=== PATIENT | female | born 1955 | race Caucasian/White ===

== ENCOUNTER → 2020-04-12 11:46 | Outpatient (BNVA) | payer OTHER, SELFPAY | PROVIDERS: PCP Internal Medicine; Visit Provider Internal Medicine | DX: J44.9 Chronic obstructive pulmonary disease, unspecified (principal); J96.91 Respiratory failure, unspecified with hypoxia; F17.200 Nicotine dependence, unspecified, uncomplicated | CPT/HCPCS: 99212 ==

== ENCOUNTER → 2020-07-11 13:25 | Outpatient (BNVA) | payer OTHER, MEDICAID, SELFPAY | PROVIDERS: Visit Provider Anesthesiology | DX: M47.812 Spondylosis without myelopathy or radiculopathy, cervical region (principal); M50.30 Other cervical disc degeneration, unspecified cervical region; M19.011 Primary osteoarthritis, right shoulder | CPT/HCPCS: 99202 ==

== ENCOUNTER 2020-07-19 08:05 | Outpatient (REF) | payer OTHER, MEDICAID, SELFPAY ==
--- NOTE | ~2020-07-19 | MR_ITS ---
EXAMINATION: MR CERVICAL SPINE WITHOUT CONTRAST CLINICAL INFORMATION: Neck pain. COMPARISON: MRI dated 08/17/2012. TECHNIQUE: MRI of the cervical spine was obtained using routine sequences without contrast. Slightly limited study with motion artifacts. FINDINGS: VERTEBRAL BODIES AND PARASPINAL SOFT TISSUES: There are new anterior subluxations at the C3-C4 and more so at the C4-C5 levels. Mixed chronic and mild edematous endplate changes evident at C4-C5 with significant disc space narrowing. There is a leftward curvature of the cervical spine. Qphgoaia-lk-owhytu loss of disc height has worsened at the C5-C6 level with a mild retrosubluxation. No compression fractures. The paraspinal soft tissues appear normal. The vertebral artery flow voids are maintained. The lung apices are clear. CERVICOMEDULLARY JUNCTION AND VISUALIZED POSTERIOR FOSSA: The craniovertebral junction and imaged portions of the brain parenchyma appear normal. No definite cord signal abnormality or syrinx is seen, despite motion artifacts. SPINAL LEVELS: C2-C3: Mild retrosubluxation and disc bulge with uncovertebral joint spurring. No central canal stenosis. Mild right foraminal narrowing. C3-C4: New anterior subluxation and unroofed disc bulge with uncovertebral joint spurring and worsened moderate hypertrophic facet arthropathy. Findings result in severe foraminal encroachment. No central canal stenosis. C4-C5: New anterior subluxation with a disc-osteophyte complex and sgbkeayy-ph-nofzuv facet arthropathy, worse on the right side. Findings result in severe foraminal encroachment and moderate central canal stenosis which has worsened. C5-C6: Significant loss of disc height with a broad-based disc-osteophyte complex and severe foraminal encroachment with mild central canal stenosis. C6-C7: Moderate loss of disc height and disc-osteophyte complex without central canal stenosis. Mild foraminal narrowing. C7-T1: No significant disc pathology. No central canal stenosis or foraminal narrowing. MR/MR cervical spine wo con IMPRESSION: 1. Progressed multilevel spondylosis, most significant at the C4-C5 level with a new anterolisthesis and mixed chronic/edematous endplate changes. Worsened disc-osteophyte complex and facet arthrosis resulting in moderate central canal stenosis and severe foraminal narrowing. 2. New anterolisthesis and degenerative disc bulge with progressed facet arthropathy at the C3-C4 level resulting in severe bilateral foraminal encroachment without central canal stenosis. 3. Worsened otwbvjah-nb-hebbwo degenerative disc disease at the C5-C6 level with severe foraminal narrowing and mild central canal stenosis.
== END 2020-07-19 08:06 | disposition home or self-care (01) ==
LOC: HO.MRI 08:05
PROVIDERS: Visit Provider Anesthesiology
DX: M54.2 Cervicalgia (principal); M47.812 Spondylosis without myelopathy or radiculopathy, cervical region
CPT/HCPCS: 72141

== ENCOUNTER 2020-08-10 11:16 | Outpatient (REF) | payer OTHER, MEDICAID, SELFPAY ==
--- NOTE | ~2020-08-10 | MM_ITS ---
EXAMINATION: MM SCREENING DIGITAL BREAST TOMOSYNTHESIS, BILATERAL CLINICAL INFORMATION: Screening. Asymptomatic. The lifetime risk of breast cancer based on the Tyrer-Cuzick Model is 5%. COMPARISON: Mammography: 05/03/2016, 04/23/2016 TECHNIQUE: Digital breast tomosynthesis is performed in both the craniocaudal and mediolateral oblique views along with computer-aided detection (CAD). Synthesized 2D images are generated from the tomosynthesis. FINDINGS: There are scattered areas of fibroglandular density (ACR BI-RADS breast composition Category b). Parenchymal pattern is similar to prior study. There is no interval mass or architectural abnormality or abnormal calcifications. There are benign grouped calcifications mid lower inner left breast, possibly degenerating fibroadenoma. Benign finding vascular calcifications 11:30 o'clock anterior left breast also noted. The axilla and skin contours are unremarkable. MM/MM tomosynthesis screening BI IMPRESSION: No mammographic evidence of malignancy. ASSESSMENT: BI-RADS 2: Benign RECOMMENDATION: Routine annual mammography screening. This patient's information was entered into a reminder system with a target due date for their next mammogram.
== END 2020-08-10 11:17 | disposition home or self-care (01) ==
LOC: HO.MAMMO 11:16
PROVIDERS: PCP Internal Medicine; Visit Provider Internal Medicine
DX: Z12.31 Encounter for screening mammogram for malignant neoplasm of breast (principal)
CPT/HCPCS: 77063; 77067

== ENCOUNTER → 2021-01-09 13:54 | Outpatient (BNVA) | payer OTHER, MEDICAID, SELFPAY | PROVIDERS: PCP Internal Medicine; Visit Provider Internal Medicine ==

== ENCOUNTER → 2021-03-21 11:18 | Outpatient (BNVA) | payer MEDICARE, MEDICAID, OTHER, SELFPAY | PROVIDERS: PCP Internal Medicine; Visit Provider Internal Medicine | DX: J44.9 Chronic obstructive pulmonary disease, unspecified (principal); J96.91 Respiratory failure, unspecified with hypoxia; F17.210 Nicotine dependence, cigarettes, uncomplicated | CPT/HCPCS: Q3014 ==

== ENCOUNTER 2021-05-03 08:54 | Outpatient (REF) | payer MEDICARE, MEDICAID, SELFPAY ==
--- NOTE | ~2021-05-03 | US_ITS ---
EXAMINATION: US ABDOMEN COMPLETE CLINICAL INFORMATION: Alcoholic cirrhosis of liver without ascites. COMPARISON: Ultrasound abdomen complete 06/10/2017 and 08/29/2016. TECHNIQUE: Real-time imaging of the abdominal viscera. Technically limited study secondary to body habitus. FINDINGS: PANCREAS: The head and body appear unremarkable without focal mass or peripancreatic inflammatory change. The tail is not visualized due to overlying bowel gas. ABDOMINAL AORTA: INFERIOR VENA CAVA: Visualized portions are normal. LIVER: There is increased echogenicity consistent with fatty infiltration or hepatocellular disease. There appears to be some irregular borders to the liver. No focal hepatic lesion. There is no intrahepatic biliary duct dilatation seen. GALLBLADDER: There is echogenic bile present as well as cholelithiasis. No gallbladder wall thickening is appreciated and no fluid within the gallbladder wall is seen. No pericholecystic fluid. There was no tenderness to palpation overlying the gallbladder. COMMON BILE DUCT: Prominent in caliber measuring 0.9 cm in diameter. RIGHT KIDNEY: Normal. No hydronephrosis. No renal calculi or focal parenchymal lesions. The kidney measures 10.7 cm in maximum dimension. LEFT KIDNEY: Normal. No hydronephrosis. No renal calculi or focal parenchymal lesions. The kidney measures 10.0 cm in maximum dimension. SPLEEN: Normal. The spleen measures 7.9 cm in maximum dimension. FREE FLUID: None. US/US abdomen complete IMPRESSION: Increased echogenicity of the liver which may be related to fatty infiltration/hepatocellular disease. Cholelithiasis without evidence of acute cholecystitis.
== END 2021-05-03 08:55 | disposition home or self-care (01) ==
LOC: HO.US 08:54
PROVIDERS: Visit Provider Internal Medicine
DX: R13.10 Dysphagia, unspecified (principal); K70.30 Alcoholic cirrhosis of liver without ascites
CPT/HCPCS: 76700

== ENCOUNTER 2021-05-16 08:23 | Outpatient (REF) | payer MEDICARE, MEDICAID, SELFPAY ==
[2021-05-16 09:33] LABS: Anion Gap 15 (12-20); Blood Urea Nitrogen 4 mg/dL (9-16); Calcium 8.9 mg/dL (8.4-10.2); Carbon Dioxide 28 mmol/L (22-29); Chloride 104 mmol/L (96-108); Cholesterol 199 mg/dL; Estimated Glomerular Filt Rate > 60; Glucose Fasting 115 mg/dL (60-99); HDL Cholesterol 72 mg/dL; LDL Cholesterol Calculated 107 mg/dl; Sodium 143 mmol/L (135-145); Triglycerides 102 mg/dL
[2021-05-16 10:29] LABS: Vitamin D 25-OH Total < 3.4 ng/mL (>30)
== END 2021-05-16 08:24 | disposition home or self-care (01) ==
LOC: HO.XRAY 08:23
PROVIDERS: Absent Provider Internal Medicine; PCP Internal Medicine; Visit Provider Internal Medicine
DX: Z00.01 Encounter for general adult medical examination with abnormal findings (principal); K21.9 Gastro-esophageal reflux disease without esophagitis; R13.10 Dysphagia, unspecified; Z78.0 Asymptomatic menopausal state
CPT/HCPCS: 36415; 80048; 80061; 82306

== ENCOUNTER 2021-06-19 08:08 | Outpatient (REF) | payer MEDICARE, MEDICAID, SELFPAY ==
--- NOTE | ~2021-06-19 | FL_ITS ---
EXAMINATION: BARIUM SWALLOW AND UPPER GI CLINICAL INFORMATION: Gastroesophageal reflux disease. Esophageal dysphagia. COMPARISON: None. TECHNIQUE: Upper GI and barium swallow performed using thin and thick barium and effervescent granules. Barium tablet was also administered. Fluoroscopy time: 1.3 minutes. DAP: 5.5 Gy-cm2. Images: 59 saved fluoroscopic images. FINDINGS: The swallowing mechanism is normal. No aspiration or penetration is seen. Esophageal motility is normal. The barium tablet temporarily got stuck at the GE junction. There is gastroesophageal reflux. No hernia is seen. The distal esophagus never fully distends and is difficult to exclude a mild stricture. The stomach and duodenum are normal-appearing. No fold thickening, mass, ulcer or stricture is seen. There is degenerative spondylosis of the cervical spine. There is mild anterior subluxation of C4 with respect to C5. FL/FL upper GI w air w Ba Swallow IMPRESSION: Gastroesophageal reflux. The barium tablet got stuck in this region. The distal esophagus never fully distends and it is difficult to exclude a mild stricture.
[2021-06-19 09:24] LABS: MANUAL DIFF FLAG NO
[2021-06-19 09:52] LABS: Basophils Absolute Auto 0.1 X10*3/uL (0.0-0.2); Basophils Percent Auto 1.4 % (0-2); Eosinophils Absolute Auto 0.1 X10*3/uL (0.0-0.4); Eosinophils Percent Auto 1.7 % (0-4); Hematocrit 43.1 % (37.0-47.0); Hemoglobin 13.2 g/dl (12.0-16.0); Imm Gran Abs Auto 0.02 X10*3/uL (0.00-0.03); Imm Gran Pct Auto 0.3 % (0.0-0.4); Lymphocytes Absolute Auto 1.2 X10*3/uL (1.2-4.9); Lymphocytes Percent Auto 20.3 % (20-40); Mean Corpuscular HGB Conc 30.6 g/dl (31.0-35.0); Mean Corpuscular Hemoglobin 28.4 pg (27.0-33.0); Mean Corpuscular Volume 92.7 fL (80.0-98.0); Monocytes Absolute Auto 0.5 X10*3/uL (0.1-1.2); Monocytes Percent Auto 9.1 % (2-11); Neutrophils Absolute Auto 3.9 x10*3/uL (2.0-8.3); Neutrophils Percent Auto 67.2 % (45-73); Red Blood Count 4.65 X10*6/uL (4.20-5.50); White Blood Count 5.8 X10*3/uL (4.8-10.8)
[2021-06-19 09:57] LABS: Prothrombin Time 11.7 SEC (9.9-13.0)
[2021-06-19 10:17] LABS: Alanine Aminotransferase 26 U/L (0-31); Albumin Level 3.9 g/dL (3.5-5.0); Alkaline Phosphatase 136 U/L (39-117); Aspartate Amino Transferase 52 U/L (5-31); Bilirubin Direct 0.3 mg/dL (0.0-0.5); Bilirubin Total 0.3 mg/dL (0.0-1.0); Total Protein 7.5 g/dL (6.5-8.0)
[2021-06-21 12:06] LABS: Alpha Fetoprotein 1.9 ng/mL
== END 2021-06-19 08:09 | disposition home or self-care (01) ==
LOC: HO.XRAY 08:08
PROVIDERS: PCP Internal Medicine; Visit Provider Internal Medicine
DX: K70.30 Alcoholic cirrhosis of liver without ascites (principal); K21.9 Gastro-esophageal reflux disease without esophagitis; R13.10 Dysphagia, unspecified
CPT/HCPCS: 36415; 74246; 80076; 82105; 85025; 85610

== ENCOUNTER → 2021-06-28 11:28 | Outpatient (BNVA) | payer MEDICARE, MEDICAID, SELFPAY | PROVIDERS: PCP Internal Medicine; Visit Provider Internal Medicine | DX: J44.9 Chronic obstructive pulmonary disease, unspecified (principal); J96.91 Respiratory failure, unspecified with hypoxia; J30.9 Allergic rhinitis, unspecified; F17.210 Nicotine dependence, cigarettes, uncomplicated | CPT/HCPCS: 99212 ==

== ENCOUNTER → 2021-06-30 11:18 | Outpatient (REF) | payer MEDICARE, MEDICAID, SELFPAY ==
--- NOTE | ~2021-06-30 | NM_ITS ---
EXAMINATION: NUCLEAR HEPATOBILIARY SCAN CLINICAL INFORMATION: Gallstones, epigastric pain COMPARISON: None TECHNIQUE: Following intravenous administration of 5 mCi of 99m Tc mebrofenin, imaging over right upper quadrant was obtained up to 60 minutes. Delayed 90 minute image was obtained following oral administration of water. FINDINGS: There is normal hepatic uptake without any focal defect. There is prompt visualization of CBD by 15 minutes. Gallbladder is visualized by 18 minutes. Small bowel is visualized by 90 minutes. NM/NM hepatobiliary wo pharm IMPRESSION: Patent cystic duct. Patent CBD. Normal hepatic uptake.
== END ==
LOC: HO.NUCMED 11:18
PROVIDERS: Visit Provider Internal Medicine
DX: R10.13 Epigastric pain (principal); K80.80 Other cholelithiasis without obstruction
CPT/HCPCS: 78226; A9537

== ENCOUNTER 2021-08-01 06:24 | Day surgery (SDC) | payer MEDICARE, MEDICAID, SELFPAY ==
[2021-07-27 10:34] VITALS: BMI 18.1
[2021-08-01 06:48] VITALS: BP 149/80; PULSE 94; RESP 18; TEMP 37; O2SAT 95
--- NOTE | 2021-08-01 07:16 | HO.ANESPROP2 ---
HPI - Anesthesia Eval Consult details Narrative: 66 yo female patient for EGD with balloon dilatation PMFSH Active Problems Active Problems: All Active Problems (Updated 07/27/21 @ 10:26 by Lorin Reilly RN) Allergic rhinitis (Acute) Vitamin D deficiency (Acute) Primary osteoarthritis, right shoulder (Acute) Arthropathy of cervical facet joint (Acute) Degeneration, intervertebral disc, cervical (Acute) Spondylosis of cervical joint without myelopathy (Acute) Cervicalgia (Acute) Epigastric pain (Acute) Chronic neck pain (Acute) Respiratory failure with hypoxia (Acute) Smoker (Acute). On home O2 3L. Last cigarette yesterday night 07/31/21 Surgical menopause (Acute) Bipolar disorder (Acute) Tubular adenoma of colon (Acute) Osteopenia (Acute) Alcoholic cirrhosis of liver (Acute) COPD (chronic obstructive pulmonary disease) (Acute) Cervicalgia (Acute) Osteoarthritis of multiple joints (Acute) On methadone. Took dose this am 08/01 Past Medical History Medical History (Updated 07/27/21 @ 10:26 by Lorin Reilly RN) Alcoholic cirrhosis of liver Allergic rhinitis Arthropathy of cervical facet joint Bipolar disorder Cervicalgia Cervicalgia Chronic neck pain COPD (chronic obstructive pulmonary disease) Degeneration, intervertebral disc, cervical Duodenal ulcer Epigastric pain Gastritis Hepatitis C Oral thrush Osteoarthritis of multiple joints Osteopenia Oxygen dependent Primary osteoarthritis, right shoulder Respiratory failure with hypoxia Smoker Spondylosis of cervical joint without myelopathy Substance abuse Surgical menopause Tubular adenoma of colon Vitamin D deficiency Family History Family History Father Alcoholism History of manic depressive disorder COPD (chronic obstructive pulmonary disease) Cancer Mother COPD (chronic obstructive pulmonary disease) Cardiac disease Smoker CHF (congestive heart failure) Alcoholism CVD (cardiovascular disease) Mental disorder Sister Lupus PTSD (post-traumatic stress disorder) Son Cardiac arrest Maternal Grandfather No problems noted. Maternal Grandmother No problems noted. Paternal Grandfather Alcoholism Mental disorder Paternal Grandmother No problems noted. Family history of problems with anesthesia: No Surgical History Surgical History (Updated 07/27/21 @ 10:25 by Lorin Reilly RN) Ankle fracture History of esophagogastroduodenoscopy (EGD) History of hysterectomy History of surgery Hx of colonoscopy History of Problems with Anesthesia: No Social History Social History Housing: Apartment Alcohol intake: never Patient Tobacco Use Status: Current everyday Tobacco user Tobacco use type: Cigarette Cigarettes Per Day: 4 e-Cigarette/Vaping Use: Never Used Advance Directives Information Provided: Yes (brochure mailed) Advance Directives on File: No Current occupational status: disabled Meds Allergies Allergy/AdvReac Type Severity Reaction Status Date / Time dextrose Allergy Severe anaphylaxis Verified 07/26/21 15:29 latex [LATEX] Allergy Severe HIVES Verified 06/28/21 11:48 psyllium [From Metamucil] Allergy Severe anaphylaxis Verified 07/26/21 15:29 clindamycin [CLINDAMYCIN] Allergy Intermediate RASH Verified 06/28/21 11:48 tramadol [From ULTRAM] Allergy Intermediate HIVES Verified 06/28/21 11:48 levofloxacin [From LEVAQUIN] AdvReac Intermediate TENDON Verified 07/26/21 15:29 PAIN, achilles tendonitis prednisone AdvReac Intermediate GI BLEED, Verified 07/26/21 15:29 high doses valacyclovir [From VALTREX] AdvReac Intermediate GI UPSET Verified 06/28/21 11:48 Home Medications Medication Instructions Recorded Confirmed Last Taken Type methadone 10 mg/mL oral concentrate 85 mg PO DAILY ml 01/03/21 08/01/21 08/01/21 History Exam Exam Date and Time: August 01, 2021 0716 Height,Weight and Vital Signs: Height 5 ft 5.5 in Weight 50.349 kg Last Vital Signs Temp 98.6 F 08/01/21 06:48 Pulse 94 08/01/21 06:48 Resp 18 08/01/21 06:48 BP 149/80 H 08/01/21 06:48 Pulse Ox 95 08/01/21 06:48 Airway Mallampati Class: II TM Dist: >3cm Neck ROM: Limited (Side to side) Loose/Missing/Broken Teeth: Yes (Edentulous) Heart: RRR Lungs: Diminished. Some wheezes. Assessment and Plan Assessment Anesthesia Assessment: Anesthesia Plan Discussed and Chart Reviewed Final Anesthetic Review Family History of Problems with Anesthesia: No History of Problems with Anesthesia: No NPO: Yes ASA Class: III Final Preanesthetic Review: No Changes in Pt Med Stat, Meds/Allgs Chart Reviewed, Consent Obtained/Reviewed and Anes Risks/Benef Reviewed Patient Risk: Intermediate Procedure Risk: Low Assessment/Block/Sedation in SS: Assess/Block/Sedation-SS Anesthetic Plan Anesthetic Plan: MAC: Disposition: Standard PACU
[2021-08-01] MEDS: Lactated Ringers 1,000 ML 100 ML IVCONT (07:20)
[2021-08-01 08:04] VITALS: BP 115/58; PULSE 86; RESP 16; TEMP 37.7; O2SAT 98
--- NOTE | 2021-08-01 08:11 | PM.OP ---
Brief Operative Note Date of Service: 08/01/21 Pre-op diagnosis: Dysphagia Post-op diagnosis: other (Hiatal hernia, Gastritis, R/O EoE) Procedure: EGD with Balloon dilation and biopsies Surgeon: Marquez Gomez Anesthesia: MAC Was an Computer Clerk used for this Procedure?: No Estimated blood loss (mL): 2.0 Pathology: other (A. Gastric antrum B. Esophagus at 25cm) Condition: stable Disposition: PACU
[2021-08-01 08:19] VITALS: PULSE 89; RESP 16; TEMP 37.3; O2SAT 95
[2021-08-01 08:34] VITALS: BP 132/68; PULSE 85; RESP 18; TEMP 37.1; O2SAT 95
--- NOTE | 2021-08-01 19:53 | OP_ITS ---
SURGEON: Marquez Gomez MD INDICATIONS: The patient presents for evaluation of dysphagia and weight loss. Full consent has been obtained from her for this, including risks of bleeding and perforation. PREOPERATIVE DIAGNOSIS: POSTOPERATIVE DIAGNOSIS: PROCEDURE PERFORMED: Esophagogastroduodenoscopy with balloon dilation of gastroesophageal junction and biopsies. ESTIMATED BLOOD LOSS: COMPLICATIONS: ANESTHESIA: Monitored anesthesia care. ASSISTANTS: SPECIMENS: PREOPERATIVE DIAGNOSES: Dysphagia and weight loss. POSTOPERATIVE DIAGNOSES: Dysphagia and weight loss, hiatal hernia, gastritis, rule out eosinophilic esophagitis. DESCRIPTION OF PROCEDURE: The patient was placed in the left lateral decubitus position. The Olympus video gastroscope was passed in the posterior oropharynx and upper esophagus under direct vision. The scope was passed slowly to the distal esophagus. The gastroesophageal junction appeared at 35 cm. There was no evidence of any esophagitis, Howell mucosa, esophageal stricture, nor esophageal ring. The scope easily entered into the stomach. There was a small hiatal hernia. The scope was advanced to pylorus and the duodenum was cannulated to the descending portion. The duodenum including the bulb was carefully inspected. There was deformity noted in the duodenal bulb which had been seen on previous endoscopies. There was no evidence of any ulceration. There was no stricture. The scope was withdrawn back into the stomach. The gastric antrum and body had some areas of erythema and some edema, but there were no erosions, ulceration, nor significant friability. There was good peristalsis. The scope was retroflexed visualizing the proximal stomach carefully, which appeared normal, without any sign of mass, ulceration, nor varices. I did not appreciate any significant gastropathy. The scope was straightened. The scope was withdrawn back into the esophagus. The esophageal mucosa appeared normal. Given her symptoms, I did use a [employer] incremental balloon to dilate the gastroesophageal junction from 18 mm to 19 mm to 20 mm at the recommended pressures for between 30 and 60 seconds each. Post dilation there was really no appreciable change noted nor any heme. The scope was readvanced back in the stomach and I obtained biopsies from the gastric antrum. The scope was withdrawn back into the esophagus. Again, the esophageal mucosa appeared normal and there were no proximal esophageal rings. Biopsies were obtained at 25 cm. The scope was withdrawn from the patient. She tolerated the procedure well and was returned to recovery area in stable condition. IMPRESSION: 1. Hiatal hernia. 2. Rule out gastritis. 3. Rule out eosinophilic esophagitis. 4. Status post balloon dilation of gastroesophageal junction. PLAN: The results of biopsies will be checked. She will continue her pantoprazole. She has been instructed to see me again later this year for a followup visit. If significant swallowing trouble persists, we could consider doing esophageal motility studies. MD ZUNILDA Pat/JOE / [id number] MTDCharmaine
== END 2021-08-01 09:05 | disposition home or self-care (01) ==
PROVIDERS: PCP Internal Medicine; Visit Provider Internal Medicine
PROC: (CPT 43249; principal; 2021-08-01 07:30)
DX: K29.50 Unspecified chronic gastritis without bleeding (principal); K20.80 Other esophagitis without bleeding; K21.9 Gastro-esophageal reflux disease without esophagitis; K44.9 Diaphragmatic hernia without obstruction or gangrene; R63.4 Abnormal weight loss; K70.30 Alcoholic cirrhosis of liver without ascites; B19.20 Unspecified viral hepatitis C without hepatic coma; K80.20 Calculus of gallbladder without cholecystitis without obstruction; J44.9 Chronic obstructive pulmonary disease, unspecified; G47.36 Sleep related hypoventilation in conditions classified elsewhere; Z99.81 Dependence on supplemental oxygen; I10 Essential (primary) hypertension; Z79.899 Other long term (current) drug therapy; Z79.51 Long term (current) use of inhaled steroids; F11.20 Opioid dependence, uncomplicated; F17.210 Nicotine dependence, cigarettes, uncomplicated; Z91.040 Latex allergy status; Z88.1 Allergy status to other antibiotic agents; Z88.8 Allergy status to other drugs, medicaments and biological substances
CPT/HCPCS: 43249; 43239; 88305; 88342; C1726

== ENCOUNTER → 2021-12-20 14:58 | Outpatient (BNVA) | payer OTHER, MEDICAID, SELFPAY | PROVIDERS: PCP Internal Medicine; Visit Provider Internal Medicine | DX: J44.9 Chronic obstructive pulmonary disease, unspecified (principal); J96.91 Respiratory failure, unspecified with hypoxia; F17.210 Nicotine dependence, cigarettes, uncomplicated; Z99.81 Dependence on supplemental oxygen | CPT/HCPCS: 99212 ==

== ENCOUNTER 2022-02-26 10:43 | Outpatient (REF) | payer OTHER, MEDICAID, SELFPAY ==
[2022-02-26 14:32] LABS: Vitamin D 25-OH Total > 154.2 ng/mL (>30)
== END 2022-02-26 10:44 | disposition home or self-care (01) ==
LOC: HO.HMGCLDS 10:43
PROVIDERS: PCP Internal Medicine; Visit Provider Internal Medicine
DX: M85.80 Other specified disorders of bone density and structure, unspecified site (principal); E55.9 Vitamin D deficiency, unspecified
CPT/HCPCS: 36415; 82306

== ENCOUNTER 2022-06-15 10:38 | Outpatient (REF) | payer OTHER, MEDICAID, SELFPAY ==
--- NOTE | ~2022-06-15 | MM_ITS ---
EXAMINATION: MM SCREENING DIGITAL BREAST TOMOSYNTHESIS, BILATERAL CLINICAL INFORMATION: Screening. Asymptomatic. The lifetime risk of breast cancer based on the Tyrer-Cuzick Model is 3%. COMPARISON: Mammography: 08/10/2020, 06/06/2017, 05/03/2016, 04/23/2016 TECHNIQUE: Digital breast tomosynthesis is performed in both the craniocaudal and mediolateral oblique views along with computer-aided detection (CAD). Synthesized 2D images are generated from the tomosynthesis. FINDINGS: There are scattered areas of fibroglandular density (ACR BI-RADS breast composition Category b). There are no significant masses, abnormal calcifications, or other abnormalities. Parenchymal pattern is similar to prior studies. There is no developing density or architectural abnormality. Again, there are benign grouped coarse calcifications lower inner left breast consistent with degenerating fibroadenoma. There are some incidental bilateral vascular calcifications. The axilla and skin contours are unremarkable. No significant changes. MM/MM tomosynthesis screening BI IMPRESSION: No mammographic evidence of malignancy. ASSESSMENT: BI-RADS 2: Benign RECOMMENDATION: Routine annual mammography screening. This patient's information was entered into a reminder system with a target due date for their next mammogram.
== END 2022-06-15 10:39 | disposition home or self-care (01) ==
LOC: HO.MAMMO 10:38
PROVIDERS: PCP Internal Medicine; Visit Provider Internal Medicine
DX: Z12.31 Encounter for screening mammogram for malignant neoplasm of breast (principal)
CPT/HCPCS: 77063; 77067

== ENCOUNTER → 2022-06-21 10:09 | Outpatient (BNVA) | payer OTHER, MEDICAID, SELFPAY | PROVIDERS: PCP Internal Medicine; Visit Provider Internal Medicine | DX: J44.9 Chronic obstructive pulmonary disease, unspecified (principal); J96.91 Respiratory failure, unspecified with hypoxia; J30.9 Allergic rhinitis, unspecified; R07.89 Other chest pain; F17.210 Nicotine dependence, cigarettes, uncomplicated | CPT/HCPCS: 99212 ==

== ENCOUNTER 2022-12-24 10:51 | Outpatient (AMB) | payer OTHER, MEDICAID, SELFPAY ==
--- NOTE | 2022-12-24 11:00 | A.OFFVIS_ITS ---
Intake Vital Signs 12/24/22 11:05 Height 5 ft 6 in Weight 112 lb BMI 18.1 BP 92/50 L Blood Pressure Location Lt brachial Position Sitting Pulse 75 Pulse Source Pulse Oximeter Pulse Oximetry (%) 96 Oxygen Delivery Method Nasal Cannula Oxygen Flow Rate 2 Intake Visit Reasons: COPD Intake Note: pt is here for follow up and states she has been in [facility] for the past 7-10 days for broken heart syndrome, and states her breathing is okay, but she is in a lot of pain. Jack Spinner Required: No Allergies dextrose Allergy (Severe, Verified 12/24/22 11:27) anaphylaxis latex [LATEX] Allergy (Severe, Verified 12/24/22 11:27) HIVES psyllium [From Metamucil] Allergy (Severe, Verified 12/24/22 11:27) anaphylaxis clindamycin [CLINDAMYCIN] Allergy (Intermediate, Verified 12/24/22 11:27) RASH tramadol [From ULTRAM] Allergy (Intermediate, Verified 12/24/22 11:27) HIVES levofloxacin [From LEVAQUIN] Adverse Reaction (Intermediate, Verified 12/24/22 11:27) TENDON PAIN, achilles tendonitis prednisone Adverse Reaction (Intermediate, Verified 12/24/22 11:27) GI BLEED, high doses valacyclovir [From VALTREX] Adverse Reaction (Intermediate, Verified 12/24/22 11:27) GI UPSET Medication List - Last Reconciled 12/24/22 by Manuel Covarrubias MD albuterol sulfate 90 mcg/actuation 2 puffs PO Q4-6H PRN docusate sodium 100 mg PO BID PRN Flovent HFA 220 mcg/actuation (fluticasone propionate) 1 puff PO BID NS furosemide 40 mg PO QAM PRN hydroxyzine HCl 10 mg PO .qd PRN ipratropium bromide 2 sprays intranasal BID-TID PRN loratadine 10 mg PO DAILY meclizine 12.5 mg PO TID PRN methadone 105 mg PO DAILY ondansetron HCl 4 mg PO BID PRN pantoprazole 40 mg PO BID ramelteon 8 mg PO BEDTIME PRN Stiolto Respimat 2.5-2.5 mcg/actuation (tiotropium-olodaterol) 2 puffs PO DAILY NS tizanidine 4 mg PO Q8H PRN Do you need a note to return to daycare/school/sports/work: No HPI COPD HPI Details Lis is 67 years old female chronically sick and frail looking, She is being treated for chronic obstructive pulmonary disease, chronic respiratory failure requiring oxygen. Past history of opioid abuse and currently on methadone 105 mg daily. Recently admitted at [facility] with, acute coronary syndrome, and respiratory failure. She tells me that she was intubated for 24 hours and treated with vent support, luckily she was extubated quickly. She had cardiac catheterization and was told that the coronary arteries were OK. 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 At home unfortunately she is still smoking about 3-4 cigarettes a day. She claims that her breathing is okay but she gets short of breath and weak on walking. Sleeps. well with her oxygen on Remains weak and tired. Main demand today is for pain meds , which I had to explain to her that I do not prescribe any pain meds. 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 Cervicalgia Epigastric pain Chronic neck pain Respiratory failure with hypoxia Smoker Surgical menopause Duodenal ulcer Bipolar disorder Gastritis Tubular adenoma of colon Substance abuse Osteopenia Alcoholic cirrhosis of liver Hepatitis C COPD (chronic obstructive pulmonary disease) Cervicalgia Osteoarthritis of multiple joints Oral thrush Surgical History Hx of colonoscopy History of surgery History of esophagogastroduodenoscopy (EGD) History of hysterectomy Ankle fracture Family History Father Alcoholism History of manic depressive disorder COPD (chronic obstructive pulmonary disease) Cancer Mother COPD (chronic obstructive pulmonary disease) Cardiac disease Smoker CHF (congestive heart failure) Alcoholism CVD (cardiovascular disease) Mental disorder Sister Lupus PTSD (post-traumatic stress disorder) Son Cardiac arrest Maternal Grandfather No problems noted. Maternal Grandmother No problems noted. Paternal Grandfather Alcoholism Mental disorder Paternal Grandmother No problems noted. Social History Housing: Apartment Alcohol intake: never Patient Tobacco Use Status: Current everyday Tobacco user Tobacco use type: Cigarette Cigarettes Per Day: 4 e-Cigarette/Vaping Use: Never Used Current occupational status: disabled Cognitive needs: No Hearing needs: No Vision needs: No Review of Systems Const All systems reviewed & are unremarkable except as noted in HPI and below ENT Reports no additional complaints Card Denies chest pain, Denies irregular heart rhythm and Denies leg edema Resp Reports as per HPI GI Reports no additional complaints Reports no additional complaints Musc Reports back pain Skin/Breast Reports system reviewed and no additional complaints, except as documented Neuro Reports no additional complaints Psych Reports no additional complaints Physical Exam Const Other: She is of a thin build, looking fairly healthy and stable at this time. General: comfortable, no acute distress, alert and awake Orientation/consciousness: patient oriented x3 HEENT Head: Yes normal to inspection Ears: hearing grossly normal bilaterally General nose exam: No nasal polyps present and No nasal discharge present Face and sinus: Yes sinuses nontender Mouth: oropharynx normal Throat: Yes posterior oropharynx normal Eyes General: appearance normal, both eyes and all related structures Neck Neck: Yes normal visual inspection, Yes no lymphadenopathy, Yes trachea midline and Yes no JVD Thyroid: Thyroid normal Chest Chest palpation & inspection: normal inspection of the chest, normal palpation of entire chest wall and no tenderness Resp Other: Percussion note hyper-resonant, breath sounds are distant with prolonged expiratory phase. But no wheezes rhonchi or crepitations are heard. Cardio Palpation: normal PMI Rate: regular rate Rhythm: regular rhythm Heart sounds: no gallops and no murmurs GI Palpation (GI): Soft to palpation, nontender, No hepatosplenomegaly present and no masses Auscultation: normal bowel sounds Back/Spine/Pelvis Thoracic/Lumbar Spine: thoracic and lumbar spine normal to inspection Pelvis: no pain with anterior-posterior compression Skin General skin exam: no rashes or lesions noted Neuro General: patient oriented x3 and no focal motor deficits Cranial nerves: Yes CN's II-XII intact bilaterally Extrem General: Yes normal to inspection, Yes no clubbing, cyanosis or edema and Yes no calf tenderness Psych Speech and movement: Normal speech and movement present Assessment & Plan Assessment & Plan (1) COPD (chronic obstructive pulmonary disease): Comment: SHE HAS RATHER SEVERE/ADVANCED CHRONIC OBSTRUCTIVE PULMONARY DISEASE. UNFORTUNATELY SHE STILL CONTINUES TO SMOKE. PFT 03/2020 -(SEVERE OBSTRUCTIVE AIRWAY DISORDER ) DOING WELL AND STABLE ON HER CURRENT REGIMEN, AND IS ADVISED TO CONTINUE the same . FLOVENT-TO 220 2 PUFFS B.I.D. STIOLTO 2 PUFFS DAILY ALBUTEROL HFA 2 PUFFS Q 6 HOURS ONLY P.R.N.. Code(s): J44.9 - Chronic obstructive pulmonary disease, unspecified (2) Smoker: Comment: STILL SMOKES ABOUT 4-5 CIGARETTES A DAY, COUNSELED TO QUIT SMOKING COMPLETELY. PATIENT IS FULLY AWARE OF THE RISKS OF CONTINUED SMOKING. Code(s): F17.200 - Nicotine dependence, unspecified, uncomplicated (3) Respiratory failure with hypoxia: Comment: PATIENT HAS NOCTURNAL HYPOXEMIA WELL HYPOXEMIA ON EXERTION. SHE HAS A STATIONARY O2 CONCENTRATOR AT HOME WELL PORTABLE UNIT. ADVISED TO CONTINUE USING O2 2-3 L/MINUTE AT NIGHT AND P.R.N. DURING THE DAYTIME. SHE DOES HAVE LIGHTWEIGHT PORTABLE CYLINDER . Code(s): J96.91 - Respiratory failure, unspecified with hypoxia Coding Level of Care Code Est Pt Level 4 (83635) Diagnoses COPD (chronic obstructive pulmonary disease) J44.9 Smoker F17.200 Respiratory failure with hypoxia J96.91
[2022-12-24 11:05] VITALS: BP 92/50; PULSE 75; O2SAT 96; BMI 18.1
== END 2022-12-24 11:26 | disposition home or self-care (01) ==
PROVIDERS: PCP Internal Medicine; Visit Provider Internal Medicine
DX: J44.9 Chronic obstructive pulmonary disease, unspecified (principal); F17.200 Nicotine dependence, unspecified, uncomplicated; J96.91 Respiratory failure, unspecified with hypoxia
CPT/HCPCS: 99214

== ENCOUNTER → 2022-12-24 10:51 | Outpatient (BNVA) | payer OTHER, MEDICAID, SELFPAY | PROVIDERS: Visit Provider Internal Medicine | DX: J44.9 Chronic obstructive pulmonary disease, unspecified (principal); J96.91 Respiratory failure, unspecified with hypoxia; F17.210 Nicotine dependence, cigarettes, uncomplicated | CPT/HCPCS: 99212 ==

== ENCOUNTER 2023-02-08 12:45 | Outpatient (AMB) | payer OTHER, MEDICAID, SELFPAY ==
[2023-02-08 13:26] VITALS: BP 160/90; PULSE 105; TEMP 36.8; O2SAT 99; BMI 18.2
--- NOTE | 2023-02-08 13:26 | MHC.OFFWIV ---
Intake Vital Signs 02/08/23 13:26 Height 5 ft 6 in Weight 112 lb 8 oz BMI 18.2 BP 160/90 H Blood Pressure Location Lt brachial Position Sitting Pulse 105 H Pulse Source Pulse Oximeter Temp 98.2 F Temp Source Temporal Artery Scan Pulse Oximetry (%) 99 Oxygen Delivery Method Nasal Cannula Intake Visit Reasons: EP Both legs/pain Intake Note: pt is here pain and swelling with redness in both her legs that she has had for over a month since she got out of [facility] Patient Tobacco Use Status: Current everyday Tobacco user Allergies dextrose Allergy (Severe, Verified 02/08/23 13:30) anaphylaxis latex [LATEX] Allergy (Severe, Verified 02/08/23 13:30) HIVES psyllium [From Metamucil] Allergy (Severe, Verified 02/08/23 13:30) anaphylaxis clindamycin [CLINDAMYCIN] Allergy (Intermediate, Verified 02/08/23 13:30) RASH tramadol [From ULTRAM] Allergy (Intermediate, Verified 02/08/23 13:30) HIVES levofloxacin [From LEVAQUIN] Adverse Reaction (Intermediate, Verified 02/08/23 13:30) TENDON PAIN, achilles tendonitis prednisone Adverse Reaction (Intermediate, Verified 02/08/23 13:30) GI BLEED, high doses valacyclovir [From VALTREX] Adverse Reaction (Intermediate, Verified 02/08/23 13:30) GI UPSET HPI HPI Comments History of Present Illness Details This is a 67-year-old female with a convoluted medical history. Patient is oxygen dependent and was recently hospitalized. Patient reports that over the past 3 days swelling in her left leg has increased compared to her right leg. She reports an increase in pain, difficult to walk. Patient is not on blood thinners at this time. Symptoms or worsening. Patient is currently on Lasix. The patient's left lower extremity has notable edema when compared to the right. Patient notes significant pain on the left lower limb, specifically over the calf area. Patient's left calf is warm to the touch. Pedal pulses present bilaterally. Patient does not have tingling or numbness. Patient likely has DVT of the left lower extremity. Patient has various health problems and needs to be thoroughly evaluated before being started on a blood thinner. Will call [facility]. [facility] Medical History Constipation due to opioid therapy Positional lightheadedness Chest wall pain Oxygen dependent Allergic rhinitis Vitamin D deficiency Primary osteoarthritis, right shoulder Arthropathy of cervical facet joint Degeneration, intervertebral disc, cervical Spondylosis of cervical joint without myelopathy Cervicalgia Epigastric pain Chronic neck pain Respiratory failure with hypoxia Smoker Surgical menopause Duodenal ulcer Bipolar disorder Gastritis Tubular adenoma of colon Substance abuse Osteopenia Alcoholic cirrhosis of liver Hepatitis C COPD (chronic obstructive pulmonary disease) Cervicalgia Osteoarthritis of multiple joints Oral thrush Surgical History Hx of colonoscopy History of surgery History of esophagogastroduodenoscopy (EGD) History of hysterectomy Ankle fracture Family History Father Alcoholism History of manic depressive disorder COPD (chronic obstructive pulmonary disease) Cancer Mother COPD (chronic obstructive pulmonary disease) Cardiac disease Smoker CHF (congestive heart failure) Alcoholism CVD (cardiovascular disease) Mental disorder Sister Lupus PTSD (post-traumatic stress disorder) Son Cardiac arrest Maternal Grandfather No problems noted. Maternal Grandmother No problems noted. Paternal Grandfather Alcoholism Mental disorder Paternal Grandmother No problems noted. Social History Housing: Apartment Alcohol intake: never Patient Tobacco Use Status: Current everyday Tobacco user Tobacco use type: Cigarette Cigarettes Per Day: 4 e-Cigarette/Vaping Use: Never Used Current occupational status: disabled Cognitive needs: No Hearing needs: No Vision needs: No Physical Exam Vital Signs: Last Vital Signs Temp 98.2 F 02/08/23 13:26 Pulse 105 H 02/08/23 13:26 BP 160/90 H 02/08/23 13:26 Pulse Ox 99 02/08/23 13:26 Oxygen Delivery Method Nasal Cannula 02/08/23 13:26 BMI result Body Mass Index 18.2 Coding Level of Care Code Est Pt Level 3 (81738) Time Spent (min) 15
== END 2023-02-08 15:07 | disposition home or self-care (01) ==
PROVIDERS: PCP Internal Medicine; Visit Provider Nurse Practitioner Primary Care
DX: M79.662 Pain in left lower leg (principal); R22.42 Localized swelling, mass and lump, left lower limb
CPT/HCPCS: 99213

== ENCOUNTER 2023-02-08 21:28 | Emergency (ER) | payer OTHER, MEDICAID, SELFPAY ==
--- NOTE | ~2023-02-08 | US_ITS ---
EXAMINATION: US VENOUS ULTRASOUND WITH DOPPLER LOWER EXTREMITY, LEFT CLINICAL INFORMATION: Left leg swelling. COMPARISON: None available. TECHNIQUE: Ultrasound of the deep veins is performed from the hip to the calf with compression sonography and color and pulse Doppler assessment. Spectral analysis with color-flow imaging is performed. FINDINGS: There is normal venous compression and respiratory variation and augmented flow. The visualized common femoral vein, superficial femoral vein, profunda femoral vein, popliteal vein, and the trifurcation region shows no evidence of deep venous thrombosis. There is no significant popliteal fossa cyst. If the patient's symptoms persist, followup ultrasound in 5 days 7 days might be of value to exclude proximal propagation from a non-visualized calf vein. US/US venous duplex LE IMPRESSION: No DVT demonstrated in the left lower extremity.
--- NOTE | ~2023-02-08 | XR_ITS ---
EXAMINATION: XR ANKLE, RIGHT CLINICAL INFORMATION: Pain. COMPARISON: Right ankle February 19, 2018 TECHNIQUE: 3 views of the right ankle. FINDINGS: No acute osseous abnormality. No fracture or dislocation. Corticated osseous density inferior to the tip of the medial malleolus is chronic unchanged 2017. Ankle mortise is congruent. XR/XR ankle RT 2V IMPRESSION: No acute osseous abnormality of the right ankle.
[2023-02-08 21:52] VITALS: BP 131/60; PULSE 90; RESP 18; TEMP 36.6; O2SAT 90; BMI 17.5
--- NOTE | 2023-02-08 22:02 | ED.GENADULT ---
HPI - General Adult General Chief complaint: General Medical Stated complaint: ? blood clot in L leg Time Seen by Provider: 02/08/23 22:02 Source: patient Mode of arrival: ambulatory Limitations: no limitations History of Present Illness HPI narrative: Patient is smoker on home oxygen comes here with bilateral leg edema more on the right side than the left with increased pain patient was admitted to [facility] 3 weeks ago for broken heart syndrome used to take Lasix 40 mg daily which was stopped during the last admission and she is not taking that since then noticed increased swelling of the legs getting gradually worse especially more on the right than the left with increased pain denies any significant shortness of breath no fever no chills patient apparently tripped 3 weeks ago and complaining of left ankle pain since no significant change in the cough no chest pain or palpitation Related Data Home Medications Medication Instructions Recorded Confirmed ondansetron HCl 4 mg tablet 4 mg PO BID PRN for nausea 06/21/22 pantoprazole 40 mg tablet,delayed 40 mg PO BID 06/21/22 release methadone 10 mg/mL oral concentrate 105 mg PO DAILY 10/08/22 10/08/22 nicotine 7 mg/24 hr daily 1 patch topical DAILY 02/08/23 transdermal patch Previous Rx's Medication Instructions Recorded loratadine 10 mg tablet 10 mg PO DAILY #30 tabs 06/11/22 ramelteon 8 mg tablet 8 mg PO BEDTIME PRN for insomnia 08/08/22 #30 tabs docusate sodium 100 mg capsule 100 mg PO BID PRN constipation 10/08/22 #180 caps ipratropium bromide 21 mcg (0.03 2 spray intranasal BID-TID PRN for 10/08/22 %) nasal spray allergies #30 mL Flovent HFA 220 mcg/actuation 1 puff PO BID #12 grams 11/27/22 aerosol inhaler (fluticasone propionate) albuterol sulfate 90 mcg/actuation 2 puff PO Q4-6H PRN for wheezing 12/25/22 aerosol inhaler #1 ea hydroxyzine HCl 10 mg tablet 10 mg PO .qd PRN acute anxiety 01/24/23 attack #90 tabs tizanidine 4 mg tablet 4 mg PO Q8H PRN for muscle spasm 01/24/23 #90 tabs Stiolto Respimat 2.5 mcg-2.5 2 puff PO DAILY #4 grams 02/04/23 mcg/actuation solution for inhalation (tiotropium-olodaterol) cephalexin 500 mg capsule 500 mg PO QID 10 days #40 caps 02/09/23 doxycycline hyclate 100 mg tablet 100 mg PO BID #20 tabs 02/09/23 furosemide 20 mg tablet (Lasix) 20 mg PO QAM #30 tabs 02/09/23 oxycodone 5 mg tablet 5 mg PO Q6H PRN pain #20 tabs 02/09/23 Allergies Allergy/AdvReac Type Severity Reaction Status Date / Time dextrose Allergy Severe anaphylaxis Verified 02/08/23 13:30 latex [LATEX] Allergy Severe HIVES Verified 02/08/23 13:30 psyllium [From Metamucil] Allergy Severe anaphylaxis Verified 02/08/23 13:30 clindamycin [CLINDAMYCIN] Allergy Intermediate RASH Verified 02/08/23 13:30 tramadol [From ULTRAM] Allergy Intermediate HIVES Verified 02/08/23 13:30 levofloxacin [From LEVAQUIN] AdvReac Intermediate TENDON Verified 02/08/23 13:30 PAIN, achilles tendonitis prednisone AdvReac Intermediate GI BLEED, Verified 02/08/23 13:30 high doses valacyclovir [From VALTREX] AdvReac Intermediate GI UPSET Verified 02/08/23 13:30 Review of Systems Review of Systems: Yes all other systems are reviewed and are negative PMFSH Past Medical History Medical History Constipation due to opioid therapy Positional lightheadedness Chest wall pain Oxygen dependent Allergic rhinitis Vitamin D deficiency Primary osteoarthritis, right shoulder Arthropathy of cervical facet joint Degeneration, intervertebral disc, cervical Spondylosis of cervical joint without myelopathy Cervicalgia Epigastric pain Chronic neck pain Respiratory failure with hypoxia Smoker Surgical menopause Duodenal ulcer Bipolar disorder Gastritis Tubular adenoma of colon Substance abuse Osteopenia Alcoholic cirrhosis of liver Hepatitis C COPD (chronic obstructive pulmonary disease) Cervicalgia Osteoarthritis of multiple joints Oral thrush Surgical History Hx of colonoscopy History of surgery History of esophagogastroduodenoscopy (EGD) History of hysterectomy Ankle fracture Family History Family History Father Alcoholism History of manic depressive disorder COPD (chronic obstructive pulmonary disease) Cancer Mother COPD (chronic obstructive pulmonary disease) Cardiac disease Smoker CHF (congestive heart failure) Alcoholism CVD (cardiovascular disease) Mental disorder Sister Lupus PTSD (post-traumatic stress disorder) Son Cardiac arrest Maternal Grandfather No problems noted. Maternal Grandmother No problems noted. Paternal Grandfather Alcoholism Mental disorder Paternal Grandmother No problems noted. Social History Social History Housing: Apartment Alcohol intake: current Alcohol intake frequency: 0-2 drinks per day Alcohol type: beer Patient Tobacco Use Status: Current everyday Tobacco user Tobacco use type: Cigarette Cigarettes Per Day: 4 Smoked in Last 30 Days: Yes e-Cigarette/Vaping Use: Never Used Use of substances other than those prescribed or required for medical reasons: No Advance Directives: No Advance Directives Information Provided: Yes Current occupational status: disabled Cognitive needs: No Hearing needs: No Vision needs: No Physical Exam ED Vital Signs: Vital Signs - 24 hr 02/08/23 21:52 02/09/23 00:44 Temperature 97.9 F Pulse Rate 90 80 Respiratory Rate 18 16 Blood Pressure 131/60 139/57 L Pulse Oximetry 90 L 96 Oxygen Delivery Method Nasal Cannula Room Air BMI result Body Mass Index 17.5 Appearance: Alert. Oriented X3. No acute distress. Eyes: No pallor or icterus ENT: Pharynx normal. Oral Mucosa moist Neck: Normal inspection. Neck supple. CVS: Normal heart rate and rhythm. Pulses normal. Respiratory: No respiratory distress. Equal air entry bilateral, no wheezing/rales/rhonchi Abdomen: Soft and nontender. Bowel sounds are present, no mass palpable, no CVA tenderness Skin: Skin warm and dry. Normal skin color. Normal skin turgor. Extremities: 2+ lower extremity edema with diffuse erythema no open wound Right lower calf tenderness left ankle diffuse pain Neuro: Oriented X 3. Medications Administered Discontinued Medications Generic Name Dose Route Start Last Admin Trade Name Freq PRN Reason Stop Dose Admin Cephalexin HCl 500 mg 02/09/23 01:10 02/09/23 02:05 Cephalexin 500 Mg Capsule PO 02/09/23 01:11 500 mg ONCE ONE Administration Doxycycline Monohydrate 100 mg 02/09/23 01:10 02/09/23 02:05 Doxycycline Monohydrate 100 Mg Capsule PO 02/09/23 01:11 100 mg ONCE ONE Administration Medical Decision Making Medical Decision Making [facility] Narrative: Patient with dependent leg edema Doppler negative for DVT x-ray of ankle is negative for fracture discharge patient home on diuretics and doxycycline and Keflex for cellulitis Differential Diagnosis Differential Diagnoses: The differential diagnosis associated with the presentation includes DVT/cellulitis/dependent leg edema/CHF Admission/Observation Consideration of admission/observation: Escalation of care including admission/observation considered Lab Data [facility] Lab Attestation statement: I reviewed the patient's lab results. 02/08/23 22:39 02/08/23 22:40 Labs: Lab Results 02/08/23 02/08/23 Range/Units 22:39 22:40 WBC 4.3 L (4.8-10.8) X10*3/uL RBC 4.15 L (4.20-5.50) X10*6/uL Hgb 11.8 L (12.0-16.0) g/dl Hct 36.6 L (37.0-47.0) % MCV 88.2 (80.0-98.0) fL MCH 28.4 (27.0-33.0) pg MCHC 32.2 (31.0-35.0) g/dl RDW 13.7 (11.0-16.0) % Plt Count (160-400) X10*3/uL MPV 13.9 H (9.4-12.3) fL Immature Gran % (Auto) 0.5 H (0.0-0.4) % Neut % (Auto) 52.7 (45-73) % Lymph % (Auto) 32.9 (20-40) % [place] % (Auto) 10.4 (2-11) % Eos % (Auto) 1.9 (0-4) % Baso % (Auto) 1.6 (0-2) % Lymph # (Auto) 1.4 (1.2-4.9) X10*3/uL [place] # (Auto) 0.4 (0.1-1.2) X10*3/uL Eos # (Auto) 0.1 (0.0-0.4) X10*3/uL Baso # (Auto) 0.1 (0.0-0.2) X10*3/uL Abs Immat Gran (auto) 0.02 (0.00-0.03) X10*3/uL Absolute Neuts (auto) 2.2 (2.0-8.3) x10*3/uL Absolute Nucleated RBC 0.000 (0.0-0.012) X10*3/uL Nucleated RBC % (auto) 0.0 (0.0-0.2) /100WBC Smear Tech's Comments VERIFIED D-Dimer High Sensitivty 259 NG/ML Sodium 143 (135-145) mmol/L Potassium 3.3 (3.3-5.1) mmol/L Chloride 103 (96-108) mmol/L Carbon Dioxide 29 (22-29) mmol/L Anion Gap 14 (12-20) BUN 7 L (9-16) mg/dL Creatinine 0.82 (0.5-1.4) mg/dL Estim Creat Clear Calc 54.1 Estimated GFR > 60 Random Glucose 76 (60-115) mg/dL Calcium 8.9 (8.4-10.2) mg/dL Total Bilirubin 0.2 (0.0-1.0) mg/dL AST 25 (5-31) U/L ALT 7 (0-31) U/L Alkaline Phosphatase 94 (39-117) U/L B-Natriuretic Peptide 25 (<100) pg/mL Total Protein 7.6 (6.5-8.0) g/dL Albumin 3.8 (3.5-5.0) g/dL Independent Interpretation I performed an independent interpretation of an: Plain X-Ray and Ultrasound Radiology Impression Discussion of test interpretation with radiology: I have reviewed the radiologist's reading. Discharge Plan Discharge Clinical Impression: Dependent edema, Cellulitis Patient Disposition: Home, Self-Care Instructions: Cellulitis (ED), Leg Edema (ED) Additional Instructions: Keep your legs elevated Take antibiotic as prescribed Pain medicine as prescribed Water pill as advised Follow with PCP Prescriptions: New cephalexin 500 mg capsule 500 mg PO QID 10 Days Qty: 40 0RF doxycycline hyclate 100 mg tablet 100 mg PO BID Qty: 20 0RF furosemide [Lasix] 20 mg tablet 20 mg PO QAM Qty: 30 0RF oxycodone 5 mg tablet 5 mg PO Q6H PRN (Reason: pain) Qty: 20 0RF Rx Instructions: Partial Fill upon patient request. No Action loratadine 10 mg tablet 10 mg PO DAILY Qty: 30 5RF ramelteon 8 mg tablet 8 mg PO BEDTIME PRN (Reason: for insomnia) Qty: 30 5RF fluticasone propionate [Flovent HFA] 220 mcg/actuation HFA aerosol inhaler 1 puff PO BID Qty: 12 0RF albuterol sulfate 90 mcg/actuation HFA aerosol inhaler 2 puff PO Q4-6H PRN (Reason: for wheezing) Qty: 1 0RF hydroxyzine HCl 10 mg tablet 10 mg PO .qd PRN (Reason: acute anxiety attack) Qty: 90 0RF tizanidine 4 mg tablet 4 mg PO Q8H PRN (Reason: for muscle spasm) Qty: 90 0RF Rx Instructions: temporary increase Stiolto Respimat 2.5-2.5 mcg/actuation mist 2 puff PO DAILY Qty: 4 0RF methadone 10 mg/mL concentrate 105 mg PO DAILY docusate sodium 100 mg capsule 100 mg PO BID PRN (Reason: constipation) Qty: 180 1RF ipratropium bromide 21 mcg (0.03 %) spray,non-aerosol 2 spray intranasal BID-TID PRN (Reason: for allergies) Qty: 30 2RF nicotine 7 mg/24 hr patch 24 hour 1 patch topical DAILY ondansetron HCl 4 mg tablet 4 mg PO BID PRN (Reason: for nausea) pantoprazole 40 mg tablet,delayed release (DR/EC) 40 mg PO BID Interventions: ED Discharge Assessment Last Done: 02/09/23 02:09 Discharge Date/Time: 02/09/23 02:10
[2023-02-08 23:03] LABS: Alanine Aminotransferase 7 U/L (0-31); Albumin Level 3.8 g/dL (3.5-5.0); Alkaline Phosphatase 94 U/L (39-117); Anion Gap 14 (12-20); Aspartate Amino Transferase 25 U/L (5-31); Bilirubin Total 0.2 mg/dL (0.0-1.0); Blood Urea Nitrogen 7 mg/dL (9-16); Calcium 8.9 mg/dL (8.4-10.2); Carbon Dioxide 29 mmol/L (22-29); Chloride 103 mmol/L (96-108); Creatinine Clr Calc Pharmacy 54.1; Estimated Glomerular Filt Rate > 60; Glucose Random 76 mg/dL (60-115); Potassium 3.3 mmol/L (3.3-5.1); Sodium 143 mmol/L (135-145); Total Protein 7.6 g/dL (6.5-8.0)
[2023-02-08 23:04] LABS: D Dimer High Sensitivity 259 NG/ML
[2023-02-08 23:05] LABS: Basophils Absolute Auto 0.1 X10*3/uL (0.0-0.2); Basophils Percent Auto 1.6 % (0-2); Eosinophils Absolute Auto 0.1 X10*3/uL (0.0-0.4); Eosinophils Percent Auto 1.9 % (0-4); Hematocrit 36.6 % (37.0-47.0); Hemoglobin 11.8 g/dl (12.0-16.0); Imm Gran Abs Auto 0.02 X10*3/uL (0.00-0.03); Imm Gran Pct Auto 0.5 % (0.0-0.4); Lymphocytes Absolute Auto 1.4 X10*3/uL (1.2-4.9); Lymphocytes Percent Auto 32.9 % (20-40); MANUAL DIFF FLAG SCAN; Mean Corpuscular HGB Conc 32.2 g/dl (31.0-35.0); Mean Corpuscular Hemoglobin 28.4 pg (27.0-33.0); Mean Corpuscular Volume 88.2 fL (80.0-98.0); Mean Platelet Volume 13.9 fL (9.4-12.3); Monocytes Absolute Auto 0.4 X10*3/uL (0.1-1.2); Monocytes Percent Auto 10.4 % (2-11); Neutrophils Absolute Auto 2.2 x10*3/uL (2.0-8.3); Neutrophils Percent Auto 52.7 % (45-73); PLT CLUMP 1; Red Blood Count 4.15 X10*6/uL (4.20-5.50); Red Cell Distribution Width 13.7 % (11.0-16.0); SCAN SMEAR FLAG 1
[2023-02-08 23:09] LABS: B Type Natriuretic Peptide 25 pg/mL (<100)
[2023-02-08 23:21] LABS: SLIDE REVIEW VERIFIED; White Blood Count 4.3 X10*3/uL (4.8-10.8)
[2023-02-09 00:44] VITALS: BP 139/57; PULSE 80; RESP 16; O2SAT 96
[2023-02-09] MEDS: cephALEXin 500 MG CAPSULE PO (02:05)
[2023-02-09] MEDS: Doxycycline Monohydrate 100 MG CAPSULE PO (02:05)
== END 2023-02-09 02:10 | disposition home or self-care (01) ==
PROVIDERS: Emergency Provider Internal Medicine; PCP Internal Medicine
DX: R60.0 Localized edema (principal); L03.116 Cellulitis of left lower limb; R06.02 Shortness of breath; F17.210 Nicotine dependence, cigarettes, uncomplicated; Z79.899 Other long term (current) drug therapy; Z71.6 Tobacco abuse counseling
CPT/HCPCS: 36415; 73600; 80053; 83880; 85025; 85379; 93971; 99284

== ENCOUNTER 2023-02-25 11:17 | Outpatient (AMB) | payer OTHER, MEDICAID, SELFPAY ==
--- NOTE | 2023-02-25 11:21 | MHC.OFFVIS ---
Intake Vital Signs 02/25/23 11:22 Height 5 ft 6 in Weight 113 lb 8.609 oz BMI 18.3 BP 92/52 L Blood Pressure Location Lt brachial Position Sitting Pulse 77 Pulse Source Pulse Oximeter Pulse Oximetry (%) 94 Oxygen Delivery Method Nasal Cannula Oxygen Flow Rate 1 Intake Visit Reasons: COPD Intake Note: pt is here for follow up and stated she thinks she aspirated something, she was at [facility] for about a month (broken heart dz). today, tightness and tired, thinks she needs a z-tarsha and prednisone to kick out whatever is starting. pt has a nebulizer at home and would like medication to put it in. Environmental Health Officer Required: No Allergies dextrose Allergy (Severe, Verified 02/25/23 11:51) anaphylaxis latex [LATEX] Allergy (Severe, Verified 02/25/23 11:51) HIVES psyllium [From Metamucil] Allergy (Severe, Verified 02/25/23 11:51) anaphylaxis clindamycin [CLINDAMYCIN] Allergy (Intermediate, Verified 02/25/23 11:51) RASH tramadol [From ULTRAM] Allergy (Intermediate, Verified 02/25/23 11:51) HIVES levofloxacin [From LEVAQUIN] Adverse Reaction (Intermediate, Verified 02/25/23 11:51) TENDON PAIN, achilles tendonitis prednisone Adverse Reaction (Intermediate, Verified 02/25/23 11:51) GI BLEED, high doses valacyclovir [From VALTREX] Adverse Reaction (Intermediate, Verified 02/25/23 11:51) GI UPSET Medication List - Last Reconciled 02/25/23 by Manuel Covarrubias MD albuterol sulfate 90 mcg/actuation 2 puffs PO Q4-6H PRN docusate sodium 100 mg PO BID PRN Flovent HFA 220 mcg/actuation (fluticasone propionate) 1 puff PO BID NS furosemide (Lasix) 20 mg PO QAM hydroxyzine HCl 10 mg PO .qd PRN ipratropium bromide 2 sprays intranasal BID-TID PRN loratadine 10 mg PO DAILY methadone 105 mg PO DAILY nicotine 1 patch topical DAILY ondansetron HCl 4 mg PO BID PRN oxycodone 5 mg PO Q6H PRN pantoprazole 40 mg PO BID ramelteon 8 mg PO BEDTIME PRN Stiolto Respimat 2.5-2.5 mcg/actuation (tiotropium-olodaterol) 2 puffs PO DAILY NS tizanidine 4 mg PO Q8H PRN Do you need a note to return to daycare/school/sports/work: No HPI COPD HPI Details 67 YEARS OLD FEMALE IS COMES BACK FOR FOLLOW-UP AFTER 2 MONTHS. DURING THE LAST 2 MONTHS THE HERS PULMONARY STATUS HAS REMAINED FAIRLY STABLE. HOWEVER SHE HAS INCREASED HER SMOKING TO HALF PACK A DAY. WITH THAT SHE HAS MORE FREQUENT COUGH AND FEELS THAT THERE IS SOME MUCUS INSIDE. SHE GETS SHORT OF BREATH ON MINIMAL WALKING EVEN THOUGH. SHE IS USING PORTABLE O2 SHE DOES USE O2 2 L/MINUTE AT NIGHT. AND P.R.N. DURING THE DAYTIME DISCUSSED ABOUT SMOKING SHE WANTS TO QUIT AND WOULD LEAD NICOTINE PATCH. [facility] Medical History Constipation due to opioid therapy Positional lightheadedness Chest wall pain Oxygen dependent Allergic rhinitis Vitamin D deficiency Primary osteoarthritis, right shoulder Arthropathy of cervical facet joint Degeneration, intervertebral disc, cervical Spondylosis of cervical joint without myelopathy Cervicalgia Epigastric pain Chronic neck pain Respiratory failure with hypoxia Smoker Surgical menopause Duodenal ulcer Bipolar disorder Gastritis Tubular adenoma of colon Substance abuse Osteopenia Alcoholic cirrhosis of liver Hepatitis C COPD (chronic obstructive pulmonary disease) Cervicalgia Osteoarthritis of multiple joints Oral thrush Surgical History Hx of colonoscopy History of surgery History of esophagogastroduodenoscopy (EGD) History of hysterectomy Ankle fracture Family History Father Alcoholism History of manic depressive disorder COPD (chronic obstructive pulmonary disease) Cancer Mother COPD (chronic obstructive pulmonary disease) Cardiac disease Smoker CHF (congestive heart failure) Alcoholism CVD (cardiovascular disease) Mental disorder Sister Lupus PTSD (post-traumatic stress disorder) Son Cardiac arrest Maternal Grandfather No problems noted. Maternal Grandmother No problems noted. Paternal Grandfather Alcoholism Mental disorder Paternal Grandmother No problems noted. Social History Housing: Apartment Alcohol intake: current Alcohol intake frequency: 0-2 drinks per day Alcohol type: beer Patient Tobacco Use Status: Current everyday Tobacco user Tobacco use type: Cigarette Cigarettes Per Day: 4 e-Cigarette/Vaping Use: Never Used Current occupational status: disabled Cognitive needs: No Hearing needs: No Vision needs: No Review of Systems Const All systems reviewed & are unremarkable except as noted in HPI and below ENT Reports no additional complaints Card Denies chest pain, Denies irregular heart rhythm and Denies leg edema Resp Reports as per HPI GI Reports no additional complaints Reports no additional complaints Musc Reports back pain Skin/Breast Reports system reviewed and no additional complaints, except as documented Neuro Reports no additional complaints Psych Reports no additional complaints Physical Exam Vital Signs: Last Vital Signs Pulse 77 02/25/23 11:22 BP 92/52 L 02/25/23 11:22 Pulse Ox 94 02/25/23 11:22 Oxygen Delivery Method Nasal Cannula 02/25/23 11:22 Oxygen Flow Rate 1 02/25/23 11:22 BMI result Body Mass Index 18.3 Const Other: She is of a thin build, looking fairly healthy and stable at this time. General: comfortable, no acute distress, alert and awake Orientation/consciousness: patient oriented x3 HEENT Head: Yes normal to inspection Ears: hearing grossly normal bilaterally General nose exam: No nasal polyps present and No nasal discharge present Face and sinus: Yes sinuses nontender Mouth: oropharynx normal Throat: Yes posterior oropharynx normal Eyes General: appearance normal, both eyes and all related structures Neck Neck: Yes normal visual inspection, Yes no lymphadenopathy, Yes trachea midline and Yes no JVD Thyroid: Thyroid normal Chest Chest palpation & inspection: normal inspection of the chest, normal palpation of entire chest wall and no tenderness Resp Other: Percussion note hyper-resonant, breath sounds are distant with prolonged expiratory phase. But no wheezes rhonchi or crepitations are heard. Cardio Palpation: normal PMI Rate: regular rate Rhythm: regular rhythm Heart sounds: no gallops and no murmurs GI Palpation (GI): Soft to palpation, nontender, No hepatosplenomegaly present and no masses Auscultation: normal bowel sounds Back/Spine/Pelvis Thoracic/Lumbar Spine: thoracic and lumbar spine normal to inspection Pelvis: no pain with anterior-posterior compression Skin General skin exam: no rashes or lesions noted Neuro General: patient oriented x3 and no focal motor deficits Cranial nerves: Yes CN's II-XII intact bilaterally Extrem General: Yes normal to inspection, Yes no clubbing, cyanosis or edema and Yes no calf tenderness Psych Speech and movement: Normal speech and movement present Assessment & Plan Assessment & Plan (1) Smoker: Comment: STILL SMOKES ABOUT 10 CIGARETTES A DAY, INCREASED FROM BEFORE . COUNSELED TO QUIT SMOKING COMPLETELY. PATIENT IS FULLY AWARE OF THE RISKS OF CONTINUED SMOKING. NICOTINE PATCH-21 MG ONCE A DAY, IS PRESCRIBED. Code(s): F17.200 - Nicotine dependence, unspecified, uncomplicated (2) COPD (chronic obstructive pulmonary disease): Comment: SHE HAS RATHER SEVERE/ADVANCED CHRONIC OBSTRUCTIVE PULMONARY DISEASE. UNFORTUNATELY SHE STILL CONTINUES TO SMOKE. PFT 03/2020 -(SEVERE OBSTRUCTIVE AIRWAY DISORDER ) DOING WELL AND STABLE ON HER CURRENT REGIMEN, AND IS ADVISED TO CONTINUE the same . FLOVENT-TO 220 2 PUFFS B.I.D. STIOLTO 2 PUFFS DAILY ALBUTEROL HFA 2 PUFFS Q 6 HOURS ONLY P.R.N.. Code(s): J44.9 - Chronic obstructive pulmonary disease, unspecified Plan: ABOVE (3) Respiratory failure with hypoxia: Comment: PATIENT HAS NOCTURNAL HYPOXEMIA WELL HYPOXEMIA ON EXERTION. SHE HAS A STATIONARY O2 CONCENTRATOR AT HOME WELL PORTABLE UNIT. ADVISED TO CONTINUE USING O2 2/MINUTE AT NIGHT AND P.R.N. DURING THE DAYTIME. SHE DOES HAVE LIGHTWEIGHT PORTABLE CYLINDER . Code(s): J96.91 - Respiratory failure, unspecified with hypoxia Plan: ABOVE Plan ABOVE Medications: New nicotine 1 patch transdermal DAILY 28 ea 1RF QUIT SMOKING 28 days Coding Level of Care Code Est Pt Level 4 (64951) Diagnoses Smoker F17.200 COPD (chronic obstructive pulmonary disease) J44.9 Respiratory failure with hypoxia J96.91
[2023-02-25 11:22] VITALS: BP 92/52; PULSE 77; O2SAT 94; BMI 18.3
== END 2023-02-25 11:48 | disposition home or self-care (01) ==
PROVIDERS: PCP Internal Medicine; Visit Provider Internal Medicine
DX: F17.200 Nicotine dependence, unspecified, uncomplicated (principal); J44.9 Chronic obstructive pulmonary disease, unspecified; J96.91 Respiratory failure, unspecified with hypoxia
CPT/HCPCS: 99214

== ENCOUNTER → 2023-02-25 11:17 | Outpatient (BNVA) | payer OTHER, MEDICAID, SELFPAY | PROVIDERS: PCP Internal Medicine; Visit Provider Internal Medicine | DX: J44.9 Chronic obstructive pulmonary disease, unspecified (principal); J96.91 Respiratory failure, unspecified with hypoxia; F17.210 Nicotine dependence, cigarettes, uncomplicated | CPT/HCPCS: 99212 ==

== ENCOUNTER 2023-04-16 10:16 | Outpatient (AMB) | payer MEDICARE, MEDICAID, SELFPAY ==
--- NOTE | 2023-04-16 10:40 | A.OFFPC_ITS ---
Vital Signs 04/16/23 10:41 Height 5 ft 6 in Weight 111 lb BMI 17.9 BP 112/70 Blood Pressure Location Rt brachial Position Sitting Pulse 111 H Pulse Source Pulse Oximeter Pulse Oximetry (%) 95 Oxygen Delivery Method Nasal Cannula Intake Visit Reasons: follow up HTN Intake Note: Pt is here to follow up for her HTN Allergies dextrose Allergy (Severe, Verified 04/22/23 11:40) anaphylaxis latex [LATEX] Allergy (Severe, Verified 04/22/23 11:40) HIVES psyllium [From Metamucil] Allergy (Severe, Verified 04/22/23 11:40) anaphylaxis clindamycin [CLINDAMYCIN] Allergy (Intermediate, Verified 04/22/23 11:40) RASH NSAIDS (Non-Steroidal Anti-Inflamma Allergy (Intermediate, Verified 04/22/23 11:40) ulcers tramadol [From ULTRAM] Allergy (Intermediate, Verified 04/22/23 11:40) HIVES levofloxacin [From LEVAQUIN] Adverse Reaction (Intermediate, Verified 04/22/23 11:40) TENDON PAIN, achilles tendonitis prednisone Adverse Reaction (Intermediate, Verified 04/22/23 11:40) GI BLEED, high doses valacyclovir [From VALTREX] Adverse Reaction (Intermediate, Verified 04/22/23 11:40) GI UPSET Medication List - Last Reconciled 04/16/23 by Nena Milner MD albuterol sulfate 2.5 mg (3 mL) inhalation Q4-6H PRN 30 days albuterol sulfate 90 mcg/actuation 2 puffs inhalation Q4-6H PRN docusate sodium 100 mg PO BID PRN Flovent HFA 220 mcg/actuation (fluticasone propionate) 1 puff PO BID NS ipratropium bromide 2 sprays intranasal BID-TID PRN loratadine 10 mg PO DAILY methadone 105 mg PO DAILY nicotine 1 patch transdermal DAILY 28 days ondansetron HCl 4 mg PO BID PRN pantoprazole 40 mg PO BID ramelteon 8 mg PO BEDTIME PRN Stiolto Respimat 2.5-2.5 mcg/actuation (tiotropium-olodaterol) 2 puffs PO DAILY NS tizanidine 4 mg PO Q12H PRN Tobacco use date assessed: 04/16/23 Fall risk assessment: 2 + Falls in past year Last assessed Fall Risk: 04/16/23 Dental Screening Dental Screen Date: 04/16/23 Did you have a dental visit in the last 12 months?: No Did you have a dental problem in the last 6 months where you did not have access to dental care?: No Was dental information given to patient?: No HPI follow up HTN HPI Details 68-year-old lady here today complaining of intermittent episodes of lightheadedness , worse with sudden changes in position. She has also been having recurrent pain and tingling in both lower extremities, worse with prolonged walking and standing. Patient states that her feet feels cold all the time. She has COPD, currently on Stiolto and Flovent with albuterol inhaler , currently being followed by Pulmonary . Unfortunately she continues to smoke cigarettes with no desire to quit at present time. [facility] Medical History Anemia Absent pedal pulses Pain in both lower extremities Constipation due to opioid therapy Positional lightheadedness Chest wall pain Oxygen dependent Allergic rhinitis Vitamin D deficiency Primary osteoarthritis, right shoulder Arthropathy of cervical facet joint Degeneration, intervertebral disc, cervical Spondylosis of cervical joint without myelopathy Cervicalgia Epigastric pain Chronic neck pain Respiratory failure with hypoxia Smoker Surgical menopause Duodenal ulcer Bipolar disorder Gastritis Tubular adenoma of colon Substance abuse Osteopenia Alcoholic cirrhosis of liver Hepatitis C COPD (chronic obstructive pulmonary disease) Cervicalgia Osteoarthritis of multiple joints Oral thrush Surgical History Hx of colonoscopy History of surgery History of esophagogastroduodenoscopy (EGD) History of hysterectomy Ankle fracture Family History Father Alcoholism History of manic depressive disorder COPD (chronic obstructive pulmonary disease) Cancer Mother COPD (chronic obstructive pulmonary disease) Cardiac disease Smoker CHF (congestive heart failure) Alcoholism CVD (cardiovascular disease) Mental disorder Sister Lupus PTSD (post-traumatic stress disorder) Son Cardiac arrest Maternal Grandfather No problems noted. Maternal Grandmother No problems noted. Paternal Grandfather Alcoholism Mental disorder Paternal Grandmother No problems noted. Social History Housing: Apartment Alcohol intake: current Alcohol intake frequency: 0-2 drinks per day Alcohol type: beer Patient Tobacco Use Status: Current everyday Tobacco user Tobacco use type: Cigarette Cigarettes Per Day: 4 e-Cigarette/Vaping Use: Never Used Current occupational status: disabled Cognitive needs: No Hearing needs: No Vision needs: No Questionnaire Thrive Questionnaire Date Thrive assessed: 09/06/21 MIKE-7 AMB Questionnaire MIKE-7 Date MIKE - 7 assessed: 09/06/21 Source: Developed by Drs. Marquez Mclaughlin, Anny Chong, Giovanny Grady and colleagues, with an educational owen from [employer]. Review of Systems Const All systems reviewed & are unremarkable except as noted in HPI and below ENT Reports no additional complaints Card Denies chest pain, Denies irregular heart rhythm and Denies leg edema Resp Reports as per HPI GI Reports no additional complaints Reports no additional complaints Musc Reports as per HPI and Reports back pain Skin/Breast Reports system reviewed and no additional complaints, except as documented Neuro Reports no additional complaints Psych Reports no additional complaints Physical exam (Primary Care) Vital Signs: Last Vital Signs Pulse 111 H 04/16/23 10:41 BP 112/70 04/16/23 10:41 Pulse Ox 95 04/16/23 10:41 Oxygen Delivery Method Nasal Cannula 04/16/23 10:41 BMI result Body Mass Index 17.9 Tobacco/Smoking Status: Tobacco use Status Tobacco use date assessed 04/16/23 04/16/23 10:48 Patient Tobacco Use Status Current everyday Tobacco 04/16/23 10:48 Tobacco use type Cigarette 04/16/23 10:48 e-Cigarette/Vaping Use Never Used 04/16/23 10:48 Thrive Assessment: Date of Thrive Assessment Date Thrive assessed 09/06/21 04/16/23 10:48 Const General: no acute distress Orientation/consciousness: patient oriented x3 HENMT General nose exam: Normal external nose present and Normal nasal mucous membranes and turbinates present Neck Neck: Yes full ROM, Yes no lymphadenopathy and Yes supple Resp Auscultation: clear to auscultation bilaterally Cardio Other: S1-S2 present regular rate and rhythm, unable to palpate dorsalis pedis pulse bilaterally GI Inspection: Yes normal to inspection Palpation (GI): Soft to palpation, nontender, no guarding and no masses Back/Spine/Pelvis Cervical Spine: cervical muscular tenderness, pain with cervical ROM and cervical spasm Neuro General: patient oriented x3, gait normal, moves all extremities, Normal light touch and pain sensation and no focal motor deficits Extrem General: Yes full ROM, Yes no joint enlargement and Yes no pedal edema Immunizations pneumoc 20-carmelo conj-dip cr(PF) 0.5 mL IM syringe Performing Provider: Nena Milner MD Performing Location: [facility] Administered by: Grace Molina CMA on 04/16/23 11:49 Dose Route Admin Location Dispensed Lot Number Expiration Date [place] Program Support Specialist 0.5 mL IM Right Deltoid 0.5 mL [id number] 06/05/24 6044-9419-89 [employer] VIS Given Date VIS Provided VIS Publication Date 04/16/23 Single Vaccine 21 Eligibility Eligibility Date Funding Source Not VFC Eligible 04/16/23 Private Results Reviewed Results Reviewed: Name: Nilsa Fitzpatrick Age/Sex: 67/F : 1955 Unit#: [id number] Attend Dr: Hany Mcintosh MD Re02/08/23 Status: [facility]: SPEC : [id number] LAWANDA: 02/08/23 STATUS: COMP REQ : [id number] RECD: 02/08/[address]: Hany Mcintosh MD COMP: 02/08/23 ENTERED: 02/08/[address]: Nean Milner MD Generic ED Physician ORDERED: CBC Auto Diff, SLIDE REVIEW Test Result Flag Reference Site WBC 4.3 L 4.8-10.8 X10*3/uL RBC 4.15 L 4.20-5.50 X10*6/uL HGB 11.8 L 12.0-16.0 g/dl HCT 36.6 L 37.0-47.0 % MCV 88.2 80.0-98.0 fL MCH 28.4 27.0-33.0 pg MCHC 32.2 31.0-35.0 g/dl RDW 13.7 11.0-16.0 % PLT 160-400 X10*3/uL Platelet clumps noted. Platelet count will not be accurate. Recollecting the platelet count in a blue top tube may eliminate platelet clumps. Order platelet count blue top tube. A lavender top tube must be drawn if CBC is r equired. MPV 13.9 H 9.4-12.3 fL Neut Pct Auto 52.7 45-73 % ImGran Pct Auto 0.5 H 0.0-0.4 % Lymp Pct Auto 32.9 20-40 % [place] Pct Auto 10.4 2-11 % Eos Pct Auto 1.9 0-4 % Baso Pct Auto 1.6 0-2 % NRBC Pct Auto 0.0 0.0-0.2 /100WBC ANC Neut Abs # 2.2 2.0-8.3 x10*3/uL ImGran Abs Auto 0.02 0.00-0.03 X10*3/uL Lymph Abs Auto 1.4 1.2-4.9 X10*3/uL [place] Abs Auto 0.4 0.1-1.2 X10*3/uL Eos Abs Auto 0.1 0.0-0.4 X10*3/uL Baso Abs Auto 0.1 0.0-0.2 X10*3/uL NRBC Abs Auto 0.000 0.0-0.012 X10*3/uL SLIDE REVIEW VERIFIED Name: Nilsa Fitzpatrick Age/Sex: 67/F : 1955 Unit#: [id number] Attend Dr: Hany Mcintosh MD Re02/08/23 Status: DEP [facility] Disch: SPEC : [id number] LAWANDA: 02/08/23 STATUS: COMP REQ : [id number] RECD: 02/08/[address]: Hany Mcintosh MD COMP: 02/08/23 ENTERED: 02/08/[address]: Nena Milner MD [facility] ED Physician ORDERED: CMP Test Result Flag Reference Site Sodium 143 135-145 mmol/L Potassium 3.3 3.3-5.1 mmol/L CL 103 96-108 mmol/L CO2 29 22-29 mmol/L Gap 14 12-20 BUN 7 L 9-16 mg/dL Creat 0.82 0.5-1.4 mg/dL Estimated CrCl 54.1 Provided height and weight: 170.18 cm, 50.802 kg. eGFR (calculated from the MDRD study equation) and eCrCl (calculated from the Cockcroft-Gault equation) are based on different parameters and may not yield comparable results. If eCrCl result is absurd, please check patient's height/weight. EGFR > 60 NOTE: For -[place] individuals, multiply the result by 1.210. Chronic Kidney Disease: Estimated GFR < 60 mL/min/1.73m2 Severe Kidney Disease: Estimated GFR < 15 mL/min/1.73m2 Glucose, Random 76 60-115 mg/dL CA 8.9 8.4-10.2 mg/dL Total Bili 0.2 0.0-1.0 mg/dL AST (GOT) 25 5-31 U/L ALT (GPT) 7 0-31 U/L Protein, Total 7.6 6.5-8.0 g/dL Alb 3.8 3.5-5.0 g/dL Alk Phos 94 39-117 U/L Assessment and Plan Assessment & Plan (1) Pain in both lower extremities: Code(s): M79.604 - Pain in right leg; M79.605 - Pain in left leg Plan: Ordered arterial ultrasound both lower extremity any occlusion/peripheral arterial disease, will check magnesium level (2) Absent pedal pulses: Code(s): R09.89 - Other specified symptoms and signs involving the circulatory and respiratory systems Plan: Ordered arterial ultrasound of both lower extremities to check for any peripheral arterial disease or obstruction (3) Smoker: Comment: STILL SMOKES ABOUT 10 CIGARETTES A DAY, INCREASED FROM BEFORE . COUNSELED TO QUIT SMOKING COMPLETELY. PATIENT IS FULLY AWARE OF THE RISKS OF CONTINUED SMOKING. Code(s): F17.200 - Nicotine dependence, unspecified, uncomplicated Plan: Patient strongly advised to stop smoking, as smoking damages blood vessels, degenerative of joints and spine, damage to lungs and heart., predisposes to developing certain cancers like lung, breast, bladder, colon. Recommended to try decreasing cigarette use by 1-2 cigarettes a day. Advised to monitor what triggers are for smoking so that this can be discussed on the next office visit. We can discuss different options to quit smoking when ready. (4) COPD (chronic obstructive pulmonary disease): Comment: SHE HAS RATHER SEVERE/ADVANCED CHRONIC OBSTRUCTIVE PULMONARY DISEASE. UNFORTUNATELY SHE STILL CONTINUES TO SMOKE. PFT 03/2020 -(SEVERE OBSTRUCTIVE AIRWAY DISORDER ) DOING WELL AND STABLE ON HER CURRENT REGIMEN, AND IS ADVISED TO CONTINUE the same . Code(s): J44.9 - Chronic obstructive pulmonary disease, unspecified Plan: Continued on Flovent HFA, Stiolto, and has albuterol inhaler Patient strongly advised to stop smoking, as smoking damages blood vessels, degenerative of joints and spine, damage to lungs and heart., predisposes to developing certain cancers like lung, breast, bladder, colon. Recommended to try decreasing cigarette use by 1-2 cigarettes a day. Advised to monitor what triggers are for smoking so that this can be discussed on the next office visit. We can discuss different options to quit smoking when ready. (5) Positional lightheadedness: Code(s): R42 - Dizziness and giddiness Plan: Ordered CBC with differential and iron profile, vitamin-D level, compressive metabolic panel (6) Alcoholic cirrhosis of liver: Code(s): K70.30 - Alcoholic cirrhosis of liver without ascites Qualifiers: Ascites presence: without ascites Qualified Code(s): K70.30 - Alcoholic cirrhosis of liver without ascites Plan: Compressive metabolic panel ordered, absence from alcohol strongly advised (7) Need for pneumococcal 20-valent conjugate vaccination: Code(s): Z23 - Encounter for immunization Plan: Prevnar 20 given today Orders: Orders US arterial duplex BI w/ TALITA 04/16/23 M79.604 - Pain in right leg, M79.605 - Pain in left leg, R09.89 - Other specified symptoms and signs involving the circulatory and respiratory systems, J44.9 - Chronic obstructive pulmonary disease, unspecified, F17.200 - Nicotine dependence, unspecified, uncomplicated Comprehensive Outlook. Panel Fast 04/16/23 R42 - Dizziness and giddiness, D64.9 - Anemia, unspecified, E89.40 - Asymptomatic postprocedural ovarian failure, M85.80 - Other specified disorders of bone density and structure, unspecified site, K70.30 - Alcoholic cirrhosis of liver without ascites Lipid Panel 04/16/23 R42 - Dizziness and giddiness, D64.9 - Anemia, unspecified, E89.40 - Asymptomatic postprocedural ovarian failure, M85.80 - Other specified disorders of bone density and structure, unspecified site, K70.30 - Alcoholic cirrhosis of liver without ascites Pneumococcal 20 Immunization 04/16/23 Z23 - Encounter for immunization Vitamin D 25-OH Total 04/16/23 R42 - Dizziness and giddiness, D64.9 - Anemia, unspecified, E89.40 - Asymptomatic postprocedural ovarian failure, M85.80 - Other specified disorders of bone density and structure, unspecified site, K70.30 - Alcoholic cirrhosis of liver without ascites Complete Blood Count Auto Diff 04/16/23 R42 - Dizziness and giddiness, D64.9 - Anemia, unspecified, E89.40 - Asymptomatic postprocedural ovarian failure, M85.80 - Other specified disorders of bone density and structure, unspecified site, K70.30 - Alcoholic cirrhosis of liver without ascites IRON PROFILE 04/16/23 R42 - Dizziness and giddiness, D64.9 - Anemia, unspecified, E89.40 - Asymptomatic postprocedural ovarian failure, M85.80 - Other specified disorders of bone density and structure, unspecified site, K70.30 - Alcoholic cirrhosis of liver without ascites Magnesium 04/16/23 R42 - Dizziness and giddiness, D64.9 - Anemia, unspecified, E89.40 - Asymptomatic postprocedural ovarian failure, M85.80 - Other specified disorders of bone density and structure, unspecified site, K70.30 - Alcoholic cirrhosis of liver without ascites Medications: Changed From tizanidine temporary increase 4 mg PO Q12H PRN 60 tabs 0RF for muscle spasm M54.2 - Cervicalgia, M15.9 - Polyosteoarthritis, unspecified To tizanidine temporary increase 4 mg PO Q8H PRN 90 tabs 0RF for muscle spasm M54.2 - Cervicalgia, M15.9 - Polyosteoarthritis, unspecified Coding Level of Care Code Est Pt Level 4 (98645) Diagnoses Pain in both lower extremities M79.604; M79.605 Absent pedal pulses R09.89 Smoker F17.200 COPD (chronic obstructive pulmonary disease) J44.9 Positional lightheadedness R42 Alcoholic cirrhosis of liver without ascites K70.30 Ascites presence: without ascites Need for pneumococcal 20-valent conjugate vaccination Z23
[2023-04-16 10:41] VITALS: BP 112/70; PULSE 111; O2SAT 95; BMI 17.9
== END 2023-04-16 12:31 | disposition home or self-care (01) ==
PROVIDERS: PCP Internal Medicine; Visit Provider Internal Medicine
DX: Z23 Encounter for immunization (principal)
CPT/HCPCS: 90471; 90677; 99214

== ENCOUNTER 2023-04-16 14:00 | Outpatient (REF) | payer MEDICARE, SELFPAY ==
--- NOTE | ~2023-04-16 | US_ITS ---
EXAMINATION: NONINVASIVE ASSESSMENT OF THE ARTERIES OF BOTH LOWER EXTREMITIES Aime Gonzalez MD CLINICAL INFORMATION: Right leg pain TECHNIQUE: Bilateral lower extremity duplex ultrasound was performed with velocity measurements and waveform analysis in the common femoral arteries, profunda femoris arteries, proximal mid and distal superficial femoral arteries, popliteal arteries and tibial vessels. In addition, ankle brachial indices were calculated bilaterally and PVR tracings at the ankle were obtained. This study was performed only at rest. COMPARISON: None FINDINGS: Velocities in cm/sec and phasicity as well as the presence of plaque are reported below. Bilateral ankle brachial indices are normal in PVR tracings at the ankle are normal. In both lower extremities, there is just some minimal plaque seen with normal triphasic flow noted throughout with velocities as outlined below RIGHT LEG: Common Femoral: 63 Profunda Femoris: 36 Proximal SFA: 52 Mid SFA: 53 Distal SFA: 42 Popliteal: 31 Tibial: 50 LEFT LEG: Common Femoral: 84 Profunda Femoris: 45 Proximal SFA: 54 Mid SFA: 67 Distal SFA: 46 Popliteal: 43 Tibial: 50 US/US arterial duplex BI w/ TALITA IMPRESSION: There is no evidence of any hemodynamically significant lower extremity arterial disease by pressure, waveform or duplex Doppler criteria at rest.
== END 2023-04-16 14:01 | disposition home or self-care (01) ==
LOC: HO.US 14:00
PROVIDERS: PCP Internal Medicine; Visit Provider Internal Medicine
DX: Z13.89 Encounter for screening for other disorder (principal)

== ENCOUNTER 2023-04-22 11:16 | Outpatient (AMB) | payer MEDICARE, MEDICAID, SELFPAY ==
--- NOTE | 2023-04-22 11:16 | MHC.OFFVIS ---
Intake Vital Signs 04/22/23 11:18 Height 5 ft 6 in Weight 111 lb 9.992 oz BMI 18.0 BP 112/72 Blood Pressure Location Rt brachial Position Sitting Pulse 90 Pulse Source Doppler Pulse Oximetry (%) 93 Oxygen Delivery Method Nasal Cannula Oxygen Flow Rate 1.5 Intake Visit Reasons: COPD Intake Note: Patient is here for a routine follow up on COPD, patient c/o congestion and coughing up (greenish to clear thick phlegm), also wheezing Allergies dextrose Allergy (Severe, Verified 04/22/23 11:40) anaphylaxis latex [LATEX] Allergy (Severe, Verified 04/22/23 11:40) HIVES psyllium [From Metamucil] Allergy (Severe, Verified 04/22/23 11:40) anaphylaxis clindamycin [CLINDAMYCIN] Allergy (Intermediate, Verified 04/22/23 11:40) RASH NSAIDS (Non-Steroidal Anti-Inflamma Allergy (Intermediate, Verified 04/22/23 11:40) ulcers tramadol [From ULTRAM] Allergy (Intermediate, Verified 04/22/23 11:40) HIVES levofloxacin [From LEVAQUIN] Adverse Reaction (Intermediate, Verified 04/22/23 11:40) TENDON PAIN, achilles tendonitis prednisone Adverse Reaction (Intermediate, Verified 04/22/23 11:40) GI BLEED, high doses valacyclovir [From VALTREX] Adverse Reaction (Intermediate, Verified 04/22/23 11:40) GI UPSET Medication List - Last Reconciled 04/22/23 by Manuel oCvarrubias MD albuterol sulfate 2.5 mg (3 mL) inhalation Q4-6H PRN 30 days albuterol sulfate 90 mcg/actuation 2 puffs inhalation Q4-6H PRN docusate sodium 100 mg PO BID PRN Flovent HFA 220 mcg/actuation (fluticasone propionate) 1 puff PO BID NS ipratropium bromide 2 sprays intranasal BID-TID PRN loratadine 10 mg PO DAILY methadone 105 mg PO DAILY nicotine 1 patch transdermal DAILY 28 days ondansetron HCl 4 mg PO BID PRN pantoprazole 40 mg PO BID ramelteon 8 mg PO BEDTIME PRN Stiolto Respimat 2.5-2.5 mcg/actuation (tiotropium-olodaterol) 2 puffs PO DAILY NS tizanidine 4 mg PO Q8H PRN Do you need a note to return to daycare/school/sports/work: No HPI COPD HPI Details 68 YEARS OLD FEMALE, , SMOKER AND WITH ADVANCED CHRONIC OBSTRUCTIVE PULMONARY DISEASE, COMES FOR FOLLOW-UP. SHE COMPLAINS OF FREQUENT COUGH WITH THICK MUCUS WHICH IS MOSTLY WHITE. SHE SMOKING UP TO 7-10 CIGARETTES A DAY, SHE KNOWS VERY WELL THAT COUGH AND MUCUS PRODUCTION IS RELATED TO HER ONGOING SMOKING. THERE HAS BEEN NO ACUTE RESPIRATORY INFECTION. SHE USES O2 2 L/MINUTE . 24 HOURS A DAY. [facility] Medical History Anemia Absent pedal pulses Pain in both lower extremities Constipation due to opioid therapy Positional lightheadedness Chest wall pain Oxygen dependent Allergic rhinitis Vitamin D deficiency Primary osteoarthritis, right shoulder Arthropathy of cervical facet joint Degeneration, intervertebral disc, cervical Spondylosis of cervical joint without myelopathy Cervicalgia Epigastric pain Chronic neck pain Respiratory failure with hypoxia Smoker Surgical menopause Duodenal ulcer Bipolar disorder Gastritis Tubular adenoma of colon Substance abuse Osteopenia Alcoholic cirrhosis of liver Hepatitis C COPD (chronic obstructive pulmonary disease) Cervicalgia Osteoarthritis of multiple joints Oral thrush Surgical History Hx of colonoscopy History of surgery History of esophagogastroduodenoscopy (EGD) History of hysterectomy Ankle fracture Family History Father Alcoholism History of manic depressive disorder COPD (chronic obstructive pulmonary disease) Cancer Mother COPD (chronic obstructive pulmonary disease) Cardiac disease Smoker CHF (congestive heart failure) Alcoholism CVD (cardiovascular disease) Mental disorder Sister Lupus PTSD (post-traumatic stress disorder) Son Cardiac arrest Maternal Grandfather No problems noted. Maternal Grandmother No problems noted. Paternal Grandfather Alcoholism Mental disorder Paternal Grandmother No problems noted. Social History Housing: Apartment Alcohol intake: current Alcohol intake frequency: 0-2 drinks per day Alcohol type: beer Patient Tobacco Use Status: Current everyday Tobacco user Tobacco use type: Cigarette Cigarettes Per Day: 4 e-Cigarette/Vaping Use: Never Used Current occupational status: disabled Cognitive needs: No Hearing needs: No Vision needs: No Review of Systems Const All systems reviewed & are unremarkable except as noted in HPI and below ENT Reports no additional complaints Card Denies chest pain, Denies irregular heart rhythm and Denies leg edema Resp Reports as per HPI GI Reports no additional complaints Reports no additional complaints Musc Reports back pain Skin/Breast Reports system reviewed and no additional complaints, except as documented Neuro Reports no additional complaints Psych Reports no additional complaints Physical Exam Vital Signs: Last Vital Signs Pulse 90 04/22/23 11:18 BP 112/72 04/22/23 11:18 Pulse Ox 93 04/22/23 11:18 Oxygen Delivery Method Nasal Cannula 04/22/23 11:18 Oxygen Flow Rate 1.5 04/22/23 11:18 BMI result Body Mass Index 18.0 Const Other: She is of a thin build, looking fairly healthy and stable at this time. General: comfortable, no acute distress, alert and awake Orientation/consciousness: patient oriented x3 HEENT Head: Yes normal to inspection Ears: hearing grossly normal bilaterally General nose exam: No nasal polyps present and No nasal discharge present Face and sinus: Yes sinuses nontender Mouth: oropharynx normal Throat: Yes posterior oropharynx normal Eyes General: appearance normal, both eyes and all related structures Neck Neck: Yes normal visual inspection, Yes no lymphadenopathy, Yes trachea midline and Yes no JVD Thyroid: Thyroid normal Chest Chest palpation & inspection: normal inspection of the chest, normal palpation of entire chest wall and no tenderness Resp Other: Percussion note hyper-resonant, breath sounds are distant with prolonged expiratory phase. But no wheezes rhonchi or crepitations are heard. Cardio Palpation: normal PMI Rate: regular rate Rhythm: regular rhythm Heart sounds: no gallops and no murmurs GI Palpation (GI): Soft to palpation, nontender, No hepatosplenomegaly present and no masses Auscultation: normal bowel sounds Back/Spine/Pelvis Thoracic/Lumbar Spine: thoracic and lumbar spine normal to inspection Pelvis: no pain with anterior-posterior compression Skin General skin exam: no rashes or lesions noted Neuro General: patient oriented x3 and no focal motor deficits Cranial nerves: Yes CN's II-XII intact bilaterally Extrem General: Yes normal to inspection, Yes no clubbing, cyanosis or edema and Yes no calf tenderness Psych Speech and movement: Normal speech and movement present Assessment & Plan Assessment & Plan (1) COPD (chronic obstructive pulmonary disease): Comment: SHE HAS RATHER SEVERE/ADVANCED CHRONIC OBSTRUCTIVE PULMONARY DISEASE. UNFORTUNATELY SHE STILL CONTINUES TO SMOKE. PFT 03/2020 -(SEVERE OBSTRUCTIVE AIRWAY DISORDER ) DOING WELL AND STABLE ON HER CURRENT REGIMEN, AND IS ADVISED TO CONTINUE the same . Code(s): J44.9 - Chronic obstructive pulmonary disease, unspecified Plan: FLOVENT-TO 220 2 PUFFS B.I.D. STIOLTO 2 PUFFS DAILY ALBUTEROL HFA 2 PUFFS Q 6 HOURS ONLY P.R.N.. EXPLAINED THAT INCREASED COUGH AND MUCUS PRODUCTION IS RELATED TO HER CONTINUED SMOKING. SHE UNDERSTANDS VERY WELL. (2) Smoker: Comment: STILL SMOKES ABOUT 10 CIGARETTES A DAY, INCREASED FROM BEFORE . COUNSELED TO QUIT SMOKING COMPLETELY. PATIENT IS FULLY AWARE OF THE RISKS OF CONTINUED SMOKING. Code(s): F17.200 - Nicotine dependence, unspecified, uncomplicated Plan: COUNSELED TO QUIT SMOKING. NICOTINE PATCH-21 MG ONCE A DAY, (3) Respiratory failure with hypoxia: Comment: PATIENT HAS NOCTURNAL HYPOXEMIA WELL HYPOXEMIA ON EXERTION. SHE HAS A STATIONARY O2 CONCENTRATOR AT HOME WELL PORTABLE UNIT. Code(s): J96.91 - Respiratory failure, unspecified with hypoxia Plan: ADVISED TO CONTINUE USING O2 2/MINUTE AT NIGHT AND P.R.N. DURING THE DAYTIME. SHE DOES HAVE LIGHTWEIGHT PORTABLE CYLINDER . (4) Allergic rhinitis: Comment: MILD , CONTROLLED WITH ATROVENT NASAL INH, USED PRN . Code(s): J30.9 - Allergic rhinitis, unspecified Plan: ATROVENT NASAL SPRAY 2 SPRAYS IN EACH NOSTRIL B.I.D. Coding Level of Care Code Est Pt Level 4 (97298) Diagnoses COPD (chronic obstructive pulmonary disease) J44.9 Smoker F17.200 Respiratory failure with hypoxia J96.91 Allergic rhinitis J30.9
[2023-04-22 11:18] VITALS: BP 112/72; PULSE 90; O2SAT 93; BMI 18.0
== END 2023-04-22 11:41 | disposition home or self-care (01) ==
PROVIDERS: PCP Internal Medicine; Visit Provider Internal Medicine
DX: J44.9 Chronic obstructive pulmonary disease, unspecified (principal); F17.200 Nicotine dependence, unspecified, uncomplicated; J96.91 Respiratory failure, unspecified with hypoxia; J30.9 Allergic rhinitis, unspecified
CPT/HCPCS: 99214

== ENCOUNTER → 2023-04-22 11:16 | Outpatient (BNVA) | payer MEDICARE, MEDICAID, SELFPAY | PROVIDERS: PCP Internal Medicine; Visit Provider Internal Medicine | DX: J44.9 Chronic obstructive pulmonary disease, unspecified (principal); J96.91 Respiratory failure, unspecified with hypoxia; J30.9 Allergic rhinitis, unspecified; F17.210 Nicotine dependence, cigarettes, uncomplicated | CPT/HCPCS: 99212 ==

== ENCOUNTER 2023-06-17 10:54 | Outpatient (REF) | payer MEDICARE, MEDICAID, SELFPAY ==
--- NOTE | ~2023-06-17 | MM_ITS ---
EXAMINATION: MM SCREENING DIGITAL BREAST TOMOSYNTHESIS, BILATERAL CLINICAL INFORMATION: Screening. Asymptomatic. COMPARISON: Mammography: This study is compared with prior exams dating back to 2017. TECHNIQUE: Digital breast tomosynthesis is performed in both the craniocaudal and mediolateral oblique views along with computer-aided detection (CAD). Synthesized 2D images are generated from the tomosynthesis. FINDINGS: There are scattered areas of fibroglandular density (ACR BI-RADS breast composition Category b). There are no significant masses, abnormal calcifications, or other abnormalities. Few, bilateral benign calcifications are present. MM/MM tomosynthesis screening BI IMPRESSION: No mammographic evidence of malignancy. ASSESSMENT: BI-RADS BI-RADS 2 - Benign Findings RECOMMENDATION: Routine annual mammography screening. 1 year F/U This examination should not preclude the clinical evaluation of a suspicious palpable abnormality. This patient's information was entered into a reminder system with a target due date for their next mammogram.
== END 2023-06-17 10:55 | disposition home or self-care (01) ==
LOC: HO.MAMMO 10:54
PROVIDERS: PCP Internal Medicine; Visit Provider Internal Medicine
DX: Z12.31 Encounter for screening mammogram for malignant neoplasm of breast (principal)
CPT/HCPCS: 77063; 77067

== ENCOUNTER → 2023-06-17 11:30 | Outpatient (BNV) | payer MEDICARE, MEDICAID, SELFPAY | PROVIDERS: PCP Internal Medicine; Visit Provider Radiology Diagnostic Radiology | DX: Z12.31 Encounter for screening mammogram for malignant neoplasm of breast (principal) | CPT/HCPCS: 77063; 77067 ==

== ENCOUNTER 2023-07-29 10:32 | Outpatient (AMB) | payer MEDICARE, MEDICAID, SELFPAY ==
[2023-07-29 11:56] VITALS: BP 140/70; PULSE 90; O2SAT 92; BMI 19.2
--- NOTE | 2023-07-29 11:56 | MHC.OFFVIS ---
Vital Signs 07/29/23 11:56 Height 5 ft 6 in Weight 119 lb 0.794 oz BMI 19.2 BP 140/70 H Blood Pressure Location Lt brachial Position Sitting Pulse 90 Pulse Source Pulse Oximeter Pulse Oximetry (%) 92 Oxygen Delivery Method Nasal Cannula Oxygen Flow Rate 1 Intake Visit Reasons: COPD Intake Note: pt is here for follow up and states Bevespi is not working for her, the Stiolto works better., on Bevespi is causing her a sore throat. [employer] Required: No Allergies dextrose Allergy (Severe, Verified 07/29/23 12:09) anaphylaxis latex [LATEX] Allergy (Severe, Verified 07/29/23 12:09) HIVES psyllium [From Metamucil] Allergy (Severe, Verified 07/29/23 12:09) anaphylaxis clindamycin [CLINDAMYCIN] Allergy (Intermediate, Verified 07/29/23 12:09) RASH NSAIDS (Non-Steroidal Anti-Inflamma Allergy (Intermediate, Verified 07/29/23 12:09) ulcers tramadol [From ULTRAM] Allergy (Intermediate, Verified 07/29/23 12:09) HIVES levofloxacin [From LEVAQUIN] Adverse Reaction (Intermediate, Verified 07/29/23 12:09) TENDON PAIN, achilles tendonitis prednisone Adverse Reaction (Intermediate, Verified 07/29/23 12:09) GI BLEED, high doses valacyclovir [From VALTREX] Adverse Reaction (Intermediate, Verified 07/29/23 12:09) GI UPSET Medication List - Last Reconciled 07/29/23 by Manuel Covarrubias MD albuterol sulfate 90 mcg/actuation 2 puffs inhalation Q4-6H PRN albuterol sulfate 2.5 mg (3 mL) inhalation Q4-6H PRN 30 days docusate sodium 100 mg PO BID PRN fluticasone propionate 220 mcg/actuation 2 puffs inhalation BID 30 days glycopyrrolate-formoterol 9-4.8 mcg (Bevespi Aerosphere) 2 puffs inhalation BID 30 days ipratropium bromide 2 sprays intranasal BID-TID PRN loratadine 10 mg PO DAILY methadone 105 mg PO DAILY nicotine 1 patch transdermal DAILY 28 days ondansetron HCl 4 mg PO BID PRN pantoprazole 40 mg PO BID ramelteon 8 mg PO BEDTIME PRN Stiolto Respimat 2.5-2.5 mcg/actuation (tiotropium-olodaterol) 2 puffs PO DAILY NS tizanidine 4 mg PO Q8H PRN Do you need a note to return to daycare/school/sports/work: No HPI HPI COPD: Details: SRINIVAS IS A CASE OF ADVANCED COPD. SHE IS ON FLOVENT-TO 20, TWICE A DAY, AND HAS BEEN ON STIOLTO , B.I.D. LATELY BECAUSE OF THE INSURANCE COVERAGE IT IS CHANGED TO BEVESPI. SHE CLAIMS THAT SHE DOES NOT TOLERATE BEVESPI IT IS CAUSING MORE IRRITATION IN HER THROAT, AND SHE IS FEELING LIKE SORE THROAT ALL THE TIME. SHE DOES GET SHORT OF BREATH ON MINIMAL EXERTION. COMPLAINS OF FREQUENT BOUTS OF COUGH. SMOKING IS DOWN TO 5 CIGARETTES A DAY. SHE IS ON O2 2 L/MINUTE CONTINUOUSLY. [facility] Medical History Anemia Absent pedal pulses Pain in both lower extremities Constipation due to opioid therapy Positional lightheadedness Chest wall pain Oxygen dependent Allergic rhinitis Vitamin D deficiency Primary osteoarthritis, right shoulder Arthropathy of cervical facet joint Degeneration, intervertebral disc, cervical Spondylosis of cervical joint without myelopathy Cervicalgia Epigastric pain Chronic neck pain Respiratory failure with hypoxia Smoker Surgical menopause Duodenal ulcer Bipolar disorder Gastritis Tubular adenoma of colon Substance abuse Osteopenia Alcoholic cirrhosis of liver Hepatitis C COPD (chronic obstructive pulmonary disease) Cervicalgia Osteoarthritis of multiple joints Oral thrush Surgical History Hx of colonoscopy History of surgery History of esophagogastroduodenoscopy (EGD) History of hysterectomy Ankle fracture Family History Father Alcoholism History of manic depressive disorder COPD (chronic obstructive pulmonary disease) Cancer Mother COPD (chronic obstructive pulmonary disease) Cardiac disease Smoker CHF (congestive heart failure) Alcoholism CVD (cardiovascular disease) Mental disorder Sister Lupus PTSD (post-traumatic stress disorder) Son Cardiac arrest Maternal Grandfather No problems noted. Maternal Grandmother No problems noted. Paternal Grandfather Alcoholism Mental disorder Paternal Grandmother No problems noted. Social History (Updated 07/29/23 @ 12:00 by RAJAT Moreno) Housing: Apartment Alcohol intake: current Alcohol intake frequency: 0-2 drinks per day Alcohol type: beer Patient Tobacco Use Status: Current everyday Tobacco user Tobacco use type: Cigarette Cigarettes Per Day: 5 e-Cigarette/Vaping Use: Never Used Current occupational status: disabled Cognitive needs: No Hearing needs: No Vision needs: No Review of Systems Const All systems reviewed & are unremarkable except as noted in HPI and below ENT Reports no additional complaints Card Denies chest pain, Denies irregular heart rhythm and Denies leg edema Resp Reports as per HPI GI Reports no additional complaints Reports no additional complaints Musc Reports back pain Skin/Breast Reports system reviewed and no additional complaints, except as documented Neuro Reports no additional complaints Psych Reports no additional complaints Physical Exam Vital Signs: Last Vital Signs Pulse 90 07/29/23 11:56 BP 140/70 H 07/29/23 11:56 Pulse Ox 92 07/29/23 11:56 Oxygen Delivery Method Nasal Cannula 07/29/23 11:56 Oxygen Flow Rate 1 07/29/23 11:56 BMI result Body Mass Index 19.2 Const Other: She is of a thin build, looking fairly healthy and stable at this time. General: comfortable, no acute distress, alert and awake Orientation/consciousness: patient oriented x3 HEENT Head: Yes normal to inspection Ears: hearing grossly normal bilaterally General nose exam: No nasal polyps present and No nasal discharge present Face and sinus: Yes sinuses nontender Mouth: oropharynx normal Throat: Yes posterior oropharynx normal Eyes General: appearance normal, both eyes and all related structures Neck Neck: Yes normal visual inspection, Yes no lymphadenopathy, Yes trachea midline and Yes no JVD Thyroid: Thyroid normal Chest Chest palpation & inspection: normal inspection of the chest, normal palpation of entire chest wall and no tenderness Resp Other: Percussion note hyper-resonant, breath sounds are distant with prolonged expiratory phase. But no wheezes rhonchi or crepitations are heard. Cardio Palpation: normal PMI Rate: regular rate Rhythm: regular rhythm Heart sounds: no gallops and no murmurs GI Palpation (GI): Soft to palpation, nontender, No hepatosplenomegaly present and no masses Auscultation: normal bowel sounds Back/Spine/Pelvis Thoracic/Lumbar Spine: thoracic and lumbar spine normal to inspection Pelvis: no pain with anterior-posterior compression Skin General skin exam: no rashes or lesions noted Neuro General: patient oriented x3 and no focal motor deficits Cranial nerves: Yes CN's II-XII intact bilaterally Extrem General: Yes normal to inspection, Yes no clubbing, cyanosis or edema and Yes no calf tenderness Psych Speech and movement: Normal speech and movement present Assessment & Plan Assessment & Plan (1) COPD (chronic obstructive pulmonary disease): Comment: SHE HAS RATHER SEVERE/ADVANCED CHRONIC OBSTRUCTIVE PULMONARY DISEASE. UNFORTUNATELY SHE STILL CONTINUES TO SMOKE. PFT 03/2020 -(SEVERE OBSTRUCTIVE AIRWAY DISORDER ) DOING WELL AND STABLE ON HER CURRENT REGIMEN, AND IS ADVISED TO CONTINUE the same . Code(s): J44.9 - Chronic obstructive pulmonary disease, unspecified Category: Medical Plan: FLOVENT-TO [address] OF BEVESPI I WILL CHANGED TO, IPRATROPIUM/ALBUTEROL BY UPDRAFT T.I.D.. ALBUTEROL HFA 2 PUFFS Q 4-6 HOURS P.R.N. (2) Smoker: Comment: STILL SMOKES , CLAIMS THAT SHE IS DOWN TO 5 CIGARETTES A DAY. Code(s): F17.200 - Nicotine dependence, unspecified, uncomplicated Category: Social Hx Plan: COUNSELED TO QUIT SMOKING COMPLETELY. PATIENT IS FULLY AWARE OF THE RISKS OF CONTINUED SMOKING. (3) Respiratory failure with hypoxia: Comment: PATIENT HAS NOCTURNAL HYPOXEMIA WELL HYPOXEMIA ON EXERTION. SHE HAS A STATIONARY O2 CONCENTRATOR AT HOME WELL PORTABLE UNIT. Code(s): J96.91 - Respiratory failure, unspecified with hypoxia Category: Medical Plan: USE O2 2 L/MINUTE 24 HOURS A DAY (4) Allergic rhinitis: Comment: MILD , CONTROLLED WITH ATROVENT NASAL INH, USED PRN . Code(s): J30.9 - Allergic rhinitis, unspecified Category: Medical Plan: CONTINUE THE SAME MEDICINES Medications: New ipratropium-albuterol 0.5 mg-3 mg(2.5 mg base)/3 mL 3 mL inhalation Q4-6H 20 days PRN 180 mL 3RF wheezing
== END 2023-07-29 13:21 | disposition home or self-care (01) ==
PROVIDERS: PCP Internal Medicine; Visit Provider Internal Medicine
DX: J44.9 Chronic obstructive pulmonary disease, unspecified (principal); F17.200 Nicotine dependence, unspecified, uncomplicated; J96.91 Respiratory failure, unspecified with hypoxia; J30.9 Allergic rhinitis, unspecified
CPT/HCPCS: 99213

== ENCOUNTER → 2023-07-29 10:35 | Outpatient (BNVA) | payer MEDICARE, MEDICAID, SELFPAY | PROVIDERS: PCP Internal Medicine; Visit Provider Internal Medicine | DX: J44.9 Chronic obstructive pulmonary disease, unspecified (principal); J96.91 Respiratory failure, unspecified with hypoxia; J30.9 Allergic rhinitis, unspecified; F17.210 Nicotine dependence, cigarettes, uncomplicated; Z71.6 Tobacco abuse counseling | CPT/HCPCS: 99212 ==

== ENCOUNTER 2023-08-28 09:56 | Outpatient (AMB) | payer MEDICARE, MEDICAID, SELFPAY ==
--- NOTE | 2023-08-28 10:34 | A.OFFVIS_ITS ---
Vital Signs 08/28/23 10:35 Height 5 ft 6 in Weight 120 lb 2.431 oz BMI 19.4 BP 120/62 Blood Pressure Location Lt brachial Position Sitting Pulse 95 Pulse Source Pulse Oximeter Pulse Oximetry (%) 92 Oxygen Delivery Method Nasal Cannula Oxygen Flow Rate 1 Intake Visit Reasons: copd Intake Note: pt is here for follow up and states her breathing is not good on new inhalers, Bevespi is not working as well as stiolto and would like to go back on, and generic flovent is an issue also at pharmacy. needs refill on albuterol and ? prednisone need. Allergies dextrose Allergy (Severe, Verified 08/28/23 10:51) anaphylaxis latex [LATEX] Allergy (Severe, Verified 08/28/23 10:51) HIVES psyllium [From Metamucil] Allergy (Severe, Verified 08/28/23 10:51) anaphylaxis clindamycin [CLINDAMYCIN] Allergy (Intermediate, Verified 08/28/23 10:51) RASH NSAIDS (Non-Steroidal Anti-Inflamma Allergy (Intermediate, Verified 08/28/23 10:51) ulcers tramadol [From ULTRAM] Allergy (Intermediate, Verified 08/28/23 10:51) HIVES levofloxacin [From LEVAQUIN] Adverse Reaction (Intermediate, Verified 08/28/23 10:51) TENDON PAIN, achilles tendonitis prednisone Adverse Reaction (Intermediate, Verified 08/28/23 10:51) GI BLEED, high doses valacyclovir [From VALTREX] Adverse Reaction (Intermediate, Verified 08/28/23 10:51) GI UPSET Medication List - Last Reconciled 08/28/23 by Manuel Covarrubias MD albuterol sulfate 2.5 mg (3 mL) inhalation Q4-6H PRN 30 days albuterol sulfate 90 mcg/actuation 2 puffs inhalation Q4-6H PRN docusate sodium 100 mg PO BID PRN fluticasone propionate 220 mcg/actuation 2 puffs inhalation BID 30 days glycopyrrolate-formoterol 9-4.8 mcg (Bevespi Aerosphere) 2 puffs inhalation BID 30 days ipratropium bromide 2 sprays intranasal BID-TID PRN ipratropium-albuterol 0.5 mg-3 mg(2.5 mg base)/3 mL 3 mL inhalation Q4-6H PRN 20 days loratadine 10 mg PO DAILY methadone 105 mg PO DAILY nicotine 1 patch transdermal DAILY 28 days ondansetron HCl 4 mg PO BID PRN pantoprazole 40 mg PO BID ramelteon 8 mg PO BEDTIME PRN Stiolto Respimat 2.5-2.5 mcg/actuation (tiotropium-olodaterol) 2 puffs PO DAILY NS tizanidine 4 mg PO Q8H PRN Do you need a note to return to daycare/school/sports/work: No HPI HPI copd: Details: THIS 68 YEARS OLD FEMALE [employer] SMOKER AND HAS ADVANCED CHRONIC OBSTRUCTIVE PULMONARY DISEASE, SHE IS OXYGEN DEPENDENT. COMES TODAY. FOR HER ROUTINE FOLLOW-UP SHE DOES HAVE INTERMITTENT COUGH, GETS SHORT OF BREATH ON MINIMAL EXERTION EVEN. THOUGH SHE IS USING OXYGEN IN THE LAST WEEK HER SYMPTOMS ARE SOMEWHAT WORSE, BUT SHE DENIES ANY FEVER OR CHILLS. SHE IS USING BEVESPI IN PLACE OF STIOLTO, AND CLAIMS THAT IT IS NOT HELPING HER MUCH STIOLTO WAS HELPING. ALSO HAS NOT BEEN ABLE TO GET FLOVENT FOR REGULAR USE. SHE DOES STAY ON OXYGEN 2 L/MINUTE. UNFORTUNATELY STILL SMOKING ABOUT 5 CIGARETTES A DAY. 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 Cervicalgia Epigastric pain Chronic neck pain Respiratory failure with hypoxia Smoker Surgical menopause Duodenal ulcer Bipolar disorder Gastritis Tubular adenoma of colon Substance abuse Osteopenia Alcoholic cirrhosis of liver Hepatitis C COPD (chronic obstructive pulmonary disease) Cervicalgia Osteoarthritis of multiple joints Oral thrush Surgical History Hx of colonoscopy History of surgery History of esophagogastroduodenoscopy (EGD) History of hysterectomy Ankle fracture Family History Father Alcoholism History of manic depressive disorder COPD (chronic obstructive pulmonary disease) Cancer Mother COPD (chronic obstructive pulmonary disease) Cardiac disease Smoker CHF (congestive heart failure) Alcoholism CVD (cardiovascular disease) Mental disorder Sister Lupus PTSD (post-traumatic stress disorder) Son Cardiac arrest Maternal Grandfather No problems noted. Maternal Grandmother No problems noted. Paternal Grandfather Alcoholism Mental disorder Paternal Grandmother No problems noted. Social History Housing: Apartment Alcohol intake: current Alcohol intake frequency: 0-2 drinks per day Alcohol type: beer Patient Tobacco Use Status: Current everyday Tobacco user Tobacco use type: Cigarette Cigarettes Per Day: 5 e-Cigarette/Vaping Use: Never Used Current occupational status: disabled Cognitive needs: No Hearing needs: No Vision needs: No Review of Systems Const All systems reviewed & are unremarkable except as noted in HPI and below ENT Reports no additional complaints Card Denies chest pain, Denies irregular heart rhythm and Denies leg edema Resp Reports as per HPI GI Reports no additional complaints Reports no additional complaints Musc Reports back pain Skin/Breast Reports system reviewed and no additional complaints, except as documented Neuro Reports no additional complaints Psych Reports no additional complaints Physical Exam Vital Signs: Last Vital Signs Pulse 95 08/28/23 10:35 BP 120/62 08/28/23 10:35 Pulse Ox 92 08/28/23 10:35 Oxygen Delivery Method Nasal Cannula 08/28/23 10:35 Oxygen Flow Rate 1 08/28/23 10:35 BMI result Body Mass Index 19.4 Const Other: She is of a thin build, looking fairly healthy and stable at this time. General: comfortable, no acute distress, alert and awake Orientation/consciousness: patient oriented x3 HEENT Head: Yes normal to inspection Ears: hearing grossly normal bilaterally General nose exam: No nasal polyps present and No nasal discharge present Face and sinus: Yes sinuses nontender Mouth: oropharynx normal Throat: Yes posterior oropharynx normal Eyes General: appearance normal, both eyes and all related structures Neck Neck: Yes normal visual inspection, Yes no lymphadenopathy, Yes trachea midline and Yes no JVD Thyroid: Thyroid normal Chest Chest palpation & inspection: normal inspection of the chest, normal palpation of entire chest wall and no tenderness Resp Other: Percussion note hyper-resonant, breath sounds are distant with prolonged ex piratory phase. But no wheezes rhonchi or crepitations are heard. Cardio Palpation: normal PMI Rate: regular rate Rhythm: regular rhythm Heart sounds: no gallops and no murmurs GI Palpation (GI): Soft to palpation, nontender, No hepatosplenomegaly present and no masses Auscultation: normal bowel sounds Back/Spine/Pelvis Thoracic/Lumbar Spine: thoracic and lumbar spine normal to inspection Pelvis: no pain with anterior-posterior compression Skin General skin exam: no rashes or lesions noted Neuro General: patient oriented x3 and no focal motor deficits Cranial nerves: Yes CN's II-XII intact bilaterally Extrem General: Yes normal to inspection, Yes no clubbing, cyanosis or edema and Yes no calf tenderness Psych Speech and movement: Normal speech and movement present Assessment & Plan Assessment & Plan (1) COPD (chronic obstructive pulmonary disease): Comment: SHE HAS RATHER SEVERE/ADVANCED CHRONIC OBSTRUCTIVE PULMONARY DISEASE. UNFORTUNATELY SHE STILL CONTINUES TO SMOKE. PFT 03/2020 -(SEVERE OBSTRUCTIVE AIRWAY DISORDER ) DOING WELL AND STABLE BUT HAS INCREASED CHEST CONGESTION AND COUGH SINCE SHE IS ON BEVESPI, WANTS TO GO BACK TO STIOLTO. Code(s): J44.9 - Chronic obstructive pulmonary disease, unspecified Category: Medical Plan: STIOLTO RESPIMAT , 2 INHALATIONS DAILY. ALBUTEROL HFA 2 PUFFS Q 4-6 HOURS P.R.N. ALTERNATIVELY MAY USE ALBUTEROL SOLUTION IN THE NEBULIZER. Q 4-6 HOURS P.R.N. FLOVENT-TO 22 PUFFS B.I.D. CONTINUE REGULARLY (2) Smoker: Comment: STILL SMOKES , CLAIMS THAT SHE IS DOWN TO 5 CIGARETTES A DAY. HER DIAGNOSIS OF CHRONIC ANXIETY/BIPOLAR DISORDER MAKES IT DIFFICULT FOR HER TO QUIT COMPLETELY. Code(s): F17.200 - Nicotine dependence, unspecified, uncomplicated Category: Social Hx Plan: COUNSELED TO QUIT SMOKING COMPLETELY ARE AT LEAST KEEP ON CUTTING DOWN THE NUMBER OF CIGARETTES. (3) Respiratory failure with hypoxia: Comment: PATIENT HAS NOCTURNAL HYPOXEMIA WELL HYPOXEMIA ON EXERTION. SHE HAS A STATIONARY O2 CONCENTRATOR AT HOME WELL PORTABLE UNIT. Code(s): J96.91 - Respiratory failure, unspecified with hypoxia Category: Medical Plan: CONTINUE TO USE O2 2 L/MINUTE AT NIGHT AND DURING. THE DAYTIME WITH THE PORTABLE UNIT NEEDED (4) Allergic rhinitis: Comment: MILD , CONTROLLED WITH ATROVENT NASAL INH, USED PRN . Code(s): J30.9 - Allergic rhinitis, unspecified Category: Medical Plan: CONTINUE USING ATROVENT NASAL SPRAY 1 SPRAY IN EACH NOSTRIL B.I.D. P.R.N. Medications: New prednisone 20 mg PO DAILY 7 days 7 tabs 0RF COPD EXCERBATION Refilled fluticasone propionate 220 mcg/actuation administer with spacer 2 puffs inhalation BID 30 days 12 grams 4RF ASTHMA Stiolto Respimat 2.5-2.5 mcg/actuation (tiotropium-olodaterol) 2 puffs PO DAILY 4 grams 0RF NS J44.9 - Chronic obstructive pulmonary disease, unspecified Coding Level of Care Code Est Pt Level 3 (64211) Diagnoses COPD (chronic obstructive pulmonary disease) J44.9 Smoker F17.200 Respiratory failure with hypoxia J96.91 Allergic rhinitis J30.9
[2023-08-28 10:35] VITALS: BP 120/62; PULSE 95; O2SAT 92; BMI 19.4
== END 2023-08-28 10:51 | disposition home or self-care (01) ==
PROVIDERS: PCP Internal Medicine; Visit Provider Internal Medicine
DX: J44.9 Chronic obstructive pulmonary disease, unspecified (principal); F17.200 Nicotine dependence, unspecified, uncomplicated; J96.91 Respiratory failure, unspecified with hypoxia; J30.9 Allergic rhinitis, unspecified
CPT/HCPCS: 99213

== ENCOUNTER → 2023-08-28 | Outpatient (BNVA) | payer MEDICARE, MEDICAID, SELFPAY | PROVIDERS: PCP Internal Medicine; Visit Provider Internal Medicine | DX: J96.91 Respiratory failure, unspecified with hypoxia (principal); J44.9 Chronic obstructive pulmonary disease, unspecified; J30.9 Allergic rhinitis, unspecified; F17.210 Nicotine dependence, cigarettes, uncomplicated; Z99.81 Dependence on supplemental oxygen | CPT/HCPCS: 99212 ==

== ENCOUNTER 2023-09-27 11:15 | Outpatient (AMB) | payer MEDICARE, MEDICAID, SELFPAY ==
[2023-09-27 11:17] VITALS: BP 110/70; PULSE 105; TEMP 36.6; O2SAT 88; BMI 19.4
--- NOTE | 2023-09-27 11:17 | AM.OFFWIN_ITS ---
Intake Vital Signs 09/27/23 11:17 Height 5 ft 6 in Weight 120 lb BMI 19.4 BP 110/70 Blood Pressure Location Lt brachial Position Sitting Pulse 105 H Pulse Source Pulse Oximeter Temp 97.9 F Temp Source Temporal Artery Scan Pulse Oximetry (%) 88 L Oxygen Delivery Method Room Air Intake Visit Reasons: EP edema/blisters on rt leg Intake Note: pt is here today for edema blisters on rt leg started yesterday Patient Tobacco Use Status: Current everyday Tobacco user Allergies dextrose Allergy (Severe, Verified 09/27/23 11:25) anaphylaxis latex [LATEX] Allergy (Severe, Verified 09/27/23 11:25) HIVES psyllium [From Metamucil] Allergy (Severe, Verified 09/27/23 11:25) anaphylaxis clindamycin [CLINDAMYCIN] Allergy (Intermediate, Verified 09/27/23 11:25) RASH NSAIDS (Non-Steroidal Anti-Inflamma Allergy (Intermediate, Verified 09/27/23 11:25) ulcers tramadol [From ULTRAM] Allergy (Intermediate, Verified 09/27/23 11:25) HIVES levofloxacin [From LEVAQUIN] Adverse Reaction (Intermediate, Verified 09/27/23 11:25) TENDON PAIN, achilles tendonitis prednisone Adverse Reaction (Intermediate, Verified 09/27/23 11:25) GI BLEED, high doses valacyclovir [From VALTREX] Adverse Reaction (Intermediate, Verified 09/27/23 11:25) GI UPSET Do you need a note to return to daycare/school/sports/work: No HPI HPI Comments History of Present Illness Details Patient is a 68-year-old female with a past medical history of COPD on 2L oxygen at home complaining of bilateral lower extremity edema. She states that she used to take 20 mg of Lasix daily but that she stopped taking it, her reason is unclear. She now has fluid filled blistering on her right leg, both legs are red, tense and painful. [facility] Medical History Anemia Absent pedal pulses Pain in both lower extremities Constipation due to opioid therapy Positional lightheadedness Chest wall pain Oxygen dependent Allergic rhinitis Vitamin D deficiency Primary osteoarthritis, right shoulder Arthropathy of cervical facet joint Degeneration, intervertebral disc, cervical Spondylosis of cervical joint without myelopathy Cervicalgia Epigastric pain Chronic neck pain Respiratory failure with hypoxia Smoker Surgical menopause Duodenal ulcer Bipolar disorder Gastritis Tubular adenoma of colon Substance abuse Osteopenia Alcoholic cirrhosis of liver Hepatitis C COPD (chronic obstructive pulmonary disease) Cervicalgia Osteoarthritis of multiple joints Oral thrush Surgical History Hx of colonoscopy History of surgery History of esophagogastroduodenoscopy (EGD) History of hysterectomy Ankle fracture Family History Father Alcoholism History of manic depressive disorder COPD (chronic obstructive pulmonary disease) Cancer Mother COPD (chronic obstructive pulmonary disease) Cardiac disease Smoker CHF (congestive heart failure) Alcoholism CVD (cardiovascular disease) Mental disorder Sister Lupus PTSD (post-traumatic stress disorder) Son Cardiac arrest Maternal Grandfather No problems noted. Maternal Grandmother No problems noted. Paternal Grandfather Alcoholism Mental disorder Paternal Grandmother No problems noted. Social History Housing: Apartment Alcohol intake: current Alcohol intake frequency: 0-2 drinks per day Alcohol type: beer Patient Tobacco Use Status: Current everyday Tobacco user Tobacco use type: Cigarette Cigarettes Per Day: 5 e-Cigarette/Vaping Use: Never Used Current occupational status: disabled Cognitive needs: No Hearing needs: No Vision needs: No Review of Systems Const All systems reviewed & are unremarkable except as noted in HPI and below Physical Exam Vital Signs: Last Vital Signs Temp 97.9 F 09/27/23 11:17 Pulse 105 H 09/27/23 11:17 BP 110/70 09/27/23 11:17 Pulse Ox 88 L 09/27/23 11:17 Oxygen Delivery Method Room Air 09/27/23 11:17 BMI result Body Mass Index 19.4 Const Other: Wearing NC for oxygen General: cooperative, healthy appearing, comfortable, no acute distress and well developed Orientation/consciousness: patient oriented x3 Limitations: no limitations HEENT Head: Yes normal to inspection Eyes General: appearance normal, both eyes and all related structures Neck Neck: Yes normal visual inspection and Yes full ROM Resp Effort & Inspection: normal respiratory effort and able to speak in complete sentences Neuro General: patient oriented x3 Extrem Other: Bilateral lower extremities are erythematous, tense, with 1+ pitting edema, there is no warmth or other signs of infection noted, there is no ecchymosis. The right leg has a 2 cm fluid-filled bullae. And some red crusting adjacent to it. Assessment & Plan Assessment & Plan (1) Bilateral lower extremity edema: Code(s): R60.0 - Localized edema Plan: RX'd 20 mg p.o. Lasix daily for 5 days and was able to get patient appointment to see her PCP in 5 days. Rechecked vitals after the patient was sitting for a few minutes and her oxygen saturation went up to 95%, heart rate went down to 98 beats per minute. Plan See above Medications: New furosemide (Lasix) 20 mg PO QAM 5 tabs 0RF Coding Level of Care Code Est Pt Level 3 (00610) Diagnoses Bilateral lower extremity edema R60.0
== END 2023-09-27 12:50 | disposition home or self-care (01) ==
PROVIDERS: PCP Internal Medicine; Visit Provider Physician Assistant
DX: R60.0 Localized edema (principal)
CPT/HCPCS: 99213

== ENCOUNTER 2023-10-01 09:28 | Outpatient (AMB) | payer MEDICARE, MEDICAID, SELFPAY ==
[2023-10-01 10:09] VITALS: BP 108/60; PULSE 101; O2SAT 92; BMI 19.7
--- NOTE | 2023-10-01 10:09 | A.OFFPC_ITS ---
Vital Signs 10/01/23 10:09 Height 5 ft 6 in Weight 122 lb BMI 19.7 BP 108/60 Blood Pressure Location Lt brachial Position Sitting Pulse 101 H Pulse Source Pulse Oximeter Pulse Oximetry (%) 92 Oxygen Delivery Method Nasal Cannula Intake Visit Reasons: F/U from W/I 09/27/23 Edema Allergies dextrose Allergy (Severe, Verified 10/01/23 10:19) anaphylaxis latex [LATEX] Allergy (Severe, Verified 10/01/23 10:19) HIVES psyllium [From Metamucil] Allergy (Severe, Verified 10/01/23 10:19) anaphylaxis clindamycin [CLINDAMYCIN] Allergy (Intermediate, Verified 10/01/23 10:19) RASH NSAIDS (Non-Steroidal Anti-Inflamma Allergy (Intermediate, Verified 10/01/23 10:19) ulcers tramadol [From ULTRAM] Allergy (Intermediate, Verified 10/01/23 10:19) HIVES levofloxacin [From LEVAQUIN] Adverse Reaction (Intermediate, Verified 10/01/23 10:19) TENDON PAIN, achilles tendonitis prednisone Adverse Reaction (Intermediate, Verified 10/01/23 10:19) GI BLEED, high doses valacyclovir [From VALTREX] Adverse Reaction (Intermediate, Verified 10/01/23 10:19) GI UPSET Medication List - Last Reconciled 10/01/23 by Nena Milner MD albuterol sulfate 2.5 mg (3 mL) inhalation Q4-6H PRN 30 days albuterol sulfate 90 mcg/actuation 2 puffs inhalation Q4-6H PRN docusate sodium 100 mg PO BID PRN fluticasone propionate 220 mcg/actuation 2 puffs inhalation BID 30 days glycopyrrolate-formoterol 9-4.8 mcg (Bevespi Aerosphere) 2 puffs inhalation BID 30 days ipratropium bromide 2 sprays intranasal BID-TID PRN ipratropium-albuterol 0.5 mg-3 mg(2.5 mg base)/3 mL 3 mL inhalation Q4-6H PRN 20 days loratadine 10 mg PO DAILY methadone 105 mg PO DAILY nicotine 1 patch transdermal DAILY 28 days ondansetron HCl 4 mg PO BID PRN pantoprazole 40 mg PO BID ramelteon 8 mg PO BEDTIME PRN Stiolto Respimat 2.5-2.5 mcg/actuation (tiotropium-olodaterol) 2 puffs PO DAILY NS tizanidine 4 mg PO Q8H PRN Tobacco use date assessed: 10/01/23 Fall risk assessment: 2 + Falls in past year Last assessed Fall Risk: 10/01/23 Dental Screening Dental Screen Date: 10/01/23 Did you have a dental visit in the last 12 months?: No Was dental information given to patient?: Patient declined HPI F/U from W/I 09/27/23 Edema HPI Details 68-year-old femal e with COPD on 2L oxygen at home hi story of takotsubo cardiomyopathy he re today for follo w-up after recent visit walk-in prox imally 4 days ago complaining of juan a ateral lower extre mity edema. She h as been taking 20 mg of Lasix daily but does not see a ny improvement s he states that the swelling is getti ng worse and now h as fluid filled bl istering on her ri ght leg, both legs are red, tense an d painful. She continues to smoke 5 cigarettes a day, requesting help in quitting smoking [facility] Medical History (Updated 10/01/23 @ 10:28 by Nena Milner MD) Cigarette smoker motivated to quit Takotsubo cardiomyopathy Redness and swelling of lower leg History of congestive heart failure Anemia Absent pedal pulses Pain in both lower extremities Constipation due to opioid therapy Positional lightheadedness Chest wall pain Oxygen dependent Allergic rhinitis Vitamin D deficiency Primary osteoarthritis, right shoulder Arthropathy of cervical facet joint Degeneration, intervertebral disc, cervical Spondylosis of cervical joint without myelopathy Cervicalgia Epigastric pain Chronic neck pain Respiratory failure with hypoxia Smoker Surgical menopause Duodenal ulcer Bipolar disorder Gastritis Tubular adenoma of colon Substance abuse Osteopenia Alcoholic cirrhosis of liver Hepatitis C COPD (chronic obstructive pulmonary disease) Cervicalgia Osteoarthritis of multiple joints Oral thrush Surgical History Hx of colonoscopy History of surgery History of esophagogastroduodenoscopy (EGD) History of hysterectomy Ankle fracture Family History Father Alcoholism History of manic depressive disorder COPD (chronic obstructive pulmonary disease) Cancer Mother COPD (chronic obstructive pulmonary disease) Cardiac disease Smoker CHF (congestive heart failure) Alcoholism CVD (cardiovascular disease) Mental disorder Sister Lupus PTSD (post-traumatic stress disorder) Son Cardiac arrest Maternal Grandfather No problems noted. Maternal Grandmother No problems noted. Paternal Grandfather Alcoholism Mental disorder Paternal Grandmother No problems noted. Social History Housing: Apartment Alcohol intake: current Alcohol intake frequency: 0-2 drinks per day Alcohol type: beer Patient Tobacco Use Status: Current everyday Tobacco user Tobacco use type: Cigarette Cigarettes Per Day: 5 e-Cigarette/Vaping Use: Never Used Current occupational status: disabled Cognitive needs: No Hearing needs: No Vision needs: No Questionnaire PHQ-9 Over the last 2 weeks, how often have you been bothered by any of the following problems? 1. Little interest or pleasure in doing things: more than half the days 2. Feeling down, depressed, or hopeless: several days 3. Trouble falling or staying asleep, or sleeping too much: more than half the days 4. Feeling tired or having little energy: more than half the days 5. Poor appetite or overeating: nearly every day 6. Feeling bad about yourself - or that you are a failure or have let yourself or your family down: several days 7. Trouble concentrating on things, such as reading the newspaper or watching television: more than half the days 8. Moving or speaking so slowly that other people could have noticed. Or the opposite - being so fidgety or restless that you have been moving around a lot more than usual: more than half the days 9. Thoughts that you would be better off or of hurting yourself in some way: not at all Total score: 15 Depression Screening Interpretation: Positive (Followed by psychiatry BERENICE BARBER MD ) Depression Screening Follow-up: Existing condition, In treatment and Community Mental Health Worker F/U Depression Screening Done: Yes Source: Developed by Drs. Marquez Mclaughlin, Anny Chong, Giovanny Grady and colleagues, with an educational owen from [employer]. Thrive Questionnaire Date Thrive assessed: 10/01/23 I am a: Patient What is your living situation today?: I have a steady place to live Within the past 12 months, did the food you bought not last and you didn't have the money to get more?: Sometimes True Within the past 12 months, did you worry whether your food would run out before you got money to buy more?: Sometimes True Do you have trouble paying for medicines?: No Do you have trouble getting transportation to medical appointments?: No Do you have trouble paying your heating and electricity bill?: No Do you have trouble taking care of your child, family member or friend?: No Do you have trouble with day-to-day activities such as bathing, preparing meals, shopping, managing finances, etc.?: Yes Are you currently unemployed and looking for a job?: No Are you interested in more education?: No THRIVE Score: 2 AUDIT C Alcohol Use Questionnaire (AUDIT-C) 1. How often do you have a drink containing alcohol?: Never Total Score: 0 MIKE-7 AMB Questionnaire MIKE-7 Date MIKE - 7 assessed: 10/01/23 Feeling nervous, anxious, or on edge: 2 = More than half the days Not being able to stop or control worryin = More than half the days Worrying too much about different things: 2 = More than half the days Trouble relaxin = Nearly every day Being so restless that it is hard to sit still: 2 = More than half the days Becoming easily annoyed or irritable: 3 = Nearly every day Feeling afraid as if something awful might happen: 2 = More than half the days Total MIKE-7 score (0-4 normal; 5-9 mild; 10-14 moderate; 15-21 severe): 16 Source: Developed by Drs. Marquez Mclaughlin, Anny Chong, Giovanny Grady and colleagues, with an educational owen from [employer]. MIKE-7 Assessment Billing MIKE-7 Assessment Tool: MIKE-7 Assessment 78975 Review of Systems Const All systems reviewed & are unremarkable except as noted in HPI and below ENT Reports no additional complaints Card Reports as per HPI, Denies chest pain, Denies chest pain with activity, Denies irregular heart rhythm, Reports leg edema, Denies lightheadedness and Reports dyspnea on exertion Resp Reports as per HPI, Reports chest congestion, Denies cough and Reports dyspnea on exertion GI Reports no additional complaints Reports no additional complaints Musc Reports back pain Skin/Breast Reports system reviewed and no additional complaints, except as documented Neuro Reports no additional complaints Psych Reports no additional complaints Physical exam (Primary Care) Vital Signs: Last Vital Signs Pulse 101 H 10/01/23 10:09 BP 108/60 10/01/23 10:09 Pulse Ox 92 10/01/23 10:09 Oxygen Delivery Method Nasal Cannula 10/01/23 10:09 BMI result Body Mass Index 19.7 Tobacco/Smoking Status: Tobacco use Status Tobacco use date assessed 10/01/23 10/01/23 10:16 Patient Tobacco Use Status Current everyday Tobacco 10/01/23 10:10 Tobacco use type Cigarette 10/01/23 10:10 e-Cigarette/Vaping Use Never Used 10/01/23 10:10 PHQ-9: PHQ-9 Score PHQ-9: Total score 20 10/01/23 10:46 Depression Screening Interpretation: Positive (Followed by psychiatry BERENICE BARBER MD ) Depression Screening Follow-up: Existing condition, In treatment and Community Mental Health Worker F/U Thrive Assessment: Date of Thrive Assessment Date Thrive assessed 10/01/23 10/01/23 10:44 Const General: no acute distress Orientation/consciousness: patient oriented x3 HENLA General nose exam: Normal external nose present, Normal nasal mucous membranes and turbinates present and Other nasal findings present (Has O2 by nasal cannula) Neck Neck: Yes full ROM, Yes no lymphadenopathy and Yes supple Resp Auscultation: clear to auscultation bilaterally Cardio Other: S1-S2 present regular rate and rhythm, unable to palpate dorsalis pedis pulse bilaterally GI Inspection: Yes normal to inspection Palpation (GI): Soft to palpation, nontender, no guarding and no masses Back/Spine/Pelvis Cervical Spine: cervical muscular tenderness, pain with cervical ROM and cervical spasm Skin Other: Red and warm to touch lower extremities bilateral with blister formation Neuro General: patient oriented x3, gait normal, moves all extremities, Normal light touch and pain sensation and no focal motor deficits Extrem General: Yes full ROM, Yes no joint enlargement and Yes no pedal edema Psych Appearance: grossly normal and well kempt Mental Status: mental status grossly normal Speech and movement: Normal speech and movement present Affect: normal affect Attitude: cooperative Assessment and Plan Assessment & Plan (1) Redness and swelling of lower leg: Code(s): M79.89 - Other specified soft tissue disorders; R23.8 - Other skin changes Plan: Started on Bactrim DS 1 tablet every 12 hours for 10 days, in addition to cephalexin 500 mg every 6 hours for 10 days. Wants a prescription for Percocet given, to be taken 1 tablet only as needed for severe pain only. 7 tablets with no refill (2) Takotsubo cardiomyopathy: Code(s): I51.81 - Takotsubo syndrome Plan: Ordered echocardiogram transthoracic and referred to cardiology for follow-up (3) Cigarette smoker motivated to quit: Code(s): F17.210 - Nicotine dependence, cigarettes, uncomplicated Plan: Discussed options for smoking cessation with medications. Pt wishes to try nicotine patch. Pt advised to apply the nicotine patch as directed on cigarette quit day. Discussed common side effects and strongly advised not to smoke while using the patch. If developes any adverse effects please call office. Follow up in office 4 weeks. Discussed side effects including but not limited to local erythema, rash, diarrhea, and insomnia., , Orders: Orders CA echo transthoracic complete 10/01/23 M79.89 - Other specified soft tissue disorders, R23.8 - Other skin changes, Z86.79 - Personal history of other diseases of the circulatory system, I51.81 - Takotsubo syndrome Referrals Cardiology Referral Z86.79 - Personal history of other diseases of the circulatory system, I51.81 - Takotsubo syndrome Medications: New varenicline PO PER PKG DIR 53 ea 0RF cephalexin 500 mg PO QID 40 caps 0RF 10 days sulfamethoxazole-trimethoprim 800-160 mg (Bactrim DS) 1 tab PO Q12H 20 tabs 0RF oxycodone-acetaminophen 5-325 mg (Percocet) Partial Fill upon patient request. 1 tab PO DAILY PRN 7 tabs 0RF severe pain Coding Level of Care Code Est Pt Level 4 (34820) Diagnoses Redness and swelling of lower leg M79.89; R23.8 Takotsubo cardiomyopathy I51.81 Cigarette smoker motivated to quit F17.210 Additional Codes MIKE-7 Assessment Billing - MIKE-7 Assessment Tool: MIKE-7 Assessment 29741 ([id number])
== END 2023-10-01 13:21 | disposition home or self-care (01) ==
PROVIDERS: PCP Internal Medicine; Visit Provider Internal Medicine
DX: M79.89 Other specified soft tissue disorders (principal); R23.8 Other skin changes; I51.81 Takotsubo syndrome; F17.210 Nicotine dependence, cigarettes, uncomplicated
CPT/HCPCS: 99214

== ENCOUNTER → 2023-10-25 09:44 | Outpatient (REF) | payer MEDICARE, MEDICAID, SELFPAY ==
--- NOTE | 2023-10-25 09:50 | CA_ITS ---
Transthoracic Echocardiogram Patient (Last, First, Middle): Nilsa Fitzpatrick L Gender: Female Date of : 1955 Age: 68 Procedure Date: 10/25/2023 Procedure Type: Transthoracic Echocardiogram Location: OP Height: 167.64 cm Weight: 55.34 kg BSA: 1.62 m2 Heart Rate: bpm BP: 110 / 60 mmHg Banking Manager: GIDEON Referring MD: Nena Milner MD Chief Executive: Tian Rivers MD Symptoms: M79.89 - Other specified soft tissue disorders Study Quality: Technically Difficult ECG Rhythm: Sinus Conclusions: - 1. Normal LV ejection fraction of 60 65% with impaired relaxation filling pattern 2. Mild aortic stenosis 3. No gross pericardial effusion Findings Left Ventricle Normal left ventricular size, thickness, and systolic function. The visually estimated ejection fraction is between 60-65%. Spectral Doppler is indicative of an impaired relaxation filling pattern. E/E prime ratio is between 8 and 15 consistent with indeterminate filling pressures. Right Ventricle Normal right ventricular cavity size and systolic function. Atria Both atria are normal in size. There is lipomatous hypertrophy of the interatrial septum. There is no evidence of interatrial shunt. Aortic Valve The aortic valve structure and function is likely normal. There is mild calcification of the aortic valve. There is mild aortic valve stenosis. The peak aortic velocity is 1.91 m/s with a calculated peak gradient of 15 mmHg. The mean gradient is 7 mmHg. The aortic valve area is 1.95 cm2. There is no aortic valve regurgitation. Mitral Valve There is mild anterior and posterior mitral leaflet thickening. There is mild mitral annular calcification. There is trace mitral valve regurgitation. There is no mitral valve stenosis. Pulmonic Valve The pulmonic valve was not well visualized. Tricuspid Valve Likely normal tricuspid valve structure and function. Tricuspid regurgitation envelope is inadequate for calculation of right ventricular systolic pressure. Normal right atrial pressure. Great Vessels The pulmonary artery was not well visualized. There is no dilatation of the ascending aorta measuring 3.10 cm. Venous The inferior vena cava is normal in size and collapses greater than 50% with inspiration. Pericardium/Pleural There is no evidence of pericardial effusion. Prior Study Comparison No previous study in the last 5 years for comparison Measurements 2D Linear Measurements IVSd: 0.96 0.6-0.9/0.6-1.0 cm LVIDd: 3.60 3.9-5.3/4.2-5.9 cm LVIDd Index: 2.22 2.4-3.2/2.2-3.1 cm/m2 LVIDs: 2.87 2.0-3.6 cm LVPWd: 0.75 0.7-1.1 cm Ao Root: 2.90 2.1-3.5 cm LA Diam: 2.90 2.7-3.8/3.0-4.0 cm LAIDs Index: 1.79 1.5-2.3 cm/m2 LV Mass: 106.75 67-162/88-224 g LV Mass Index: 65.89 43-95/49-115 g/m2 LVOT Diam: 2.10 3.0+(-)1.3 cm 2D Systolic Function EF 4C: 64.80 >55% EF 2C: 59.60 >55% EF BiP: 62.70 >55% Mitral Valve MV VTI: 0.20 MV Pk Edgar: 1.49 MV Mn Edgar: 0.86 MV Pk Grad: 9.00 MV Mn Grad: 4.00 MV Pk E: 0.93 MV PK A: 1.39 MV Decel Time: 119.00 E/A: 0.70 E'Lateral: 9.03 E'Medial: 8.05 E/E' Med: 11.60 E/E' Lat: 10.30 PHT: 35.00 MVA PHT: 6.29 MVA Continuity: 3.36 Decel [place]: 7.80 Aortic Valve AoV Pk Edgar: 1.91 AoV Mn Edgar: 1.20 AoV VTI: 0.35 AoV Pk Grad: 15.00 Aov Mn Grad: 7.00 GWYN Cont.VTI: 1.95 LVOT LVOT Pk Edgar: 0.94 LVOT Mn Edgar: 0.60 LVOT VTI: 0.20 LVOT Pk Grad: 4.00 LVOT Mn Grad: 2.00 LVOT Diam: 2.10 LVOT Area: 3.46 Diastolic Function MV Pk E: 0.93 MV Pk A: 1.39 E/A: 0.70 E'Medial: 8.05 E/E' Med: 11.60 E' Laterial: 9.03 E/E' Lat: 10.30 Right Ventricle TAPSE (mm): 22.40 TVS' Edgar: 11.00 Great Vessels Aorta Ao Root-2D: 2.90 2.0-3.7 cm Ao Asc: 3.10 2.1-3.4 cm Ao Arch: 2.50 Updated in Other Vendor System with Status of Final Tian Rivers MD electronically signed on 10/25/2023 3:38:45 PM with status of Final
== END ==
LOC: HO.CARD 09:44
PROVIDERS: PCP Internal Medicine; Visit Provider Internal Medicine
DX: R60.0 Localized edema (principal); R23.8 Other skin changes; I51.81 Takotsubo syndrome; Z86.79 Personal history of other diseases of the circulatory system
CPT/HCPCS: 93306

== ENCOUNTER → 2023-10-25 09:50 | Outpatient (BNV) | payer MEDICARE, MEDICAID, SELFPAY | PROVIDERS: PCP Internal Medicine; Visit Provider Internal Medicine Cardiovascular Disease | DX: I35.0 Nonrheumatic aortic (valve) stenosis (principal); I35.8 Other nonrheumatic aortic valve disorders; I34.81 Nonrheumatic mitral (valve) annulus calcification | CPT/HCPCS: 93306 ==

== ENCOUNTER 2023-11-05 13:40 | Outpatient (AMB) | payer MEDICARE, MEDICAID, SELFPAY ==
[2023-11-05 13:45] VITALS: BP 110/58; PULSE 117; O2SAT 98; BMI 19.9
--- NOTE | 2023-11-05 13:45 | MHC.OFFVIS ---
Vital Signs 11/05/23 13:45 Height 5 ft 6 in Weight 123 lb 7.342 oz BMI 19.9 BP 110/58 L Blood Pressure Location Lt brachial Position Sitting Pulse 117 H Pulse Source Pulse Oximeter Pulse Oximetry (%) 98 Oxygen Delivery Method Nasal Cannula Oxygen Flow Rate 1.5 Intake Visit Reasons: copd Intake Note: pt is here for follow up and had a stay at [facility], for breathing, anemia, and broke some ribs from coughing, breathing is okay with sitting but moving around affects her breathing. 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: No Allergies dextrose Allergy (Severe, Verified 11/05/23 13:56) anaphylaxis latex [LATEX] Allergy (Severe, Verified 11/05/23 13:56) HIVES psyllium [From Metamucil] Allergy (Severe, Verified 11/05/23 13:56) anaphylaxis clindamycin [CLINDAMYCIN] Allergy (Intermediate, Verified 11/05/23 13:56) RASH NSAIDS (Non-Steroidal Anti-Inflamma Allergy (Intermediate, Verified 11/05/23 13:56) ulcers tramadol [From ULTRAM] Allergy (Intermediate, Verified 11/05/23 13:56) HIVES levofloxacin [From LEVAQUIN] Adverse Reaction (Intermediate, Verified 11/05/23 13:56) TENDON PAIN, achilles tendonitis prednisone Adverse Reaction (Intermediate, Verified 11/05/23 13:56) GI BLEED, high doses valacyclovir [From VALTREX] Adverse Reaction (Intermediate, Verified 11/05/23 13:56) GI UPSET Medication List - Last Reconciled 11/05/23 by Manuel Covarrubias MD acetaminophen 650 mg PO Q6H PRN albuterol sulfate 2.5 mg (3 mL) inhalation Q4-6H PRN 30 days albuterol sulfate 90 mcg/actuation 2 puffs inhalation Q4-6H PRN ammonium lactate 5% 1 appl topical DAILY docusate sodium 100 mg PO BID PRN ergocalciferol (vitamin D2) 50 mcg PO DAILY ferrous sulfate 324 mg PO DAILY fluticasone propionate 220 mcg/actuation 2 puffs inhalation BID 30 days folic acid 1 mg PO DAILY folic acid 1 mg PO DAILY guaifenesin ER (Mucinex) 600 mg PO Q12H PRN ipratropium bromide 2 sprays intranasal BID-TID PRN ipratropium-albuterol 0.5 mg-3 mg(2.5 mg base)/3 mL 3 mL inhalation Q4-6H PRN 20 days loratadine 10 mg PO DAILY methadone 105 mg PO DAILY nicotine 1 patch transdermal DAILY 28 days ondansetron HCl 4 mg PO BID PRN oxycodone-acetaminophen 5-325 mg (Percocet) 1 tab PO DAILY PRN pantoprazole 40 mg PO BID ramelteon 8 mg PO BEDTIME PRN Stiolto Respimat 2.5-2.5 mcg/actuation (tiotropium-olodaterol) 2 puffs PO DAILY NS thiamine HCl (vitamin B1) 100 mg PO DAILY tizanidine 4 mg PO Q8H PRN varenicline PO PER PKG DIR Do you need a note to return to daycare/school/sports/work: No HPI HPI copd: Details: Nilsa was in [facility], last week and treated for an acute exacerbation of COPD. She is on prednisone taper and also completing course of doxycycline. She is using her regular inhalers. Somewhat confused about the list. She claims that she is not smoking, she is using nicotine patch , wanted to show me on her arm, but actually it was missing. Her main interest is to get some Percocet pills. And I explained to her that I a.m. in no position to prescribe these pills. She has only mild. intermittent cough. Her shortness of breath is at her baseline. . Denies any wheezing attacks She is using oxygen 2 L/minute. She is weak and chronically sick-looking. [facility] Medical History Cigarette smoker motivated to quit Takotsubo cardiomyopathy Redness and swelling of lower leg History of congestive heart failure Anemia Absent pedal pulses Pain in both lower extremities Constipation due to opioid therapy Positional lightheadedness Chest wall pain Oxygen dependent Allergic rhinitis Vitamin D deficiency Primary osteoarthritis, right shoulder Arthropathy of cervical facet joint Degeneration, intervertebral disc, cervical Spondylosis of cervical joint without myelopathy Cervicalgia Epigastric pain Chronic neck pain Respiratory failure with hypoxia Smoker Surgical menopause Duodenal ulcer Bipolar disorder Gastritis Tubular adenoma of colon Substance abuse Osteopenia Alcoholic cirrhosis of liver Hepatitis C COPD (chronic obstructive pulmonary disease) Cervicalgia Osteoarthritis of multiple joints Oral thrush Surgical History Hx of colonoscopy History of surgery History of esophagogastroduodenoscopy (EGD) History of hysterectomy Ankle fracture Family History Father Alcoholism History of manic depressive disorder COPD (chronic obstructive pulmonary disease) Cancer Mother COPD (chronic obstructive pulmonary disease) Cardiac disease Smoker CHF (congestive heart failure) Alcoholism CVD (cardiovascular disease) Mental disorder Sister Lupus PTSD (post-traumatic stress disorder) Son Cardiac arrest Maternal Grandfather No problems noted. Maternal Grandmother No problems noted. Paternal Grandfather Alcoholism Mental disorder Paternal Grandmother No problems noted. Social History Housing: Apartment Alcohol intake: current Alcohol intake frequency: 0-2 drinks per day Alcohol type: beer Patient Tobacco Use Status: Current everyday Tobacco user Tobacco use type: Cigarette Cigarettes Per Day: 5 e-Cigarette/Vaping Use: Never Used Current occupational status: disabled Cognitive needs: No Hearing needs: No Vision needs: No Review of Systems Const All systems reviewed & are unremarkable except as noted in HPI and below ENT Reports no additional complaints Card Denies chest pain, Denies irregular heart rhythm and Denies leg edema Resp Reports as per HPI GI Reports no additional complaints Reports no additional complaints Musc Reports back pain Skin/Breast Reports system reviewed and no additional complaints, except as documented Neuro Reports no additional complaints Psych Reports no additional complaints Physical Exam Vital Signs: Last Vital Signs Pulse 117 H 11/05/23 13:45 BP 110/58 L 11/05/23 13:45 Pulse Ox 98 11/05/23 13:45 Oxygen Delivery Method Nasal Cannula 11/05/23 13:45 Oxygen Flow Rate 1.5 11/05/23 13:45 BMI result Body Mass Index 19.9 Const Other: She is of a thin build, looking fairly healthy and stable at this time. General: comfortable, no acute distress, alert and awake Orientation/consciousness: patient oriented x3 HEENT Head: Yes normal to inspection Ears: hearing grossly normal bilaterally General nose exam: No nasal polyps present and No nasal discharge present Face and sinus: Yes sinuses nontender Mouth: oropharynx normal Throat: Yes posterior oropharynx normal Eyes General: appearance normal, both eyes and all related structures Neck Neck: Yes normal visual inspection, Yes no lymphadenopathy, Yes trachea midline and Yes no JVD Thyroid: Thyroid normal Chest Chest palpation & inspection: normal inspection of the chest, normal palpation of entire chest wall and no tenderness Resp Other: Percussion note hyper-resonant, breath sounds are distant with prolonged expiratory phase. But no wheezes rhonchi or crepitations are heard. Cardio Palpation: normal PMI Rate: regular rate Rhythm: regular rhythm Heart sounds: no gallops and no murmurs GI Palpation (GI): Soft to palpation, nontender, No hepatosplenomegaly present and no masses Auscultation: normal bowel sounds Back/Spine/Pelvis Thoracic/Lumbar Spine: thoracic and lumbar spine normal to inspection Pelvis: no pain with anterior-posterior compression Skin General skin exam: no rashes or lesions noted Neuro General: patient oriented x3 and no focal motor deficits Cranial nerves: Yes CN's II-XII intact bilaterally Extrem General: Yes normal to inspection, Yes no clubbing, cyanosis or edema and Yes no calf tenderness Psych Speech and movement: Normal speech and movement present Assessment & Plan Assessment & Plan (1) Smoker: Comment: STILL SMOKES , CLAIMS THAT SHE IS DOWN TO 5 CIGARETTES A DAY. NOW POST DISCHARGE FROM THE HOSPITAL SHE IS ON NICOTINE PATCH AND CLAIMS THAT SHE IS NOT SMOKING ANYMORE. HER DIAGNOSIS OF CHRONIC ANXIETY/BIPOLAR DISORDER MAKES IT DIFFICULT FOR HER TO QUIT COMPLETELY. Code(s): F17.200 - Nicotine dependence, unspecified, uncomplicated Category: Social Hx Plan: TALKED TO HER IN DETAIL AND ENCOURAGED HER NOT TO GO BACK TO SMOKING (2) COPD (chronic obstructive pulmonary disease): Comment: SHE HAS RATHER SEVERE/ADVANCED CHRONIC OBSTRUCTIVE PULMONARY DISEASE. UNFORTUNATELY CONTINUED SMOKING DOES NOT HELP. PFT 03/2020 -(SEVERE OBSTRUCTIVE AIRWAY DISORDER ) TREATED FOR ACUTE EXACERBATION AT [facility], LAST WEEK. Code(s): J44.9 - Chronic obstructive pulmonary disease, unspecified Category: Medical Plan: REVIEWED HER TREATMENT REGIMEN AND TOLD HER TO CONTINUE THE SAME. STIOLTO RESPIMAT 2.5-2.5 2 PUFFS DAILY IPRATROPIUM-ALBUTEROL SOLUTION IN THE NEBULIZER Q 6 HOURS P.R.N. FLOVENT -220 2 PUFFS B.I.D. (3) Respiratory failure with hypoxia: Comment: PATIENT HAS NOCTURNAL HYPOXEMIA WELL HYPOXEMIA ON EXERTION. SHE HAS A STATIONARY O2 CONCENTRATOR AT HOME WELL PORTABLE UNIT. AND STAYS ON O2 2 L/MINUTE CONTINUOUSLY. Code(s): J96.91 - Respiratory failure, unspecified with hypoxia Category: Medical Plan: CONTINUE OXYGEN 2 L/MINUTE, DURING SLEEP AND ALSO WHEN GOING OUTDOORS. WHEN AT HOME SHE CAN USE 2 L/MINUTE P.R.N.. (4) Allergic rhinitis: Comment: MILD , CONTROLLED WITH ATROVENT NASAL INH, USED PRN . Code(s): J30.9 - Allergic rhinitis, unspecified Category: Medical Plan: LORATADINE 10 MG P.O. ONCE A DAY. ATROVENT BROMIDE NASAL SPRAY B.I.D. P.R.N. Coding Level of Care Code Est Pt Level 4 (57929) Diagnoses Smoker F17.200 COPD (chronic obstructive pulmonary disease) J44.9 Respiratory failure with hypoxia J96.91 Allergic rhinitis J30.9
== END 2023-11-05 14:13 | disposition home or self-care (01) ==
PROVIDERS: PCP Internal Medicine; Visit Provider Internal Medicine
DX: F17.200 Nicotine dependence, unspecified, uncomplicated (principal); J44.9 Chronic obstructive pulmonary disease, unspecified; J96.91 Respiratory failure, unspecified with hypoxia; J30.9 Allergic rhinitis, unspecified
CPT/HCPCS: 99214

== ENCOUNTER → 2023-11-05 13:40 | Outpatient (BNVA) | payer MEDICARE, MEDICAID, SELFPAY | PROVIDERS: PCP Internal Medicine; Visit Provider Internal Medicine | DX: J44.9 Chronic obstructive pulmonary disease, unspecified (principal); J96.91 Respiratory failure, unspecified with hypoxia; J30.9 Allergic rhinitis, unspecified; F17.210 Nicotine dependence, cigarettes, uncomplicated; Z79.2 Long term (current) use of antibiotics; Z79.52 Long term (current) use of systemic steroids | CPT/HCPCS: 99212 ==

== ENCOUNTER 2023-11-14 10:09 | Outpatient (AMB) | payer MEDICARE, MEDICAID, SELFPAY ==
--- NOTE | 2023-11-14 10:22 | A.OFFPC_ITS ---
Vital Signs 11/14/23 10:48 Height 5 ft 6 in Weight 124 lb 2 oz BMI 20.0 BP 142/70 H Blood Pressure Location Rt brachial Position Sitting Pulse 105 H Pulse Source Pulse Oximeter Pulse Oximetry (%) 93 Oxygen Delivery Method Nasal Cannula Intake Visit Reasons: 4WK F/U Intake Note: Patient is here today for 4 week follow up. Allergies dextrose Allergy (Severe, Verified 11/14/23 11:18) anaphylaxis latex [LATEX] Allergy (Severe, Verified 11/14/23 11:18) HIVES psyllium [From Metamucil] Allergy (Severe, Verified 11/14/23 11:18) anaphylaxis clindamycin [CLINDAMYCIN] Allergy (Intermediate, Verified 11/14/23 11:18) RASH NSAIDS (Non-Steroidal Anti-Inflamma Allergy (Intermediate, Verified 11/14/23 11:18) ulcers tramadol [From ULTRAM] Allergy (Intermediate, Verified 11/14/23 11:18) HIVES levofloxacin [From LEVAQUIN] Adverse Reaction (Intermediate, Verified 11/14/23 11:18) TENDON PAIN, achilles tendonitis prednisone Adverse Reaction (Intermediate, Verified 11/14/23 11:18) GI BLEED, high doses valacyclovir [From VALTREX] Adverse Reaction (Intermediate, Verified 11/14/23 11:18) GI UPSET Medication List - Last Reconciled 11/14/23 by Nena Milner MD acetaminophen 650 mg PO Q6H PRN albuterol sulfate 2.5 mg (3 mL) inhalation Q4-6H PRN 30 days albuterol sulfate 90 mcg/actuation 2 puffs inhalation Q4-6H PRN ammonium lactate 5% 1 appl topical DAILY docusate sodium 100 mg PO BID PRN ergocalciferol (vitamin D2) 50 mcg PO DAILY ferrous sulfate 324 mg PO DAILY fluticasone propionate 220 mcg/actuation 2 puffs inhalation BID 30 days folic acid 1 mg PO DAILY folic acid 1 mg PO DAILY ipratropium bromide 2 sprays intranasal BID-TID PRN ipratropium-albuterol 0.5 mg-3 mg(2.5 mg base)/3 mL 3 mL inhalation Q4-6H PRN 20 days loratadine 10 mg PO DAILY methadone 105 mg PO DAILY nicotine 1 patch transdermal DAILY 28 days ondansetron HCl 4 mg PO BID PRN pantoprazole 40 mg PO BID ramelteon 8 mg PO BEDTIME PRN Stiolto Respimat 2.5-2.5 mcg/actuation (tiotropium-olodaterol) 2 puffs PO DAILY NS thiamine HCl (vitamin B1) 100 mg PO DAILY tizanidine 4 mg PO Q8H PRN varenicline PO PER PKG DIR Tobacco use date assessed: 11/14/23 Fall risk assessment: 2 + Falls in past year Last assessed Fall Risk: 11/14/23 Dental Screening Dental Screen Date: 11/14/23 Did you have a dental visit in the last 12 months?: No Did you have a dental problem in the last 6 months where you did not have access to dental care?: No Was dental information given to patient?: Patient has dentist HPI 4WK F/U HPI Details 68-year-old lady here today for follow-u p. She was started on varenicline, but had to stop taking it as she started having shortness of breath after taking 1 pill. She started using nicotine patch 21 mg daily, but still smokes whenever she removes the patch at least 3 cigarettes every now and then at night . Patient strongly advised not to smoke when using the patch. Still complaining of severe pain and swelling in both lower extremities, worse with ambulation . Venous Doppler ultrasound done a [facility] did not show DVT present. Requesting at least a couple of oxycodone to tide her over . 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 Cervicalgia Epigastric pain Chronic neck pain Respiratory failure with hypoxia Smoker Surgical menopause Duodenal ulcer Bipolar disorder Gastritis Tubular adenoma of colon Substance abuse Osteopenia Alcoholic cirrhosis of liver Hepatitis C COPD (chronic obstructive pulmonary disease) Cervicalgia Osteoarthritis of multiple joints Oral thrush Surgical History Hx of colonoscopy History of surgery History of esophagogastroduodenoscopy (EGD) History of hysterectomy Ankle fracture Family History Father Alcoholism History of manic depressive disorder COPD (chronic obstructive pulmonary disease) Cancer Mother COPD (chronic obstructive pulmonary disease) Cardiac disease Smoker CHF (congestive heart failure) Alcoholism CVD (cardiovascular disease) Mental disorder Sister Lupus PTSD (post-traumatic stress disorder) Son Cardiac arrest Maternal Grandfather No problems noted. Maternal Grandmother No problems noted. Paternal Grandfather Alcoholism Mental disorder Paternal Grandmother No problems noted. Social History Housing: Apartment Alcohol intake: current Alcohol intake frequency: 0-2 drinks per day Alcohol type: beer Patient Tobacco Use Status: Current everyday Tobacco user Tobacco use type: Cigarette Cigarettes Per Day: 5 e-Cigarette/Vaping Use: Never Used service: No Current occupational status: disabled Cognitive needs: No Hearing needs: No Vision needs: No Questionnaire AUDIT C Alcohol Use Questionnaire (AUDIT-C) 1. How often do you have a drink containing alcohol?: Monthly or less 2. How many drinks containing alcohol do you have on a typical day when you are drinking?: 1 or 2 3. How often do you have six or more drinks on one occasion?: Never Total Score: 1 Score Reviewed/Action Taken: Yes MIKE-7 AMB Questionnaire MIKE-7 Assessment Billing MIKE-7 Assessment Tool: MIKE-7 Assessment 05312 Review of Systems Const Denies chills, Reports fatigue, Denies fever(s) and Denies headache(s) ENT Reports no additional complaints and Denies headache(s) Card Denies chest pain, Denies irregular heart rhythm, Denies leg edema and Reports dyspnea on exertion Resp Reports dyspnea on exertion GI Reports no additional complaints Reports no additional complaints Musc Reports back pain Skin/Breast Reports system reviewed and no additional complaints, except as documented Neuro Reports no additional complaints and Denies headache(s) Psych Reports no additional complaints Endo Reports fatigue Guillaume/Lymph Reports no additional complaints Physical exam (Primary Care) Vital Signs: Last Vital Signs Pulse 105 H 11/14/23 10:48 BP 142/70 H 11/14/23 10:48 Pulse Ox 91 L 11/14/23 10:48 Oxygen Delivery Method Nasal Cannula 11/14/23 10:48 BMI result Body Mass Index 20.0 Tobacco/Smoking Status: Tobacco use Status Tobacco use date assessed 11/14/23 11/14/23 10:23 Patient Tobacco Use Status Current everyday Tobacco 11/14/23 10:23 Tobacco use type Cigarette 11/14/23 10:23 e-Cigarette/Vaping Use Never Used 11/14/23 10:23 PHQ-9: PHQ-9 Score PHQ-9: Total score 11 11/14/23 11:34 Thrive Assessment: Date of Thrive Assessment Date Thrive assessed 11/14/23 11/14/23 10:23 Const General: no acute distress Orientation/consciousness: patient oriented x3 [facility] General nose exam: Normal external nose present, Normal nasal mucous membranes and turbinates present and Other nasal findings present (Has O2 by nasal cannula) Neck Neck: Yes full ROM, Yes no lymphadenopathy and Yes supple Resp Auscultation: clear to auscultation bilaterally Cardio Other: S1-S2 present regular rate and rhythm, unable to palpate dorsalis pedis pulse bilaterally GI Inspection: Yes normal to inspection Palpation (GI): Soft to palpation, nontender, no guarding and no masses Back/Spine/Pelvis Cervical Spine: cervical muscular tenderness, pain with cervical ROM and cervical spasm Skin Other: Red and warm to touch lower extremities bilateral with blister formation Neuro General: patient oriented x3, moves all extremities, Normal light touch and pain sensation and no focal motor deficits Extrem General: Yes full ROM, Yes no joint enlargement and Yes no pedal edema Psych Appearance: grossly normal and well kempt Mental Status: mental status grossly normal Speech and movement: Normal speech and movement present Affect: normal affect Attitude: cooperative Assessment and Plan Assessment & Plan (1) Redness and swelling of lower leg: Code(s): M79.89 - Other specified soft tissue disorders; R23.8 - Other skin changes Plan: Ultrasound arterial duplex both lower extremities. Patient strongly advised to quit smoking. Three tablets oxycodone prescribed, to reserve only as needed for severe pain in legs (2) Cigarette smoker motivated to quit: Code(s): F17.210 - Nicotine dependence, cigarettes, uncomplicated Plan: Will decrease dose of nicotine patch to 14 mg, to apply as directed once daily remove at night before sleeping, absolutely no smoking when using the patch. See her back for follow-up in 4 Orders: Orders US arterial duplex UE BI Today M79.89 - Other specified soft tissue disorders, R23.8 - Other skin changes Medications: New nicotine 1 patch transdermal DAILY 28 ea 0RF oxycodone 5 mg PO BID PRN 3 tabs 0RF severe pain Refilled tizanidine 4 mg PO Q8H PRN 60 tabs 0RF for muscle spasm M15.9 - Polyosteoa rthritis, unspecified, M54.2 - Cervicalgia Coding Level of Care Code Est Pt Level 4 (60680) Diagnoses Redness and swelling of lower leg M79.89; R23.8 Cigarette smoker motivated to quit F17.210 Additional Codes MIKE-7 Assessment Billing - MIKE-7 Assessment Tool: MIKE-7 Assessment 01097 ([id number])
[2023-11-14 10:48] VITALS: BP 142/70; PULSE 105; O2SAT 93
== END 2023-11-14 11:39 | disposition home or self-care (01) ==
PROVIDERS: PCP Internal Medicine; Visit Provider Internal Medicine
DX: M79.89 Other specified soft tissue disorders (principal); R23.8 Other skin changes; F17.210 Nicotine dependence, cigarettes, uncomplicated
CPT/HCPCS: 99214

== ENCOUNTER 2023-12-02 09:58 | Outpatient (AMB) | payer MEDICARE, MEDICAID, SELFPAY ==
[2023-12-02 10:05] VITALS: BP 130/70; PULSE 96; O2SAT 95; BMI 19.6
--- NOTE | 2023-12-02 10:05 | MHC.OFFVIS ---
Vital Signs 12/02/23 10:05 Height 5 ft 6 in Weight 121 lb 4.068 oz BMI 19.6 BP 130/70 Blood Pressure Location Lt brachial Position Sitting Pulse 96 Pulse Source Pulse Oximeter Pulse Oximetry (%) 95 Oxygen Delivery Method Nasal Cannula Oxygen Flow Rate 1.5 Intake Visit Reasons: COPD Intake Note: pt is here for follow up and states she is feeling like she might be starting with something, had [facility] stay after last visit for copd exh. 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 Allergies dextrose Allergy (Severe, Verified 12/02/23 10:37) anaphylaxis latex [LATEX] Allergy (Severe, Verified 12/02/23 10:37) HIVES psyllium [From Metamucil] Allergy (Severe, Verified 12/02/23 10:37) anaphylaxis clindamycin [CLINDAMYCIN] Allergy (Intermediate, Verified 12/02/23 10:37) RASH NSAIDS (Non-Steroidal Anti-Inflamma Allergy (Intermediate, Verified 12/02/23 10:37) ulcers tramadol [From ULTRAM] Allergy (Intermediate, Verified 12/02/23 10:37) HIVES levofloxacin [From LEVAQUIN] Adverse Reaction (Intermediate, Verified 12/02/23 10:37) TENDON PAIN, achilles tendonitis prednisone Adverse Reaction (Intermediate, Verified 12/02/23 10:37) GI BLEED, high doses valacyclovir [From VALTREX] Adverse Reaction (Intermediate, Verified 12/02/23 10:37) GI UPSET Medication List - Last Reconciled 12/02/23 by Manuel Covarrubias MD acetaminophen 650 mg PO Q6H PRN albuterol sulfate 2.5 mg (3 mL) inhalation Q4-6H PRN 30 days albuterol sulfate 90 mcg/actuation 2 puffs inhalation Q4-6H PRN ammonium lactate 5% 1 appl topical DAILY docusate sodium 100 mg PO BID PRN ergocalciferol (vitamin D2) 50 mcg PO DAILY ferrous sulfate 324 mg PO DAILY fluticasone propionate 220 mcg/actuation 2 puffs inhalation BID 30 days folic acid 1 mg PO DAILY folic acid 1 mg PO DAILY ipratropium bromide 2 sprays intranasal BID-TID PRN ipratropium-albuterol 0.5 mg-3 mg(2.5 mg base)/3 mL 3 mL inhalation Q4-6H PRN 20 days loratadine 10 mg PO DAILY methadone 105 mg PO DAILY nicotine 1 patch transdermal DAILY nicotine 1 patch transdermal DAILY 28 days ondansetron HCl 4 mg PO BID PRN oxycodone 5 mg PO BID PRN pantoprazole 40 mg PO BID ramelteon 8 mg PO BEDTIME PRN Stiolto Respimat 2.5-2.5 mcg/actuation (tiotropium-olodaterol) 2 puffs PO DAILY NS thiamine HCl (vitamin B1) 100 mg PO DAILY tizanidine 4 mg PO Q8H PRN varenicline PO PER PKG DIR Do you need a note to return to daycare/school/sports/work: No HPI HPI COPD: Details: THIS 68 YEARS OLD FEMALE IS HERE FOR FOLLOW-UP. SHE WENT BACK TO [facility] FOR A FEW DAYS FOR ACUTE EXACERBATION OF COPD. FOR THE LAST FEW WEEKS HE HAS BEEN RELATIVELY STABLE. UNFORTUNATELY STILL SMOKING 5 CIGARETTES A DAY, CURRENTLY SHE IS USING NICOTINE PATCH -14 MG DAILY AND HOPES TO QUIT SMOKING COMPLETELY. SHE IS USING O2 1.5 L/MINUTE CONTINUOUSLY. SHE HAS MILD INTERMITTENT COUGH PROBABLY RELATED TO SMOKING DENIES ANY WHEEZING ATTACKS BUT DOES GET SHORT OF BREATH ON WALKING AROUND. 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 Cervicalgia Epigastric pain Chronic neck pain Respiratory failure with hypoxia Smoker Surgical menopause Duodenal ulcer Bipolar disorder Gastritis Tubular adenoma of colon Substance abuse Osteopenia Alcoholic cirrhosis of liver Hepatitis C COPD (chronic obstructive pulmonary disease) Cervicalgia Osteoarthritis of multiple joints Oral thrush Surgical History Hx of colonoscopy History of surgery History of esophagogastroduodenoscopy (EGD) History of hysterectomy Ankle fracture Family History Father Alcoholism History of manic depressive disorder COPD (chronic obstructive pulmonary disease) Cancer Mother COPD (chronic obstructive pulmonary disease) Cardiac disease Smoker CHF (congestive heart failure) Alcoholism CVD (cardiovascular disease) Mental disorder Sister Lupus PTSD (post-traumatic stress disorder) Son Cardiac arrest Maternal Grandfather No problems noted. Maternal Grandmother No problems noted. Paternal Grandfather Alcoholism Mental disorder Paternal Grandmother No problems noted. Social History Housing: Apartment Alcohol intake: current Alcohol intake frequency: 0-2 drinks per day Alcohol type: beer Patient Tobacco Use Status: Current everyday Tobacco user Tobacco use type: Cigarette Cigarettes Per Day: 5 e-Cigarette/Vaping Use: Never Used service: No Current occupational status: disabled Cognitive needs: No Hearing needs: No Vision needs: No Review of Systems Const All systems reviewed & are unremarkable except as noted in HPI and below ENT Reports no additional complaints Card Denies chest pain, Denies irregular heart rhythm and Denies leg edema Resp Reports as per HPI GI Reports no additional complaints Reports no additional complaints Musc Reports back pain Skin/Breast Reports system reviewed and no additional complaints, except as documented Neuro Reports no additional complaints Psych Reports no additional complaints Physical Exam Vital Signs: Last Vital Signs Pulse 96 12/02/23 10:05 BP 130/70 12/02/23 10:05 Pulse Ox 95 12/02/23 10:05 Oxygen Delivery Method Nasal Cannula 12/02/23 10:05 Oxygen Flow Rate 1.5 12/02/23 10:05 BMI result Body Mass Index 19.6 Const Other: She is of a thin build, looking fairly healthy and stable at this time. General: comfortable, no acute distress, alert and awake Orientation/consciousness: patient oriented x3 HEENT Head: Yes normal to inspection Ears: hearing grossly normal bilaterally General nose exam: No nasal polyps present and No nasal discharge present Face and sinus: Yes sinuses nontender Mouth: oropharynx normal Throat: Yes posterior oropharynx normal Eyes General: appearance normal, both eyes and all related structures Neck Neck: Yes normal visual inspection, Yes no lymphadenopathy, Yes trachea midline and Yes no JVD Thyroid: Thyroid normal Chest Chest palpation & inspection: normal inspection of the chest, normal palpation of entire chest wall and no tenderness Resp Other: Percussion note hyper-resonant, breath sounds are distant with prolonged expiratory phase. But no wheezes rhonchi or crepitations are heard. Cardio Palpation: normal PMI Rate: regular rate Rhythm: regular rhythm Heart sounds: no gallops and no murmurs GI Palpation (GI): Soft to palpation, nontender, No hepatosplenomegaly present and no masses Auscultation: normal bowel sounds Back/Spine/Pelvis Thoracic/Lumbar Spine: thoracic and lumbar spine normal to inspection Pelvis: no pain with anterior-posterior compression Skin General skin exam: no rashes or lesions noted Neuro General: patient oriented x3 and no focal motor deficits Cranial nerves: Yes CN's II-XII intact bilaterally Extrem General: Yes normal to inspection, Yes no clubbing, cyanosis or edema and Yes no calf tenderness Psych Speech and movement: Normal speech and movement present Assessment & Plan Assessment & Plan (1) Smoker: Comment: STILL SMOKES , CLAIMS THAT SHE IS DOWN TO 5 CIGARETTES A DAY. NOW POST DISCHARGE FROM THE HOSPITAL SHE IS ON NICOTINE PATCH 14 MG AND CLAIMS THAT SHE IS TRYING TO QUIT COMPLETELY. HER DIAGNOSIS OF CHRONIC ANXIETY/BIPOLAR DISORDER MAKES IT DIFFICULT FOR HER TO QUIT COMPLETELY. Code(s): F17.200 - Nicotine dependence, unspecified, uncomplicated Category: Social Hx Plan: AGAIN HAD A GOOD TALK WITH HER AND STRESS THAT SHE HAS TO STOP SMOKING COMPLETELY. (2) COPD (chronic obstructive pulmonary disease): Comment: SHE HAS RATHER SEVERE/ADVANCED CHRONIC OBSTRUCTIVE PULMONARY DISEASE. UNFORTUNATELY CONTINUED SMOKING DOES NOT HELP. PFT 03/2020 -(SEVERE OBSTRUCTIVE AIRWAY DISORDER ) TREATED FOR ACUTE EXACERBATION AT [facility], A FEW WEEKS AGO. Code(s): J44.9 - Chronic obstructive pulmonary disease, unspecified Category: Medical Plan: CONTINUE PRESENT MEDICAL REGIMEN WHICH I S FOLLOWS: FLOVENT-TO 22. PUFFS B.I.D. STIOLTO RESPIMAT 2 INHALATIONS DAILY. IPRATROPIUM-ALBUTEROL SOLUTION IN THE NEBULIZER Q 6 HOURS P.R.N. WHEN AT HOME. ALBUTEROL HFA 2 PUFFS Q 4-6 HOURS P.R.N. WHEN OUTDOORS (3) Respiratory failure with hypoxia: Comment: PATIENT HAS NOCTURNAL HYPOXEMIA WELL HYPOXEMIA ON EXERTION. SHE HAS A STATIONARY O2 CONCENTRATOR AT HOME WELL PORTABLE UNIT. AND STAYS ON O2 1.5 TO 2 L/MINUTE CONTINUOUSLY. Code(s): J96.91 - Respiratory failure, unspecified with hypoxia Category: Medical Plan: CONTINUE TO USE O2, 1.5 L/MINUTE DURING SLEEP AND ALSO DURING THE DAYTIME IF SHE IS DOING ANY PHYSICAL WORK OR GOING OUTDOORS Coding Level of Care Code Est Pt Level 3 (08157) Diagnoses Smoker F17.200 COPD (chronic obstructive pulmonary disease) J44.9 Respiratory failure with hypoxia J96.91
== END 2023-12-02 10:37 | disposition home or self-care (01) ==
PROVIDERS: PCP Internal Medicine; Visit Provider Internal Medicine
DX: F17.200 Nicotine dependence, unspecified, uncomplicated (principal); J44.9 Chronic obstructive pulmonary disease, unspecified; J96.91 Respiratory failure, unspecified with hypoxia
CPT/HCPCS: 99213

== ENCOUNTER → 2023-12-02 09:58 | Outpatient (BNVA) | payer MEDICARE, MEDICAID, SELFPAY | PROVIDERS: PCP Internal Medicine; Visit Provider Internal Medicine | DX: J44.9 Chronic obstructive pulmonary disease, unspecified (principal); J96.91 Respiratory failure, unspecified with hypoxia; F17.210 Nicotine dependence, cigarettes, uncomplicated | CPT/HCPCS: 99212 ==

== ENCOUNTER 2024-01-07 10:31 | Outpatient (AMB) | payer MEDICARE, MEDICAID, SELFPAY ==
[2024-01-07 10:54] VITALS: BP 148/76; PULSE 74; BMI 20.1
--- NOTE | 2024-01-07 10:54 | MHC.OFFVIS ---
Vital Signs 01/07/24 10:54 Height 5 ft 6 in Weight 124 lb 5.451 oz BMI 20.1 BP 148/76 H Blood Pressure Location Lt brachial Position Sitting Pulse 74 Intake Visit Reasons: [facility] WOMEN/Espinas/History of diseases of the Cir. System. 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 Accompanied by: Self / Same As Patient Allergies dextrose Allergy (Severe, Verified 12/02/23 10:37) anaphylaxis latex [LATEX] Allergy (Severe, Verified 12/02/23 10:37) HIVES psyllium [From Metamucil] Allergy (Severe, Verified 12/02/23 10:37) anaphylaxis clindamycin [CLINDAMYCIN] Allergy (Intermediate, Verified 12/02/23 10:37) RASH NSAIDS (Non-Steroidal Anti-Inflamma Allergy (Intermediate, Verified 12/02/23 10:37) ulcers tramadol [From ULTRAM] Allergy (Intermediate, Verified 12/02/23 10:37) HIVES levofloxacin [From LEVAQUIN] Adverse Reaction (Intermediate, Verified 12/02/23 10:37) TENDON PAIN, achilles tendonitis prednisone Adverse Reaction (Intermediate, Verified 12/02/23 10:37) GI BLEED, high doses valacyclovir [From VALTREX] Adverse Reaction (Intermediate, Verified 12/02/23 10:37) GI UPSET Medication List - Last Reconciled 01/07/24 by Jeffrey Walker MD acetaminophen 650 mg PO Q6H PRN albuterol sulfate 90 mcg/actuation 2 puffs PO Q4-6H PRN albuterol sulfate 2.5 mg (3 mL) inhalation Q4-6H PRN 30 days ammonium lactate 5% 1 appl topical DAILY docusate sodium 100 mg PO BID PRN fluticasone propionate 220 mcg/actuation 2 puffs inhalation BID 30 days ipratropium bromide 2 sprays intranasal BID-TID PRN ipratropium-albuterol 0.5 mg-3 mg(2.5 mg base)/3 mL 3 mL inhalation Q4-6H PRN 20 days loratadine 10 mg PO DAILY methadone 105 mg PO DAILY nicotine 1 patch transdermal DAILY nicotine 1 patch transdermal DAILY 28 days ondansetron HCl 4 mg PO BID PRN pantoprazole 40 mg PO BID ramelteon 8 mg PO BEDTIME PRN Stiolto Respimat 2.5-2.5 mcg/actuation (tiotropium-olodaterol) 2 puffs PO DAILY NS tizanidine 4 mg PO BID PRN 30 days HPI Comments Details: Nilsa is here for consultation regarding cardiomyopathy. [facility] records were reviewed. Patient with a history of COPD and chronic respiratory failure. Substance abuse history. In 2022, it seems that she was admitted to [facility] after being found unresponsive. She required intubation. Tox screen was positive for cocaine, benzodiazepines and fentanyl. Then had NSTEMI. Echocardiogram with LVEF in the 15-20% range; mid to distal and apical ruano were akinetic sparing the base and hence thought to be takotsubo cardiomyopathy. Then underwent cardiac catheterization with only minimal irregularities. Otherwise, she has a long history of smoking and it seems she still smokes. Denies any current drug use. Some leg swelling, off and on with redness and pain. [facility] Medical History Cigarette smoker motivated to quit Takotsubo cardiomyopathy Redness and swelling of lower leg History of congestive heart failure Anemia Absent pedal pulses Pain in both lower extremities Constipation due to opioid therapy Positional lightheadedness Chest wall pain Oxygen dependent Allergic rhinitis Vitamin D deficiency Primary osteoarthritis, right shoulder Arthropathy of cervical facet joint Degeneration, intervertebral disc, cervical Spondylosis of cervical joint without myelopathy Cervicalgia Epigastric pain Chronic neck pain Respiratory failure with hypoxia Smoker Surgical menopause Duodenal ulcer Bipolar disorder Gastritis Tubular adenoma of colon Substance abuse Osteopenia Alcoholic cirrhosis of liver Hepatitis C COPD (chronic obstructive pulmonary disease) Cervicalgia Osteoarthritis of multiple joints Oral thrush Surgical History Hx of colonoscopy History of surgery History of esophagogastroduodenoscopy (EGD) History of hysterectomy Ankle fracture Family History Father Alcoholism History of manic depressive disorder COPD (chronic obstructive pulmonary disease) Cancer Mother COPD (chronic obstructive pulmonary disease) Cardiac disease Smoker CHF (congestive heart failure) Alcoholism CVD (cardiovascular disease) Mental disorder Sister Lupus PTSD (post-traumatic stress disorder) Son Cardiac arrest Maternal Grandfather No problems noted. Maternal Grandmother No problems noted. Paternal Grandfather Alcoholism Mental disorder Paternal Grandmother No problems noted. Social History Housing: Apartment Alcohol intake: current Alcohol intake frequency: 0-2 drinks per day Alcohol type: beer Patient Tobacco Use Status: Current everyday Tobacco user Tobacco use type: Cigarette Cigarettes Per Day: 5 e-Cigarette/Vaping Use: Never Used service: No Current occupational status: disabled Cognitive needs: No Hearing needs: No Vision needs: No Review of Systems Const Denies chills, Denies daytime sleepiness, Denies fatigue, Denies fever(s), Denies poor appetite, Denies snoring, Denies stops breathing during sleep, Denies weakness, Denies weight gain and Denies weight loss Eyes Denies loss of vision ENT Denies dizziness and Denies hearing loss Card Denies chest pain, Denies irregular heart rhythm, Denies claudication, Reports leg edema, Denies lightheadedness, Denies palpitations, Reports dyspnea, Denies dyspnea on exertion and Denies orthopnea Resp Denies cough, Denies excessive phlegm production, Reports dyspnea, Denies dyspnea on exertion, Denies snoring and Denies wheezing GI Denies abdominal pain, Denies hematochezia, Denies change in bowel habits, Denies nausea and Denies vomiting Denies urinary frequency and Denies dysuria Musc Denies arthralgias, Denies muscle weakness, Denies numbness and Denies other Skin/Breast Denies nail changes and Denies rash Neuro Denies Abnormal speech present, Denies dizziness, Denies loss of vision, Denies memory loss, Denies numbness and Denies weakness Psych Denies depression and Denies memory loss Endo Denies fatigue and Denies palpitations Guillaume/Lymph Denies easy bruising Aller/Immun Denies wheezing Physical Exam Vital Signs: Last Vital Signs Pulse 74 01/07/24 10:54 BP 148/76 H 01/07/24 10:54 BMI result Body Mass Index 20.1 Const General: comfortable and no acute distress Orientation/consciousness: patient oriented x3 HEENT Other: Unremarkable Head: Yes normal to inspection Neck Neck: Yes normal visual inspection Chest Chest palpation & inspection: normal inspection of the chest Resp Auscultation: crackles Cardio Palpation: normal PMI Heart sounds: S1 normal heart sound present, S2 normal heart sound present, no gallops, no murmurs and no rubs GI Palpation (GI): Soft to palpation Back/Spine/Pelvis Other: unremarkable Skin General skin exam: no rashes or lesions noted Neuro General: patient oriented x3 Speech: No Abnormal speech present Extrem General: Yes normal to inspection Psych Mental Status: mental status grossly normal Office Procedures EKG Details: EKG with underlying sinus rhythm at 74/Min; sinus arrhythmia; no significant ST-T changes; [place] [id number], Complete Assessment & Plan Assessment & Plan (1) Takotsubo cardiomyopathy: Code(s): I51.81 - Takotsubo syndrome Category: Medical Plan Per discharge summary information, echocardiogram in 12/26/2022 with LVEF 15-20%. Mid to distal, apical akinesis, sparing the base and thought to be takotsubo. Cardiac catheterization then with minimal luminal irregularities only. Another echocardiogram from May of 2023 with LVEF of 65-70%. There was severe hypokinesis in the mid ventricular segments but vigorous function at the apex and base and thought to be a mid ventricular variant of stress-induced cardiomyopathy. With regard to the stress-induced cardiomyopathy, we can recheck echocardiogram to see if there is complete recovery. Otherwise, mainly needs to stop smoking and avoid drug use. Orders: Orders CA echo transthoracic complete Today I51.81 - Takotsubo syndrome Coding Level of Care Code New Pt Level 4 (50058) Diagnoses Takotsubo cardiomyopathy I51.81 CPT Codes EKG - CPT: 23547-[id number], Complete ([id number])
== END 2024-01-07 11:22 | disposition home or self-care (01) ==
PROVIDERS: PCP Internal Medicine; Visit Provider Internal Medicine
DX: I51.81 Takotsubo syndrome (principal)
CPT/HCPCS: 93010; 99204

== ENCOUNTER → 2024-01-07 10:31 | Outpatient (BNVA) | payer MEDICARE, MEDICAID, SELFPAY | PROVIDERS: PCP Internal Medicine; Visit Provider Internal Medicine | DX: I51.81 Takotsubo syndrome (principal); J44.9 Chronic obstructive pulmonary disease, unspecified; J96.10 Chronic respiratory failure, unspecified whether with hypoxia or hypercapnia; F17.210 Nicotine dependence, cigarettes, uncomplicated | CPT/HCPCS: 93005; 99202 ==

== ENCOUNTER 2024-02-11 09:45 | Outpatient (AMB) | payer MEDICARE, MEDICAID, SELFPAY ==
[2024-02-11 10:03] VITALS: BP 110/68; PULSE 82; O2SAT 94; BMI 20.5
--- NOTE | 2024-02-11 10:03 | A.OFFVIS_ITS ---
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: No Starter Cup Powder Mixer: Starter Cup Powder Mixer offered & declined Accompanied by: Self / Same As Patient Allergies dextrose Allergy (Severe, Verified 02/11/24 10:24) anaphylaxis latex [LATEX] Allergy (Severe, Verified 02/11/24 10:24) HIVES psyllium [From Metamucil] Allergy (Severe, Verified 02/11/24 10:24) anaphylaxis clindamycin [CLINDAMYCIN] Allergy (Intermediate, Verified 02/11/24 10:24) RASH NSAIDS (Non-Steroidal Anti-Inflamma Allergy (Intermediate, Verified 02/11/24 10:24) ulcers tramadol [From ULTRAM] Allergy (Intermediate, Verified 02/11/24 10:24) HIVES levofloxacin [From LEVAQUIN] Adverse Reaction (Intermediate, Verified 02/11/24 10:24) TENDON PAIN, achilles tendonitis prednisone Adverse Reaction (Intermediate, Verified 02/11/24 10:24) GI BLEED, high doses valacyclovir [From VALTREX] Adverse Reaction (Intermediate, Verified 02/11/24 10:24) GI UPSET Medication List - Last Reconciled 02/11/24 by Manuel Covarrubias MD acetaminophen 650 mg PO Q6H PRN albuterol sulfate 2.5 mg (3 mL) inhalation Q4-6H PRN 30 days albuterol sulfate 90 mcg/actuation 2 puffs PO Q4-6H PRN ammonium lactate 5% 1 appl topical DAILY docusate sodium 100 mg PO BID PRN fluticasone propionate 220 mcg/actuation 2 puffs inhalation BID 30 days ipratropium bromide 2 sprays intranasal BID-TID PRN ipratropium-albuterol 0.5 mg-3 mg(2.5 mg base)/3 mL 3 mL inhalation Q4-6H PRN 20 days loratadine 10 mg PO DAILY methadone 105 mg PO DAILY nicotine 1 patch transdermal DAILY nicotine 1 patch transdermal DAILY 28 days ondansetron HCl 4 mg PO BID PRN pantoprazole 40 mg PO BID ramelteon 8 mg PO BEDTIME PRN Stiolto Respimat 2.5-2.5 mcg/actuation (tiotropium-olodaterol) 2 puffs PO DAILY NS tizanidine 4 mg PO BID PRN 30 days Do you need a note to return to daycare/school/sports/work: No HPI HPI COPD: Details: Nilsa is 68 years old female, a lifelong smoker, with severe obstructive airway disorder, O2 dependent, is here for follow-up after 3 months. She has had no acute events during the last 3 months. Claims that has breathing is stable but she gets short of breath on exertion, and has intermittent dry cough. Still smokes 5-6 cigarettes a day, does not feel that she can quit completely. Overall she is happy, and stable. [facility] Medical History Cigarette smoker motivated to quit Takotsubo cardiomyopathy Redness and swelling of lower leg History of congestive heart failure Anemia Absent pedal pulses Pain in both lower extremities Constipation due to opioid therapy Positional lightheadedness Chest wall pain Oxygen dependent Allergic rhinitis Vitamin D deficiency Primary osteoarthritis, right shoulder Arthropathy of cervical facet joint Degeneration, intervertebral disc, cervical Spondylosis of cervical joint without myelopathy Cervicalgia Epigastric pain Chronic neck pain Respiratory failure with hypoxia Smoker Surgical menopause Duodenal ulcer Bipolar disorder Gastritis Tubular adenoma of colon Substance abuse Osteopenia Alcoholic cirrhosis of liver Hepatitis C COPD (chronic obstructive pulmonary disease) Cervicalgia Osteoarthritis of multiple joints Oral thrush Surgical History Hx of colonoscopy History of surgery History of esophagogastroduodenoscopy (EGD) History of hysterectomy Ankle fracture Family History Father Alcoholism History of manic depressive disorder COPD (chronic obstructive pulmonary disease) Cancer Mother COPD (chronic obstructive pulmonary disease) Cardiac disease Smoker CHF (congestive heart failure) Alcoholism CVD (cardiovascular disease) Mental disorder Sister Lupus PTSD (post-traumatic stress disorder) Son Cardiac arrest Maternal Grandfather No problems noted. Maternal Grandmother No problems noted. Paternal Grandfather Alcoholism Mental disorder Paternal Grandmother No problems noted. Social History Housing: Apartment Alcohol intake: current Alcohol intake frequency: 0-2 drinks per day Alcohol type: beer Patient Tobacco Use Status: Current everyday Tobacco user Tobacco use type: Cigarette Cigarettes Per Day: 5 e-Cigarette/Vaping Use: Never Used service: No Current occupational status: disabled Cognitive needs: No Hearing needs: No Vision needs: No Review of Systems Const All systems reviewed & are unremarkable except as noted in HPI and below ENT Reports no additional complaints Card Denies chest pain, Denies irregular heart rhythm and Denies leg edema Resp Reports as per HPI GI Reports no additional complaints Reports no additional complaints Musc Reports back pain Skin/Breast Reports system reviewed and no additional complaints, except as documented Neuro Reports no additional complaints Psych Reports no additional complaints Physical Exam Vital Signs: Last Vital Signs Pulse 82 02/11/24 10:03 BP 110/68 02/11/24 10:03 Pulse Ox 94 02/11/24 10:03 Oxygen Delivery Method Nasal Cannula 02/11/24 10:03 Oxygen Flow Rate 1 02/11/24 10:03 BMI result Body Mass Index 20.5 Const Other: She is of a thin build, looking fairly healthy and stable at this time. General: comfortable, no acute distress, alert and awake Orientation/consciousness: patient oriented x3 HEENT Head: Yes normal to inspection Ears: hearing grossly normal bilaterally General nose exam: No nasal polyps present and No nasal discharge present Face and sinus: Yes sinuses nontender Mouth: oropharynx normal Throat: Yes posterior oropharynx normal Eyes General: appearance normal, both eyes and all related structures Neck Neck: Yes normal visual inspection, Yes no lymphadenopathy, Yes trachea midline and Yes no JVD Thyroid: Thyroid normal Chest Chest palpation & inspection: normal inspection of the chest, normal palpation of entire chest wall and no tenderness Resp Other: Percussion note hyper-resonant, breath sounds are distant with prolonged expiratory phase. But no wheezes rhonchi or crepitations are heard. Cardio Palpation: normal PMI Rate: regular rate Rhythm: regular rhythm Heart sounds: no gallops and no murmurs GI Palpation (GI): Soft to palpation, nontender, No hepatosplenomegaly present and no masses Auscultation: normal bowel sounds Back/Spine/Pelvis Thoracic/Lumbar Spine: thoracic and lumbar spine normal to inspection Pelvis: no pain with anterior-posterior compression Skin General skin exam: no rashes or lesions noted Neuro General: patient oriented x3 and no focal motor deficits Cranial nerves: Yes CN's II-XII intact bilaterally Extrem General: Yes normal to inspection, Yes no clubbing, cyanosis or edema and Yes no calf tenderness Psych Speech and movement: Normal speech and movement present Assessment & Plan Assessment & Plan (1) Allergic rhinitis: Comment: MILD , CONTROLLED WITH ATROVENT NASAL INH, USED PRN . Code(s): J30.9 - Allergic rhinitis, unspecified Category: Medical Plan: Continue to use Atrovent nasal spray, 2 sprays in each nostril daily . (2) Respiratory failure with hypoxia: Comment: PATIENT HAS NOCTURNAL HYPOXEMIA WELL HYPOXEMIA ON EXERTION. SHE HAS A STATIONARY O2 CONCENTRATOR AT HOME WELL PORTABLE UNIT. AND STAYS ON O2 1.5 TO 2 L/MINUTE CONTINUOUSLY. Code(s): J96.91 - Respiratory failure, unspecified with hypoxia Category: Medical Plan: Continue to use O2, 1.5 L/minute at night and 1-1.5 L/minute during the daytime . (3) COPD (chronic obstructive pulmonary disease): Comment: SHE HAS RATHER SEVERE/ADVANCED CHRONIC OBSTRUCTIVE PULMONARY DISEASE. UNFORTUNATELY CONTINUED SMOKING DOES NOT HELP. PFT 03/2020 -(SEVERE OBSTRUCTIVE AIRWAY DISORDER ) TREATED FOR ACUTE EXACERBATION AT [facility], DURING SUMMER. Code(s): J44.9 - Chronic obstructive pulmonary disease, unspecified Category: Medical Plan: STIOLTO RESPIMAT 2 INHALATIONS DAILY IPRATROPIUM-ALBUTEROL SOLUTION IN THE NEBULIZER Q 6 HOURS P.R.N., USES 1 TO 2 TIMES A DAY. PROAIR 2 PUFFS Q 6 HOURS P.R.N.. SHE DOES HAVE FLOVENT-TO 20, IN THE LIST BUT CLAIMS THAT SHE IS NOT USING IT ANYMORE. (4) Smoker: Comment: STILL SMOKES , CLAIMS THAT SHE IS DOWN TO 5 CIGARETTES A DAY. CLAIMS THAT SHE IS NOT ABLE TO CUT IT DOWN . ANY FURTHER ENCOURAGED TO PARTICIPATE IN ANNUAL LUNG SCREENING PROGRAM. Code(s): F17.200 - Nicotine dependence, unspecified, uncomplicated Category: Social Hx Plan: Talked to her about quitting but she is not ready. Agreeable to participate in annual lung screening program. Coding Level of Care Code Est Pt Level 3 (41867) Diagnoses Allergic rhinitis J30.9 Respiratory failure with hypoxia J96.91 COPD (chronic obstructive pulmonary disease) J44.9 Smoker F17.200
== END 2024-02-11 10:35 | disposition home or self-care (01) ==
LOC: HO.HPS 09:46
PROVIDERS: PCP Internal Medicine; Visit Provider Internal Medicine
DX: J30.9 Allergic rhinitis, unspecified (principal); J96.91 Respiratory failure, unspecified with hypoxia; J44.9 Chronic obstructive pulmonary disease, unspecified; F17.200 Nicotine dependence, unspecified, uncomplicated
CPT/HCPCS: 99213

== ENCOUNTER → 2024-02-11 09:45 | Outpatient (BNVA) | payer MEDICARE, MEDICAID, SELFPAY | PROVIDERS: PCP Internal Medicine; Visit Provider Internal Medicine | DX: J44.9 Chronic obstructive pulmonary disease, unspecified (principal); J30.9 Allergic rhinitis, unspecified; J96.91 Respiratory failure, unspecified with hypoxia; F17.210 Nicotine dependence, cigarettes, uncomplicated; Z99.81 Dependence on supplemental oxygen | CPT/HCPCS: 99212 ==

== ENCOUNTER 2024-02-13 11:10 | Outpatient (AMB) | payer MEDICARE, MEDICAID, SELFPAY ==
[2024-02-13 11:23] VITALS: BP 138/80; PULSE 100; O2SAT 93; BMI 20.2
--- NOTE | 2024-02-13 11:23 | A.OFFPC_ITS ---
Vital Signs 02/13/24 11:23 Height 5 ft 6 in Weight 125 lb BMI 20.2 BP 138/80 Blood Pressure Location Lt brachial Position Sitting Pulse 100 Pulse Source Pulse Oximeter Pulse Oximetry (%) 93 Oxygen Delivery Method Room Air Intake Visit Reasons: med management Intake Note: Pt is here today to discuss rx tizanidine Allergies dextrose Allergy (Severe, Verified 02/13/24 12:41) anaphylaxis latex [LATEX] Allergy (Severe, Verified 02/13/24 12:41) HIVES psyllium [From Metamucil] Allergy (Severe, Verified 02/13/24 12:41) anaphylaxis clindamycin [CLINDAMYCIN] Allergy (Intermediate, Verified 02/13/24 12:41) RASH NSAIDS (Non-Steroidal Anti-Inflamma Allergy (Intermediate, Verified 02/13/24 12:41) ulcers tramadol [From ULTRAM] Allergy (Intermediate, Verified 02/13/24 12:41) HIVES levofloxacin [From LEVAQUIN] Adverse Reaction (Intermediate, Verified 02/13/24 12:41) TENDON PAIN, achilles tendonitis prednisone Adverse Reaction (Intermediate, Verified 02/13/24 12:41) GI BLEED, high doses valacyclovir [From VALTREX] Adverse Reaction (Intermediate, Verified 02/13/24 12:41) GI UPSET Medication List - Last Reconciled 02/13/24 by Nena Milner MD acetaminophen 650 mg PO Q6H PRN albuterol sulfate 2.5 mg (3 mL) inhalation Q4-6H PRN 30 days albuterol sulfate 90 mcg/actuation 2 puffs PO Q4-6H PRN ammonium lactate 5% 1 appl topical DAILY docusate sodium 100 mg PO BID PRN fluticasone propionate 220 mcg/actuation 2 puffs inhalation BID 30 days furosemide 20 mg PO QAM PRN ipratropium bromide 2 sprays intranasal BID-TID PRN ipratropium-albuterol 0.5 mg-3 mg(2.5 mg base)/3 mL 3 mL inhalation Q4-6H PRN 20 days loratadine 10 mg PO DAILY methadone 105 mg PO DAILY nicotine 1 patch transdermal DAILY ondansetron HCl 4 mg PO BID PRN pantoprazole 40 mg PO BID ramelteon 8 mg PO BEDTIME PRN Stiolto Respimat 2.5-2.5 mcg/actuation (tiotropium-olodaterol) 2 puffs PO DAILY NS tizanidine 4 mg PO Q8H PRN 30 days Tobacco use date assessed: 02/13/24 Fall risk assessment: 2 + Falls in past year Last assessed Fall Risk: 02/13/24 Dental Screening Dental Screen Date: 02/13/24 Did you have a dental visit in the last 12 months?: No Did you have a dental problem in the last 6 months where you did not have access to dental care?: No Was dental information given to patient?: Patient declined HPI med management HPI Details 68-year-old lady with history of severe cervical degenerative disc disease, now complaining of worsening pain in posterior neck going down both upper extremities. She has been taking tizanidine 4 mg per tablet 3 times a day, which afforded some pain relief. Dose was decreased to twice a day dosing to see if this will be enough but she states that her symptoms got worse and she started having some confusion and generalized weakness, which prompted her to go to the ER at [facility]. Workup at the ER which included a CT of the head, chest x- ray, urinalysis, and routine labs all came back within normal limits. Her tiz anidine dose was increased back to 3 times a day which she states afforded resolution of symptoms. She was seen by Dr. Castelan in 2020 for worsening pain in her posterior neck with MRI of cervical spine ordered, showing progressive and severe cervical degenerative disc disease with bulging discs in different levels. She was supposed follow-up with him after MRI was done and to discuss treatment options but patient was lost to follow-up. Interested in quitting smoking, currently smoking now for approximately 5 cigarettes a day. Requesting prescription for nicotine patch which she has tried in the past and has helped. [facility] Medical History (Updated 02/16/24 @ 16:20 by Nena Milner MD) Cervical radiculopathy due to degenerative joint disease of spine Cigarette smoker motivated to quit Takotsubo cardiomyopathy History of congestive heart failure Anemia Absent pedal pulses Constipation due to opioid therapy Chest wall pain Oxygen dependent Allergic rhinitis Vitamin D deficiency Primary osteoarthritis, right shoulder Respiratory failure with hypoxia Smoker Surgical menopause Duodenal ulcer Bipolar disorder Gastritis Tubular adenoma of colon Substance abuse Osteopenia Alcoholic cirrhosis of liver Hepatitis C COPD (chronic obstructive pulmonary disease) Osteoarthritis of multiple joints Surgical History Hx of colonoscopy History of surgery History of esophagogastroduodenoscopy (EGD) History of hysterectomy Ankle fracture Family History Father Alcoholism History of manic depressive disorder COPD (chronic obstructive pulmonary disease) Cancer Mother COPD (chronic obstructive pulmonary disease) Cardiac disease Smoker CHF (congestive heart failure) Alcoholism CVD (cardiovascular disease) Mental disorder Sister Lupus PTSD (post-traumatic stress disorder) Son Cardiac arrest Maternal Grandfather No problems noted. Maternal Grandmother No problems noted. Paternal Grandfather Alcoholism Mental disorder Paternal Grandmother No problems noted. Social History Housing: Apartment Alcohol intake: current Alcohol intake frequency: 0-2 drinks per day Alcohol type: beer Patient Tobacco Use Status: Current everyday Tobacco user Tobacco use type: Cigarette Cigarettes Per Day: 5 e-Cigarette/Vaping Use: Never Used service: No Current occupational status: disabled Cognitive needs: No Hearing needs: No Vision needs: No Questionnaire Thrive Questionnaire I am a: Patient What is your living situation today?: I have a steady place to live Within the past 12 months, did the food you bought not last and you didn't have the money to get more?: Sometimes True Within the past 12 months, did you worry whether your food would run out before you got money to buy more?: Sometimes True Do you have trouble paying for medicines?: No Do you have trouble getting transportation to medical appointments?: No Do you have trouble paying your heating and electricity bill?: No Do you have trouble taking care of your child, family member or friend?: I choose not to answer this question Do you have trouble with day-to-day activities such as bathing, preparing meals, shopping, managing finances, etc.?: I choose not to answer this question Are you currently unemployed and looking for a job?: No Are you interested in more education?: No Please select the resources that you would like help with: None Currently or been in a relationship where the following occur: I choose not to answer THRIVE Score: 2 Review of Systems Const All systems reviewed & are unremarkable except as noted in HPI and below Physical exam (Primary Care) Vital Signs: Last Vital Signs Pulse 100 02/13/24 11:23 BP 138/80 02/13/24 11:23 Pulse Ox 93 02/13/24 11:23 Oxygen Delivery Method Room Air 02/13/24 11:23 BMI result Body Mass Index 20.2 Tobacco/Smoking Status: Tobacco use Status Tobacco use date assessed 02/13/24 02/13/24 11:28 Patient Tobacco Use Status Current everyday Tobacco 02/13/24 11:28 Tobacco use type Cigarette 02/13/24 11:28 e-Cigarette/Vaping Use Never Used 02/13/24 11:28 Thrive Assessment: Date of Thrive Assessment Date Thrive assessed 11/14/23 12/31/23 12:11 Currently or been in a relationship where the following occur: I choose not to answer Const General: no acute distress Orientation/consciousness: patient oriented x3 [facility] General nose exam: Normal external nose present, Normal nasal mucous membranes and turbinates present and Other nasal findings present (Has O2 by nasal cannula) Neck Neck: Yes full ROM, Yes no lymphadenopathy and Yes supple Resp Auscultation: clear to auscultation bilaterally Cardio Other: S1-S2 present regular rate and rhythm, unable to palpate dorsalis pedis pulse bilaterally GI Inspection: Yes normal to inspection Palpation (GI): Soft to palpation, nontender, no guarding and no masses Back/Spine/Pelvis Cervical Spine: cervical muscular tenderness, pain with cervical ROM and cervical spasm Skin Other: Bilateral erythema in both lower extremities, slightly warm to touch, nontender to palpation Neuro General: patient oriented x3, moves all extremities, Normal light touch and pain sensation and no focal motor deficits Extrem General: Yes full ROM, Yes no joint enlargement and Yes no pedal edema Psych Appearance: grossly normal and well kempt Mental Status: mental status grossly normal Speech and movement: Normal speech and movement present Affect: normal affect Attitude: cooperative Coding Level of Care Code Est Pt Level 4 (54549) Diagnoses Cervical radiculopathy due to degenerative joint disease of spine M47.22 Bilateral lower extremity edema R60.0 Cigarette smoker motivated to quit F17.210 Assessment & Plan Assessment & Plan (1) Cervical radiculopathy due to degenerative joint disease of spine: Code(s): M47.22 - Other spondylosis with radiculopathy, cervical region Category: Medical Plan: Currently on tizanidine 4 mg 1 tablet 3 times a day and takes acetaminophen 650 mg 1 tablet every 6 hours as needed for pain. Referred back to pain clinic for further evaluation and treatment (2) Bilateral lower extremity edema: Code(s): R60.0 - Localized edema Category: Medical Plan: , ordered B type natriuretic peptide, Rx sent furosemide 20 mg per tablet 1 tablet in a.m. to be taken as needed for leg swelling. Return to clinic if no improvement of symptoms (3) Cigarette smoker motivated to quit: Code(s): F17.210 - Nicotine dependence, cigarettes, uncomplicated Category: Social Hx Plan: Prescription sent for nicotine patch 14 mg per patch to be applied as directed. Remove patch after bedtime, rotate sites of application. Discussed options for smoking cessation with medications. Discussed common side effects and strongly advised not to smoke while using the patch. If developes any adverse effects please call office. Follow up in office 4 weeka Orders: Orders B Type Natriuretic Peptide 02/13/24 R60.0 - Localized edema Referrals Pain Management Referral M47.22 - Other spondylosis with radiculopathy, cervical region Medications: New furosemide 20 mg PO QAM PRN 14 tabs 0RF edema Changed From tizanidine 4 mg PO BID 30 days PRN 60 tabs 0RF for muscle spasm M15.9 - Polyosteoarthritis, unspecified, M54.2 - Cervicalgia To tizanidine 4 mg PO Q8H 30 days PRN 90 tabs 1RF for muscle spasm M15.9 - P olyosteoarthritis, unspecified, M54.2 - Cervicalgia Refilled nicotine 1 patch transdermal DAILY 28 ea 0RF
== END 2024-02-13 13:20 | disposition home or self-care (01) ==
LOC: HO.HMCC 11:11
PROVIDERS: PCP Internal Medicine; Visit Provider Internal Medicine
DX: M47.22 Other spondylosis with radiculopathy, cervical region (principal); R60.0 Localized edema; F17.210 Nicotine dependence, cigarettes, uncomplicated

== ENCOUNTER → 2024-02-13 11:10 | Outpatient (BNVA) | payer MEDICARE, MEDICAID, SELFPAY | PROVIDERS: PCP Internal Medicine; Visit Provider Internal Medicine | DX: M47.22 Other spondylosis with radiculopathy, cervical region (principal); R60.0 Localized edema; F17.210 Nicotine dependence, cigarettes, uncomplicated; Z71.6 Tobacco abuse counseling | CPT/HCPCS: 99212 ==

== ENCOUNTER 2024-03-11 08:47 | Outpatient (AMB) | payer MEDICARE, MEDICAID, SELFPAY ==
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
[2024-03-11 09:15] VITALS: BP 148/60; PULSE 110; RESP 14; O2SAT 88; BMI 20.1
--- OUTSIDE RECORDS SUMMARY | 2024-03-17 16:33 | XMS_ITS ---
Author Organization [facility], Address [address] [place] [address] Care Team Providers Care Washtub Worker Helper Name Role Phone Suyapa Borrego [phone] ALLERGIES, ADVERSE REACTIONS, ALERTS Substance Code Code System Type Reaction Severity Status Start Date End Date Levaquin 287741 RxNorm Drug allergy () 0 levothyroxine 21696 RxNorm Drug allergy () 0 tramadol 11664 RxNorm Drug allergy () 0 NSAIDS (Non-Steroidal Anti-Inflammatory Drug) RxNorm Dr ug allergy () 0 Ultram 506241 RxNorm Drug allergy () 0 clindamycin 2582 RxNorm Drug allergy () 0 psyllium 8928 RxNorm Drug allergy () 0 MEDICATIONS Medication Code Code System Start Date Stop Date Route Dosage Directions Fill Instructions methadone 0 RxNorm oral tizanidine HCl RxNorm ondansetron HCl RxNorm 11/09/2023 1 pantoprazole sodium RxNorm albuterol sulfate RxNorm 4 2 ipratropium bromide RxNorm 01/16/20 24 2 ramelteon RxNorm Stiolto Respimat RxNorm PROBLEMS Problem Name Code Code System Start Date End Date Stat us Other asthma 865997138 [facility] Active Sleep apnea, unspecified 57896923 [facility] Active Gastro-esophageal reflux dis ease with esophagitis, without bleeding 122762588 [facility] Active Chronic obstructive pulmonar y disease, unspecified 62522503 [facility] Active Cellulitis of left lower limb 898182352 Snomed[facility] 02/21/2024 Active ENCOUNTERS Encounter Diagnosis Code Code System Date Stat us Cellulitis of left lower limb 950953039 [facility]omed[facility] 2023 Active IMMUNIZATIONS * None VITAL SIGNS Code Code System Vitals Name Date Value and Un its 8462-4 [facility] Blood Pressure-Diastolic 02/21/2024 80 mmHg 8480-6 [facility] Blood Pressure-Systolic 02/21/2024 1 30 mmHg 8867-4 [facility] Heart Rate 02/21/2024 89 /min 9279-1 [facility] Respiratory Rate 02/21/2024 18 /min 8310-5 [facility] Body Temperature 02/21/2024 99.1 F 42027-8 [facility] Oxygen Saturation 02/21/2024 93 % SOCIAL HISTORY * None PROCEDURES * None MEDICAL EQUIPMENT * Patient has no history of implantable devices ASSESSMENT Assessment Please go to the ER for furt her evaluation and consideration of IV antibiotics TREATMENT PLAN No Treatment Plan Items Lab Tests None GOALS * None HEALTH CONCERNS * No Health Concerns FUNCTIONAL AND COGNITIVE STATUS * None CONSULTATION NOTES * Suyapa Borrego - 02/21/2024 ED TransferReferred To: [address] [address]Y: F: Schedule: CompletedNotes:* Comments: 68-year-old female with a chronic left lower extremity wound presenting with spreading red ness over the past few days, chills, vomiting. Exam concerning for left lower extremity cellulitis.Given the systemic symptoms and quickly spreading redness feel ER evaluation for consideration of IV antibiotics possible admission Mode of transport is Privately Owned VehicleStability Status is stableOrdered 02/21/2024 01:18 PM by Alvarado Coombs edited 02/24/2024 12:03 PM by Suyapa Borrego MA HARGE SUMMARY NOTES * None HISTORY AND PHYSICAL NOTES * Patient: SRINIVAS WRIGHT, Sex: F (ID# [id number]) Date of : 1955 (68 years) Visit on 02/21/2024 (Log# [id number]) Historian: Self Triage Notes: started off as small area a band aid covered, much larger now History of Present Illness: Complaint: The patient presents with a chief complaint of skin sores of the left lower leg since 2 months ago.It has the following qualities: weeping and painful. The patient also reports swelling as an abnormal symptom related to the complaint. Review of Systems: The patient complains of the following recent symptoms: Musculoskeletal: swelling Skin: redness skin sores: See HPI The patient denies the following recent symptoms: Constitutional: denies fever Allergies: clindamycin: Drug allergy. levothyroxine: Drug allergy. NSAIDS (Non-Steroidal Anti-Inflammatory Drug): Drug allergy. Levaquin: Drug allergy. psyllium: Drug allergy. tramadol: Drug allergy. Ultram: Drug allergy. Medications: albuterol sulfate: albuterol sulfate 90 mcg/actuation HFA Aerosol with Adapter; INHALE 2 PUFFS INHALE 2 PUFFS BY MOUTH EVERY 4 TO 6 HOURS NEEDED FOR WHEEZING; Total Qty: 8.5 (eight point five) Gram; 0 refill(s); FLORENCIO; ipratropium bromide: ipratropium bromide 21 mcg (0.03 %) Aerosol, [place]; USE 2 SPRAYS USE 2 SPRAYS IN EACH NOSTRIL 2 TO 3 TIMES A DAY NEEDED FOR ALLERGIES; Total Qty: 30 (thirty) Milliliter; 0 refill(s); FLORENCIO; ondansetron HCl: ondansetron HCl 4 mg tablet; TAKE 1 TABLET TAKE 1 TABLET BY MOUTH EVERY 4 TO 6 HOURS NEEDED FOR NAUSEA; Total Qty: 30 (thirty) Each; 0 refill(s); FLORENCIO; pantoprazole sodium: pantoprazole sodium 40 mg tablet, delayed release (enteric coated); Total Qty:180 (one hundred and eighty) Tablet; 0 refill(s); FLORENCIO; ramelteon: ramelteon 8 mg tablet; Total Qty: 30 (thirty) Tablet; 0 refill(s); FLORENCIO; Stiolto Respimat: Stiolto Respimat 2.5-2.5 mcg/actuation Mist Inhaler; Total Qty: 4 (four) Gram; 0 refill(s); FLORENCIO; tizanidine HCl: tizanidine HCl 4 mg tablet; Total Qty: 90 (ninety) Tablet; 0 refill(s); FLORENCIO; methadone: methadone; (oral) days; 0 refill(s); Problem List: Other asthma (status Active) Sleep apnea, unspecified (status Active) Gastro-esophageal reflux disease with esophagitis, without bleeding (status Active) Chronic obstructive pulmonary disease, unspecified (status Active) Vitals: 01:06 PM (02/21/2024)Temperature: 99.1 ?F, Pulse: 89 BPM, BP: 130/80, Respirations: 18/min, O2 Saturation: 93%, O2 Delivery: RA, Notes: patient currently on 1L oxygenFirst entered 02/21/2024 13:06 byDaniela Borrego edited 02/21/2024 13:09 by Suyapa Borrego Physical Exam: The following exam elements were documented to be normal: Psychiatric: oriented and alert. Diagnoses: Cellulitis of left lower limb (L03.116) Plan: Please go to the ER for further evaluation and consideration of IV antibiotics Referrals: ED Transfer Referred To: [address] [address] T: F: Schedule: To be scheduled STAT. Notes: Comments: 68-year-old female with a chronic left lower extremity wound presenting with spreading redness over the past few days, chills, vomiting. Exam concerning for left lower extremity cellulitis.Given the systemic symptoms and quickly spreading redness feel ER evaluation for consideration of IV antibiotics possible admission Mode of transport is Privately Owned Vehicle Stability Status is stable Ordered 02/21/2024 01:18 PM by Rashad Youngblood PA-C Visit discharged at 02/21/2024 1:18:51 PM by Rashad Youngblood PA-C Signed electronically by Rashad Youngblood PA-C on 02/21/2024 1:18:51 PM IMAGING NOTES * None LABORATORY REPORT NARRATIVE NOTES * None PATHOLOGY REPORT NARRATIVE NOTES * None PROGRESS NOTES * None
== END 2024-03-11 09:38 | disposition home or self-care (01) ==
PROVIDERS: PCP Internal Medicine; Visit Provider Anesthesiology
DX: M47.812 Spondylosis without myelopathy or radiculopathy, cervical region (principal); M54.2 Cervicalgia; G89.4 Chronic pain syndrome
CPT/HCPCS: 99204

== ENCOUNTER → 2024-03-11 08:47 | Outpatient (BNVA) | payer MEDICARE, MEDICAID, SELFPAY | PROVIDERS: PCP Internal Medicine; Visit Provider Anesthesiology | DX: M47.812 Spondylosis without myelopathy or radiculopathy, cervical region (principal); M54.2 Cervicalgia; G89.4 Chronic pain syndrome | CPT/HCPCS: 99202 ==

== ENCOUNTER 2024-03-13 09:32 | Outpatient (AMB) | payer MEDICARE, MEDICAID, SELFPAY ==
--- NOTE | 2024-03-13 09:28 | MHC.PC.OV ---
Intake Visit Reasons: smoking cessation Allergies dextrose Allergy (Severe, Verified 03/13/24 09:59) anaphylaxis latex [LATEX] Allergy (Severe, Verified 03/13/24 09:59) HIVES psyllium [From Metamucil] Allergy (Severe, Verified 03/13/24 09:59) anaphylaxis clindamycin [CLINDAMYCIN] Allergy (Intermediate, Verified 03/13/24 09:59) RASH NSAIDS (Non-Steroidal Anti-Inflamma Allergy (Intermediate, Verified 03/13/24 09:59) ulcers tramadol [From ULTRAM] Allergy (Intermediate, Verified 03/13/24 09:59) HIVES levofloxacin [From LEVAQUIN] Adverse Reaction (Intermediate, Verified 03/13/24 09:59) TENDON PAIN, achilles tendonitis prednisone Adverse Reaction (Intermediate, Verified 03/13/24 09:59) GI BLEED, high doses valacyclovir [From VALTREX] Adverse Reaction (Intermediate, Verified 03/13/24 09:59) GI UPSET Medication List - Last Reconciled 03/13/24 by Nena Milner MD acetaminophen 650 mg PO Q6H PRN albuterol sulfate 2.5 mg (3 mL) inhalation Q4-6H PRN 30 days albuterol sulfate 90 mcg/actuation 2 puffs PO Q4-6H PRN alprazolam (Xanax) 0.5 mg PO DAILY PRN 1 day ammonium lactate 5% 1 appl topical DAILY docusate sodium 100 mg PO BID PRN furosemide 20 mg PO QAM PRN ipratropium bromide 2 sprays intranasal BID-TID PRN ipratropium-albuterol 0.5 mg-3 mg(2.5 mg base)/3 mL 3 mL inhalation Q4-6H PRN 20 days loratadine 10 mg PO DAILY methadone 105 mg PO DAILY nicotine 1 patch transdermal DAILY ondansetron HCl 4 mg PO BID PRN pantoprazole 40 mg PO BID ramelteon 8 mg PO BEDTIME PRN Stiolto Respimat 2.5-2.5 mcg/actuation (tiotropium-olodaterol) 2 puffs PO DAILY NS tizanidine 4 mg PO Q8H PRN 30 days Tobacco use date assessed: 03/13/24 Fall risk assessment: 2 + Falls in past year Last assessed Fall Risk: 03/13/24 Dental Screening Dental Screen Date: 03/13/24 Did you have a dental visit in the last 12 months?: No Did you have a dental problem in the last 6 months where you did not have access to dental care?: No Was dental information given to patient?: Patient declined HPI smoking cessation HPI Details - The patient is a 68-year-old female presenting with follow-up on smoking cessation. - She reports smoking five cigarettes from approximately 6 a.m. to 3 a.m. the following morning. - Patient attempts to reduce smoking but struggles particularly during periods of stress. - Currently uses a 14 mg nicotine patch as part of her quitting regimen, recently reduced from a higher dose. - Reports increased difficulty in smoking cessation efforts due to unmanaged anxiety; currently not taking any medication for anxiety. - Prior trial of Bupropion for smoking cessation was not well tolerated due to unspecified issues but no history of seizures. [facility] Medical History (Updated 03/14/24 @ 02:55 by Nena Milner MD) Generalized anxiety disorder Cervical radiculopathy due to degenerative joint disease of spine Cigarette smoker motivated to quit Takotsubo cardiomyopathy History of congestive heart failure Anemia Absent pedal pulses Constipation due to opioid therapy Chest wall pain Oxygen dependent Allergic rhinitis Vitamin D deficiency Primary osteoarthritis, right shoulder Respiratory failure with hypoxia Smoker Surgical menopause Duodenal ulcer Bipolar disorder Gastritis Tubular adenoma of colon Substance abuse Osteopenia Alcoholic cirrhosis of liver Hepatitis C COPD (chronic obstructive pulmonary disease) Osteoarthritis of multiple joints Surgical History Hx of colonoscopy History of surgery History of esophagogastroduodenoscopy (EGD) History of hysterectomy Ankle fracture Family History Father Alcoholism History of manic depressive disorder COPD (chronic obstructive pulmonary disease) Cancer Mother COPD (chronic obstructive pulmonary disease) Cardiac disease Smoker CHF (congestive heart failure) Alcoholism CVD (cardiovascular disease) Mental disorder Sister Lupus PTSD (post-traumatic stress disorder) Son Cardiac arrest Maternal Grandfather No problems noted. Maternal Grandmother No problems noted. Paternal Grandfather Alcoholism Mental disorder Paternal Grandmother No problems noted. Social History Housing: Apartment Alcohol intake: current Alcohol intake frequency: 0-2 drinks per day Alcohol type: beer Patient Tobacco Use Status: Current everyday Tobacco user Tobacco use type: Cigarette Cigarettes Per Day: 5 e-Cigarette/Vaping Use: Never Used service: No Current occupational status: disabled Cognitive needs: No Hearing needs: No Vision needs: No Review of Systems Const Denies chills and Reports fatigue ENT Reports no additional complaints Card Denies chest pain, Denies irregular heart rhythm, Denies leg edema and Reports dyspnea on exertion Resp Reports dyspnea on exertion GI Reports no additional complaints Reports no additional complaints Musc Reports back pain Neuro Reports no additional complaints Psych Reports as per HPI Endo Reports fatigue Guillaume/Lymph Reports no additional complaints Physical exam (Primary Care) Tobacco/Smoking Status: Tobacco use Status Tobacco use date assessed 03/13/24 03/13/24 09:30 Patient Tobacco Use Status Current everyday Tobacco 03/13/24 09:30 Tobacco use type Cigarette 03/13/24 09:30 e-Cigarette/Vaping Use Never Used 03/13/24 09:30 Thrive Assessment: Date of Thrive Assessment Date Thrive assessed 11/14/23 12/31/23 12:11 Telehealth Telehealth Telehealth Platform: [employer] Location of provider rendering services: practice address Location of patient: address on file Patient Identification confirmed using: Name, : Yes Telehealth method: video Patient verbally consented to treatment: Yes Patient verbally consented to billing insurance company: Yes Patient informed of any privacy concerns related to visit: Yes Minutes spent on Phone/Video with Pt.: 15 Coding Level of Care Code Tele Est Pt Level 3 (34024) Diagnoses Cigarette smoker motivated to quit F17.210 Generalized anxiety disorder F41.1 Assessment & Plan Assessment & Plan (1) Cigarette smoker motivated to quit: Code(s): F17.210 - Nicotine dependence, cigarettes, uncomplicated Category: Social Hx (2) Generalized anxiety disorder: Code(s): F41.1 - Generalized anxiety disorder Category: Medical Plan - Tobacco Use Disorder: Continue using nicotine patches; prescription for Bupropion to assist with smoking cessation provided. - Anxiety: Initiate Bupropion to assist not only with smoking cessation but also to potentially alleviate anxiety symptoms. Monitor patient's response to Bupropion. - Follow-up: Schedule a telehealth visit in four weeks to assess progress with new medication regimen. Patient was informed and verbally consented to the use of an ambient scribe for clinic note documentation during this visit. Medications: New bupropion HCl (smoking deter) take 1 tablet in am on days 1-3, then increase to twice a day dosing afterwards , at least 12 hours apart 150 mg PO DAILY 60 tabs 2RF F17.210 - Nicotine dependence, cigarettes, uncomplicated Refilled nicotine 1 patch transdermal DAILY 28 ea 0RF
--- OUTSIDE RECORDS SUMMARY | 2024-03-18 07:01 | XMS_ITS ---
Author Organization [facility], Address [address] [place] [address] Care Team Providers Care Sales Support Technician Name Role Phone Suyapa Borrego [phone] ALLERGIES, ADVERSE REACTIONS, ALERTS Substance Code Code System Type Reaction Severity Status Start Date End Date levothyroxine 77813 RxNorm Drug allergy () 0 tramadol 09215 RxNorm Drug allergy () 0 clindamycin 2582 RxNorm Drug allergy () 0 psyllium 8928 RxNorm Drug allergy () 0 NSAIDS (Non-Steroidal Anti-Inflammatory Drug) RxNorm Dr ug allergy () 0 Ultram 692005 RxNorm Drug allergy () 0 Levaquin 118930 RxNorm Drug allergy () 0 MEDICATIONS Medication [...] Date End Date Stat us Other asthma 130100270 SnomedCt Active Sleep apnea, unspecified 56682680 [facility] Active Gastro-esophageal reflux dis ease with esophagitis, without bleeding 991665262 SnomedCt Active Chronic obstructive pulmonar y disease, unspecified 97752130 Snomed[facility] Active Cellulitis of left lower limb 034402482 Snomed[facility] 02/21/2024 Active ENCOUNTERS Encounter Diagnosis Code Code System Date Stat us Cellulitis of left lower limb 381883391 [facility] 2023 Active IMMUNIZATIONS * None VITAL SIGNS Code Code System Vitals Name Date Value and Un its 8462-4 [facility] Blood Pressure-Diastolic 02/21/2024 80 mmHg 8480-6 [facility] Blood Pressure-Systolic 02/21/2024 1 30 mmHg 8867-4 [facility] Heart Rate 02/21/2024 89 /min 9279-1 [facility] Respiratory Rate 02/21/2024 18 /min 8310-5 [facility] Body Temperature 02/21/2024 99.1 F 66945-0 [facility] Oxygen Saturation 02/21/2024 93 % SOCIAL [...] Suyapa Borrego - 02/21/2024 ED TransferReferred To: [address] [address]: F: Schedule: CompletedNotes:* Comments: 68-year-old female with [...] * Patient: SRINIVAS WRIGHT, Sex: F (ID# [id number]) Date of : 1955 (68 years) Visit on 02/21/2024 (Log# [id number]) Historian: Self Triage Notes: started off as [...] ipratropium bromide 21 mcg (0.03 %) Aerosol, [place]; USE 2 SPRAYS USE 2 SPRAYS IN [...] IV antibiotics Referrals: ED Transfer Referred To: [address] [address] T: F: Schedule: To be scheduled STAT. [...] by Rashad Youngblood PA-C Signed electronically by Rashda Youngblood PA-C on 02/21/2024 1:18:51 PM IMAGING NOTES * None LABORATORY REPORT NARRATIVE NOTES * None PATHOLOGY REPORT NARRATIVE NOTES * None PROGRESS NOTES * None
--- OUTSIDE RECORDS SUMMARY | 2024-03-18 07:02 | XMS_ITS ---
Author Organization [facility], Address [address] [place] [address] Care Team Providers Care Pin Inserter Name Role Phone Suyapa Borrego [phone] ALLERGIES, ADVERSE REACTIONS, ALERTS Substance Code Code System Type Reaction Severity Status Start Date End Date Levaquin 415773 RxNorm Drug allergy () 0 NSAIDS (Non-Steroidal Anti-Inflammatory Drug) RxNorm Dr ug allergy () 0 Ultram 985107 RxNorm Drug allergy () 0 levothyroxine 40779 RxNorm Drug allergy () 0 tramadol 55028 RxNorm Drug allergy () 0 clindamycin 2582 [...] Date End Date Stat us Other asthma 011189211 SnomedCt Active Sleep apnea, unspecified 12868518 SnomedCt Active Gastro-esophageal reflux dis ease with esophagitis, without bleeding 428048714 SnomedCt Active Chronic obstructive pulmonar y disease, unspecified 44450393 SnomedCt Active Cellulitis of left lower limb 593769896 SnomedCt 02/21/2024 Active ENCOUNTERS Encounter Diagnosis Code Code System Date Stat us Cellulitis of left lower limb 524759799 SnomedCt 2023 Active IMMUNIZATIONS * None VITAL SIGNS Code Code System Vitals Name Date Value and Un its 8462-4 [facility] Blood Pressure-Diastolic 02/21/2024 80 mmHg 8480-6 [facility] Blood Pressure-Systolic 02/21/2024 1 30 mmHg 8867-4 [facility] Heart Rate 02/21/2024 89 /min 9279-1 [facility] Respiratory Rate 02/21/2024 18 /min 8310-5 [facility] Body Temperature 02/21/2024 99.1 F 77656-4 [facility] Oxygen Saturation 02/21/2024 93 % SOCIAL [...] Suyapa Borrego - 02/21/2024 ED TransferReferred To: [address] [address]L: F: Schedule: CompletedNotes:* Comments: 68-year-old female with [...] * Patient: SRINIVAS WRIGHT, Sex: F (ID# [id number]) Date of : 1955 (68 years) Visit on 02/21/2024 (Log# [id number]) Historian: Self Triage Notes: started off as [...] ipratropium bromide 21 mcg (0.03 %) Aerosol, [place]; USE 2 SPRAYS USE 2 SPRAYS IN [...] IV antibiotics Referrals: ED Transfer Referred To: [address] [address] T: F: Schedule: To be scheduled STAT. [...]
== END 2024-03-13 11:02 | disposition home or self-care (01) ==
LOC: HO.HMCC 09:32
PROVIDERS: PCP Internal Medicine; Visit Provider Internal Medicine
DX: F41.1 Generalized anxiety disorder (principal); F17.210 Nicotine dependence, cigarettes, uncomplicated

== ENCOUNTER 2024-04-10 09:08 | Outpatient (AMB) | payer MEDICARE, MEDICAID, SELFPAY ==
--- NOTE | 2024-04-10 09:02 | MHC.PC.OV ---
Intake Visit Reasons: smoking cessation Intake Note: Pt is having a telehealth visit to discuss smoking cessation Allergies dextrose Allergy (Severe, Verified 04/10/24 09:15) anaphylaxis latex [LATEX] Allergy (Severe, Verified 04/10/24 09:15) HIVES psyllium [From Metamucil] Allergy (Severe, Verified 04/10/24 09:15) anaphylaxis clindamycin [CLINDAMYCIN] Allergy (Intermediate, Verified 04/10/24 09:15) RASH NSAIDS (Non-Steroidal Anti-Inflamma Allergy (Intermediate, Verified 04/10/24 09:15) ulcers tramadol [From ULTRAM] Allergy (Intermediate, Verified 04/10/24 09:15) HIVES levofloxacin [From LEVAQUIN] Adverse Reaction (Intermediate, Verified 04/10/24 09:15) TENDON PAIN, achilles tendonitis prednisone Adverse Reaction (Intermediate, Verified 04/10/24 09:15) GI BLEED, high doses valacyclovir [From VALTREX] Adverse Reaction (Intermediate, Verified 04/10/24 09:15) GI UPSET bupropion Adverse Reaction (Verified 04/10/24 09:15) vomiting Medication List - Last Reconciled 04/10/24 by Nena Milner MD acetaminophen 650 mg PO Q6H PRN albuterol sulfate 2.5 mg (3 mL) inhalation Q4-6H PRN 30 days albuterol sulfate 90 mcg/actuation 2 puffs PO Q4-6H PRN alprazolam (Xanax) 0.5 mg PO DAILY PRN 1 day ammonium lactate 5% 1 appl topical DAILY docusate sodium 100 mg PO BID PRN furosemide 20 mg PO QAM PRN ipratropium bromide 2 sprays intranasal BID-TID PRN ipratropium-albuterol 0.5 mg-3 mg(2.5 mg base)/3 mL 3 mL inhalation Q4-6H PRN 20 days loratadine 10 mg PO DAILY methadone 105 mg PO DAILY nicotine 1 patch transdermal DAILY ondansetron HCl 4 mg PO BID PRN pantoprazole 40 mg PO BID ramelteon 8 mg PO BEDTIME PRN Stiolto Respimat 2.5-2.5 mcg/actuation (tiotropium-olodaterol) 2 puffs PO DAILY NS tizanidine 4 mg PO Q8H PRN 30 days Tobacco use date assessed: 04/10/24 Fall risk assessment: 2 + Falls in past year Last assessed Fall Risk: 04/10/24 Dental Screening Dental Screen Date: 04/10/24 Did you have a dental visit in the last 12 months?: No Did you have a dental problem in the last 6 months where you did not have access to dental care?: No Was dental information given to patient?: Patient declined (no teeth) HPI smoking cessation HPI Details 69-year-old lady here today for follow-up on her smoking cessation. She was prescribed bupropion to be taken together with nicotine patch 14 mg on last visit but patient states that she had to stop taking the bupropion as it was causing a lot of GI upset and nausea. She has only been using nicotine patch 14 mg daily removes it at night. There have been times however , during periods of stress, that she removes the patch to smoke, but takes only 1 or 2 drags on her cigarette and throws it away. She has had about 6 to cigarettes since the last time I spoke to her a month ago. She has chronic pain in her neck, due to spondylosis and degenerative disc disease of cervical spine at multiple levels , requesting a refill on her tizanidine which he takes 1 tablet 3 times a day as needed for painful muscle spasms. She is also currently followed by Dr. Castelan at the pain clinic [facility] Medical History (Updated 04/10/24 @ 09:44 by Nena Milner MD) H/O adenomatous polyp of colon History of meningitis Nicotine dependence, cigarettes, uncomplicated Generalized anxiety disorder Cervical radiculopathy due to degenerative joint disease of spine Takotsubo cardiomyopathy History of congestive heart failure Anemia Absent pedal pulses Constipation due to opioid therapy Chest wall pain Oxygen dependent Allergic rhinitis Vitamin D deficiency Primary osteoarthritis, right shoulder Respiratory failure with hypoxia Surgical menopause Duodenal ulcer Bipolar disorder Gastritis Tubular adenoma of colon Substance abuse Osteopenia Alcoholic cirrhosis of liver Hepatitis C COPD (chronic obstructive pulmonary disease) Osteoarthritis of multiple joints Surgical History History of resection of rib History of colonoscopy History of ankle surgery History of esophagogastroduodenoscopy (EGD) History of hysterectomy Family History Father Alcoholism History of manic depressive disorder COPD (chronic obstructive pulmonary disease) Cancer Mother COPD (chronic obstructive pulmonary disease) Cardiac disease Smoker CHF (congestive heart failure) Alcoholism CVD (cardiovascular disease) Mental disorder Sister Lupus PTSD (post-traumatic stress disorder) Son Cardiac arrest Maternal Grandfather No problems noted. Maternal Grandmother No problems noted. Paternal Grandfather Alcoholism Mental disorder Paternal Grandmother No problems noted. Social History Housing: Apartment Alcohol intake: current Alcohol intake frequency: 0-2 drinks per day Alcohol type: beer Patient Tobacco Use Status: Current someday Tobacco user Tobacco use type: Cigarette Cigarettes Per Day: 5 e-Cigarette/Vaping Use: Never Used service: No Current occupational status: disabled Cognitive needs: No Hearing needs: No Vision needs: No Questionnaire PHQ-9 Over the last 2 weeks, how often have you been bothered by any of the following problems? 1. Little interest or pleasure in doing things: not at all 2. Feeling down, depressed, or hopeless: not at all 3. Trouble falling or staying asleep, or sleeping too much: several days 4. Feeling tired or having little energy: not at all 5. Poor appetite or overeating: several days 6. Feeling bad about yourself - or that you are a failure or have let yourself or your family down: not at all 7. Trouble concentrating on things, such as reading the newspaper or watching television: several days 8. Moving or speaking so slowly that other people could have noticed. Or the opposite - being so fidgety or restless that you have been moving around a lot more than usual: not at all 9. Thoughts that you would be better off or of hurting yourself in some way: not at all Total score: 3 Depression Screening Interpretation: Negative Depression Screening Done: Yes 16354 - PHQ-9 Billing: Yes Source: Developed by Drs. Marquez Mclaughlin, Anny Chong, Giovanny Grady and colleagues, with an educational owen from [employer] Thrive Questionnaire Date Thrive assessed: 04/10/24 I am a: Patient What is your living situation today?: I have a steady place to live Within the past 12 months, did the food you bought not last and you didn't have the money to get more?: Never true Within the past 12 months, did you worry whether your food would run out before you got money to buy more?: Never true Do you have trouble paying for medicines?: No Do you have trouble getting transportation to medical appointments?: No Do you have trouble paying your heating and electricity bill?: No Do you have trouble taking care of your child, family member or friend?: No Do you have trouble with day-to-day activities such as bathing, preparing meals, shopping, managing finances, etc.?: No Are you currently unemployed and looking for a job?: No Are you interested in more education?: No THRIVE Score: 0 AUDIT C Alcohol Use Questionnaire (AUDIT-C) 1. How often do you have a drink containing alcohol?: 4 or more times a week 2. How many drinks containing alcohol do you have on a typical day when you are drinking?: 1 or 2 3. How often do you have six or more drinks on one occasion?: Never Total Score: 4 MIKE-7 AMB Questionnaire MIKE-7 Date MIKE - 7 assessed: 04/10/24 Feeling nervous, anxious, or on edge: 1 = Several days Not being able to stop or control worryin = Several days Worrying too much about different things: 0 = Not at all Trouble relaxin = Several days Being so restless that it is hard to sit still: 1 = Several days Becoming easily annoyed or irritable: 0 = Not at all Feeling afraid as if something awful might happen: 0 = Not at all Total MIKE-7 score (0-4 normal; 5-9 mild; 10-14 moderate; 15-21 severe): 4 Source: Developed by Drs. Marquez Mclaughlin, Anny Chong, Giovanny Grady and colleagues, with an educational owen from [employer] MIKE-7 Assessment Billing MIKE-7 Assessment Tool: MIKE-7 Assessment 13735 Review of Systems Const Denies chills and Reports fatigue ENT Reports no additional complaints Card Denies chest pain, Denies irregular heart rhythm, Denies leg edema and Reports dyspnea on exertion Resp Reports dyspnea on exertion GI Reports no additional complaints Reports no additional complaints Musc Reports back pain and Reports stiffness Neuro Reports as per HPI Endo Reports fatigue Guillaume/Lymph Reports no additional complaints Physical exam (Primary Care) Tobacco/Smoking Status: Tobacco use Status Tobacco use date assessed 04/10/24 04/10/24 09:07 Patient Tobacco Use Status Current someday Tobacco 04/10/24 09:07 Tobacco use type Cigarette 04/10/24 09:07 e-Cigarette/Vaping Use Never Used 04/10/24 09:07 PHQ-9: PHQ-9 Score PHQ-9: Total score 6 04/10/24 09:07 Depression Screening Interpretation: Negative Thrive Assessment: Date of Thrive Assessment Date Thrive assessed 04/10/24 04/10/24 09:07 Telehealth Telehealth Telehealth Platform: [employer] Location of provider rendering services: practice address Location of patient: address on file Patient Identification confirmed using: Name, : Yes Telehealth method: video Patient verbally consented to treatment: Yes Patient verbally consented to billing insurance company: Yes Patient informed of any privacy concerns related to visit: Yes Minutes spent on Phone/Video with Pt.: 15 Coding Level of Care Code Tele Est Pt Level 3 (88506) Diagnoses Cervical radiculopathy due to degenerative joint disease of spine M47.22 Cigarette smoker motivated to quit F17.210 Additional Codes PHQ-9 - 62103 - PHQ-9 Billing: Yes ([id number]) MIKE-7 Assessment Billing - MIKE-7 Assessment Tool: MIKE-7 Assessment 28378 ([id number]) Assessment & Plan Assessment & Plan (1) Cervical radiculopathy due to degenerative joint disease of spine: Code(s): M47.22 - Other spondylosis with radiculopathy, cervical region Category: Medical Plan: Prescription for tizanidine to take 1 tablet 3 times a day only as needed for painful muscle spasms. currently being followed also at the pain Clinic by Dr. Castelan (2) Cigarette smoker motivated to quit: Code(s): F17.210 - Nicotine dependence, cigarettes, uncomplicated Category: Social Hx Plan: Continue with nicotine patch 14 mg per patch to use as directed, strongly encouraged patient to avoid lighting up another cigarette while using the patch., will see her back for follow-up by telehealth in 1 month Medications: Refilled nicotine 1 patch transdermal DAILY 28 ea 0RF tizanidine 4 mg PO Q8H 30 days PRN 90 tabs 1RF for muscle spasm M15.9 - Polyosteoarthritis, unspecified, M54.2 - Cervicalgia
--- OUTSIDE RECORDS SUMMARY | 2024-04-10 09:29 | XMS_ITS ---
Author Organization [facility], Address [address] [place] [address] Care Team Providers Care Associate Professor Of Education Name Role Phone Suyapa Borrego [phone] ALLERGIES, ADVERSE REACTIONS, ALERTS Substance Code Code System Type Reaction Severity Status Start Date End Date Levaquin 744843 RxNorm Drug allergy () 0 levothyroxine 00753 RxNorm Drug allergy () 0 tramadol 95649 RxNorm Drug allergy () 0 NSAIDS (Non-Steroidal Anti-Inflammatory Drug) RxNorm Dr ug allergy () 0 Ultram 034024 RxNorm Drug allergy () 0 clindamycin 2582 [...] Date End Date Stat us Other asthma 268330084 SnomedCt Active Sleep apnea, unspecified 88499840 SnomedCt Active Gastro-esophageal reflux dis ease with esophagitis, without bleeding 706658131 SnomedCt Active Chronic obstructive pulmonar y disease, unspecified 70078125 SnomedCt Active Cellulitis of left lower limb 173126614 SnomedCt 02/21/2024 Active ENCOUNTERS Encounter Diagnosis Code Code System Date Stat us Cellulitis of left lower limb 422670603 SnomedCt 2023 Active IMMUNIZATIONS * None VITAL SIGNS Code Code System Vitals Name Date Value and Un its 8462-4 [facility] Blood Pressure-Diastolic 02/21/2024 80 mmHg 8480-6 [facility] Blood Pressure-Systolic 02/21/2024 1 30 mmHg 8867-4 [facility] Heart Rate 02/21/2024 89 /min 9279-1 [facility] Respiratory Rate 02/21/2024 18 /min 8310-5 [facility] Body Temperature 02/21/2024 99.1 F 34730-4 [facility] Oxygen Saturation 02/21/2024 93 % SOCIAL [...] Suyapa Borrego - 02/21/2024 ED TransferReferred To: [address] [address]: F: Schedule: CompletedNotes:* Comments: 68-year-old female with [...] * None HISTORY AND PHYSICAL NOTES * None IMAGING NOTES * None LABORATORY REPORT NARRATIVE NOTES * None PATHOLOGY REPORT NARRATIVE NOTES * None PROGRESS NOTES * None
== END 2024-04-10 10:11 | disposition home or self-care (01) ==
LOC: HO.HMCC 09:08
PROVIDERS: PCP Internal Medicine; Visit Provider Internal Medicine
DX: M47.22 Other spondylosis with radiculopathy, cervical region (principal); F17.210 Nicotine dependence, cigarettes, uncomplicated

== ENCOUNTER 2024-05-01 11:02 | Outpatient (REF) | payer MEDICAID, SELFPAY ==
--- NOTE | ~2024-05-01 | CT_ITS ---
CLINICAL HISTORY: F17.210 - Nicotine dependence, cigarettes, uncomplicated CT lung cancer screening (LDCT) Comparison: 06/07/2017 Technique: Axial CT images of the chest using low-dose technique. Referring provider counseled the patient on shared decision-making for LDCT screening. Additional counseling was provided on smoking cessation. Effective radiation dose total: DLP 24.5 mGycm, CTDIvol 0.8 mGy. Findings: Lung: No new solid or semi solid lesion. Coronary artery calcifications: Moderate Limited upper abdomen: Unremarkable Other: Bilateral lower lobe scarring or subsegmental atelectasis. Impression: Category 1: Normal Category 1: Normal; continue annual screening Category 2: Benign appearance or behavior, continue annual screening Category 3: Probably benign, [address] recommended Category 4A: Suspicious, [address] recommended; may consider PET/CT Category 4B: Suspicious, Additional diagnostics and/or tissue sampling recommended Category 4X: Suspicious, Additional diagnostics and/or tissue sampling recommended Category 0: Recalls (incomplete screen due to Incomplete coverage, Noise, Respiratory motion, Expiration, Obscured by acute abnormality) This document has been electronically signed by: José Lawrence MD on 05/02/2024 09:15:08
--- OUTSIDE RECORDS SUMMARY | 2024-05-01 13:13 | XMS_ITS | Clinical Summary ---
Author Organization [facility] Address [address] [place] [address] Phone Care Team Providers Care Artist Color Separation Name Role Phone Physician, No Pcp Primary Care Provider Unavaila ble Allergies Active Allergy Reactions Criticality Noted Date Comments Clindamycin 02/20/2024 Latex 02/20/2024 Levofloxacin 02/20/2024 Psyllium Husk 02/20/2024 Nsaids (Non-Steroidal Anti-I nflammatory Drug) 02/20/2024 Prednisone 02/20/2024 Tramadol 02/20/2024 Valacyclovir 02/20/2024 Medications Medication Sig Dispensed Refills Start Date End Date Status methadone (DOLOPHINE) 10 mg tablet 1 tablet (10 mg total). Active Encounters Date Type Department Care Team Description 02/21/2024 3:40 PM EST - 02/21/2024 9:13 PM EST Emergency [facility] Emergency [address] [place] [id number] Chronic wound (Primary Dx); Cellulitis of leg, left Discharge Disposition: Home or Self Care 02/20/2024 11:48 AM EST - 02/20/2024 2:38 PM EST Emergency [facility] Emergency [address] [place] [phone] Discharge Disposition: Home or Self Care from Last 3 Months Medical History Medical History Date Comments COPD (chronic obstructive pulmonary disease) (CM S/HCC) CHF (congestive heart failure) (CMS/HCC) Social History Tobacco Use Types Packs/Day Years Used Date Smoking Tobacco: Every Day Cigarettes Smokeless Tobacco: Never Tobacco Cessation:Ready to Q uit: Not Asked; Counseling Given: Not Answered Alcohol Use Standard Drinks/Week Comments Yes 14 (1 standard drink = 0.6 oz pu re alcohol) 2 beers daily Sex and Gender Information Value Date Recorded Sex Assigned at Not on file Gender Identity Not on file Sexual Orientation Not on file Job Start Date Occupation Industry Not on file Not on file Not on file Obstetrics History Last Filed Vital Signs Vital Sign Reading Time Taken Comments Blood Pressure 132/68 02/21/2024 8:23 PM EST Pulse 90 02/21/2024 3:47 PM EST Temperature 36.1 ??C (97 ??F) 02/21/2024 8:23 PM EST Respiratory Rate 16 02/21/2024 8:23 PM EST Oxygen Saturation 95% 02/21/2024 8:23 PM EST Inhaled Oxygen Concentration - - Weight 56.7 kg (125 lb) 02/21/2024 2:38 PM EST Height 162.6 cm (5' 4 ) 02/21/2024 2:38 PM EST Body Mass Index 21.46 02/21/2024 2:38 PM EST Plan of Treatment Health Maintenance Due Date Last Done Comments Breast Cancer Screening 1955 Hepatitis A Vaccines (1 of 2 - Risk 2-dose series) 1975 Hepatitis B Vaccines (1 of 3 - Risk 3-dose series) 2016 RSV Immunization Patients 60+ Years Old (1 - Risk 60-74 years 1-dose series) 2016 Zoster Vaccines (2 of 3) 01/18/2017 11/23/2016 Pneumococcal Vaccine: 65+ Years (3 of 3 - PPSV23 or PCV20) 2021 10/02/2018, 01/10/2016, 12/01/2013, Additional history exists Cholesterol Screening (Lipid Panel) 03/06/2022 Colorectal Cancer Screening: Colonoscopy 03/06/2022 Depression Screening 03/06/2022 Falls Risk Assessment 03/06/2022 Hepatitis C Screening 03/06/2022 Medicare Annual Wellness Visit 03/06/2022 Osteoporosis Screening (Bone Density Screening) 03/06/2022 Social Influencers of Health Screening 03/06/2022 DTaP,Tdap,and Td Vaccines (2 - Td or Tdap) 04/09/2023 04/09/2013 COVID-19 Vaccine ( season) 2023 07/06/2021, 09/02/2020, 07/30/2020 Influenza Vaccine (#1) 2023 3, 03/13/2022, 01/03/2021, Additional history exists Hypertension/CHF/CAD Annual BMP Blood Test 02/20/2025 02/21/2024, 02/20/2024 HIB Vaccines Aged Out No longer eligi ble based on patient's age to complete this topic HPV Vaccines Aged Out No longer eligi ble based on patient's age to complete this topic IPV Vaccines Aged Out No longer eligi ble based on patient's age to complete this topic MMR Vaccines Aged Out No longer eligi ble based on patient's age to complete this topic Meningococcal ACWY Vaccine Aged Out N o longer eligible based on patient's age to complete this topic RSV Immunization Patients Under 20 months Aged Out No longer eligible based on patient's age to complete this topic Varicella Vaccines Aged Out No longer eligible based on patient's age to complete this topic Procedures Procedure Name Priority Date/Time Associated Diagnosis Comments CULTURE WOUND WITH GRAM STAIN STAT 02/21/2024 8:12 PM EST CBC WITH AUTO DIFFERENTIAL STAT 02/21/2024 3:23 PM EST BASIC METABOLIC PANEL STAT 02/21/2024 3:23 PM EST CBC AND DIFFERENTIAL STAT 02/21/2024 3:23 PM EST MANUAL DIFFERENTIAL - SYSMEX WAM STAT 02/20/2024 1:05 PM EST CBC WITH AUTO DIFFERENTIAL STAT 02/20/2024 1:05 PM EST BASIC METABOLIC PANEL STAT 02/20/2024 1:05 PM EST CBC AND DIFFERENTIAL STAT 02/20/2024 1:05 PM EST from Last 3 Months Results * (ABNORMAL) Culture wound with gram stain (02/21/2024 8:12 PM EST) Culture, Wound Methicillin-Resista nt Staphylococcus aureus(A) ABHINAV 02/24/2024 1:24 PM EST [facility] Comment: The organism value for this result has been updated. These results have been appended to the previously preliminary verified report. Edited result: Previously reported as Staphylococcus aureus on 02/23/2024 at 1339 EST. Gram Stain Result Rare Polymorphonuclear leukocytes 02/24/2024 1:24 PM EST [facility] Gram Stain Result No epithelial cells seen 02/24/2024 1:24 PM EST [facility] Gram Stain Result No organisms seen 02/24/2024 1:24 PM EST [facility] Swab Structure of left lower limb / Unknown Non-blood Collection / Unknown 02/21/2024 8:12 PM EST 02/21/2024 8:14 PM EST Narrative Organism Antibiotic Method Susceptibility Methicillin-Resistant Staphylococcus aureus Benzylpenicillin ABHINAV >=0.5 ug/ml: Resistant Methicillin-Resistant Staphylococcus aureus Oxacillin ABHINAV >=4 ug/ml: Resistant Methicillin-Resistant Staphylococcus aureus Gentamicin ABHINAV <=0.5 ug/ml: Susceptible Methicillin-Resistant Staphylococcus aureus Ciprofloxacin ABHINAV >=8 ug/ml: Resistant Methicillin-Resistant Staphylococcus aureus Levofloxacin ABHINAV >=8 ug/ml: Resistant Methicillin-Resistant Staphylococcus aureus Erythromycin ABHINAV >=8 ug/ml: Resistant Methicillin-Resistant Staphylococcus aureus Clindamycin ABHINAV <=0.25 ug/ml: Susceptible Methicillin-Resistant Staphylococcus aureus Linezolid ABHINAV 2 ug/ml: Susceptible Methicillin-Resistant Staphylococcus aureus Vancomycin ABHINAV <=0.5 ug/ml: Susceptible Methicillin-Resistant Staphylococcus aureus Tetracycline ABHINAV <=1 ug/ml: Susceptible Methicillin-Resistant Staphylococcus aureus Rifampin ABHINAV <=0.5 ug/ml: Susceptible Methicillin-Resistant Staphylococcus aureus Trimethoprim/Sulfamethoxazo le ABHINAV >=320 ug/ml: Resistant Leticia [facility] MICROBIOLOGY - G ENERAL ORDERABLES [facility] [address] [place] [address], * (ABNORMAL) CBC auto differential (02/21/2024 3:23 PM [facility]) Only the most recent of2 resultswithin the time period is included. [facility] Signature WBC 5.2 4.8 - 10.8 K/mcL LAB HEMETOLOGY METHOD 02/21/2024 4:[address] [facility] RBC 4.50 3.80 - 4.80 M/mcL LAB HEMETOLOGY METHOD 02/21/2024 4:[address] [facility] Hemoglobin 13.1 11.5 - 16.0 g/dL LAB HEMETOLOGY METHOD 02/21/2024 4:[address] [facility] Hematocrit 41.1 35.0 - 47.0 % LAB HEMETOLOGY METHOD 02/21/2024 4:[address] [facility] MCV 91.3 79.0 - 98.0 FL LAB HEMETOLOGY METHOD 02/21/2024 4:[address] [facility] MCH 29.1 27.0 - 32.0 pcg LAB HEMETOLOGY METHOD 02/21/2024 4:[address] [facility] MCHC 31.9(L) 32.0 - 37.0 g/dL LAB HEMETOLOGY METHOD 02/21/2024 4:[address] [facility] RDW 12.5 11.0 - 15.0 % LAB HEMETOLOGY METHOD 02/21/2024 4:[address] [facility] Platelets 02/21/2024 4:[address] [facility] Comment:Not measured. Platel ets appear adequate but clumped MPV 11.5(H) 7.0 - 11.0 FL LAB HEMETOLOGY METHOD 02/21/2024 4:[address] [facility] NRBC 0.0 <1.0 % LAB HEMETOLOGY METHOD 02/21/2024 4:[address] [facility] NRBC Absolute 0.00 <0.10 K/mcL LAB HEMETOLOGY METHOD 02/21/2024 4:[address] [facility] Neutrophils Relative 59.3 % LAB HEMETOLOGY METHOD 02/21/2024 4:[address] [facility] Lymphocytes Relative 28.3 % LAB HEMETOLOGY METHOD 02/21/2024 4:[address] [facility] Monocytes Relative 8.1 % LAB HEMETOLOGY METHOD 02/21/2024 4:[address] [facility] Eosinophils Relative 2.5 % LAB HEMETOLOGY METHOD 02/21/2024 4:[address] [facility] Basophils Relative 1.0 % LAB HEMETOLOGY METHOD 02/21/2024 4:[address] [facility] Immature Granulocytes Relative 0.8 % LAB HEMETOLOGY METHOD 02/21/2024 4:[address] [facility] Neutrophils Absolute 3.08 1.50 - 7.00 K/mcL LAB HEMETOLOGY METHOD 02/21/2024 4:[address] [facility] Lymphocytes Absolute 1.47 1.00 - 5.00 K/mcL LAB HEMETOLOGY METHOD 02/21/2024 4:[address] [facility] Monocytes Absolute 0.42 0.20 - 1.00 K/mcL LAB HEMETOLOGY METHOD 02/21/2024 4:[address] [facility] Eosinophils Absolute 0.13 0.00 - 0.50 K/mcL LAB HEMETOLOGY METHOD 02/21/2024 4:[address] [facility] Basophils Absolute 0.05 0.00 - 0.20 K/mcL LAB HEMETOLOGY METHOD 02/21/2024 4:[address] [facility] Immature Granulocytes Absolute 0.04(H) 0.00 - 0.03 K/mcL LAB HEMETOLOGY METHOD 02/21/2024 4:[address] [facility] Blood Venous blood specimen / Unknown Venipuncture / Unknown 02/21/2024 3:23 PM EST 02/21/2024 3:25 PM EST Nicole Carmona DO LAB BLOOD ORDERAB LES [facility] [address] [place] [address], * Basic metabolic panel (02/21/2024 3:23 PM EST) Only the most recent of2 resultswithin the time period is included. Sodium 137 133 - 145 mmol/L LAB CHEMISTRY METHOD 02/21/2024 4:[address] [facility] Potassium 3.9 3.5 - 5.5 mmol/L LAB CHEMISTRY METHOD 02/21/2024 4:[address] [facility] Chloride 102 96 - 110 mmol/L LAB CHEMISTRY METHOD 02/21/2024 4:[address] [facility] CO2 31 21 - 32 mmol/L LAB CHEMISTRY METHOD 02/21/2024 4:[address] [facility] Anion Gap 4 3 - 11 LAB CHEMISTRY METHOD 02/21/2024 4:[address] [facility] Glucose 82 70 - 100 mg/dL LAB CHEMISTRY METHOD 02/21/2024 4:[address] [facility] BUN 8 5 - 25 mg/dL LAB CHEMISTRY METHOD 02/21/2024 4:[address] [facility] Creatinine 0.75 0.50 - 1.10 mg/dL LAB CHEMISTRY METHOD 02/21/2024 4:[address] [facility] eGFR 87 >=60 mL/min/1. 73m2 LAB CHEMISTRY METHOD 02/21/2024 4:[address] [facility] Comment:Calculation based on the??Chronic Kidney Disease Epidemiology Collaboration (CKD-EPI) equation refit??without adjustment for race. BUN/Creatinine Ratio 10.7 LAB CHEMISTRY METHOD 02/21/2024 4:[address] [facility] Calcium 9.2 8.5 - 10.5 mg/dL LAB CHEMISTRY METHOD 02/21/2024 4:[address] [facility] Blood Venous blood specimen / Unknown Venipuncture / Unknown 02/21/2024 3:23 PM EST 02/21/2024 3:25 PM EST Nicole Carmona DO LAB BLOOD ORDERAB LES [facility] [address] [place] [address], * (ABNORMAL) Manual differential (02/20/2024 1:05 PM EST) Neutrophils % 57.0 % LAB HEMETOLOGY METHOD 4 2:[address] [facility] Lymphocytes % 28.0 % LAB HEMETOLOGY METHOD 4 2:[address] [facility] Reactive Lymphocyte 5.00 % LAB HEMETOLOGY METHOD 4 2:[address] [facility] Monocytes % 5.0 % LAB HEMETOLOGY METHOD 4 2:[address] [facility] Eosinophils % 3.0 % LAB HEMETOLOGY METHOD 4 2:[address] [facility] Basophils % 1.0 % LAB HEMETOLOGY METHOD 4 2:[address] [facility] Metamyelocytes % 1.0(H) % LAB HEMETOLOGY METHOD 4 2:[address] [facility] Neutrophils Absolute Manual 2.91 1.50 - 7.00 K/mcL LAB HEMETOLOGY METHOD 4 2:[address] [facility] Lymphocytes Absolute 1.43 1.00 - 5.00 K/mcL LAB HEMETOLOGY METHOD 4 2:04 PM EST [facility] Reactive Lymph Abs Manual 0.26(H) 0.00 - 0.00 lym LAB HEMETOLOGY METHOD 4 2:[address] [facility] Monocytes Absolute Manual 0.26 0.20 - 1.00 K/mcL LAB HEMETOLOGY METHOD 4 2:04 PM EST [facility] Eosinophils Absolute Manual 0.15 0.00 - 0.50 K/mcL LAB HEMETOLOGY METHOD 4 2:[address] [facility] Basophils Absolute Manual 0.05 0.00 - 0.20 K/mcL LAB HEMETOLOGY METHOD 4 2:[address] [facility] Metamyelocytes Absolute Manual 0.05(H) 0.00 - 0.00 K/mcL LAB HEMETOLOGY METHOD 4 2:04 PM EST [facility] Rbc Morphology Consistent with indices Consistent with indices, Normal for LAB HEMETOLOGY METHOD 4 2:[address] [facility] Platelet Morphology - WAM See Note(A) Normal LAB HEMETOLOGY METHOD 4 2:04 PM EST [facility] Comment:PLT: Normal Blood Venous blood specimen / Unknown Venipuncture / Unknown 02/20/2024 1:05 PM EST 02/20/2024 1:08 PM EST Jelani Tucker DO LAB BLOOD ORDERABLE S [facility] [address] [place] [address], from Last 3 Months Additional Health Concerns Infection Onset Date Last Indicated MRSA 02/21/2024 02/21/2024 Care Teams Artist Color Separation Relationship Specialty Start Date End Date Physician, No Pcp PCP - General 02/20/24
== END 2024-05-01 11:03 | disposition home or self-care (01) ==
LOC: HO.CT 11:02
PROVIDERS: PCP Internal Medicine; Visit Provider Physician Assistant Medical
DX: Z12.2 Encounter for screening for malignant neoplasm of respiratory organs (principal); F17.210 Nicotine dependence, cigarettes, uncomplicated
CPT/HCPCS: 71271

== ENCOUNTER → 2024-05-01 11:05 | Outpatient (BNV) | payer MEDICAID, SELFPAY | PROVIDERS: PCP Internal Medicine; Visit Provider Specialist | DX: Z12.2 Encounter for screening for malignant neoplasm of respiratory organs (principal); Z87.891 Personal history of nicotine dependence | CPT/HCPCS: 71271 ==

== ENCOUNTER 2024-05-08 09:13 | Outpatient (AMB) | payer MEDICARE, MEDICAID, SELFPAY ==
--- NOTE | 2024-05-08 09:10 | MHC.PC.OV ---
Intake Visit Reasons: anxiety/panic attacks Allergies dextrose Allergy (Severe, Verified 05/08/24 09:23) anaphylaxis latex [LATEX] Allergy (Severe, Verified 05/08/24 09:23) HIVES psyllium [From Metamucil] Allergy (Severe, Verified 05/08/24 09:23) anaphylaxis clindamycin [CLINDAMYCIN] Allergy (Intermediate, Verified 05/08/24 09:23) RASH NSAIDS (Non-Steroidal Anti-Inflamma Allergy (Intermediate, Verified 05/08/24 09:23) ulcers tramadol [From ULTRAM] Allergy (Intermediate, Verified 05/08/24 09:23) HIVES levofloxacin [From LEVAQUIN] Adverse Reaction (Intermediate, Verified 05/08/24 09:23) TENDON PAIN, achilles tendonitis prednisone Adverse Reaction (Intermediate, Verified 05/08/24 09:23) GI BLEED, high doses valacyclovir [From VALTREX] Adverse Reaction (Intermediate, Verified 05/08/24 09:23) GI UPSET bupropion Adverse Reaction (Verified 05/08/24 09:23) vomiting Medication List - Last Reconciled 05/08/24 by Nena Milner MD acetaminophen 650 mg PO Q6H PRN albuterol sulfate 2.5 mg (3 mL) inhalation Q4-6H PRN 30 days albuterol sulfate 90 mcg/actuation 2 puffs PO Q4-6H PRN alprazolam (Xanax) 0.5 mg PO DAILY PRN 1 day ammonium lactate 5% 1 appl topical DAILY azithromycin For 250 mg dose pack: take 500 mg today (day 1), then 250 mg for 4 days (days 2-5) PO docusate sodium 100 mg PO BID PRN furosemide 20 mg PO QAM PRN ipratropium bromide 2 sprays intranasal BID-TID PRN ipratropium-albuterol 0.5 mg-3 mg(2.5 mg base)/3 mL 3 mL inhalation Q4-6H PRN 20 days loratadine 10 mg PO DAILY methadone 105 mg PO DAILY nicotine 1 patch transdermal DAILY ondansetron HCl 4 mg PO BID PRN pantoprazole 40 mg PO BID prednisone 10 mg PO BID 1 week ramelteon 8 mg PO BEDTIME PRN Stiolto Respimat 2.5-2.5 mcg/actuation (tiotropium-olodaterol) 2 puffs PO DAILY NS tizanidine 4 mg PO Q8H PRN 30 days Tobacco use date assessed: 05/08/24 Fall risk assessment: 2 + Falls in past year Last assessed Fall Risk: 05/08/24 Dental Screening Dental Screen Date: 04/10/24 HPI anxiety/panic attacks HPI Details - The patient is a 69-year-old female here today via telehealth, complaining of having frequent anxiety/panic attacks over the last several weeks. - The patient reports elevated heart rate, has been waking up in a cold sweat, chest tightness during anxiety attacks And had to take half a dose of alprazolam, prescribed to her by her pain management doctor, which she was supposed to take before her procedure, which helped relieve her anxiety attack. - She is facing significant stressors lately; her Sister recently suffered a heart attack, and is still admitted at [facility], and she is nervous about an upcoming procedure with pain management. -She is not currently taking any anxiety medication, hesitant to take one in the past, but she has expressed an interest in getting therapy to help address this issues further. [facility] Medical History (Updated 05/08/24 @ 11:33 by Nena Milner MD) H/O adenomatous polyp of colon History of meningitis Nicotine dependence, cigarettes, uncomplicated Generalized anxiety disorder Cervical radiculopathy due to degenerative joint disease of spine Takotsubo cardiomyopathy History of congestive heart failure Anemia Absent pedal pulses Constipation due to opioid therapy Oxygen dependent Allergic rhinitis Vitamin D deficiency Primary osteoarthritis, right shoulder Respiratory failure with hypoxia Surgical menopause Duodenal ulcer Bipolar disorder Gastritis Tubular adenoma of colon Substance abuse Osteopenia Alcoholic cirrhosis of liver Hepatitis C COPD (chronic obstructive pulmonary disease) Osteoarthritis of multiple joints Surgical History History of resection of rib History of colonoscopy History of ankle surgery History of esophagogastroduodenoscopy (EGD) History of hysterectomy Family History Father Alcoholism History of manic depressive disorder COPD (chronic obstructive pulmonary disease) Cancer Mother COPD (chronic obstructive pulmonary disease) Cardiac disease Smoker CHF (congestive heart failure) Alcoholism CVD (cardiovascular disease) Mental disorder Sister Lupus PTSD (post-traumatic stress disorder) Son Cardiac arrest Maternal Grandfather No problems noted. Maternal Grandmother No problems noted. Paternal Grandfather Alcoholism Mental disorder Paternal Grandmother No problems noted. Social History Housing: Apartment Alcohol intake: current Alcohol intake frequency: 0-2 drinks per day Alcohol type: beer Patient Tobacco Use Status: Current someday Tobacco user Tobacco use type: Cigarette Cigarettes Per Day: 5 Years Smoked: (onset 14yo, 1ppd x 55yrs, now 1/4ppd - 50pyh) Packs per year/per ci.00 e-Cigarette/Vaping Use: Never Used service: No Current occupational status: disabled Cognitive needs: No Hearing needs: No Vision needs: No Questionnaire PHQ-9 Over the last 2 weeks, how often have you been bothered by any of the following problems? 1. Little interest or pleasure in doing things: not at all 2. Feeling down, depressed, or hopeless: not at all 3. Trouble falling or staying asleep, or sleeping too much: several days 4. Feeling tired or having little energy: not at all 5. Poor appetite or overeating: several days 6. Feeling bad about yourself - or that you are a failure or have let yourself or your family down: not at all 7. Trouble concentrating on things, such as reading the newspaper or watching television: several days 8. Moving or speaking so slowly that other people could have noticed. Or the opposite - being so fidgety or restless that you have been moving around a lot more than usual: not at all 9. Thoughts that you would be better off or of hurting yourself in some way: not at all Total score: 3 Depression Screening Interpretation: Negative Depression Screening Done: Yes 43153 - PHQ-9 Billing: Yes Source: Developed by Drs. Marquez Mclaughlin, Anny Chong, Giovanny Grady and colleagues, with an educational owen from [employer]. Thrive Questionnaire Date Thrive assessed: 04/10/24 MIKE-7 AMB Questionnaire MIKE-7 Date MIKE - 7 assessed: 05/08/24 Feeling nervous, anxious, or on edge: 2 = More than half the days Not being able to stop or control worryin = Several days Worrying too much about different things: 1 = Several days Trouble relaxin = Several days Being so restless that it is hard to sit still: 0 = Not at all Becoming easily annoyed or irritable: 0 = Not at all Feeling afraid as if something awful might happen: 1 = Several days Total MIKE-7 score (0-4 normal; 5-9 mild; 10-14 moderate; 15-21 severe): 6 Source: Developed by Drs. Marquez Mclaughlin, Anny Chong, Giovanny Grady and colleagues, with an educational owen from [employer]. MIKE-7 Assessment Billing MIKE-7 Assessment Tool: MIKE-7 Assessment 43719 Review of Systems Const Denies chills and Reports fatigue ENT Reports no additional complaints Card Denies chest pain, Denies irregular heart rhythm, Denies leg edema and Reports dyspnea on exertion (Unchanged ) Resp Reports dyspnea on exertion (Unchanged ) GI Reports no additional complaints Reports no additional complaints Musc Reports back pain and Reports stiffness Neuro Reports as per HPI Psych Reports as per HPI Endo Reports fatigue Guillaume/Lymph Reports no additional complaints Physical exam (Primary Care) Tobacco/Smoking Status: Tobacco use Status Tobacco use date assessed 05/08/24 05/08/24 09:13 Patient Tobacco Use Status Current someday Tobacco 05/08/24 09:13 Tobacco use type Cigarette 05/08/24 09:13 e-Cigarette/Vaping Use Never Used 05/08/24 09:13 Depression Screening Interpretation: Negative Thrive Assessment: Date of Thrive Assessment Date Thrive assessed 04/10/24 05/08/24 09:13 Telehealth Telehealth Telehealth Platform: [facility] Location of provider rendering services: practice address Location of patient: address on file Patient Identification confirmed using: Name, : Yes Telehealth method: video Patient verbally consented to treatment: Yes Patient verbally consented to billing insurance company: Yes Patient informed of any privacy concerns related to visit: Yes Minutes spent on Phone/Video with Pt.: 15 Coding Level of Care Code Tele Est Pt Level 3 (65589) Diagnoses Anxiety as acute reaction to gross stress F41.1; F43.0 Additional Codes PHQ-9 - 38606 - PHQ-9 Billing: Yes ([id number]) MIKE-7 Assessment Billing - MIKE-7 Assessment Tool: MIKE-7 Assessment 04988 ([id number]) Assessment & Plan Assessment & Plan (1) Anxiety as acute reaction to gross stress: Code(s): F41.1 - Generalized anxiety disorder; F43.0 - Acute stress reaction Category: Medical Plan I discussed with the patient the management of her anxiety and panic attacks, emphasizing the benefit of a combined strategy involving both medication and psychotherapy. I explained the prescription of alprazolam and provided guidance on its responsible use due to the risk of medication dependence. We reviewed possible therapy options, underlining the importance of exploring stressors underpinning her anxiety. We confirmed sending the prescription to her selected pharmacy and agreed on the value of future follow-ups to assess the impact of this treatment modality. Monitor any side effects of the current treatment and report them. - Follow up for reassessment based on therapy and medication outcomes. - Contact the clinic if you experience worsening symptoms. Patient was informed and verbally consented to the use of an ambient scribe for clinic note documentation during this visit. Medications: Changed From alprazolam (Xanax) Take 1 pill 1 hour before the procedure and another pill 30 minutes before the procedure. 0.5 mg PO DAILY 1 day PRN 2 tabs 0RF anxiety To alprazolam (Xanax) Take 1 pill 1 hour before the procedure and another pill 30 minutes before the procedure. 0.5 mg PO DAILY PRN 10 tabs 0RF anxiety/panic attacks
--- OUTSIDE RECORDS SUMMARY | 2024-05-08 09:44 | XMS_ITS | Data Portability ---
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 Plan of Treatment Reminders Order Date Submit Date Provider Last Modified By Organization Details Last Modified Time Details Appointments None record ed. Lab None record ed. Referral None record ed. Procedures None record ed. Surgeries None record ed. Imaging None record ed. Medication Orders None record ed. Patient TargetsNo targets recorded. Patient InstructionsNo instructions recorded. Reason for Referral None Reported. Problems Name Problem SNOMED Code Status Onset Date Resolution Date Notes Provider Name and Address Organization Details Recorded Time Chronic pain syndrome 246379699 Active [address], [address], [place], [address], [facility] 0 08:31:24 Pneumonia 321204299 Active [address], [address], [place], [address], [facility] [employer] 9 13:27:27 Acute respiratory failure 61646035 Active [address], [address], [place], [address], [facility] [employer] 9 13:27:40 Chronic obstructive pulmonary disease 52667097 Active [address], [address], [place], [address], [facility] [employer] 9 13:27:47 Viral hepatitis C 16950946 Active [address], [address], [place], [address], [facility] [employer] 9 13:27:53 Intravenous drug user 925554382 Active [address], [address], [place], [address], [facility] [employer] [facility] 9 13:28:03 Infectious disorder of joint 219323161 Active [address], [address], [place], [address], [facility] [employer] [facility] 9 13:42:18 Depressive disorder 10338196 Active [address], [address], [place], [address], [facility] [employer] [facility] 9 13:58:51 Anxiety 98163597 Active [address], [address], [place], [address], [facility] [employer] [facility] 9 13:59:54 Seasonal allergy 544729594 Active [address], [address], [place], [address], [facility] [employer] [facility] 9 14:00:28 Gastroesophage al reflux disease 175127526 Active [address], [address], [place], [address], [facility] [employer] [facility] 9 14:00:53 Edema of lower extremity 288570649 Active 2018 Klarissa Goodson MD [address] [place] [address], [facility] [address], [place], [address], [facility] [employer] [facility] 9 20:38:43 Degenerative joint disease of shoulder region 42731544 Active [address] MD [address] [place] [address], [address], [place], [address], [facility] 9 09:39:08 Problem Notes None recorded. Medical Equipment None Reported. Allergies Allergen ID Allergen Name Allergen Category Reaction Reaction Severity Criticality Documentation Date Start Date Code Code System Note Provider Name and Address Organization Details Recorded Time [id number] 080450568 2011561c0 2824e Ultram medicatio n Not available Not available Not available 07/17/2018 56647 6 RxNorm Not Available Not Available Not Available [id number] [id number] 2824e Metamucil medicatio n Not available Not available Not available 07/17/2018 6802 RxNorm Not Available Not Available Not Available [id number] 2824e Non-stero idal anti-infl ammatory agent (product) medicatio n Not available Not available Not available 07/17/2018 74787 005 SNOMED Not Available Not Available Not Available [id number] [id number] [id number] 2824e psyllium food,medi cation Not available Not available Not available 07/17/2018 8928 RxNorm Not Available Not Available Not Available [id number] 746822906 [id number] 2824e tramadol medicatio n Not available Not available Not available 07/17/2018 48554 RxNorm Not Available Not Available Not Available [id number] 577223619 [id number] 2824e levofloxa quinton medicatio n Not available Not available Not available 07/17/2018 87299 RxNorm Not Available Not Available Not Available [id number] 100929828 [id number] 2824e clindamyc in Not available Not available Not available Not available 07/17/2018 2582 RxNorm Not Available Not Available Not Available [id number] [id number] [id number] 2824e Levaquin medicatio n Not available Not available Not available 07/17/2018 76037 2 RxNorm Not Available Not Available Not Available [id number] [id number] [id number] 2824e latex environme nt,medica tion Not available Not available Not available 07/17/2018 41016 91 RxNorm Not Available Not Available Not Available [id number] [id number] [id number] 2824e Valtrex medicatio n Not available Not available Not available 07/17/2018 36751 0 RxNorm Not Available Not Available Not Available Medications Not known to be on any medication Vitals Date Recorded Body height Systolic blood pressure Diastolic blood pressure Provider Name and Address Organization Details Last Updated DateTime 07/17/2019 165.1 cm 107 mm[Hg] 63 mm[Hg] Ra Street MD [address] [facility], [address], [place], [address], [facility] 07/17/2019 12:43:19 Date Recorded Body height Systolic blood pressure Diastolic blood pressure Provider Name and Address Organization Details Last Updated DateTime 08/03/2019 165.1 cm 122 mm[Hg] 74 mm[Hg] JOE LORD [address] [facility], [address], [place], [address], [facility] 08/03/2019 15:04:25 Date Recorded Body height Systolic blood pressure Diastolic blood pressure Provider Name and Address Organization Details Last Updated DateTime 08/13/2019 165.1 cm 128 mm[Hg] 68 mm[Hg] Zenaida Huang [facility] 08/13/2019 12:14:26 Date Recorded Body height Oxygen saturation Oxygen saturation in Arterial blood by Pulse oximetry Heart rate Systolic blood pressure Diastolic blood pressure Provider Name and Address Organization Details Last Updated DateTime 0 12539.9 8 cm 95 % 95 % 68 /min 110 mm[Hg] 58 mm[Hg] Zenaida Huang [facility] 0 13:02:56 Date Recorded Body height Oxygen saturation Oxygen saturation in Arterial blood by Pulse oximetry Inhaled oxygen flow rate Heart rate Respiratory rate Systolic blood pressure Diastolic blood pressure Provider Name and Address Organization Details Last Updated DateTime 0 00018.9 8 cm 99 % 99 % 3 L/min 75 /min 18 /min 128 mm[Hg] 64 mm[Hg] JOE MIDDLETON [address] [place] [address], [address], [place], [address], [facility] 0 08:44:18 Social History Question Answer Notes LastModified by Organizat ion Details LastModified Time Tobacco Smoking Status Current Every Day Smoker Not Available [employer] 02/02/2020 03:13:20 Do You Have An Advance Directive? Yes Full Code [id number] Information not available 02/02/2020 What Is Your Level Of Alcohol Consumption? None Used To Drink 1/2 Case Of Beer Daily X 30 Years [id number] Information not available 02/02/2020 How Much Tobacco Do You Chew? None [id number] Information not available 02/02/2020 Do You Have A Medical Power Of Cap Sizer? No [id number] Information not available 02/02/2020 What Was The Date Of Your Most Recent Tobacco Screening? 10/24/2018 [id number] Information not available 02/02/2020 How Much Tobacco Do You Smoke? 0.5 PPD [id number] Information not available 02/02/2020 Has Tobacco Cessation Counseling Been Provided? Yes Quit A Few Months Ago [id number] Information not available 02/02/2020 On What Date Was Tobacco Cessation Counseling Provided? 10/24/2018 Quit A Few Months Ago [id number] Information not available 02/02/2020 How Many Years Have You Smoked Tobacco? 10 [id number] Information not available 02/02/2020 Sex: Unknown Functional Status None recorded. Mental Status None recorded. Family History Relationship Description Onset Age of this Age Resolved Age Notes LastModified by Organization Details LastModified Time Father No current problems or disability glord Not available 07/17 13:56:54 Mother No current problems or disability glord Not available 07/17 13:56:54 Medical History No medical history recorded. Gynecological HistoryNo gynecological history recorded. Obstetrics History GPAL:G 0 P 0 0 0 0 Immunizations Vaccine Type Date Status Note Provider Nam e and Address Organization Details Recorded Time influenza, unspecified formulation 9 completed [facility] 10/22/2018 11:41:18 pneumococcal polysaccharide PPV23 4 [facility] 10/22/2018 11:41:32 Pneumococcal conjugate PCV 13 9 [facility] 10/22/2018 11:41:45 Past Encounters Encounter ID Performer Location Encounter Start Date Encounter Closed Date Diagnosis/Indication Diagnosis SNOMED-CT Code Diagnosis ICD10 Code Diagnosis Note [id number] JOE MIDDLETON [facility] [address] [place] [address] 07/17/2018 13:22:50 07/23/2018 15:37:30 Intravenous drug user 505591061 F19.10 Currently on methadone with current relapsefol lowed by methadone clinic on [facility] [facility] [address], continue while here should be 70 mg Infectious disorder of joint 577199955 M01.X8 C3-C4 early facet joint infection with epidural phlegmon versus worsening arthritis found on imagingTo complete 6 weeks of IV abx, IV vanco and ceftriaxon e 2 gm BID stop date 08/23weekly CBC, BMP, LFTs, ESR, CRP and vanco trough while on therapy fax to [phone] llow up with ID and neurosurge ry as scheduled on need follow up MRI after completion of IV abxtizanid ine 2 mg TID PRN Chronic ob structive pulmonary disease 68186505 J41.8 encourage smoking cessation0 2 at home, 3 liters via NCcomplete d course of prednisone x 5 daysDuoneb s q 4 hours PRNtrilegy dailyspiri va daily-pt on spironolac tone daily, unsure why Viral hepatitis C 857468 07 B17.10 Patient has chronic thrombocyt openia most likely related to the hep cmonitor labs Depressive disorder 2168 9007 F33.8 D/C citalopram , pt states she was taking a while ago and not anymore Anxiety 47384860 F41.1 hydroxyzin e 25 mg TID PRNAdd ativan 0.25 mg TID PRN, patient very anxious at visit monitor mood Seasonal allergy 3442669 04 J30.2 Loratidine 10 mg daily Gastroesop hageal reflux disease 382557409 K21.9 Omeprazole 20 mg dailyranit idine 300 mg daily monitor for reflux [id number] [facility] [address] [place] [address] 07/21/2018 14:22:08 07/23/2018 16:24:49 Edema of lower extremity 738000305 R60.0 suspect secondary to reduced mobilityAd d lasix 20 mg dailyCompr ession wraps to legs dailyEleva te legs when in bedMonitor Infectious disorder of joint 225058994 M01.X8 C3-C4 early facet joint infection with epidural phlegmon versus worsening arthritis found on imagingTo complete 6 weeks of IV abx, IV vanco and ceftriaxon e 2 gm BID stop date 08/23weekly CBC, BMP, LFTs, ESR, CRP and vanco trough while on therapy fax to [phone] llow up with ID and neurosurge ry as scheduled on need follow up MRI after completion of IV abxtizanid ine 2 mg TID PRN Increased pain-will add oxycodone 5 mg Q12h prn-d/c prior to dischargeM onitor [id number] Klarissa Goodson MD [facility] on [address] [place] [address] 07/24/2018 11:15:29 07/31/2018 09:30:39 Edema of lower extremity 427169103 R60.0 Pt. thinks this is a rxn to abxs. I doubt this.Lasix 20 mg qd and SUSI wraps were ordered on 07/21. Wraps have not been done because pt. had knee socks that she and nursing thought were tight enough.Dis cussed with nursing and pt. Will start SUSI wraps today.Elev ate legs when in bed. Continue spironolac tone 25 mg qd.Monitor Infectious disorder of joint 020474265 M01.X8 With probable epidural infection. ContinueTo complete 6 weeks of IV abx, IV vanco 750 mg q 12 hrs and ceftriaxon e 2 gm BID stop date 08/23. Titrate vanco to troughs 10-20.Will get weekly CBC, BMP, LFTs, ESR, CRP and vanco trough while on therapy fax to [phone] llow up with ID and neurosurge ry as scheduled on 08/06will need follow up MRI after completion of IV abxContinu e tizanidine 2 mg TID PRN and oxycodone 5 mg Q12h prn-d/c prior to discharge. Monitor sxs. Chronic ob structive pulmonary disease 01388200 J41.8 Says her breathing is pretty good today. Encourage smoking cessation as below. Continue O2 at 3 liters via NC, as her usual at home. Continue Duonebs q 4 hours PRN,treleg y 100-62.5-2 5 and spiriva 18 mcg qd. Has completed 5 day burst of prednisone . Intravenous drug user 22 4585925 F19.10 Currently on methadone with recent relapse. Methadone lowered from 85 mg to 70 mg qd while inpt. due to lethargy.F ollowed by methadone clinic on [facility]. Viral hepatitis C 213472 07 B17.10 Patient has chronic thrombocyt openia most likely related to the hep cmonitor labs Depressive disorder 3548 9007 F33.8 Citalopram ordered inpt, but pt states she was taking a while ago and not anymore, so d/c'd on admission here. Monitor mood. Psych consult prn. Anxiety 18241938 F41.1 Continue hydroxyzin e 25 mg TID prn and lorazepam 0.25 mg TID prn. monitor mood.Psych consult prn. Seasonal allergy 2637027 04 J30.2 No current sxs. Continue loratidine 10 mg qd. Monitor for sxs. Gastroesop hageal reflux disease 391495794 K21.9 Pt. with nausea today. She says that her stomach meds are not being given as she usually takes them. Takes omeprazole 20 mg qAM and ranitidine 300 mg qhs and zofran in AM. Also thinks she is on a 4th stomach med, but can't remember the name and I don't see anything else on her med list. I adjusted med orders to reflect this schedule. Monitor for improvemen t in sxs. [id number] Zenaida Ames [facility] on [address] [place] [address] 07/29/2018 13:24:47 07/31/2018 10:35:10 Edema of lower extremity 156796855 R60.0 Edema worseningI ncrease Lasix 40 mg BID Check BMP 08/01Compre ssion wraps to legs dailyEleva te legs when in bedAdd daily weightsMon itor Infectious disorder of joint 957253188 M01.X8 C3-C4 early facet joint infection with epidural phlegmon versus worsening arthritis found on imagingTo complete 6 weeks of IV abx, IV vanco and ceftriaxon e 2 gm BID stop date 08/23weekly CBC, BMP, LFTs, ESR, CRP and vanco trough while on therapy fax to [phone] llow up with ID and neurosurge ry as scheduled on 08/06will need follow up MRI after completion of IV abxtizanid ine 2 mg TID PRNOxycodo ne 5 mg Q12h prn-d/c prior to discharge Monitor [id number] Zenaida Ames [facility] on [address] [place] [address] 08/04/2018 15:29:40 08/07/2018 15:48:37 Edema of lower extremity 026365861 R60.0 Lasix 40 mg BID Compressio n wraps to legs daily Elevate legs when in bedDaily weightsMon itor Infectious disorder of joint 122316721 M01.X8 C3-C4 early facet joint infection with epidural phlegmon versus worsening arthritis found on imagingTo complete 6 weeks of IV abx, IV vanco and ceftriaxon e 2 gm BID stop date 08/23weekly CBC, BMP, LFTs, ESR, CRP and vanco troughfoll ow up with ID and neurosurge ry as scheduled on need follow up MRI after completion of IV abxtizanid ine 2 mg TID PRNOxycodo ne 5 mg Q12h prn-d/c prior to discharge Monitor Hypokalemia 43728891 E87 .6 Potassium level low likely secondary to increased lasixAdd KCl 20 mEq dailyMonit or potassium level Chronic ob structive pulmonary disease 10995207 J41.8 Pulmonolog y recommendi ng d/c Trelegy Ellipta, start Stiolto-wi ll orderCont. albuterol neb PRNOn chronic T3Gavvzbk respirator y status [id number] [facility] on [address] [place] [address] 08/13/2018 15:57:59 08/15/2018 08:46:47 Edema of lower extremity 499621001 R60.0 Decrease lasix to 20 mg BID, monitor weights and decrease further if able [id number] [facility] on [address] [place] [address] 08/14/2018 13:18:10 08/18/2018 11:05:44 Edema of lower extremity 195825676 R60.0 lasix 20 mg BID Change to AMANDO stockings from SUSI Elevate legs when in bedDaily weightsMon itorPT/OT eval and treat now for pain Infectious disorder of joint 948638146 M01.X8 C3-C4 early facet joint infection with epidural phlegmon versus worsening arthritis found on imagingcur rently completein g 6 week course of IV vanco and ceftriaxon e 2 gm BID stop date 08/23weekly CBC, BMP, LFTs, ESR, CRP and vanco troughfoll ow up with ID and neurosurge ry as scheduledw ill need follow up MRI after completion of IV abxtizanid ine 2 mg TID PRNOxycodo ne 5 mg Q12h prn-d/c prior to discharge talked with her today about this she is nervous to come off but knows it must happen before she leaves Monitor Hypokalemia 62117169 E87 .6 KCl 20 mEq dailyMonit or potassium level Chronic ob structive pulmonary disease 42932102 J41.8 Stiolto dailyCont. albuterol neb PRNOn chronic P8Leiplaw respirator y status [id number] [facility] on [address] [place] [address] 08/22/2018 08:33:57 08/26/2018 14:30:29 Edema of lower extremity 771456626 R60.0 continue lasix 20 mg BID TEDs dailyEleva te legs when in bedDaily weights, remain stable at 122.4 lbsContinu e with PT/OT for neck and back pain Infectious disorder of joint 963219943 M01.X8 C3-C4 early facet joint infection with epidural phlegmon versus worsening arthritis found on imagingcur rently completein g 6 week course of IV vanco and ceftriaxon e 2 gm BID stop date tomorrow. D/C vanco trough for tonight.fo llow up with ID and neurosurge ry as scheduledw ill need follow up MRI after completion of IV abxtizanid ine 2 mg TID PRNOxycodo ne 5 mg Q12h prn-d/c prior to discharge talked with her today about this she is nervous to come off but knows it must happen before she leaves Chronic ob structive pulmonary disease 79240531 J41.8 Stiolto dailyCont. albuterol neb PRNOn chronic G3Oqzaobg respirator y status [id number] [facility] on [address] [place] [address] 08/26/2018 13:23:03 09/03/2018 10:10:11 Infectious disorder of joint 261214155 M01.X8 C3-C4 early facet joint infection with epidural phlegmon versus worsening arthritis found on imagingFin ished course of IV abx, to pull PICC line today.foll ow up with ID and neurosurge ry as scheduledw ill need follow up MRI after completion of IV abxtizanid ine 2 mg TID PRNOxycodo ne 5 mg Q12h prn-d/c prior to discharge Anxiety 18092156 F41.1 D/C hydroxyzin e 25 mg TID PRN, continue the scheduled dose at nightIncre ase ativan to 0.50 mg TID PRN- continue going forward monitor mood, consult NEG if needed [id number] Katherine Valdez [facility] on [address] [place] [address] 09/05/2018 11:10:51 09/10/2018 15:54:47 Infectious disorder of joint 659286711 M01.X8 C3-C4 early facet joint infection with epidural phlegmon versus worsening arthritis found on imagingFin ished course of IV abx, PICC line has been removedpt saw ID on 09/03/18, started oral abx minocyclin e 100mg bid for at least one month, to f/u with them to decide stop date for abx as well as repeat MRI of cervical spine. Next f/u in 3 weeks. tizanidine 2 mg TID PRNOxycodo ne 5 mg Q12h prn-d/c prior to discharge. pt also on methodone PT/OT to maximize function Edema of l ower extremity 134873122 R60.0 lasix 20mg bid, remains with slight swelling in BLETEDs dailyEleva te legs when in bedDaily weights physical activity encouraged Chronic ob structive pulmonary disease 74584327 J41.8 Stiolto dailyCont. albuterol neb PRNOn chronic O2 Pt continues to smoke daily, encouraged to quit Monitor respirator y status Hypokalemia 62289523 E87 .6 KCl 20 mEq dailyMonit or potassium level [id number] janel Valdez [facility] on [address] [place] [address] 09/10/2018 14:08:57 09/16/2018 11:35:48 Infectious disorder of joint 595247260 M01.X8 C3-C4 early facet joint infection with epidural phlegmon versus worsening arthritis found on imaging Finished course of IV abx, PICC line has been removed pt saw ID on 09/03/18, started oral abx minocyclin e 100mg bid for at least one month, to f/u with them to decide stop date for abx as well as repeat MRI of cervical spine. Next f/u in 3 weeks. tizanidine 2 mg TID PRN Oxycodone 5 mg Q12h prn-d/c prior to discharge. Discussed this with pt and she is in agreement. Plan to taper next week. pt also on methodone PT/OT has been discontinu ed, pt is independen t Edema of l ower extremity 225534758 R60.0 Pt initially started on lasix here due to increased swelling in BLE, weights have come down and swelling almost completely resolved, only trace swelling remains. Thought is it may have been secondary to reduced mobility. Pt is independen t now and DCd from PT/OT. Will decrease lasix to 20mg qd and consider DC completely next week if she remains stable. Today pt appears euvolemic. TEDs daily Elevate legs when in bed Daily weights physical activity encouraged Hypokalemia 95032895 E87 .6 KCl 20 mEq dailyMonit or potassium level- will get level today and in one week due to lasix decrease [id number] JOE MIDDLETON [facility] on [address] [place] [address] 09/17/2018 09:43:49 09/24/2018 12:08:17 Infectious disorder of joint 450249948 M01.X8 C3-C4 early facet joint infection with epidural phlegmon versus worsening arthritis found on imaging Finished course of IV abx, PICC line has been removed pt saw ID on 09/03/18, started oral abx minocyclin e 100mg bid for at least one month, to f/u with them to decide stop date for abx as well as repeat MRI of cervical spine on 09/25. tizanidine 2 mg TID PRN Oxycodone 5 mg Q12h prn-d/c prior to discharge. Discussed this with pt and she is in agreement. pt also on methadone PT/OT has been discontinu ed, pt is independen t Edema of l ower extremity 505891722 R60.0 continue lasix 20 mg qd, consider D/C if she remains stableappe ars euvolemic. TEDs daily Elevate legs when in bed Daily weights physical activity encouraged Hypokalemia 46623057 E87 .6 KCl 20 mEq daily- labs stable [id number] JOE VALDEZRiver SCOTT [address] [place] [address] 09/22/2018 09:22:34 09/24/2018 14:16:44 Edema of lower extremity 802274395 R60.0 Increase lasix to 40 mg daily in AM, AMANDO stockings on dailyappea rs euvolemic Elevate legs when in bed Daily weights, up 4 lbs today physical activity encouraged Infectious disorder of joint 116688814 M01.X8 pt saw ID on 09/03/18, started oral abx minocyclin e 100 mg bid for at least one month, to f/u with them to decide stop date for abx as well as repeat MRI of cervical spine. See HPI about med, nursing will call ID and ask how they would like us to proceed. tizanidine 2 mg TID PRN Schedule oxycodone 5 mg at 2 and 2 per patient request.Wi ll D/C on discharge from facilitypt also on methadone PT/OT has been discontinu ed, [place] [id number] PATIENCE Hammond [facility] on [address] [place] [address] 09/29/2018 07:49:44 10/01/2018 13:57:52 Edema of lower extremity 016241377 R60.0 resolvedco ntinue lasix 40 mg qd and tedsmonito r Infectious disorder of joint 611992324 M01.X8 continue minocyclin e 100 mg bid till seen by IDstaff will call for MRIf/u with ID pending tizanidine 2 mg TID continue oxycodone 5 mg at 2 and 2 per patient request.Wi ll D/C on discharge from facilityco ntinue methadone off PT OT as pt is blanche t staff will utilize prn tylenol for pain Chronic ob structive pulmonary disease 44044849 J41.0 continue stiolto 2.5/2.5 mg 2 puffs qdspiriva 18 mcg qdalbutero l MDI prnmonitor resp status Gastroesop hageal reflux disease 968020453 K21.9 zantac 150 mg 2 qhsmonitor for sx relief Anxiety 60222251 F41.1 hydroxyzin e 25 mg 1 qhs for anxietymon itor for sx relief [id number] JOE MIDDLETON [facility] on [address] [place] [address] 10/03/2018 14:08:22 10/07/2018 11:22:36 Edema of lower extremity [id number] R60.0 resolvedco ntinue lasix 40 mg qd and tedsmonito r Infectious disorder of joint 859963812 M01.X8 continue minocyclin e 100 mg bid till seen by IDstaff will call for MRIf/u with ID pending tizanidine 2 mg TID continue oxycodone 5 mg at 2 and 2 per patient request.Wi ll D/C on discharge from facilityco ntinue methadone off PT OT as pt is independen t staff will utilize prn tylenol for pain Chronic ob structive pulmonary disease 73059795 J41.0 continue stiolto 2.5/2.5 mg 2 puffs qdspiriva 18 mcg qdalbutero l MDI prnmonitor resp status Gastroesop hageal reflux disease 910497608 K21.9 zantac 150 mg 2 qhsmonitor for sx relief Anxiety 20894695 F41.1 hydroxyzin e 25 mg 1 qhs for anxietymon itor for sx relief [id number] PATIENCE Hammond [facility] on [address] [place] [phone] 3 10/24/2018 16:06:59 10/27/2018 11:09:51 Edema of lower extremity 043282949 R60.0 resolvedco ntinue lasix 40 mg qd and tedsmonito r Infectious disorder of joint 888787399 M01.X8 pt has her car here in the parking lot and staff claim that she has been driving other residents around to go shopping. she is also on oxycodone q 12 hrs. keeps claiming she is going to bring the car to her her dtr and have her drive her back here though this has not happened yet. pt is also on ativan 0.5 mg tid prn anxiety. today she says she is going to take her car to her dtr tomorrow morning so I told her and wrote the order that she is to have no more oxycodone or ativan until she returns from dropping off the car tomorrow or whatever day that its. continue minocyclin e 100 mg bid till seen by IDf/u with ID tizanidine 2 mg TID continue oxycodone 5 mg at 2 and 2 per patient request.Wi ll D/C on discharge from facilityco ntinue methadone off PT OT as pt is independen t staff will utilize prn tylenol for pain Chronic ob structive pulmonary disease 84022940 J41.0 continue stiolto 2.5/2.5 mg 2 puffs qdspiriva 18 mcg qdalbutero l MDI prnmonitor resp status Gastroesop hageal reflux disease 685443513 K21.9 zantac 150 mg 2 qhsmonitor for sx relief Anxiety 81359167 F41.1 hydroxyzin e 25 mg 1 qhs for anxietymon itor for sx relief 24374 Zenaida [facility] on [address] [place] [phone] 3 12/03/2018 13:13:44 12/10/2018 09:35:51 Insomnia 876277323 G47.09 Increase melatonin 6 mg QHSMonitor 10722 Zenaida [facility] on [address] [place] [phone] 3 12/10/2018 09:02:33 12/12/2018 12:16:12 Shoulder joint pain 273692420 M25.519 M25.512 X-ray left shoulder, referral for physical therapyCon t oxycodone BIDTylenol PRN [address] MD [facility] on [address] [place] [phone] 3 01/07/2019 09:20:50 01/09/2019 15:16:09 Chronic obstructive pulmonary disease 52016945 J41.1 baseline COPDcontin ues to smokediscu ssed quittingma intained onalbutero lspiriva 18 mcg qdmonitor respirator y function Intravenous drug user 22 1868800 F19.10 maintained on methadonec ontinuedoe s have oxycodone prn for breakthrou ghmonitor utilizatio n Edema of l ower extremity 713073644 R60.0 at baselinela six 40 mg qdmonitor bp and renal function Degenerati ve joint disease of shoulder region 41752355 M19.012 will refer to physiatry for evalquesti on steroid injection 22041 Zenaida Huang [facility] on [address] [place] [phone] 3 02/06/2019 10:10:17 02/09/2019 15:18:43 Gastroesophageal reflux disease 973373913 K21.9 Cont prilosec 20 mg dailyStart famotidine 20 mg BIDMonitor sxs 23821 JOE MIDDLETON [facility] on [address] [place] [phone] 3 02/26/2019 14:01:17 03/17/2019 11:19:44 Unresponsive [id number] R40.20 See HPIsent to ED for eval 16794 Zenaida Huang [facility] on [address] [place] [phone] 3 03/18/2019 15:32:48 03/23/2019 15:47:45 Myppt-pn-wexzcmn respiratory failure 95084518 J96.21 See HPIOn 3 L O2 via NCPT OT eval and treatMonit or respirator y statusPati ent motivated to quit smoking-ni cotine patch prescribed Clostridiu m difficile colitis 807698303 A04.72 Completed course oral vancoStool s now formedMoni tor for recurrence cont probiotic Chronic ob structive pulmonary disease 94832187 J41.1 baseline COPDmainta ined onalbutero lspiriva 18 mcg qdmonitor respirator y function Intravenous drug user 22 1379002 F19.10 maintained on methadone Edema of l ower extremity 307069504 R60.0 Now off lasixMonit or edema and restart lasix PRN Fracture o f multiple ribs 0244957 S22.43XA Secondary to CPROn oxycodone for painAdd tizanidine PRNEncoura ge use of ISMonitor for pain control [address] MD [facility] on [address] [place] [phone] 3 03/23/2019 15:12:06 03/27/2019 10:21:55 Nqohx-rh-hrpirzi respiratory failure 51326857 J96.21 wean O2 as toleratede ncourage quitting tobacco Chronic ob structive pulmonary disease 24745550 J41.1 baseline COPDstable on current medication smonitor respirator y function Intravenous drug user 22 3108744 F19.10 maintained on methadone at baselineno change in narcotic medication s Gastroesop hageal reflux disease 038407088 K21.9 famotidine 20 mg bidmonitor for sx relief 42268 Zenaida Huang [facility] on [address] [place] [phone] 3 03/27/2019 14:47:18 04/03/2019 14:49:34 Shoulder joint pain 006027042 M25.519 M25.512 X-ray right shoulderCo nt oxycodone PRNTylenol PRNMonitor 25158 Zenaida Huang [facility] on [address] [place] [address] [phone] 3 03/31/2019 10:55:23 04/03/2019 15:34:46 Chronic back pain 330814026 G89.29 Increase Tizanidine 2 mg TIDOxycodo ne 10 mg Q4h PRN Monitor for effect 22406 Zenaida Huang [facility] on [address] [place] [address] [phone] 3 05/14/2019 15:03:47 05/17/2019 13:19:55 Rmxuq-ni-cixeehn respiratory failure 50556542 J96.21 See HPIOn 3 L O2 via NCRespirat ory status stable Fracture o f multiple ribs 5158209 S22.43XA Secondary to CPROn oxycodone for pain-will taper to Q6h PRN Chronic ob structive pulmonary disease 96106364 J41.1 baseline COPDmainta ined onalbutero lspiriva 18 mcg qdmonitor respirator y function Intravenous drug user 22 8748042 F19.10 maintained on methadone 25355 Zenaida Huang [facility] on [address] [place] [address] [phone] 3 06/11/2019 15:22:17 06/17/2019 11:11:24 Edema of lower extremity 390651955 R60.0 Restart lasix 20 mg dailyMonit or weights and edemaWill also check BMP 41819 Zenaida Huang [facility] on [address] [place] [address] [phone] 3 07/02/2019 11:32:05 07/07/2019 14:55:36 Edema of lower extremity 917905743 R60.0 Increase lasix 40 mg dailyMonit or weights and edemaRepea t BMP 07/05 06230 Zenaida Huang [facility] on [address] [place] [address] [phone] 3 07/10/2019 11:40:16 07/16/2019 09:15:58 Edema of lower extremity 997046762 R60.0 On lasix 40 mg dailyAdd 1500 mL fluid restrictio n Monitor weights and fluid status 26063 Zenaida Huang [facility] on [address] [place] [address] [phone] 3 07/13/2019 12:28:56 07/16/2019 09:56:55 Edema of lower extremity 105440007 R60.0 Lungs clear, no increase in hypoxiaOn lasix 40 mg BID x 3 days, then resume 40 mg [id number] mL fluid restrictio n Monitor weights and fluid status [address] MD [facility] on [address] [place] [address] [phone] 3 07/17/2019 10:01:57 07/21/2019 16:37:51 Chronic obstructive pulmonary disease 15467733 J41.1 baseline COPDstable on current medication smonitor respirator y function Gastroesop hageal reflux disease 868203589 K21.9 stable at baselinemo nitor for sx relief Edema of l ower extremity 351094439 R60.0 1+ lower extremity edemamonit or bp and [place] 94692 JOE MIDDLETON [facility] on [address] [place] [address] [phone] 3 08/03/2019 14:56:31 08/07/2019 11:41:12 Edema of lower extremity 703488580 R60.0 2+ lower extremity edemaIncre ase lasix to 80 mg daily x 3 days then resume 40 mg daily monitor bp and renal functionti trate meds prn 384605 Zenaida Huang [facility] on [address] [place] [address] [phone] 3 08/13/2019 12:13:46 08/17/2019 15:33:16 Peripheral edema 623675927 R60.0 ImprovedOn lasix 80 mg x 2 more days then decreases to 40 mg dailyAdd eucerin cream for dry skinMonito r 382137 Zenaida Huang [facility] on [address] [place] [address] [phone] 3 08/19/2019 13:01:05 08/25/2019 09:19:13 Peripheral edema 988989242 R60.0 Increase lasix 40 mg BIDMonitor renal function and edema Chronic ob structive pulmonary disease 57238536 J41.1 baseline COPDrequir es continuous O2 to maintain O2 sat >90%Stiolt o inhaler dailyCombi vent inhaler PRNRespira tory status stable Gastroesop hageal reflux disease 184668241 K21.9 Prilosec 40 mg BIDMonitor sxs Chronic pain syndrome 37 2462763 G89.4 On methadoneC urrently on oxycodone- will taper to d/c prior to discharge 000314 JOE MIDDLETON [facility] on [address] [place] [address] [phone] 3 08/22/2019 08:29:52 08/25/2019 12:46:10 Chronic obstructive pulmonary disease 09085137 J41.1 baseline COPDrequir es continuous O2 to maintain O2 sat >90% , see HPI regarding trial with PTStiolto inhaler dailyCombi vent inhaler PRNRespira tory status stable Peripheral edema 2040902 00 R60.0 lasix 40 mg BIDMonitor renal function and edema outpt Gastroesop hageal reflux disease 682821135 K21.9 Prilosec 40 mg BID Chronic pain syndrome 37 9345813 G89.4 On methadone 80 mg dailyoxyco done tapered, will D/C upon discharge, she should not take this home. Health Concerns Section Related Observation LastModified by Organization Detai ls LastModified Time None Recorded Concern Status LastModified by Organization Details LastModified Time None Recorded Advance Directives Directive Y: full code Payers Encounter Date Sequence Insurance Name Policy Number Policy Bain Covered Member ID Bain Member ID Guarantor Name 07/17/2019 1 SANAM () Nilsa Fitzpatrick [id number] Nilsa Fitzpatrick 08/03/2019 1 () Nilsa Fitzpatrick [id number] Nilsa Fitzpatrick 08/13/2019 1 () Nilsa Fitzpatrick [id number] Nilsa Fitzpatrick 08/19/2019 1 () Nilsa Fitzpatrick [id number] Nilsa Amari 08/22/2019 1 SANAM (SANAM) Nilsa Amari [id number] Nilsa Amari Notes Date Note Type Note Provider Name and Address Organization Details Recorded Time 07/17/2019 text/html Patient is a 64 yo female LTC resident due for routine rounding MD visit. Patient currently stable at baseline in NAD. While there is a COVID 19 screen pending at facility there are no known active cases and patient currently without sx. Patient does have copd on O2 at baseline Ra Street MD [address], [address], [place], [address], [facility] 07/17/2019 12:46:11 08/03/2019 text/html This is a 64 yea r old female seen today for acute rounding visit. Nursing reports that patients BLE are red and warm with pain to touch and would like them assessed by a provider today. Patient resting in bed, appears in no distress. Her legs have +2 edema bilaterally, likely cause of pain. They do not appear red and are not warm, likely no infectious process but edema. Pt asking to temporarily increase narcotics, do not think this is a good solution, will diurese at this time. Of note, weights show a 6 lb weight gain in one week, was not notified by staff. JOE MIDDLETON [address], [address], [place], [address], [facility] 08/03/2019 15:07:56 08/13/2019 text/html 64 yo female LTC resident seen for report of new blister to left ankle. Patient with hx of peripheral edema-recently on increased dose of lasix. Now with significant improvement in edema. Zenaida dunn [facility] 08/13/2019 12:43:31 08/19/2019 text/html 64 yo female see n for annual exam. Patient with hx of COPD-O2 dependent at baseline, cardiac arrest 02/2019 secondary to respiratory failure, depression, gerd, lower extremity edema. Has now secured apartment in community and has planned discharge for end of the week. States is doing well with exception of increased lower extremity edema. Zenaida dunn [facility] 08/19/2019 13:28:58 08/22/2019 text/html This is a 64 yo female seen today for discharge summary visit. Patient with hx of COPD-O2 dependent at baseline, cardiac arrest 02/2019 secondary to respiratory failure, depression, gerd, lower extremity edema. Has now secured apartment in community and has planned discharge for tomorrow. States is doing well with exception of increased lower extremity edema. OK to discharge home tomorrow with meds, ativan, methadone and services. Patient will need continuous 02 when in the home. While working with therapy her sats went to 89% walking 37 feet on RA. When 02 was applied, she went above 95%. Second trial with same results, 78% on RA and 95% with oxygen 3 lpm. JOE MIDDLETON [address], [address], [place], [address], [facility] - Peixe Urbano 08/22/2019 08:46:04 OBGyn Episode No OBEpisode recorded.
--- OUTSIDE RECORDS SUMMARY | 2024-05-08 09:44 | XMS_ITS | Clinical Summary ---
Author Organization [facility] Address [address] [place] [address] Phone Care Team Providers Care Fulfillment Specialist Name Role Phone Physician, No Pcp Primary [...] EST - 02/21/2024 9:13 PM EST Emergency [facility] Emergency [address] [place] [phone] Chronic wound (Primary Dx); Cellulitis of leg, left Discharge Disposition: Home or Self Care 02/20/2024 11:48 AM EST - 02/20/2024 2:38 PM EST Emergency [facility] Emergency [address] [place] [phone] Discharge Disposition: Home or Self Care from [...] Staphylococcus aureus(A) ABHINAV 02/24/2024 1:24 PM EST [facility] Comment: The organism value for this result has been updated. These results have been appended to the previously preliminary verified report. Edited result: Previously reported as Staphylococcus aureus on 02/23/2024 at 1339 EST. Gram Stain Result Rare Polymorphonuclear leukocytes 02/24/2024 1:24 PM EST [facility] Gram Stain Result No epithelial cells seen 02/24/2024 1:24 PM EST [facility] Gram Stain Result No organisms seen 02/24/2024 1:24 PM EST [facility] Swab Structure of left lower limb [...] MOYA LAB MICROBIOLOGY - G ENERAL ORDERABLES [facility] [address] [place] [address], * (ABNORMAL) CBC auto differential (02/21/2024 3:23 PM [facility]) Only the most recent of2 resultswithin the time period is included. [facility] Signature WBC 5.2 4.8 - 10.8 K/mcL LAB HEMETOLOGY METHOD 02/21/2024 4:02 PM [facility] RBC 4.50 3.80 - 4.80 M/mcL LAB HEMETOLOGY METHOD 02/21/2024 4:02 PM [facility] Hemoglobin 13.1 11.5 - 16.0 g/dL LAB HEMETOLOGY METHOD 02/21/2024 4:02 PM [facility] Hematocrit 41.1 35.0 - 47.0 % LAB HEMETOLOGY METHOD 02/21/2024 4:02 PM [facility] MCV 91.3 79.0 - 98.0 FL LAB HEMETOLOGY METHOD 02/21/2024 4:02 PM [facility] MCH 29.1 27.0 - 32.0 pcg LAB HEMETOLOGY METHOD 02/21/2024 4:02 PM [facility] MCHC 31.9(L) 32.0 - 37.0 g/dL LAB HEMETOLOGY METHOD 02/21/2024 4:02 PM [facility] RDW 12.5 11.0 - 15.0 % LAB HEMETOLOGY METHOD 02/21/2024 4:02 PM [facility] Platelets 02/21/2024 4:02 PM [facility] Comment:Not measured. Platel ets appear adequate but clumped MPV 11.5(H) 7.0 - 11.0 FL LAB HEMETOLOGY METHOD 02/21/2024 4:02 PM [facility] NRBC 0.0 <1.0 % LAB HEMETOLOGY METHOD 02/21/2024 4:02 PM [facility] NRBC Absolute 0.00 <0.10 K/mcL LAB HEMETOLOGY METHOD 02/21/2024 4:02 PM [facility] Neutrophils Relative 59.3 % LAB HEMETOLOGY METHOD 02/21/2024 4:02 PM [facility] Lymphocytes Relative 28.3 % LAB HEMETOLOGY METHOD 02/21/2024 4:02 PM [facility] Monocytes Relative 8.1 % LAB HEMETOLOGY METHOD 02/21/2024 4:02 PM [facility] Eosinophils Relative 2.5 % LAB HEMETOLOGY METHOD 02/21/2024 4:02 PM [facility] Basophils Relative 1.0 % LAB HEMETOLOGY METHOD 02/21/2024 4:02 PM [facility] Immature Granulocytes Relative 0.8 % LAB HEMETOLOGY METHOD 02/21/2024 4:02 PM [facility] Neutrophils Absolute 3.08 1.50 - 7.00 K/mcL LAB HEMETOLOGY METHOD 02/21/2024 4:02 PM [facility] Lymphocytes Absolute 1.47 1.00 - 5.00 K/mcL LAB HEMETOLOGY METHOD 02/21/2024 4:02 PM [facility] Monocytes Absolute 0.42 0.20 - 1.00 K/mcL LAB HEMETOLOGY METHOD 02/21/2024 4:02 PM [facility] Eosinophils Absolute 0.13 0.00 - 0.50 K/mcL LAB HEMETOLOGY METHOD 02/21/2024 4:02 PM [facility] Basophils Absolute 0.05 0.00 - 0.20 K/mcL LAB HEMETOLOGY METHOD 02/21/2024 4:02 PM [facility] Immature Granulocytes Absolute 0.04(H) 0.00 - 0.03 K/mcL LAB HEMETOLOGY METHOD 02/21/2024 4:02 PM [facility] Blood Venous blood specimen / Unknown Venipuncture / Unknown 02/21/2024 3:23 PM EST 02/21/2024 3:25 PM EST Nicole Carmona DO LAB BLOOD ORDERAB LES [facility] [address] [place] [address], * Basic metabolic panel (02/21/2024 3:23 PM EST) Only the most recent of2 resultswithin the time period is included. Sodium 137 133 - 145 mmol/L LAB CHEMISTRY METHOD 02/21/2024 4:16 PM [facility] Potassium 3.9 3.5 - 5.5 mmol/L LAB CHEMISTRY METHOD 02/21/2024 4:16 PM [facility] Chloride 102 96 - 110 mmol/L LAB CHEMISTRY METHOD 02/21/2024 4:16 PM [facility] CO2 31 21 - 32 mmol/L LAB CHEMISTRY METHOD 02/21/2024 4:16 PM [facility] Anion Gap 4 3 - 11 LAB CHEMISTRY METHOD 02/21/2024 4:16 PM [facility] Glucose 82 70 - 100 mg/dL LAB CHEMISTRY METHOD 02/21/2024 4:16 PM [facility] BUN 8 5 - 25 mg/dL LAB CHEMISTRY METHOD 02/21/2024 4:16 PM [facility] Creatinine 0.75 0.50 - 1.10 mg/dL LAB CHEMISTRY METHOD 02/21/2024 4:16 PM [facility] eGFR 87 >=60 mL/min/1. 73m2 LAB CHEMISTRY METHOD 02/21/2024 4:16 PM [facility] Comment:Calculation based on the??Chronic Kidney Disease Epidemiology Collaboration (CKD-EPI) equation refit??without adjustment for race. BUN/Creatinine Ratio 10.7 LAB CHEMISTRY METHOD 02/21/2024 4:16 PM [facility] Calcium 9.2 8.5 - 10.5 mg/dL LAB CHEMISTRY METHOD 02/21/2024 4:16 PM [facility] Blood Venous blood specimen / Unknown Venipuncture / Unknown 02/21/2024 3:23 PM EST 02/21/2024 3:25 PM EST Nicole Carmona DO LAB BLOOD ORDERAB LES [facility] [address] [place] [address], * (ABNORMAL) Manual differential (02/20/2024 1:05 PM EST) Neutrophils % 57.0 % LAB HEMETOLOGY METHOD 4 2:04 PM [facility] Lymphocytes % 28.0 % LAB HEMETOLOGY METHOD 4 2:04 PM [facility] Reactive Lymphocyte 5.00 % LAB HEMETOLOGY METHOD 4 2:04 PM [facility] Monocytes % 5.0 % LAB HEMETOLOGY METHOD 4 2:04 PM [facility] Eosinophils % 3.0 % LAB HEMETOLOGY METHOD 4 2:04 PM [facility] Basophils % 1.0 % LAB HEMETOLOGY METHOD 4 2:04 PM [facility] Metamyelocytes % 1.0(H) % LAB HEMETOLOGY METHOD 4 2:04 PM [facility] Neutrophils Absolute Manual 2.91 1.50 - 7.00 K/mcL LAB HEMETOLOGY METHOD 4 2:04 PM [facility] Lymphocytes Absolute 1.43 1.00 - 5.00 K/mcL LAB HEMETOLOGY METHOD 4 2:04 PM EST [facility] Reactive Lymph Abs Manual 0.26(H) 0.00 - 0.00 lym LAB HEMETOLOGY METHOD 4 2:04 PM [facility] Monocytes Absolute Manual 0.26 0.20 - 1.00 K/mcL LAB HEMETOLOGY METHOD 4 2:04 PM EST [facility] Eosinophils Absolute Manual 0.15 0.00 - 0.50 K/mcL LAB HEMETOLOGY METHOD 4 2:04 PM [facility] Basophils Absolute Manual 0.05 0.00 - 0.20 K/mcL LAB HEMETOLOGY METHOD 4 2:04 PM [facility] Metamyelocytes Absolute Manual 0.05(H) 0.00 - 0.00 K/mcL LAB HEMETOLOGY METHOD 4 2:04 PM EST [facility] Rbc Morphology Consistent with indices Consistent with indices, Normal for LAB HEMETOLOGY METHOD 4 2:04 PM [facility] Platelet Morphology - WAM See Note(A) Normal LAB HEMETOLOGY METHOD 4 2:04 PM EST [facility] Comment:PLT: Normal Blood Venous blood specimen / Unknown Venipuncture / Unknown 02/20/2024 1:05 PM EST 02/20/2024 1:08 PM EST Jelani Tucker DO LAB BLOOD ORDERABLE S [facility] [address] [place] [address], from Last 3 Months Additional Health Concerns Infection Onset Date 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
== END 2024-05-08 09:54 | disposition home or self-care (01) ==
LOC: HO.HMCC 09:13
PROVIDERS: PCP Internal Medicine; Visit Provider Internal Medicine
DX: F41.1 Generalized anxiety disorder (principal); F43.0 Acute stress reaction

== ENCOUNTER → 2024-05-08 09:13 | Outpatient (BNVA) | payer MEDICARE, MEDICAID, SELFPAY | PROVIDERS: PCP Internal Medicine; Visit Provider Internal Medicine | DX: F41.1 Generalized anxiety disorder (principal); F43.0 Acute stress reaction | CPT/HCPCS: 96127 ==

== ENCOUNTER 2024-05-15 09:16 | Outpatient (AMB) | payer MEDICARE, MEDICAID, SELFPAY ==
--- NOTE | 2024-05-15 09:13 | A.OFFPC_ITS ---
Intake Visit Reasons: smoking cessation Allergies dextrose Allergy (Severe, Verified 05/15/24 09:26) anaphylaxis latex [LATEX] Allergy (Severe, Verified 05/15/24 09:26) HIVES psyllium [From Metamucil] Allergy (Severe, Verified 05/15/24 09:26) anaphylaxis clindamycin [CLINDAMYCIN] Allergy (Intermediate, Verified 05/15/24 09:) RASH NSAIDS (Non-Steroidal Anti-Inflamma Allergy (Intermediate, Verified 05/15/24:) ulcers tramadol [From ULTRAM] Allergy (Intermediate, Verified 05/15/24:) HIVES levofloxacin [From LEVAQUIN] Adverse Reaction (Intermediate, Verified 05/15/24:) TENDON PAIN, achilles tendonitis prednisone Adverse Reaction (Intermediate, Verified 05/15/24:) GI BLEED, high doses valacyclovir [From VALTREX] Adverse Reaction (Intermediate, Verified 05/15/24 09:) GI UPSET bupropion Adverse Reaction (Verified 05/15/24:) vomiting Medication List - Last Reconciled 05/15/24 by Nena Milner MD acetaminophen 650 mg PO Q6H PRN albuterol sulfate 2.5 mg (3 mL) inhalation Q4-6H PRN 30 days albuterol sulfate 90 mcg/actuation 2 puffs PO Q4-6H PRN alprazolam (Xanax) 0.5 mg PO DAILY PRN ammonium lactate 5% 1 appl topical DAILY docusate sodium 100 mg PO BID PRN furosemide 20 mg PO QAM PRN ipratropium bromide 2 sprays intranasal BID-TID PRN ipratropium-albuterol 0.5 mg-3 mg(2.5 mg base)/3 mL 3 mL inhalation Q4-6H PRN 20 days loratadine 10 mg PO DAILY methadone 105 mg PO DAILY nicotine 1 patch transdermal DAILY ondansetron HCl 4 mg PO BID PRN pantoprazole 40 mg PO BID ramelteon 8 mg PO BEDTIME PRN Stiolto Respimat 2.5-2.5 mcg/actuation (tiotropium-olodaterol) 2 puffs PO DAILY NS tizanidine 4 mg PO Q8H PRN 30 days Tobacco use date assessed: 05/15/24 Fall risk assessment: 2 + Falls in past year Last assessed Fall Risk: 05/15/24 Dental Screening Dental Screen Date: 05/15/24 Did you have a dental visit in the last 12 months?: No Did you have a dental problem in the last 6 months where you did not have access to dental care?: No Was dental information given to patient?: No (no teeth) HPI smoking cessation HPI Details - The patient is a 69-year-old female pr esenting today for follow up regarding her smoking cessation - She is currently using 14 mg nicotine patches to aid smoking cessation, reporting varied success in reducing daily cigarette consumption. - Placement of the nicotine patch on dif ferent body locations seems to influence her smoking habits, Where she notes that she does not smoke as much or has been able to control her craving for cigarettes when she applies the patch on her left arm as compared to the right. she has not been applying it on her chest or back. - She has been able to cut some of him f or several days on end but there are days that she still smokes around 2 or 3 cigarettes depending on her stress level. - She has not had any headaches, no dott edness, chest pain or tightness when using the patch [facility] Medical History H/O adenomatous polyp of colon History of meningitis Nicotine dependence, cigarettes, uncomplicated Generalized anxiety disorder Cervical radiculopathy due to degenerative joint disease of spine Takotsubo cardiomyopathy History of congestive heart failure Anemia Absent pedal pulses Constipation due to opioid therapy Oxygen dependent Allergic rhinitis Vitamin D deficiency Primary osteoarthritis, right shoulder Respiratory failure with hypoxia Surgical menopause Duodenal ulcer Bipolar disorder Gastritis Tubular adenoma of colon Substance abuse Osteopenia Alcoholic cirrhosis of liver Hepatitis C COPD (chronic obstructive pulmonary disease) Osteoarthritis of multiple joints Surgical History History of resection of rib History of colonoscopy History of ankle surgery History of esophagogastroduodenoscopy (EGD) History of hysterectomy Family History Father Alcoholism History of manic depressive disorder COPD (chronic obstructive pulmonary disease) Cancer Mother COPD (chronic obstructive pulmonary disease) Cardiac disease Smoker CHF (congestive heart failure) Alcoholism CVD (cardiovascular disease) Mental disorder Sister Lupus PTSD (post-traumatic stress disorder) Son Cardiac arrest Maternal Grandfather No problems noted. Maternal Grandmother No problems noted. Paternal Grandfather Alcoholism Mental disorder Paternal Grandmother No problems noted. Social History Housing: Apartment Alcohol intake: current Alcohol intake frequency: 0-2 drinks per day Alcohol type: beer Patient Tobacco Use Status: Current someday Tobacco user Tobacco use type: Cigarette Cigarettes Per Day: 5 Years Smoked: (onset 14yo, 1ppd x 55yrs, now 1/4ppd - 50pyh) e-Cigarette/Vaping Use: Never Used service: No Current occupational status: disabled Cognitive needs: No Hearing needs: No Vision needs: No Questionnaire Thrive Questionnaire Date Thrive assessed: 04/10/24 MIKE-7 AMB Questionnaire MIKE-7 Date MIKE - 7 assessed: 05/08/24 Source: Developed by Drs. Marquez Mclaughlin, Anny Chong, Giovanny Grady and colleagues, with an educational owen from [employer]. Review of Systems Const Denies chills and Reports fatigue ENT Reports no additional complaints Card Denies chest pain, Denies irregular heart rhythm, Denies leg edema and Reports dyspnea on exertion (Unchanged ) Resp Reports dyspnea on exertion (Unchanged ) GI Reports no additional complaints Reports no additional complaints Musc Reports back pain and Reports stiffness Neuro Reports as per HPI Psych Reports as per HPI Endo Reports fatigue Guillaume/Lymph Reports no additional complaints Physical exam (Primary Care) Tobacco/Smoking Status: Tobacco use Status Tobacco use date assessed 05/15/24 05/15/24 09:15 Patient Tobacco Use Status Current someday Tobacco 05/15/24 09:15 Tobacco use type Cigarette 05/15/24 09:15 e-Cigarette/Vaping Use Never Used 05/15/24 09:15 Thrive Assessment: Date of Thrive Assessment Date Thrive assessed 04/10/24 05/15/24 09:15 Telehealth Telehealth Telehealth Platform: [facility] Location of provider rendering services: practice address Location of patient: address on file Patient Identification confirmed using: Name, : Yes Telehealth method: video Patient verbally consented to treatment: Yes Patient verbally consented to billing insurance company: Yes Patient informed of any privacy concerns related to visit: Yes Minutes spent on Phone/Video with Pt.: 15 Coding Level of Care Code Tele Est Pt Level 3 (79968) Diagnoses Nicotine dependence, cigarettes, uncomplicated F17.210 Cigarette smoker motivated to quit F17.210 Assessment & Plan Assessment & Plan (1) Nicotine dependence, cigarettes, uncomplicated: Comment: (onset 14yo, 1ppd x 55yrs, now 1/4ppd - 50pyh) Code(s): F17.210 - Nicotine dependence, cigarettes, uncomplicated Category: Medical (2) Cigarette smoker motivated to quit: Code(s): F17.210 - Nicotine dependence, cigarettes, uncomplicated Plan The patient will continue using 14 mg nicotine patches and is advised to experiment with patch placement on different body areas to potentially enhance cessation outcomes. Her target is to consistently stop smoking . The patient will receive a prescription refill for one month with one refill at her designated pharmacy. Concurrently, suggestions to alleviate smoking triggers include partaking in artistic or new skill activities. Follow-up appointments are scheduled to monitor progress. Patient was informed and verbally consented to the use of an ambient scribe for clinic note documentation during this visit. Medications: Changed From nicotine 1 patch transdermal DAILY 28 ea 0RF F17.210 - Nicotine dependence, cigarettes, uncomplicated To nicotine 1 patch transdermal DAILY 28 ea 1RF NS F17.210 - Nicotine dependence, cigarettes, uncomplicated
--- OUTSIDE RECORDS SUMMARY | 2024-05-15 09:40 | XMS_ITS | Clinical Summary ---
Author Organization [facility] Address [address] [place] [address] Phone Care Team Providers Care Magnetic Doctor Name Role Phone Physician, No Pcp Primary [...] Emergency [facility] Emergency [address] [place] [id number] Chronic wound (Primary Dx); Cellulitis of leg, left Discharge Disposition: Home or Self Care 02/20/2024 11:48 AM EST - 02/20/2024 2:38 PM EST Emergency [facility] Emergency [address] [place] [phone] Discharge Disposition: Home or Self Care from [...] Staphylococcus aureus(A) ABHINAV 02/24/2024 1:24 PM EST [facility] Comment: The organism value for this result has been updated. These results have been appended to the previously preliminary verified report. Edited result: Previously reported as Staphylococcus aureus on 02/23/2024 at 1339 EST. Gram Stain Result Rare Polymorphonuclear leukocytes 02/24/2024 1:24 PM EST [facility] Gram Stain Result No epithelial cells seen 02/24/2024 1:24 PM EST [facility] Gram Stain Result No organisms seen 02/24/2024 1:24 PM EST [facility] Swab Structure of left lower [...] MOYA LAB MICROBIOLOGY - G ENERAL ORDERABLES [facility] [address] [place] [address], * (ABNORMAL) CBC auto differential (02/21/2024 3:23 PM [facility]) Only the most recent of2 resultswithin the time period is included. [facility] Signature WBC 5.2 4.8 - 10.8 K/mcL LAB HEMETOLOGY METHOD 02/21/2024 4:02 PM [facility] RBC 4.50 3.80 - 4.80 M/mcL LAB HEMETOLOGY METHOD 02/21/2024 4:02 PM [facility] Hemoglobin 13.1 11.5 - 16.0 g/dL LAB HEMETOLOGY METHOD 02/21/2024 4:02 PM [facility] Hematocrit 41.1 35.0 - 47.0 % LAB HEMETOLOGY METHOD 02/21/2024 4:02 PM [facility] MCV 91.3 79.0 - 98.0 FL LAB HEMETOLOGY METHOD 02/21/2024 4:02 PM [facility] MCH 29.1 27.0 - 32.0 pcg LAB HEMETOLOGY METHOD 02/21/2024 4:02 PM [facility] MCHC 31.9(L) 32.0 - 37.0 g/dL LAB HEMETOLOGY METHOD 02/21/2024 4:02 PM [facility] RDW 12.5 11.0 - 15.0 % LAB HEMETOLOGY METHOD 02/21/2024 4:02 PM [facility] Platelets 02/21/2024 4:02 PM [facility] Comment:Not measured. Platel ets appear adequate but clumped MPV 11.5(H) 7.0 - 11.0 FL LAB HEMETOLOGY METHOD 02/21/2024 4:02 PM [facility] NRBC 0.0 <1.0 % LAB HEMETOLOGY METHOD 02/21/2024 4:02 PM [facility] NRBC Absolute 0.00 <0.10 K/mcL LAB HEMETOLOGY METHOD 02/21/2024 4:02 PM [facility] Neutrophils Relative 59.3 % LAB HEMETOLOGY METHOD 02/21/2024 4:02 PM [facility] Lymphocytes Relative 28.3 % LAB HEMETOLOGY METHOD 02/21/2024 4:02 PM [facility] Monocytes Relative 8.1 % LAB HEMETOLOGY METHOD 02/21/2024 4:02 PM [facility] Eosinophils Relative 2.5 % LAB HEMETOLOGY METHOD 02/21/2024 4:02 PM [facility] Basophils Relative 1.0 % LAB HEMETOLOGY METHOD 02/21/2024 4:02 PM [facility] Immature Granulocytes Relative 0.8 % LAB HEMETOLOGY METHOD 02/21/2024 4:02 PM [facility] Neutrophils Absolute 3.08 1.50 - 7.00 K/mcL LAB HEMETOLOGY METHOD 02/21/2024 4:02 PM [facility] Lymphocytes Absolute 1.47 1.00 - 5.00 K/mcL LAB HEMETOLOGY METHOD 02/21/2024 4:02 PM [facility] Monocytes Absolute 0.42 0.20 - 1.00 K/mcL LAB HEMETOLOGY METHOD 02/21/2024 4:02 PM [facility] Eosinophils Absolute 0.13 0.00 - 0.50 K/mcL LAB HEMETOLOGY METHOD 02/21/2024 4:02 PM [facility] Basophils Absolute 0.05 0.00 - 0.20 K/mcL LAB HEMETOLOGY METHOD 02/21/2024 4:02 PM [facility] Immature Granulocytes Absolute 0.04(H) 0.00 - 0.03 K/mcL LAB HEMETOLOGY METHOD 02/21/2024 4:02 PM [facility] Blood Venous blood specimen / Unknown Venipuncture / Unknown 02/21/2024 3:23 PM EST 02/21/2024 3:25 PM EST Nicole Carmona DO LAB BLOOD ORDERAB LES [facility] [address] [place] [address], * Basic metabolic panel (02/21/2024 3:23 PM EST) Only the most recent of2 resultswithin the time period is included. Sodium 137 133 - 145 mmol/L LAB CHEMISTRY METHOD 02/21/2024 4:16 PM [facility] Potassium 3.9 3.5 - 5.5 mmol/L LAB CHEMISTRY METHOD 02/21/2024 4:16 PM [facility] Chloride 102 96 - 110 mmol/L LAB CHEMISTRY METHOD 02/21/2024 4:16 PM [facility] CO2 31 21 - 32 mmol/L LAB CHEMISTRY METHOD 02/21/2024 4:16 PM [facility] Anion Gap 4 3 - 11 LAB CHEMISTRY METHOD 02/21/2024 4:16 PM [facility] Glucose 82 70 - 100 mg/dL LAB CHEMISTRY METHOD 02/21/2024 4:16 PM [facility] BUN 8 5 - 25 mg/dL LAB CHEMISTRY METHOD 02/21/2024 4:16 PM [facility] Creatinine 0.75 0.50 - 1.10 mg/dL LAB CHEMISTRY METHOD 02/21/2024 4:16 PM [facility] eGFR 87 >=60 mL/min/1. 73m2 LAB CHEMISTRY METHOD 02/21/2024 4:16 PM [facility] Comment:Calculation based on the??Chronic Kidney Disease Epidemiology Collaboration (CKD-EPI) equation refit??without adjustment for race. BUN/Creatinine Ratio 10.7 LAB CHEMISTRY METHOD 02/21/2024 4:16 PM [facility] Calcium 9.2 8.5 - 10.5 mg/dL LAB CHEMISTRY METHOD 02/21/2024 4:16 PM [facility] Blood Venous blood specimen / Unknown Venipuncture / Unknown 02/21/2024 3:23 PM EST 02/21/2024 3:25 PM EST Nicole Carmona DO LAB BLOOD ORDERAB LES [facility] [address] [place] [address], * (ABNORMAL) Manual differential (02/20/2024 1:05 PM EST) Neutrophils % 57.0 % LAB HEMETOLOGY METHOD 4 2:04 PM [facility] Lymphocytes % 28.0 % LAB HEMETOLOGY METHOD 4 2:04 PM [facility] Reactive Lymphocyte 5.00 % LAB HEMETOLOGY METHOD 4 2:04 PM [facility] Monocytes % 5.0 % LAB HEMETOLOGY METHOD 4 2:04 PM [facility] Eosinophils % 3.0 % LAB HEMETOLOGY METHOD 4 2:04 PM [facility] Basophils % 1.0 % LAB HEMETOLOGY METHOD 4 2:04 PM [facility] Metamyelocytes % 1.0(H) % LAB HEMETOLOGY METHOD 4 2:04 PM [facility] Neutrophils Absolute Manual 2.91 1.50 - 7.00 K/mcL LAB HEMETOLOGY METHOD 4 2:04 PM [facility] Lymphocytes Absolute 1.43 1.00 - 5.00 K/mcL LAB HEMETOLOGY METHOD 4 2:04 PM EST [facility] Reactive Lymph Abs Manual 0.26(H) 0.00 - 0.00 lym LAB HEMETOLOGY METHOD 4 2:04 PM [facility] Monocytes Absolute Manual 0.26 0.20 - 1.00 K/mcL LAB HEMETOLOGY METHOD 4 2:04 PM EST [facility] Eosinophils Absolute Manual 0.15 0.00 - 0.50 K/mcL LAB HEMETOLOGY METHOD 4 2:04 PM [facility] Basophils Absolute Manual 0.05 0.00 - 0.20 K/mcL LAB HEMETOLOGY METHOD 4 2:04 PM [facility] Metamyelocytes Absolute Manual 0.05(H) 0.00 - 0.00 K/mcL LAB HEMETOLOGY METHOD 4 2:04 PM EST [facility] Rbc Morphology Consistent with indices Consistent with indices, Normal for LAB HEMETOLOGY METHOD 4 2:04 PM [facility] Platelet Morphology - WAM See Note(A) Normal LAB HEMETOLOGY METHOD 4 2:04 PM EST [facility] Comment:PLT: Normal Blood Venous blood specimen / Unknown Venipuncture / Unknown 02/20/2024 1:05 PM EST 02/20/2024 1:08 PM EST Jelani Tucker DO LAB BLOOD ORDERABLE S [facility] [address] [place] [address], from Last 3 Months Additional Health Concerns Infection Onset Date Last Indicated MRSA 02/21/2024 02/21/2024 Care Teams Magnetic Doctor Relationship Specialty Start Date End Date Physician, No Pcp PCP - General 02/20/24
--- OUTSIDE RECORDS SUMMARY | 2024-05-15 09:40 | XMS_ITS | Patient Health Record ---
Author Organization [facility] Address [address] [place] [address] Care Team Providers Care Table Saw Operator Name Role Phone Annia MAJOR, Nena Primary Care Provider Marquez Banks Unavailable [phone] José Gore M.D. Unavailable Unavailab le ALLERGIES Allergen (clinical drug ingredient) Drug/Non Drug Allergy documented on EMR Reaction Allergy Type Onset Date Status psyllium Metamucil Unknown Drug Allergy Active levofloxacin Levofloxacin Unknown Drug Allergy A ctive Levaquin Unknown Drug Allergy Active clindamycin Clindamycin HCl Unknown Drug Allergy Active Latex latex (uncoded) Unknown Allergy Acti ve valacyclovir Valtrex Unknown Drug Allergy Acti ve tramadol Ultram Unknown Drug Allergy Active tramadol Tramadol HCl Unknown Drug Allergy Acti ve Psyllium Unknown Drug Allergy Active REASON FOR REFERRAL No Information MEDICATIONS Medication SIG (Take, Route, Frequency, Duration) Notes Start Date End Date Status Pantoprazole Sodium 40 MG TAKE 1 TABLET BY MOUTH TWICE DAILY for 30 Active Ondansetron HCl 4 MG TAKE 1 TABLET BY MO UTH EVERY 4 TO 6 HOURS NEEDED FOR NAUSEA for 5 Active tiZANidine HCl 2 MG TK 1 C PO TID PRN Or al for 30 Active hydrOXYzine HCl 25 MG Oral for 10 Active ProAir HFA 108 (90 Base) MCG/ACT INHALE 1 PUFF PO Q 4 TO 6 H PRN Inhalation for 30 Active Methadone HCl - as directed 105 Active Furosemide 20 MG TAKE 1 TABLET BY ROD TH EVERY MORNING NEEDED FOR SWELLING Oral for 20 Active Ramelteon 8 MG TAKE 1 TABLET BY ROD TH AT BEDTIME NEEDED FOR INSOMNIA Oral for 30 Active Loratadine 10 MG TK 1 T PO QD Oral for 30 Active Spironolactone 25 MG TK 1 T PO D WITH FO OD Oral for 30 Active Spiriva HandiHaler 18 MCG INHALE THE CON TENT OF 1 C VIA HANDIHALER ONCE A DAY Inhalation for 30 Active Ondansetron HCl 8 MG TK 1 T PO BID PRF N AUSEA OR VOM Oral for 30 Active Vitamin D 50 MCG (2000 UT) 1 tablet Oral ly Once a day for 30 day(s) Active Stiolto Respimat 2.5-2.5 MCG/ACT INHALE 2 PUFFS BY MOUTH EVERY DAY Inhalation for 30 Active IMMUNIZATIONS Vaccine Route Administration Date Status Comme nts Influenza Unknown 12/08/2019 Administered Influenza Unknown 01/25/2021 Administered SOCIAL HISTORY Tobacco Use: Social History Observation Description Date Details (start date - stop date) Current Smoker NA - NA Sex Assigned At : Social History Observation Description Sex Assigned At Unknown Tobacco Use/Smoking Question Answer Notes Patient is a current smoker How often do you smoke cigarettes? every day How many cigarettes a day do you smoke? 5 or les s Alcohol Screen Question Answer Notes Did you have a drink contain ing alcohol in the past year? Yes How often did you have a dri nk containing alcohol in the past year? Never (0 point) How many drinks did you have on a typical day when you were drinking in the past year? 1 or 2 drinks (0 point) How often did you have 6 or more drinks on one occasion in the past year? Never (0 point) Points 0 Interpretation Negative PROBLEMS Problem Type ICD Code Onset Dates Problem Status W/U Status Risk SNOMED Code Notes Problem Duodenal ulcer (K26.9) Active confirmed 34901791 Problem Encounter for screening for malignant neoplasm of colon (Z12.11) Active confirmed 620666639 Problem Alcoholic cirrhosis of liver without ascites (K70.30) Active confirmed 909650411 Problem Gastroesophageal reflux disease without esophagitis (K21.9) Active confirmed 393849953 Problem History of peptic ulcer disease (Z87.11) Active confirmed 667482953 Problem Esophageal dysphagia (R13.10) Active confirmed 51586436 Problem Abdominal pain, epigastric (R10.13) Active confirmed 01276166 Problem Gallstones (K80.20) Active confirmed 23 6498943 Problem Epigastric pain (R10.13) Active confirmed 61641474 Problem Abnormal UGI series (R93.3) Active confirmed 776066249 Problem Dysphagia (R13.10) Active confirmed Dys phagia (75729215) PLAN OF TREATMENT Pending Test Test Name Order Date LIVER PROFILE 08/09/2020 CBC w DIFF 01/02/2017 CBC w DIFF 08/09/2020 PROTHROMBIN TIME (PT, INR) 01/02/2017 PROTHROMBIN TIME (PT, INR) 08/09/2020 ALPHA-FETOPROTEIN,TUMOR MARKER 7 ALPHA-FETOPROTEIN,TUMOR MARKER NUC HIDA SCAN 06/21/2021 XR BARIUM SWALLOW-ESOPHAGUS 08/09/2020 XR GI SERIES 08/09/2020 US ABD 08/09/2020 Future Test Test Name Order Date UPPER GI ENDOSCOPY 01/02/2017 COLONOSCOPY 01/02/2017 UPPER GI ENDOSCOPY [place] DILATION OF ESOPH 07/13/2021 Insurance Providers Payer Name Payer Address Payer Phone Subscriber Number Group Number Insured Name Patient Relationship to Insured Coverage Start Date Coverage End Date [facility] [address] [place], [place] [id number] SRINIVAS WRIGHT Self - patient is the insured MEDICAID OF [place] [address] [place] [address] [id number] SRINIVAS WRIGHT Self - patient is the insured MEDICAL (GENERAL) HISTORY Medical History History ICD Code COPD--oxygen dependent-Dr. [place]--respiratory arrest in 01/2019--in ICU for 1 month Urinary incontinence Chronic Hep C--sees Dr. Luis acevedo--starting Harvoni on 01/03/18--Hep C viral load was neg. in 08/2017; a liver fibrosis test in 2017 was 0.74 consistent with F4, and previous hepatitis C genotype was 1A Duodenal ulcer with UGI Bleed in 2004--s /p therapeutic EGD x 2 Colonoscopy at [facility] in a pprox 2004--patient was not clear about the details HTN--not on any meds Denies TX,DM,CVA,renal disease EGD 03/2017--portal gastropa thy, no varices, gastritis with biopsies negative for H. pylori, informed duodenal bulb consistent with previous ulcer disease, moderate sized hiatal hernia Colonoscopy 03/2017--1 small tubular adenoma removed, diverticulosis, internal hemorrhoids GI Bleed at [facility] in 06/25 18 with an upper endoscopy--? results---needed 4 units PRBC and some platelet transfusions Surgical History Surgery Date(Month/Year) Ankle surgery-fracture Left rib surgery for a benign tumor Hysterectomy
== END 2024-05-15 10:21 | disposition home or self-care (01) ==
LOC: HO.HMCC 09:16
PROVIDERS: PCP Internal Medicine; Visit Provider Internal Medicine
DX: F17.210 Nicotine dependence, cigarettes, uncomplicated (principal)

== ENCOUNTER → 2024-05-15 09:16 | Outpatient (BNVA) | payer MEDICARE, MEDICAID, SELFPAY | PROVIDERS: PCP Internal Medicine; Visit Provider Internal Medicine | DX: F17.210 Nicotine dependence, cigarettes, uncomplicated (principal); M54.2 Cervicalgia; M15.9 Polyosteoarthritis, unspecified; M47.22 Other spondylosis with radiculopathy, cervical region ==

== ENCOUNTER 2024-06-11 09:50 | Outpatient (AMB) | payer MEDICARE, MEDICAID, SELFPAY ==
[2024-06-11 10:11] VITALS: BP 142/74; PULSE 86; O2SAT 91; BMI 20.5
--- NOTE | 2024-06-11 10:11 | A.OFFVIS_ITS ---
Vital Signs 06/11/24 10:11 Height 5 ft 6 in Weight 126 lb 12.253 oz BMI 20.5 BP 142/74 H Blood Pressure Location Lt brachial Position Sitting Pulse 86 Pulse Source Pulse Oximeter Pulse Oximetry (%) 91 L Oxygen Delivery Method Nasal Cannula Oxygen Flow Rate 2 Intake Visit Reasons: copd Intake Note: pt is here for follow up and states she having some shortness of breath, thick phelgm, occasional wheeze. Commissioner Of Officials Required: No Allergies dextrose Allergy (Severe, Verified 06/11/24 10:37) anaphylaxis latex [LATEX] Allergy (Severe, Verified 06/11/24 10:37) HIVES psyllium [From Metamucil] Allergy (Severe, Verified 06/11/24 10:37) anaphylaxis clindamycin [CLINDAMYCIN] Allergy (Intermediate, Verified 06/11/24 10:37) RASH NSAIDS (Non-Steroidal Anti-Inflamma Allergy (Intermediate, Verified 06/11/24 10:37) ulcers tramadol [From ULTRAM] Allergy (Intermediate, Verified 06/11/24 10:37) HIVES levofloxacin [From LEVAQUIN] Adverse Reaction (Intermediate, Verified 06/11/24 10:37) TENDON PAIN, achilles tendonitis prednisone Adverse Reaction (Intermediate, Verified 06/11/24 10:37) GI BLEED, high doses valacyclovir [From VALTREX] Adverse Reaction (Intermediate, Verified 06/11/24 10:37) GI UPSET bupropion Adverse Reaction (Verified 06/11/24 10:37) vomiting Medication List - Last Reconciled 06/11/24 by Manuel Covarrubias MD acetaminophen 650 mg PO Q6H PRN albuterol sulfate 2.5 mg (3 mL) inhalation Q4-6H PRN 30 days albuterol sulfate 90 mcg/actuation 2 puffs PO Q4-6H PRN alprazolam (Xanax) 0.5 mg PO DAILY PRN ammonium lactate 5% 1 appl topical DAILY docusate sodium 100 mg PO BID PRN fluticasone propionate 220 mcg/actuation 2 puffs inhalation BID furosemide 20 mg PO QAM PRN ipratropium bromide 2 sprays intranasal BID-TID PRN ipratropium-albuterol 0.5 mg-3 mg(2.5 mg base)/3 mL 3 mL inhalation Q4-6H PRN 20 days loratadine 10 mg PO DAILY methadone 105 mg PO DAILY nicotine 1 patch transdermal DAILY NS ondansetron HCl 4 mg PO BID PRN pantoprazole 40 mg PO BID ramelteon 8 mg PO BEDTIME PRN Stiolto Respimat 2.5-2.5 mcg/actuation (tiotropium-olodaterol) 2 puffs PO DAILY NS tizanidine 4 mg PO Q8H PRN 30 days Do you need a note to return to daycare/school/sports/work: No HPI HPI copd: Details: This 69 years old female with advanced chronic obstructive pulmonary disease and chronic respiratory failure, comes after. 3 months for her regular follow-up Continues to use oxygen 24 hours a day mostly at 1.5 L/minute and sometime has to increased 2 L/minute. She has ongoing intermittent cough, and some wheezing. This is mostly related to her ongoing smoking. She has not needed to use any oral steroids in the last 3 months and did not have to go to the emergency room for any acute exacerbation. She has been staying mostly in the house. Claims that she smokes about 5 cigarettes a day but to in fact it may be more than that. [facility] Medical History H/O adenomatous polyp of colon History of meningitis Nicotine dependence, cigarettes, uncomplicated Generalized anxiety disorder Cervical radiculopathy due to degenerative joint disease of spine Takotsubo cardiomyopathy History of congestive heart failure Anemia Absent pedal pulses Constipation due to opioid therapy Oxygen dependent Allergic rhinitis Vitamin D deficiency Primary osteoarthritis, right shoulder Respiratory failure with hypoxia Surgical menopause Duodenal ulcer Bipolar disorder Gastritis Tubular adenoma of colon Substance abuse Osteopenia Alcoholic cirrhosis of liver Hepatitis C COPD (chronic obstructive pulmonary disease) Osteoarthritis of multiple joints Surgical History History of resection of rib History of colonoscopy History of ankle surgery History of esophagogastroduodenoscopy (EGD) History of hysterectomy Family History Father Alcoholism History of manic depressive disorder COPD (chronic obstructive pulmonary disease) Cancer Mother COPD (chronic obstructive pulmonary disease) Cardiac disease Smoker CHF (congestive heart failure) Alcoholism CVD (cardiovascular disease) Mental disorder Sister Lupus PTSD (post-traumatic stress disorder) Son Cardiac arrest Maternal Grandfather No problems noted. Maternal Grandmother No problems noted. Paternal Grandfather Alcoholism Mental disorder Paternal Grandmother No problems noted. Social History Housing: Apartment Alcohol intake: current Alcohol intake frequency: 0-2 drinks per day Alcohol type: beer Patient Tobacco Use Status: Current someday Tobacco user Tobacco use type: Cigarette Cigarettes Per Day: 5 Years Smoked: (onset 14yo, 1ppd x 55yrs, now 1/4ppd - 50pyh) e-Cigarette/Vaping Use: Never Used service: No Current occupational status: disabled Cognitive needs: No Hearing needs: No Vision needs: No Review of Systems Const All systems reviewed & are unremarkable except as noted in HPI and below ENT Reports no additional complaints Card Denies chest pain, Denies irregular heart rhythm and Denies leg edema Resp Reports as per HPI GI Reports no additional complaints Reports no additional complaints Musc Reports back pain Skin/Breast Reports system reviewed and no additional complaints, except as documented Neuro Reports no additional complaints Psych Reports no additional complaints Physical Exam Vital Signs: Last Vital Signs Pulse 86 06/11/24 10:11 BP 142/74 H 06/11/24 10:11 Pulse Ox 91 L 06/11/24 10:11 Oxygen Delivery Method Nasal Cannula 06/11/24 10:11 Oxygen Flow Rate 2 06/11/24 10:11 BMI result Body Mass Index 20.5 Const Other: She is of a thin build, looking fairly healthy and stable at this time. General: comfortable, no acute distress, alert and awake Orientation/consciousness: patient oriented x3 HEENT Head: Yes normal to inspection Ears: hearing grossly normal bilaterally General nose exam: No nasal polyps present and No nasal discharge present Face and sinus: Yes sinuses nontender Mouth: oropharynx normal Throat: Yes posterior oropharynx normal Eyes General: appearance normal, both eyes and all related structures Neck Neck: Yes normal visual inspection, Yes no lymphadenopathy, Yes trachea midline and Yes no JVD Thyroid: Thyroid normal Chest Chest palpation & inspection: normal inspection of the chest, normal palpation of entire chest wall and no tenderness Resp Other: Percussion note hyper-resonant, breath sounds are distant with prolonged expiratory phase. But no wheezes rhonchi or crepitations are heard. Cardio Palpation: normal PMI Rate: regular rate Rhythm: regular rhythm Heart sounds: no gallops and no murmurs GI Palpation (GI): Soft to palpation, nontender, No hepatosplenomegaly present and no masses Auscultation: normal bowel sounds Back/Spine/Pelvis Thoracic/Lumbar Spine: thoracic and lumbar spine normal to inspection Pelvis: no pain with anterior-posterior compression Skin General skin exam: no rashes or lesions noted Neuro General: patient oriented x3 and no focal motor deficits Cranial nerves: Yes CN's II-XII intact bilaterally Extrem General: Yes normal to inspection, Yes no clubbing, cyanosis or edema and Yes no calf tenderness Psych Speech and movement: Normal speech and movement present Assessment & Plan Assessment & Plan (1) COPD (chronic obstructive pulmonary disease): Comment: Severe/Advanced COPD - 03/2020 PFT = Severe Obstructive Airway Disorder Code(s): J44.9 - Chronic obstructive pulmonary disease, unspecified Category: Medical Plan: Continue to use Stiolto Respimat 2 inhalations daily Flovent-to 22 puffs b.i.d.. Albuterol HFA 2 puffs Q 6 hours p.r.n. alternating with albuterol in the ne bulizer Q 6 hours p.r.n.. (2) Oxygen dependent: Comment: Patient has chronic respiratory failure with hypoxemia, being treated with O2 24 hours a day. Code(s): Z99.81 - Dependence on supplemental oxygen Category: Medical Plan: Use O2 1.5 L/minute continuously. May increase to 2 L/minute O2 sat is below 90%. Instructed to adjust the nasal cannula and due breathing through the nose if O2 sat goes down. (3) Nicotine dependence, cigarettes, uncomplicated: Comment: (onset 14yo, 1ppd x 55yrs, now 1/4ppd - 50pyh) Still smoking about 5 cigarettes a day. Code(s): F17.210 - Nicotine dependence, cigarettes, uncomplicated Category: Medical Plan: Discussed with her and this is the ongoing reason for her intermittent cough and shortness of breath. She needs to quit smoking completely, which is not going to happen in her case, I told her that she should cut the number of cigarettes , as much as she can. (4) Allergic rhinitis: Comment: MILD , CONTROLLED WITH ATROVENT NASAL INH, USED PRN . Code(s): J30.9 - Allergic rhinitis, unspecified Category: Medical Plan: Continue to use Atrovent nasal inhaler in each nostril b.i.d. p.r.n. Coding Level of Care Code Est Pt Level 3 (47962) Diagnoses COPD (chronic obstructive pulmonary disease) J44.9 Oxygen dependent Z99.81 Nicotine dependence, cigarettes, uncomplicated F17.210 Allergic rhinitis J30.9
--- OUTSIDE RECORDS SUMMARY | 2024-06-11 11:20 | XMS_ITS | Clinical Summary ---
Author Organization [facility] Address [address] [place] [address] Phone Care Team Providers Care Watch Engineer Name Role Phone Physician, No Pcp Primary Care Provider Unavaila ble Allergies Active Allergy Reactions Criticality Noted Date Comments Clindamycin 02/20/2024 Latex 02/20/2024 Levofloxacin 02/20/2024 Psyllium Husk 02/20/2024 Nsaids (Non-Steroidal Anti-I nflammatory Drug) 02/20/2024 Prednisone 02/20/2024 Tramadol 02/20/2024 Valacyclovir 02/20/2024 Medications methadone (DOLOPHINE) 10 mg tablet 1 tablet (10 mg total). Active Medical History Medical History Date Comments COPD (chronic obstructive pulmonary disease) ([facility]/HCC) CHF (congestive heart failure) ([facility]) Social History Tobacco Use Types Packs/Day Years Used Date Smoking Tobacco: Every Day Cigarettes Smokeless Tobacco: Never Tobacco Cessation:Ready to Q uit: Not Asked; Counseling Given: Not Answered Alcohol Use Standard Drinks/Week Comments Yes 14 (1 standard drink = 0.6 oz pu re alcohol) 2 beers daily Comments Unknown Sex and Gender Information Value Date Recorded Sex Assigned at Not on file Legal Sex Female 12:26 PM EST Gender Identity Not on file Sexual Orientation Not on file Obstetrics History Last Filed [...] Zoster Vaccines (2 of 3) 01/18/2017 11/23/2016 Cholesterol Screening (Lipid Panel) 03/06/2022 Colorectal Cancer Screening: Colonoscopy 03/06/2022 Depression Screening 03/06/2022 Falls Risk Assessment 03/06/2022 Hepatitis C Screening 03/06/2022 Medicare Annual Wellness Visit 03/06/2022 Osteoporosis Screening (Bone Density Screening) 03/06/2022 Social Influencers of Health Screening 03/06/2022 DTaP,Tdap,and Td Vaccines (2 - Td or Tdap) 04/09/2023 04/09/2013 Pneumococcal Vaccine: 50+ Years (3 of 3 - PCV20 or PCV21) 10/03/2023 10/02/2018, 01/10/2016, 12/01/2013, Additional history exists COVID-19 Vaccine ( season) 2023 07/06/2021, 09/02/2020, 07/30/2020 Influenza Vaccine (#1) 2023 , 03/13/2022, 01/03/2021, Additional history exists Hypertension/CHF/CAD Annual [...] patient's age to complete this topic Meningococcal B Vacine Aged Out No lo nger eligible based on patient's age to complete this topic RSV Immunization Patients Under 20 months Aged Out No longer eligible based on patient's age to complete this topic Varicella Vaccines Aged Out No longer eligible based on patient's age to complete this topic Procedures Procedure Name Priority Date/Time Associated Diagnosis Comments BASIC METABOLIC PANEL STAT 02/21/2024 3:23 PM EST from Last 3 Months or Most Recently Relevant to Health Maintenance Results * Basic metabolic panel (02/21/2024 3:23 PM EST) Sodium 137 133 - 145 mmol/L LAB CHEMISTRY METHOD 02/21/2024 4:[address] [facility] Potassium 3.9 3.5 - 5.5 mmol/L LAB CHEMISTRY METHOD 02/21/2024 4:[address] [facility] Chloride 102 96 - 110 mmol/L LAB CHEMISTRY METHOD 02/21/2024 4:[address] [facility] CO2 31 21 - 32 mmol/L LAB CHEMISTRY METHOD 02/21/2024 4:[address] [facility] Anion Gap 4 3 - 11 LAB CHEMISTRY METHOD 02/21/2024 4:[address] [facility] Glucose 82 70 - 100 mg/dL LAB CHEMISTRY METHOD 02/21/2024 4:[address] [facility] BUN 8 5 - 25 mg/dL LAB CHEMISTRY METHOD 02/21/2024 4:[address] [facility] Creatinine 0.75 0.50 - 1.10 mg/dL LAB CHEMISTRY METHOD 02/21/2024 4:[address] [facility] eGFR 87 >=60 mL/min/1. 73m2 LAB CHEMISTRY METHOD 02/21/2024 4:16 PM EST [facility] Comment:Calculation based on the??Chronic Kidney Disease Epidemiology Collaboration (CKD-EPI) equation refit??without adjustment for race. BUN/Creatinine Ratio 10.7 LAB CHEMISTRY METHOD 02/21/2024 4:16 PM EST [facility] Calcium 9.2 8.5 - 10.5 mg/dL LAB CHEMISTRY METHOD 02/21/2024 4:16 PM EST [facility] Blood Venous blood specimen / Unknown Venipuncture / Unknown 02/21/2024 3:23 PM EST 02/21/2024 3:25 PM EST David Ryland Tamny Mathew DO LAB BLOOD ORDERABLES Nina jose eduardo Result [facility] ([facility]) [facility] [address] [place] [address], from Last 3 Months or Most Recently Relevant to Health Maintenance Additional Health Concerns Infection Onset Date Last Indicated MRSA 02/21/2024 02/21/2024 Insurance [employer] MEDICARE ADVANTAGE MEDICAID - [place] Care Teams Watch Engineer Relationship Specialty Start Date End Date Physician, No Pcp PCP - General 02/20/24
--- OUTSIDE RECORDS SUMMARY | 2024-06-11 11:20 | XMS_ITS | Patient Health Record ---
Author Organization [facility] Address [address] [place] [address] Care Team Providers Care Vp Lab Name Role Phone Annia MAJOR, Nena Primary Care Provider Marquez Banks Unavailable [phone] José Gore M.D. Unavailable Unavailab le Allergies Allergen (clinical drug ingredient) Drug/Non Drug Allergy documented on EMR Reaction Allergy Type Onset Date Status levofloxacin Levofloxacin Unknown Drug Allergy A ctive Levaquin Unknown Drug Allergy Active clindamycin Clindamycin HCl Unknown Drug Allergy Active Latex latex (uncoded) Unknown Allergy Acti ve valacyclovir Valtrex Unknown Drug Allergy Acti ve tramadol Ultram Unknown Drug Allergy Active tramadol Tramadol HCl Unknown Drug Allergy Acti ve Psyllium Unknown Drug Allergy Active psyllium Metamucil Unknown Drug Allergy Active Reason For Referral No Information Medications Medication SIG (Take, Route, Frequency, Duration) Notes Start Date End Date Status Ondansetron HCl 4 MG TAKE 1 TABLET BY MO UTH EVERY 4-6 HOURS NEEDED FOR NAUSEA for 5 Active Pantoprazole Sodium 40 MG TAKE 1 TABLET BY MOUTH TWICE DAILY for 30 Active tiZANidine HCl 2 MG TK 1 [...] MOUTH EVERY DAY Inhalation for 30 Active Immunizations Vaccine Route Administration Date Status Comme nts Influenza Unknown 12/08/2019 Administered Influenza Unknown 01/25/2021 Administered Social History Tobacco Use: Social History Observation Description Date Details (start date - stop date) Current Smoker NA - NA Tobacco Use/Smoking Question Answer Notes Patient is [...] Never (0 point) Points 0 Interpretation Negative Section Notes: Former substance abuse--pills and IV heroin---last time was in summer Smoker 3 beers QD Former substance abuse--pills and IV heroin---last time was in summer Smoker 3 beers QD Former substance abuse--pills and IV heroin---last time was in summer Smoker approx. 1-5 cigs QD Heavy EtOH--cut down 2 years ago, and only rare at the time of the 08/09/2020 OV Former substance abuse--pills and IV heroin---last time was in summer Smoker approx. 6-8 cigs QD as of the 07/13/2021 OV, heavy EtOH--cut down 2 years ago, and reports 1-2 beers about twice a week as of the 07/13/2021 OV. Problems Problem Type SNOMED Code ICD Code Onset Dates Problem Status W/U Status Risk Notes Problem 87648020 Epigastric pain (R10.13) Active confirmed Problem 134703926 Encounter for screening for malignant neoplasm of colon (Z12.11) Active confirmed Problem 436906019 Alcoholic cirrho sis of liver without ascites (K70.30) Active confirmed Problem Dysphagia (70632852) Dysphagia (R13.10) Active confirmed Problem 18192052 Abdominal pain, epigastric (R10.13) Active confirmed Problem 507253959 Gastroesophageal reflux disease without esophagitis (K21.9) Active confirmed Problem 371479526 Gallstones (K80.20) Active confirmed Problem 292875970 Abnormal UGI ser ies (R93.3) Active confirmed Problem 88993233 Duodenal ulcer (K26.9) Active confirmed Problem 01287742 Esophageal dysph agia (R13.10) Active confirmed Problem 288398088 History of pepti c ulcer disease (Z87.11) Active confirmed Plan Of Treatment Pending Test Test Name Order Date LIVER PROFILE 08/09/2020 CBC w DIFF 08/09/2020 CBC w DIFF 01/02/2017 PROTHROMBIN TIME (PT, INR) 01/02/2017 PROTHROMBIN TIME (PT, INR) 08/09/2020 ALPHA-FETOPROTEIN,TUMOR MARKER ALPHA-FETOPROTEIN,TUMOR MARKER 7 NUC HIDA SCAN 06/21/2021 XR BARIUM SWALLOW-ESOPHAGUS 08/09/2020 XR GI SERIES 08/09/2020 US ABD 08/09/2020 Future Test Test Name Order Date UPPER GI ENDOSCOPY 01/02/2017 COLONOSCOPY 01/02/2017 UPPER GI ENDOSCOPY [place] DILATION OF ESOPH 07/13/2021 Insurance Providers Payer Name Payer Address Payer Phone Subscriber Number Group Number Insured Name Patient Relationship to Insured Coverage Start Date Coverage End Date [facility] [address] [place], [place] [id number] SRINIVAS WRIGHT Self - patient is the insured [place] [address] [place] [id number] SRINIVAS WRIGHT Self - patient is the insured Medical (General) History Medical History History ICD Code COPD--oxygen dependent-Dr. [place]--respiratory arrest in 01/2019--in ICU for 1 month Urinary incontinence Chronic Hep C--sees Dr. Luis acevedo--starting Valdo on 01/03/18--Hep C viral load was neg. in 08/2017; a liver fibrosis test in 2017 was 0.74 consistent with F4, and previous hepatitis C genotype was 1A Duodenal ulcer with UGI Bleed in 2004--s /p therapeutic EGD x 2 Colonoscopy at [facility] in a pprox 2004--patient was not clear about the details HTN--not on any meds Denies TX,DM,CVA,renal disease EGD 03/2017--portal gastropa thy, no varices, gastritis with biopsies negative for H. pylori, informed duodenal bulb consistent with previous ulcer disease, moderate sized hiatal hernia Colonoscopy 03/2017--1 small tubular adenoma removed, diverticulosis, internal hemorrhoids GI Bleed at [facility] in 06/25 17 with an upper endoscopy--? results---needed 4 units PRBC and some platelet transfusions Surgical History Surgery Date(Month/Year) Ankle surgery-fracture Left rib surgery for a benign tumor Hysterectomy
== END 2024-06-11 10:47 | disposition home or self-care (01) ==
PROVIDERS: PCP Internal Medicine; Visit Provider Internal Medicine
DX: J44.9 Chronic obstructive pulmonary disease, unspecified (principal); Z99.81 Dependence on supplemental oxygen; F17.210 Nicotine dependence, cigarettes, uncomplicated; J30.9 Allergic rhinitis, unspecified
CPT/HCPCS: 99213

== ENCOUNTER → 2024-06-11 09:50 | Outpatient (BNVA) | payer MEDICARE, MEDICAID, SELFPAY | PROVIDERS: PCP Internal Medicine; Visit Provider Internal Medicine | DX: J44.9 Chronic obstructive pulmonary disease, unspecified (principal); J96.10 Chronic respiratory failure, unspecified whether with hypoxia or hypercapnia; J30.9 Allergic rhinitis, unspecified; F17.210 Nicotine dependence, cigarettes, uncomplicated; Z99.81 Dependence on supplemental oxygen | CPT/HCPCS: 99212 ==

== ENCOUNTER 2024-06-15 10:09 | Outpatient (AMB) | payer MEDICARE, MEDICAID, SELFPAY ==
[2024-06-15 10:22] VITALS: BP 100/48; PULSE 88; RESP 15; TEMP 36.6; O2SAT 94; BMI 20.2
--- NOTE | 2024-06-15 10:22 | A.OFFPC_ITS ---
Vital Signs 06/15/24 10:22 Height 5 ft 6 in Weight 125 lb BMI 20.2 BP 100/48 L Blood Pressure Location Lt brachial Position Sitting Respiration 15 Pulse 88 Pulse Source Pulse Oximeter Temp 97.8 F Temp Source Oral Pulse Oximetry (%) 94 Oxygen Delivery Method Nasal Cannula Intake Visit Reasons: PE Intake Note: Pt is here today for her PE: last mammogram 06/17/23 and colonoscopy 01/16/17 Allergies dextrose Allergy (Severe, Verified 06/15/24 10:42) anaphylaxis latex [LATEX] Allergy (Severe, Verified 06/15/24 10:42) HIVES psyllium [From Metamucil] Allergy (Severe, Verified 06/15/24 10:42) anaphylaxis clindamycin [CLINDAMYCIN] Allergy (Intermediate, Verified 06/15/24 10:42) RASH NSAIDS (Non-Steroidal Anti-Inflamma Allergy (Intermediate, Verified 06/15/24 10:42) ulcers tramadol [From ULTRAM] Allergy (Intermediate, Verified 06/15/24 10:42) HIVES levofloxacin [From LEVAQUIN] Adverse Reaction (Intermediate, Verified 06/15/24 10:42) TENDON PAIN, achilles tendonitis prednisone Adverse Reaction (Intermediate, Verified 06/15/24 10:42) GI BLEED, high doses valacyclovir [From VALTREX] Adverse Reaction (Intermediate, Verified 06/15/24 10:42) GI UPSET bupropion Adverse Reaction (Verified 06/15/24 10:42) vomiting Medication List - Last Reconciled 06/15/24 by Nena Milner MD acetaminophen 650 mg PO Q6H PRN albuterol sulfate 2.5 mg (3 mL) inhalation Q4-6H PRN 30 days albuterol sulfate 90 mcg/actuation 2 puffs PO Q4-6H PRN alprazolam (Xanax) 0.5 mg PO DAILY PRN ammonium lactate 5% 1 appl topical DAILY docusate sodium 100 mg PO BID PRN fluticasone propionate 220 mcg/actuation 2 puffs inhalation BID furosemide 20 mg PO QAM PRN ipratropium bromide 2 sprays intranasal BID-TID PRN ipratropium-albuterol 0.5 mg-3 mg(2.5 mg base)/3 mL 3 mL inhalation Q4-6H PRN 20 days loratadine 10 mg PO DAILY methadone 105 mg PO DAILY nicotine 1 patch transdermal DAILY NS ondansetron HCl 4 mg PO BID PRN pantoprazole 40 mg PO BID ramelteon 8 mg PO BEDTIME PRN Stiolto Respimat 2.5-2.5 mcg/actuation (tiotropium-olodaterol) 2 puffs PO DAILY NS tizanidine 4 mg PO Q8H PRN 30 days Tobacco use date assessed: 06/15/24 Fall risk assessment: 2 + Falls in past year Last assessed Fall Risk: 06/15/24 Dental Screening Dental Screen Date: 05/15/24 Did you have a dental visit in the last 12 months?: No Did you have a dental problem in the last 6 months where you did not have access to dental care?: No Was dental information given to patient?: Patient declined HPI PE HPI Details 69 years old female with history advance d chronic obstructive pulmonary disease and chronic respiratory failure, has generalized anxiety disorder, chronic pain syndrome currently on methadone, history of anemia, osteoarthritis, bipolar disorder and history of adenomatous polyp of colon, alcoholic cirrhosis of liver, here today for physical exam She currently is being seen by Pulmonary, on oxygen 24 hours a day mostly at 1.5 L/minute and sometime has to increase to 2 L/minute after exertion. She has ongoing intermittent cough, and some wheezing. This is mostly related to her ongoing smoking. She is currently getting yearly low-dose lung cancer screenings with low-dose CT scan, last done a year ago with normal findings She is up-to-date with her screening mammogram, last done 06/17/23 with benign findings . She had colonoscopy done on 01/16/[address] Gomez with removal of a tubular adenoma polyp. she is overdue for a repeat screening. she has generalized anxiety disorder, sees her therapist regularly. And takes alprazolam as needed but no maintenance medication for anxiety. She has chronic neck pain due to cervical disc disease and osteoarthritis of multiple joints. She has been referred to pain management clinic and was seen by Dr. Castelan last March, who scheduled her a diagnostic right-sided medial branch block C3-C4 C5-C6 in the attempt to help her pain on 06/23/2024. Patient has been taking tizanidine , currently on methadone for treatment of opiate addiction, but still not getting pain relief. Patient requesting to see if she can just get some oxycodone prescription to take until she sees Dr. Castelan next week. she has hammertoes in both feet, needs to be referred to another crm marketing manager as her last provider is no longer available.. [facility] Medical History (Updated 06/19/24 @ 13:54 by Nena Milner MD) H/O adenomatous polyp of colon Hammertoe of right foot History of meningitis Nicotine dependence, cigarettes, uncomplicated Generalized anxiety disorder Cervical radiculopathy due to degenerative joint disease of spine Takotsubo cardiomyopathy History of congestive heart failure Anemia Absent pedal pulses Constipation due to opioid therapy Oxygen dependent Allergic rhinitis Vitamin D deficiency Primary osteoarthritis, right shoulder Respiratory failure with hypoxia Surgical menopause Duodenal ulcer Bipolar disorder Gastritis Substance abuse Osteopenia Alcoholic cirrhosis of liver Hepatitis C COPD (chronic obstructive pulmonary disease) Osteoarthritis of multiple joints Surgical History History of resection of rib History of colonoscopy History of ankle surgery History of esophagogastroduodenoscopy (EGD) History of hysterectomy Family History Father Alcoholism History of manic depressive disorder COPD (chronic obstructive pulmonary disease) Cancer Mother COPD (chronic obstructive pulmonary disease) Cardiac disease Smoker CHF (congestive heart failure) Alcoholism CVD (cardiovascular disease) Mental disorder Sister Lupus PTSD (post-traumatic stress disorder) Son Cardiac arrest Maternal Grandfather No problems noted. Maternal Grandmother No problems noted. Paternal Grandfather Alcoholism Mental disorder Paternal Grandmother No problems noted. Social History Housing: Apartment Alcohol intake: current Alcohol intake frequency: 0-2 drinks per day Alcohol type: beer Patient Tobacco Use Status: Current someday Tobacco user Tobacco use type: Cigarette Cigarettes Per Day: 5 Years Smoked: (onset 14yo, 1ppd x 55yrs, now 1/4ppd - 50pyh) e-Cigarette/Vaping Use: Never Used service: No Current occupational status: disabled Cognitive needs: No Hearing needs: No Vision needs: No Questionnaire PHQ-9 Over the last 2 weeks, how often have you been bothered by any of the following problems? 1. Little interest or pleasure in doing things: not at all 2. Feeling down, depressed, or hopeless: not at all 3. Trouble falling or staying asleep, or sleeping too much: more than half the days 4. Feeling tired or having little energy: more than half the days 5. Poor appetite or overeating: several days 6. Feeling bad about yourself - or that you are a failure or have let yourself or your family down: several days 7. Trouble concentrating on things, such as reading the newspaper or watching television: not at all 8. Moving or speaking so slowly that other people could have noticed. Or the opposite - being so fidgety or restless that you have been moving around a lot more than usual: not at all 9. Thoughts that you would be better off or of hurting yourself in some way: not at all Total score: 6 Depression Screening Interpretation: Negative Depression Screening Done: Yes 81548 - PHQ-9 Billing: Yes Source: Developed by Drs. Marquez Mclaughlin, Anny Chong, Giovanny Grady and colleagues, with an educational owen from [employer]. Thrive Questionnaire Date Thrive assessed: 06/15/24 I am a: Patient What is your living situation today?: I have a steady place to live Within the past 12 months, did the food you bought not last and you didn't have the money to get more?: I choose not to answer this question Within the past 12 months, did you worry whether your food would run out before you got money to buy more?: I choose not to answer this question Do you have trouble paying for medicines?: No Do you have trouble getting transportation to medical appointments?: No Do you have trouble paying your heating and electricity bill?: Yes Do you have trouble taking care of your child, family member or friend?: No Do you have trouble with day-to-day activities such as bathing, preparing meals, shopping, managing finances, etc.?: Yes Are you currently unemployed and looking for a job?: No Are you interested in more education?: No Please select the resources that you would like help with: None Currently or been in a relationship where the following occur: I choose not to answer THRIVE Score: 1 AUDIT C Alcohol Use Questionnaire (AUDIT-C) 1. How often do you have a drink containing alcohol?: 4 or more times a week 2. How many drinks containing alcohol do you have on a typical day when you are drinking?: 1 or 2 3. How often do you have six or more drinks on one occasion?: Never Total Score: 4 Score Reviewed/Action Taken: Yes MIKE-7 AMB Questionnaire MIKE-7 Date MIKE - 7 assessed: 06/15/24 Feeling nervous, anxious, or on edge: 2 = More than half the days Not being able to stop or control worryin = Several days Worrying too much about different things: 2 = More than half the days Trouble relaxin = More than half the days Being so restless that it is hard to sit still: 1 = Several days Becoming easily annoyed or irritable: 2 = More than half the days Feeling afraid as if something awful might happen: 1 = Several days Total MIKE-7 score (0-4 normal; 5-9 mild; 10-14 moderate; 15-21 severe): 11 Source: Developed by Drs. Marquez Mclaughlin, Anny Chong, Giovanny Grady and colleagues, with an educational owen from [employer]. MIKE-7 Assessment Billing MIKE-7 Assessment Tool: MIKE-7 Assessment 91516 Review of Systems Const Reports difficulty sleeping, Denies fever(s), Denies frequent falls, Denies headache(s) and Reports lethargy Eyes Denies change in vision ENT Reports no additional complaints and Denies headache(s) Card Denies chest pain, Denies irregular heart rhythm, Denies leg edema and Reports dyspnea on exertion Resp Reports cough, Reports dyspnea on exertion and Reports wheezing GI Denies abdominal pain, Denies melena, Denies hematochezia and Denies change in bowel habits Reports no additional complaints Musc Reports back pain ( Posterior neck pain and stiffness radiating down both arms) and Reports other ( pain in toes of both feet) Skin/Breast Denies breast pain, Denies breast mass and Denies rash Neuro Reports as per HPI, Denies frequent falls and Denies headache(s) Psych Reports as per HPI Endo Reports no additional complaints Guillaume/Lymph Reports no additional complaints Aller/Immun Reports seasonal rhinorrhea and Reports wheezing Physical exam (Primary Care) Vital Signs: Last Vital Signs Temp 97.8 F 06/15/24 10:22 Pulse 88 06/15/24 10:22 Resp 15 06/15/24 10:22 BP 100/48 L 06/15/24 10:22 Pulse Ox 94 06/15/24 10:22 Oxygen Delivery Method Nasal Cannula 06/15/24 10:22 BMI result Body Mass Index 20.2 Tobacco/Smoking Status: Tobacco use Status Tobacco use date assessed 06/15/24 06/15/24 10:23 Patient Tobacco Use Status Current someday Tobacco 06/15/24 10:23 Tobacco use type Cigarette 06/15/24 10:23 e-Cigarette/Vaping Use Never Used 06/15/24 10:23 PHQ-9: PHQ-9 Score PHQ-9: Total score 6 06/19/24 13:46 Depression Screening Interpretation: Negative Thrive Assessment: Date of Thrive Assessment Date Thrive assessed 06/15/24 06/15/24 10:39 Currently or been in a relationship where the following occur: I choose not to answer Advance Care Planning discussion: Completed/Scanned Date of discussion: 06/15/24 Who was present: Patient Forms completed: Health Care Proxy and MOLST Time spent: 16-45 minutes Actual minutes spent: 15 Const General: no acute distress Nutritional Appearance: average body habitus Orientation/consciousness: patient oriented x3 HENMT General nose exam: Normal external nose present, Normal nasal mucous membranes and turbinates present and Other nasal findings present (Has O2 by nasal cannula) Eyes General: appearance normal, both eyes and all related structures Neck Neck: Yes no lymphadenopathy and Yes tender ( posterior neck, with pain on range of motion) Chest Breast/axilla inspection: normal inspection of the breasts Breast/axilla palpation: normal palpation of the breasts Resp Other: diminished breath sounds bilaterally, no wheezing Cardio Other: S1-S2 present regular rate and rhythm, unable to palpate dorsalis pedis pulse bilaterally GI Inspection: Yes normal to inspection Palpation (GI): Soft to palpation, nontender, no guarding and no masses Other: Patient declined exam Back/Spine/Pelvis Cervical Spine: cervical muscular tenderness, pain with cervical ROM and cervical spasm Skin General skin exam: no rashes or lesions noted and dry skin Neuro General: patient oriented x3, moves all extremities, Normal light touch and pain sensation and no focal motor deficits Extrem Other: hammertoes and thick, discolored toenails noted in both feet General: Yes full ROM, Yes no joint enlargement and Yes no pedal edema Psych Appearance: grossly normal and well kempt Mental Status: mental status grossly normal Speech and movement: Normal speech and movement present Affect: normal affect Attitude: cooperative Coding Level of Care Code Est Pt Prev Care >65y(57237) Diagnoses Osteoarthritis of multiple joints M15.9 COPD (chronic obstructive pulmonary disease) J44.9 Osteopenia of multiple sites M85.89 Osteopenia location: multiple sites Bipolar affective disorder, current episode depressed, current episode severity unspecified F31.30 Active/Remission status: currently active Current bipolar episode type: depressed Current episode severity: unspecified Anemia, unspecified type D64.9 Anemia type: unspecified type Chronic pain syndrome G89.4 Annual visit for general adult medical examination with abnormal findings Z00.01 Acquired deformity of toenail L60.8 H/O adenomatous polyp of colon Z86.0101 Hammertoe of right foot M20.41 Nicotine dependence, cigarettes, uncomplicated F17.210 Generalized anxiety disorder F41.1 Advanced directives, counseling/discussion Z71.89 Additional Codes MIKE-7 Assessment Billing - MIKE-7 Assessment Tool: MIKE-7 Assessment 18249 ([id number]) PHQ-9 - 14070 - PHQ-9 Billing: Yes ([id number]) Vital Signs *Quality* - Advance Care Planning discussion: Completed/Scanned ([id number]) Vital Signs *Quality* - Time spent: 16-45 minutes ([id number]) Assessment & Plan Assessment & Plan (1) Osteoarthritis of multiple joints: Code(s): M15.9 - Polyosteoarthritis, unspecified Category: Medical Plan: patient taking an occasional Tylenol, which affords only relief. Takes tizanidine as needed for painful muscle spasm. (2) COPD (chronic obstructive pulmonary disease): Comment: Severe/Advanced COPD - 03/2020 PFT = Severe Obstructive Airway Disorder Code(s): J44.9 - Chronic obstructive pulmonary disease, unspecified Category: Medical Plan: On continuous O2 by nasal cannula, followed by Dr. Covarrubias, strongly advised to stop smoking, will start back again on nicotine patch to help quit smoking. Currently on Stiolto Respimat and DuoNeb via nebulizer every 4-6 hours as needed , and has albuterol rescue inhaler. she is up-to-date with her pneumococcal vaccine, flu and COVID booster as well as RSV vaccine (3) Osteopenia: Comment: (Bone Dexa Lumbar T-score: -1.7 on 02/08/17) Code(s): M85.80 - Other specified disorders of bone density and structure, unspecified site Category: Medical Qualifiers: Osteopenia location: multiple sites Qualified Code(s): M85.89 - Other specified disorders of bone density and structure, multiple sites Plan: will check vitamin-D level and basic metabolic panel. Bone density scan ordered (4) Bipolar disorder: Code(s): F31.9 - Bipolar disorder, unspecified Category: Medical Qualifiers: Active/Remission status: currently active Current bipolar episode type: depressed Current episode severity: unspecified Qualified Code(s): F31.30 - Bipolar disorder, current episode depressed, mild or moderate severity, unspecified Plan: patient currently sees therapist does not want to start any medication at present time (5) Anemia: Code(s): D64.9 - Anemia, unspecified Category: Medical Qualifiers: Anemia type: unspecified type Qualified Code(s): D64.9 - Anemia, unspecified Plan: CBC differential and iron profile as well as beta basic metabolic panel (6) Chronic pain syndrome: Code(s): G89.4 - Chronic pain syndrome Category: Medical Plan: short course of oxycodone prescribed today, patient advisedto take only as needed for severe pain, no further refills will be sent. Has an appointment for with Dr. Castelan at the pain Clinic scheduled for 06/23/2024 for further treatment options (7) Annual visit for general adult medical examination with abnormal findings: Code(s): Z00.01 - Encounter for general adult medical examination with abnormal findings Plan: Will check appropriate labs. Recommended dental visit every 6 months and regular eye exams, at least every 2 years. Take adequate calcium in diet and vitamin-D 3 at 2000 IU per cap once a day, in addition to weight-bearing exercises to help maintain good muscle tone and weight control. Instructed to do self-breast exam, and continue to get yearly mammogram, currently up-to-date. Patient declined pelvic exam and cervical cancer screening. bone density scan ordered. She is up-to-date with all her vaccines. Referral back to Dr. Gomez for a repeat colonoscopy withhistory of tubular adenoma removald on last colonoscopy done in 2016 (8) Acquired deformity of toenail: Code(s): L60.8 - Other nail disorders Plan: podiatry consult ordered (9) H/O adenomatous polyp of colon: Comment: Sees Dr. Gomez removed on colonoscopy done 03/2017 Code(s): Z86.0101 - Personal history of adenomatous and serrated colon polyps Category: Medical Plan: referred back to Dr. Gomez for her diagnostic colonoscopy, would is overdue (10) Hammertoe of right foot: Code(s): M20.41 - Other hammer toe(s) (acquired), right foot Category: Medical Plan: podiatry consult ordered (11) Nicotine dependence, cigarettes, uncomplicated: Comment: (onset 14yo, 1ppd x 56yrs, now 1/4ppd - 50pyh) Still smoking about 5 cigarettes a day. Code(s): F17.210 - Nicotine dependence, cigarettes, uncomplicated Category: Medical Plan: prescription sent for nicotine patch to use as directed, schedule follow-up with me in 4 weeks after starting patch (12) Generalized anxiety disorder: Comment: Currently sees therapist regularly Code(s): F41.1 - Generalized anxiety disorder Category: Medical Plan: currently sees therapist, does not want to start any medication at present time (13) Advanced directives, counseling/discussion: Code(s): Z71.89 - Other specified counseling Plan: Initiated the conversation about Advanced Directives. Advanced Directives help patients prepare for current and future decisions about their medical treatment and place of care. Discussed with patient that it is a process where a patients current condition and prognosis are reviewed, their wishes for information regarding their illness are elicited, and likely medical dilemmas are presented and options discussed. MOLST and healthcare proxy form completed today. These forms can be amended as needed, reviewed yearly and make changes as needed Orders: Orders Basic Metabolic Panel Fasting 06/15/24 D12.6 - Benign neoplasm of colon, unspecified, D64.9 - Anemia, unspecified, E55.9 - Vitamin D deficiency, unspecified, F31.30 - Bipolar disorder, current episode depressed, mild or moderate severity, unspecified, G89.4 - Chronic pain syndrome, J44.9 - Chronic obstructive pulmonary disease, unspecified, M15.9 - Polyosteoarthritis, unspecified, M85.80 - Other specified disorders of bone density and structure, unspecified site, Z00.01 - Encounter for general adult medical examination with abnormal findings Aspartate Amino Transferase 06/15/24 D12.6 - Benign neoplasm of colon, unspecified, D64.9 - Anemia, unspecified, E55.9 - Vitamin D deficiency, unspecified, F31.30 - Bipolar disorder, current episode depressed, mild or moderate severity, unspecified, G89.4 - Chronic pain syndrome, J44.9 - Chronic obstructive pulmonary disease, unspecified, M15.9 - Polyosteoarthritis, unspecified, M85.80 - Other specified disorders of bone density and structure, unspecified site, Z00.01 - Encounter for general adult medical examination with abnormal findings Lipid Panel 06/15/24 D12.6 - Benign neoplasm of colon, unspecified, D64.9 - Anemia, unspecified, E55.9 - Vitamin D deficiency, unspecified, F31.30 - Bipolar disorder, current episode depressed, mild or moderate severity, unspecified, G89.4 - Chronic pain syndrome, J44.9 - Chronic obstructive pulmonary disease, unspecified, M15.9 - Polyosteoarthritis, unspecified, M85.80 - Other specified disorders of bone density and structure, unspecified site, Z00.01 - Encounter for general adult medical examination with abnormal findings Complete Blood Count Auto Diff 06/15/24 D12.6 - Benign neoplasm of colon, unspecified, D64.9 - Anemia, unspecified, E55.9 - Vitamin D deficiency, unspecified, F31.30 - Bipolar disorder, current episode depressed, mild or moderate severity, unspecified, G89.4 - Chronic pain syndrome, J44.9 - Chronic obstructive pulmonary disease, unspecified, M15.9 - Polyosteoarthritis, unspecified, M85.80 - Other specified disorders of bone density and structure, unspecified site, Z00.01 - Encounter for general adult medical examination with abnormal findings IRON PROFILE 06/15/24 D12.6 - Benign neoplasm of colon, unspecified, D64.9 - Anemia, unspecified, E55.9 - Vitamin D deficiency, unspecified, F31.30 - Bipolar disorder, current episode depressed, mild or moderate severity, unspecified, G89.4 - Chronic pain syndrome, J44.9 - Chronic obstructive pulmonary disease, unspecified, M15.9 - Polyosteoarthritis, unspecified, M85.80 - Other specified disorders of bone density and structure, unspecified site, Z00.01 - Encounter for general adult medical examination with abnormal findings Alanine Aminotransferase 06/15/24 D12.6 - Benign neoplasm of colon, unspecified, D64.9 - Anemia, unspecified, E55.9 - Vitamin D deficiency, unspecified, F31.30 - Bipolar disorder, current episode depressed, mild or moderate severity, unspecified, G89.4 - Chronic pain syndrome, J44.9 - Chronic obstructive pulmonary disease, unspecified, M15.9 - Polyosteoarthritis, unspecified, M85.80 - Other specified disorders of bone density and structure, unspecified site, Z00.01 - Encounter for general adult medical examination with abnormal findings Vitamin D 25-OH Total 06/15/24 D12.6 - Benign neoplasm of colon, unspecified, D64.9 - Anemia, unspecified, E55.9 - Vitamin D deficiency, unspecified, F31.30 - Bipolar disorder, current episode depressed, mild or moderate severity, unspecified, G89.4 - Chronic pain syndrome, J44.9 - Chronic obstructive pulmonary disease, unspecified, M15.9 - Polyosteoarthritis, unspecified, M85.80 - Other specified disorders of bone density and structure, unspecified site, Z00.01 - Encounter for general adult medical examination with abnormal findings XR DEXA axial skeleton 06/15/24 M85.80 - Other specified disorders of bone density and structure, unspecified site Referrals Podiatry Referral L60.8 - Other nail disorders, M20.41 - Other hammer toe(s) (acquired), right foot Gastroenterology Referral Z86.0101 - Personal history of adenomatous and serrated colon polyps Medications: Changed From oxycodone 5 mg PO BID PRN 3 tabs 0RF severe pain To oxycodone 5 mg PO .daily PRN 3 tabs 0RF severe pain Refilled nicotine 1 patch transdermal DAILY 28 ea 1RF NS F17.210 - Nicotine dependence, cigarettes, uncomplicated
--- OUTSIDE RECORDS SUMMARY | 2024-06-15 11:19 | XMS_ITS | Data Portability ---
Author Organization [facility] [employer] [facility], Main Office Address [address], [address] [place] [address] Care Team Providers Care Tip Puncher Name Role Phone [facility] ([facility]) OTHER Assessment No assessment recorded. Plan of [...] Organization Details Recorded Time Chronic pain syndrome 375606178 Active [address], [address], [place], [address], [email or web address] 0 08:31:24 Pneumonia 802796602 Active [address], [address], [place], [address], [facility] [employer] 9 13:27:27 Acute respiratory failure 46349955 Active [address], [address], [place], [address], [facility] [employer] 9 13:27:40 Chronic obstructive pulmonary disease 00793788 Active [address], [address], [place], [address], [facility] [employer] 9 13:27:47 Viral hepatitis C 77641450 Active [address], [address], [place], [address], [facility] [employer] 9 13:27:53 Intravenous drug user 281758524 Active [address], [address], [place], [address], [facility] [employer] [facility] 9 13:28:03 Infectious disorder of joint 501602290 Active [address], [address], [place], [address], [facility] [employer] [facility] 9 13:42:18 Depressive disorder 08246871 Active [address], [address], [place], [address], [facility] [employer] [facility] 9 13:58:51 Anxiety 12438295 Active [address], [address], [place], [address], [facility] [employer] [facility] 9 13:59:54 Seasonal allergy 257060496 Active [address], [address], [place], [address], [facility] [employer] [facility] 9 14:00:28 Gastroesophage al reflux disease 423731632 Active [address], [address], [place], [address], [facility] [employer] [facility] 9 14:00:53 Edema of lower extremity 036044539 Active 2018 Klarissa Goodson MD [address] [place] [address], [facility] [address], [place], [address], [facility] [employer] [facility] 9 20:38:43 Degenerative joint disease of shoulder region 28977162 Active [address] MD [address] [place] [address], [address], [place], [address], [facility] [employer] [facility] 9 09:39:08 Problem Notes None recorded. Medical Equipment None Reported. Allergies Allergen ID Allergen Name Allergen Category Reaction Reaction Severity Criticality Documentation Date Start Date Code Code System Note Provider Name and Address Organization Details Recorded Time 34335 Ultram medicatio n Not available Not available Not available 07/17/2018 26011 6 RxNorm Not Available Not Available Not Available 97316 Metamucil medicatio n Not available Not available Not available 07/17/2018 6802 RxNorm Not Available Not Available Not Available 77503 Non-stero idal anti-infl ammatory agent (product) medicatio n Not available Not available Not available 07/17/2018 17740 005 SNOMED Not Available Not Available Not Available 81199 psyllium food,medi cation Not available Not available Not available 07/17/2018 8928 RxNorm Not Available Not Available Not Available 21291 tramadol medicatio n Not available Not available Not available 07/17/2018 61968 RxNorm Not Available Not Available Not Available 18490 levofloxa quinton medicatio n Not available Not available Not available 07/17/2018 24656 RxNorm Not Available Not Available Not Available 61200 clindamyc in Not available Not available Not available Not available 07/17/2018 2582 RxNorm Not Available Not Available Not Available 26248 Levaquin medicatio n Not available Not available Not available 07/17/2018 07524 2 RxNorm Not Available Not Available Not Available 97294 latex environme nt,medica tion Not available Not available Not available 07/17/2018 33888 91 RxNorm Not Available Not Available Not Available 21426 Valtrex medicatio n Not available Not available Not available 07/17/2018 14278 0 RxNorm Not Available Not Available Not Available Medications Not known to be on any medication Vitals Date Recorded Body height Systolic blood pressure Diastolic blood pressure Provider Name and Address Organization Details Last Updated DateTime 07/17/2019 165.1 cm 107 mm[Hg] 63 mm[Hg] Ra Street MD [address] [place] [address] [address], [address], [facility] [employer] 07/17/2019 12:43:19 Date Recorded Body height Systolic blood pressure Diastolic blood pressure Provider Name and Address Organization Details Last Updated DateTime 08/03/2019 165.1 cm 122 mm[Hg] 74 mm[Hg] JOE MIDDLETON [address] [place] [address] [address], [address], [place] [employer] 08/03/2019 15:04:25 Date Recorded Body height Systolic blood pressure Diastolic blood pressure Provider Name and Address Organization Details Last Updated DateTime 08/13/2019 165.1 cm 128 mm[Hg] 68 mm[Hg] Zenaida Huang MA [facility] [address] 08/13/2019 12:14:26 Date Recorded Body height Oxygen saturation Oxygen saturation in Arterial blood by Pulse oximetry Heart rate Systolic blood pressure Diastolic blood pressure Provider Name and Address Organization Details Last Updated DateTime 0 [address]486.9 8 cm 95 % 95 % 68 /min 110 mm[Hg] 58 mm[Hg] Zenaida Huang [facility] [employer] [facility] 0 13:02:56 Date Recorded Body height Oxygen saturation Oxygen saturation in Arterial blood by Pulse oximetry Inhaled oxygen flow rate Heart rate Respiratory rate Systolic blood pressure Diastolic blood pressure Provider Name and Address Organization Details Last Updated DateTime 0 76779.9 8 cm 99 % 99 % 3 L/min 75 /min 18 /min 128 mm[Hg] 64 mm[Hg] JOE MIDDLETON [address] [facility], [address], [place], [address], [facility] [employer] 0 08:44:18 Social History Question Answer Notes LastModified by Organizat ion Details LastModified Time Tobacco Smoking Status Current Every Day Smoker Not Available [facility] 02/02/2020 03:13:20 Do You Have An Advance Directive? Yes Full Code [id number] Information not available 02/02/2020 What Is Your Level Of Alcohol Consumption? None Used To Drink 1/2 Case Of Beer Daily X 30 Years [id number] Information not available 02/02/2020 How Much Tobacco Do You Chew? None [id number] Information not available 02/02/2020 Do You Have A Medical Power Of Administrative Processor? No [id number] Information not available 02/02/2020 What Was The Date Of Your Most Recent Tobacco Screening? 10/24/2018 [id number] Information not available 02/02/2020 How Much Tobacco Do You Smoke? 0.5 PPD [id number] Information not available 02/02/2020 Has Tobacco Cessation Counseling Been Provided? Yes Quit A Few Months Ago [id number] Information not available 02/02/2020 On What Date Was Tobacco Cessation Counseling Provided? 10/24/2018 Quit A Few Months Ago [id number] Information not available 02/02/2020 How Many Years Have You Smoked Tobacco? 10 [id number] Information not available 02/02/2020 Sex: Unknown Functional [...] Recorded Time influenza, unspecified formulation 9 completed [facility] 10/22/2018 11:41:18 pneumococcal polysaccharide PPV23 4 completed [facility] 10/22/2018 11:41:32 Pneumococcal conjugate PCV 13 9 [facility] 10/22/2018 11:41:45 Past Encounters Encounter ID Performer Location Encounter Start Date Encounter Closed Date Diagnosis/Indication Diagnosis SNOMED-CT Code Diagnosis ICD10 Code Diagnosis Note [id number] [facility] on [address] [place] [address] 07/17/2018 13:22:50 07/23/2018 15:37:30 Intravenous drug user 984338866 F19.10 Currently on methadone with current relapsefol lowed by methadone clinic on [facility], continue while here should be 70 mg Infectious disorder of joint 298530887 M01.X8 C3-C4 early facet joint infection with epidural phlegmon versus worsening arthritis found on imagingTo complete 6 weeks of IV abx, IV vanco and ceftriaxon e 2 gm BID stop date 08/23weekly CBC, BMP, LFTs, ESR, CRP and vanco trough while on therapy fax to [phone] llow up with ID and neurosurge ry as scheduled on 08/06will need follow up MRI after completion of IV abxtizanid ine 2 mg TID PRN Chronic ob structive pulmonary disease 87798049 J41.8 encourage smoking cessation0 2 at home, 3 liters via NCcomplete d course of prednisone x 5 daysDuoneb s q 4 hours PRNtrilegy dailyspiri va daily-pt on spironolac tone daily, unsure why Viral hepatitis C 988958 07 B17.10 Patient has chronic thrombocyt openia most likely related to the hep cmonitor labs Depressive disorder 3548 9007 F33.8 D/C citalopram , pt states she was taking a while ago and not anymore Anxiety 35806128 F41.1 hydroxyzin e 25 mg TID PRNAdd ativan 0.25 mg TID PRN, patient very anxious at visit monitor mood Seasonal allergy 1108734 04 J30.2 Loratidine 10 mg daily Gastroesop hageal reflux disease 422998339 K21.9 Omeprazole 20 mg dailyranit idine 300 mg daily monitor for reflux [id number] Zenaida Huang [facility] on [address] [place] [address] 07/21/2018 14:22:08 07/23/2018 16:24:49 Edema of lower extremity 067927291 R60.0 suspect secondary to reduced mobilityAd d lasix 20 mg dailyCompr ession wraps to legs dailyEleva te legs when in bedMonitor Infectious disorder of joint 130563120 M01.X8 C3-C4 early facet joint infection with epidural phlegmon versus worsening arthritis found on imagingTo complete 6 weeks of IV abx, IV vanco and ceftriaxon e 2 gm BID stop date 08/23weekly CBC, BMP, LFTs, ESR, CRP and vanco trough while on therapy fax to [phone] llow up with ID and neurosurge ry as scheduled on 08/06will need follow up MRI after completion of IV abxtizanid ine 2 mg TID PRN Increased pain-will add oxycodone 5 mg Q12h prn-d/c prior to dischargeM onitor [id number] Klarissa Goodson MD [facility] on [address] [place] [address] 07/24/2018 11:15:29 07/31/2018 09:30:39 Edema of lower extremity 986438721 R60.0 Pt. thinks this is a rxn [...] 25 mg qd.Monitor Infectious disorder of joint 335980344 M01.X8 With probable epidural infection. ContinueTo complete 6 weeks of IV abx, IV vanco 750 mg q 12 hrs and ceftriaxon e 2 gm BID stop date 08/23. Titrate vanco to troughs 10-20.Will get weekly CBC, BMP, LFTs, ESR, CRP and vanco trough while on therapy fax to [phone] llow up with ID and neurosurge ry as scheduled on 08/06will need follow up MRI after completion of IV abxContinu e tizanidine 2 mg TID PRN and oxycodone 5 mg Q12h prn-d/c prior to discharge. Monitor sxs. Chronic ob structive pulmonary disease 23864047 J41.8 Says her breathing is pretty good today. Encourage smoking cessation as below. Continue O2 at 3 liters via NC, as her usual at home. Continue Duonebs q 4 hours PRN,treleg y 100-62.5-2 5 and spiriva 18 mcg qd. Has completed 5 day burst of prednisone . Intravenous drug user 22 8490233 F19.10 Currently on methadone with recent relapse. Methadone lowered from 85 mg to 70 mg qd while inpt. due to lethargy.F ollowed by methadone clinic on [facility]. Viral hepatitis C 123403 07 B17.10 Patient has chronic thrombocyt openia most likely related to the hep cmonitor labs Depressive disorder 8560 9851 F33.8 Citalopram ordered inpt, but pt states she was taking a while ago and not anymore, so d/c'd on admission here. Monitor mood. Psych consult prn. Anxiety 29081155 F41.1 Continue hydroxyzin e 25 mg TID prn and lorazepam 0.25 mg TID prn. monitor mood.Psych consult prn. Seasonal allergy 8877397 04 J30.2 No current sxs. Continue loratidine 10 mg qd. Monitor for sxs. Gastroesop hageal reflux disease 109311461 K21.9 Pt. with nausea today. She says [...] schedule. Monitor for improvemen t in sxs. [id number] Zenaida Huang [facility] on [address] [place] [address] 07/29/2018 13:24:47 07/31/2018 10:35:10 Edema of lower extremity 360583125 R60.0 Edema worseningI ncrease Lasix 40 mg BID Check BMP 08/01Compre ssion wraps to legs dailyEleva te legs when in bedAdd daily weightsMon itor Infectious disorder of joint 030301222 M01.X8 C3-C4 early facet joint infection with epidural phlegmon versus worsening arthritis found on imagingTo complete 6 weeks of IV abx, IV vanco and ceftriaxon e 2 gm BID stop date 08/23weekly CBC, BMP, LFTs, ESR, CRP and vanco trough while on therapy fax to [phone] llow up with ID and neurosurge ry as scheduled on need follow up MRI after completion of IV abxtizanid ine 2 mg TID PRNOxycodo ne 5 mg Q12h prn-d/c prior to discharge Monitor [id number] Zenaida Huang [facility] on [address] [place] [phone] 08/04/2018 15:29:40 08/07/2018 15:48:37 Edema of lower extremity 755524519 R60.0 Lasix 40 mg BID Compressio n wraps to legs daily Elevate legs when in bedDaily weightsMon itor Infectious disorder of joint 673088861 M01.X8 C3-C4 early facet joint infection with [...] Q12h prn-d/c prior to discharge Monitor Hypokalemia 85796227 E87 .6 Potassium level low likely secondary to increased lasixAdd KCl 20 mEq dailyMonit or potassium level Chronic ob structive pulmonary disease 71479471 J41.8 Pulmonolog y recommendi ng d/c Trelegy Ellipta, start Stiolto-wi ll orderCont. albuterol neb PRNOn chronic N6Toubqiy respirator y status [id number] JOE MIDDLETON [facility] on [address] [place] [phone] 08/13/2018 15:57:59 08/15/2018 08:46:47 Edema of lower extremity 757559462 R60.0 Decrease lasix to 20 mg BID, monitor weights and decrease further if able [id number] [facility] on [address] [place] [phone] 08/14/2018 13:18:10 08/18/2018 11:05:44 Edema of lower extremity 607936826 R60.0 lasix 20 mg BID Change to AMANDO stockings from SUSI Elevate legs when in bedDaily weightsMon itorPT/OT eval and treat now for pain Infectious disorder of joint 518614737 M01.X8 C3-C4 early facet joint infection with [...] must happen before she leaves Monitor Hypokalemia 54296230 E87 .6 KCl 20 mEq dailyMonit or potassium level Chronic ob structive pulmonary disease 28837032 J41.8 Stiolto dailyCont. albuterol neb PRNOn chronic O4Ferhsnf respirator y status [id number] [facility] on [address] [place] [phone] 08/22/2018 08:33:57 08/26/2018 14:30:29 Edema of lower extremity 671789153 R60.0 continue lasix 20 mg BID TEDs dailyEleva te legs when in bedDaily weights, remain stable at 122.4 lbsContinu e with PT/OT for neck and back pain Infectious disorder of joint 804656541 M01.X8 C3-C4 early facet joint infection with [...] she leaves Chronic ob structive pulmonary disease 19032490 J41.8 Stiolto dailyCont. albuterol neb PRNOn chronic A7Lraicnp respirator y status [id number] JOE [facility] on [address] [place] [phone] 08/26/2018 13:23:03 09/03/2018 10:10:11 Infectious disorder of joint 194691562 M01.X8 C3-C4 early facet joint infection with epidural phlegmon versus worsening arthritis found on imagingFin ished course of IV abx, to pull PICC line today.foll ow up with ID and neurosurge ry as scheduledw ill need follow up MRI after completion of IV abxtizanid ine 2 mg TID PRNOxycodo ne 5 mg Q12h prn-d/c prior to discharge Anxiety 82777927 F41.1 D/C hydroxyzin e 25 mg TID PRN, continue the scheduled dose at nightIncre ase ativan to 0.50 mg TID PRN- continue going forward monitor mood, consult NEG if needed [id number] Katherine Valdez [facility] on [address] [place] [phone] 09/05/2018 11:10:51 09/10/2018 15:54:47 Infectious disorder of joint 088693374 M01.X8 C3-C4 early facet joint infection with [...] maximize function Edema of l ower extremity 035210707 R60.0 lasix 20mg bid, remains with slight swelling in BLETEDs dailyEleva te legs when in bedDaily weights physical activity encouraged Chronic ob structive pulmonary disease 08057116 J41.8 Stiolto dailyCont. albuterol neb PRNOn chronic O2 Pt continues to smoke daily, encouraged to quit Monitor respirator y status Hypokalemia 22355713 E87 .6 KCl 20 mEq dailyMonit or potassium level [id number] Katherine Valdez [facility] on [address] [place] [address] 09/10/2018 14:08:57 09/16/2018 11:35:48 Infectious disorder of joint 701557345 M01.X8 C3-C4 early facet joint infection with [...] independen t Edema of l ower extremity 611613871 R60.0 Pt initially started on lasix here [...] bed Daily weights physical activity encouraged Hypokalemia 42497685 E87 .6 KCl 20 mEq dailyMonit or potassium level- will get level today and in one week due to lasix decrease [id number] JOE Blank [facility] on [address] [place] [address] 09/17/2018 09:43:49 09/24/2018 12:08:17 Infectious disorder of joint 045741210 M01.X8 C3-C4 early facet joint infection with [...] independen t Edema of l ower extremity 243831059 R60.0 continue lasix 20 mg qd, consider D/C if she remains stableappe ars euvolemic. TEDs daily Elevate legs when in bed Daily weights physical activity encouraged Hypokalemia 95562746 E87 .6 KCl 20 mEq daily- labs stable [id number] [address] SCOTT [address] [place] [address] 09/22/2018 09:22:34 09/24/2018 14:16:44 Edema of lower extremity 315737434 R60.0 Increase lasix to 40 mg daily in AM, AMANDO stockings on dailyappea rs euvolemic Elevate legs when in bed Daily weights, up 4 lbs today physical activity encouraged Infectious disorder of joint 205144304 M01.X8 pt saw ID on 09/03/18, started [...] been discontinu ed, pt is independen t [id number] PATIENCE Hammond [facility] on [address] [place] [phone] 09/29/2018 07:49:44 10/01/2018 13:57:52 Edema of lower extremity 174982064 R60.0 resolvedco ntinue lasix 40 mg qd and tedsmonito r Infectious disorder of joint 752494108 M01.X8 continue minocyclin e 100 mg bid till seen by IDstaff will call for MRIf/u with ID pending tizanidine 2 mg TID continue oxycodone 5 mg at 2 and 2 per patient request.[facility]i ll [facility] OT as pt is independen t staff will utilize prn tylenol for pain Chronic ob structive pulmonary disease 11912862 J41.0 continue stiolto 2.5/2.5 mg 2 puffs qdspiriva 18 mcg qdalbutero l MDI prnmonitor resp status Gastroesop hageal reflux disease 317527188 K21.9 zantac 150 mg 2 qhsmonitor for sx relief Anxiety 22273160 F41.1 hydroxyzin e 25 mg 1 qhs for anxietymon itor for sx relief [id number] JOE MIDDLETON [facility] on [address] [place] [phone] 10/03/2018 14:08:22 10/07/2018 11:22:36 Edema of lower extremity 112089286 R60.0 resolvedco ntinue lasix 40 mg qd and tedsmonito r Infectious disorder of joint 756107721 M01.X8 continue minocyclin e 100 mg bid till seen by IDstaff will call for MRIf/u with ID pending tizanidine 2 mg TID continue oxycodone 5 mg at 2 and 2 per patient request.Wi ll D[facility] OT as pt is independen t staff will utilize prn tylenol for pain Chronic ob structive pulmonary disease 12070059 J41.0 continue stiolto 2.5/2.5 mg 2 puffs qdspiriva 18 mcg qdalbutero l MDI prnmonitor resp status Gastroesop hageal reflux disease 328967278 K21.9 zantac 150 mg 2 qhsmonitor for sx relief Anxiety 64289292 F41.1 hydroxyzin e 25 mg 1 qhs for anxietymon itor for sx relief [id number] PATIENCE Hammond [facility] on [address] [place] [address] 10/24/2018 16:06:59 10/27/2018 11:09:51 Edema of lower extremity 768784759 R60.0 resolvedco ntinue lasix 40 mg qd and tedsmonito r Infectious disorder of joint 556439872 M01.X8 pt has her car here in [...] for pain Chronic ob structive pulmonary disease 35462389 J41.0 continue stiolto 2.5/2.5 mg 2 puffs qdspiriva 18 mcg qdalbutero l MDI prnmonitor resp status Gastroesop hageal reflux disease 737885939 K21.9 zantac 150 mg 2 qhsmonitor for sx relief Anxiety 53385690 F41.1 hydroxyzin e 25 mg 1 qhs for anxietymon itor for sx relief [id number] Zenaida Huang [facility] on [address] [place] [phone] 12/03/2018 13:13:44 12/10/2018 09:35:51 Insomnia 736819405 G47.09 Increase melatonin 6 mg QHSMonitor [id number] Zenaida Huang [facility] on [address] [place] [address] 12/10/2018 09:02:33 12/12/2018 12:16:12 Shoulder joint pain 257058831 M25.519 M25.512 X-ray left shoulder, referral for physical therapyCon t oxycodone BIDTylenol PRN [address] MD [facility] on [address] [place] [address] 01/07/2019 09:20:50 01/09/2019 15:16:09 Chronic obstructive pulmonary disease 18324902 J41.1 baseline COPDcontin ues to smokediscu ssed quittingma intained onalbutero lspiriva 18 mcg qdmonitor respirator y function Intravenous drug user 22 7683577 F19.10 maintained on methadonec ontinuedoe s have oxycodone prn for breakthrou ghmonitor utilizatio n Edema of l ower extremity 547567661 R60.0 at baselinela six 40 mg qdmonitor bp and renal function Degenerati ve joint disease of shoulder region 20781039 M19.012 will refer to physiatry for evalquesti on steroid injection [id number] Zenaida Huang [facility] on [address] [place] [id number] 02/06/2019 10:10:17 02/09/2019 15:18:43 Gastroesophageal reflux disease 922554185 K21.9 Cont prilosec 20 mg dailyStart famotidine 20 mg BIDMonitor sxs [id number] JOE MIDDLETON [facility] on [address] [place] [id number] 02/26/2019 14:01:17 03/17/2019 11:19:44 Unresponsive 105237611 R40.20 See HPIsent to ED for eval [id number] Zenaida Huang [facility] on [address] [place] [id number] 03/18/2019 15:32:48 03/23/2019 15:47:45 Njfwc-uw-iuojgzk respiratory failure 25004578 J96.21 See HPIOn 3 L O2 via NCPT OT eval and treatMonit or respirator y statusPati ent motivated to quit smoking-ni cotine patch prescribed Clostridiu m difficile colitis 025591903 A04.72 Completed course oral vancoStool s now formedMoni tor for recurrence cont probiotic Chronic ob structive pulmonary disease 39260137 J41.1 baseline COPDmainta ined onalbutero lspiriva 18 mcg qdmonitor respirator y function Intravenous drug user 22 2927466 F19.10 maintained on methadone Edema of l ower extremity 526672658 R60.0 Now off lasixMonit or edema and restart lasix PRN Fracture o f multiple ribs 6353121 S22.43XA Secondary to CPROn oxycodone for painAdd tizanidine PRNEncoura ge use of ISMonitor for pain control [address] MD [facility] on [address] [place] [address] 03/23/2019 15:12:06 03/27/2019 10:21:55 Xnfcz-us-twonuad respiratory failure 36430353 J96.21 wean O2 as toleratede ncourage quitting tobacco Chronic ob structive pulmonary disease 37846761 J41.1 baseline COPDstable on current medication smonitor respirator y function Intravenous drug user 22 1372760 F19.10 maintained on methadone at baselineno change in narcotic medication s Gastroesop hageal reflux disease 745115954 K21.9 famotidine 20 mg bidmonitor for sx relief [id number] Zenaida Huang [facility] on [address] [place] [id number] 03/27/2019 14:47:18 04/03/2019 14:49:34 Shoulder joint pain 630484315 M25.519 M25.512 X-ray right shoulderCo nt oxycodone PRNTylenol PRNMonitor [id number] Zenaida Huang [facility] on [address] [place] [address] 03/31/2019 10:55:23 04/03/2019 15:34:46 Chronic back pain 126496591 G89.29 Increase Tizanidine 2 mg TIDOxycodo ne 10 mg Q4h PRN Monitor for effect [id number] [facility]enaida [facility] [address] [place] [phone] 3 05/14/2019 15:03:47 05/17/2019 13:19:55 Exsvc-oz-uvhnvqp respiratory failure 62478786 J96.21 See HPIOn 3 L O2 via NCRespirat ory status stable Fracture o f multiple ribs 9266792 S22.43XA Secondary to CPROn oxycodone for pain-will taper to Q6h PRN Chronic ob structive pulmonary disease 21651746 J41.1 baseline COPDmainta ined onalbutero lspiriva 18 mcg qdmonitor respirator y function Intravenous drug user 22 7301503 F19.10 maintained on methadone [id number] Zenaida Huang [facility] [address] [place] [phone] 3 06/11/2019 15:22:17 06/17/2019 11:11:24 Edema of lower extremity 253930219 R60.0 Restart lasix 20 mg dailyMonit or weights and edemaWill also check BMP [id number] Zenaida Huang [facility] [address] [place] [address] [phone] 3 07/02/2019 11:32:05 07/07/2019 14:55:36 Edema of lower extremity 030874590 R60.0 Increase lasix 40 mg dailyMonit or weights and edemaRepea t BMP 07/05 [id number] Zenaida Huang [facility] [address] [place] [address] [phone] 3 07/10/2019 11:40:16 07/16/2019 09:15:58 Edema of lower extremity 538951703 R60.0 On lasix 40 mg dailyAdd 1500 mL fluid restrictio n Monitor weights and fluid status [id number] Zenaida Huang [facility] [address] [place] [address] [phone] 3 07/13/2019 12:28:56 07/16/2019 09:56:55 Edema of lower extremity 928842032 R60.0 Lungs clear, no increase in hypoxiaOn lasix 40 mg BID x 3 days, then resume 40 mg alqqu4753 mL fluid restrictio n Monitor weights and fluid status [id number] MD [facility] on [address] [place] [address] [phone] 3 07/17/2019 10:01:57 07/21/2019 16:37:51 Chronic obstructive pulmonary disease 80718169 J41.1 baseline COPDstable on current medication smonitor respirator y function Gastroesop hageal reflux disease 900607796 K21.9 stable at baselinemo nitor for sx relief Edema of l ower extremity 678340643 R60.0 1+ lower extremity edemamonit [place] [id number] JOE MIDDLETON [facility] on [address] [place] [address] [phone] 3 08/03/2019 14:56:31 08/07/2019 11:41:12 Edema of lower extremity 964688911 R60.0 2+ lower extremity edemaIncre ase lasix to 80 mg daily x 3 days then resume 40 mg daily monitor bp and renal functionti trate meds prn [id number] [facility] [address] [place] [address] [phone] 3 08/13/2019 12:13:46 08/17/2019 15:33:16 Peripheral edema 961109328 R60.0 ImprovedOn lasix 80 mg x 2 more days then decreases to 40 mg dailyAdd eucerin cream for dry skinMonito r [id number] [facility] [address] [place] [address] [phone] 3 08/19/2019 13:01:05 08/25/2019 09:19:13 Peripheral edema 861070152 R60.0 Increase lasix 40 mg BIDMonitor renal function and edema Chronic ob structive pulmonary disease 69187839 J41.1 baseline COPDrequir es continuous O2 to maintain O2 sat >90%Stiolt o inhaler dailyCombi vent inhaler PRNRespira tory status stable Gastroesop hageal reflux disease 739350435 K21.9 Prilosec 40 mg BIDMonitor sxs Chronic pain syndrome 37 4854673 G89.4 On methadoneC urrently on oxycodone- will taper to d/c prior to discharge [id number] JOE MIDDLETON [facility] on [address] [place] [address] 3 08/22/2019 08:29:52 08/25/2019 12:46:10 Chronic obstructive pulmonary disease 05415270 J41.1 baseline COPDrequir es continuous O2 to maintain O2 sat >90% , see HPI regarding trial with PTStiolto inhaler dailyCombi vent inhaler PRNRespira tory status stable Peripheral edema 6001953 00 R60.0 lasix 40 mg BIDMonitor renal function and edema outpt Gastroesop hageal reflux disease 176867492 K21.9 Prilosec 40 mg BID Chronic pain syndrome 37 1972202 G89.4 On methadone 80 mg dailyoxyco done [...] Bain Member ID Guarantor Name 07/17/2019 1 () Nilsa Fitzpatrick [id number] Nilsa Fitzpatrick 08/03/2019 1 () Nilsa Fitzpatrick [id number] Nilsa Fitzpatrick 08/13/2019 1 () Nilsa Fitzpatrick [id number] Nilsa Fitzpatrick 08/19/2019 1 () Nilsa Fitzpatrick [id number] Nilsa Fitzpatrick 08/22/2019 1 () Nilsa Fitzpatrick [id number] Nilsa Fitzpatrick Notes Date Note Type Note Provider Name [...] O2 at baseline Ra Street MD [address], [address], [place], [address], [facility] 07/17/2019 12:46:11 08/03/2019 text/html This is a [...] not notified by staff. JOE MIDDLETON [address], [address], [place], [address], [email or web address] 08/03/2019 15:07:56 08/13/2019 text/html 64 yo female LTC resident seen for report of new blister to left ankle. Patient with hx of peripheral edema-recently on increased dose of lasix. Now with significant improvement in edema. Zenaida dunn, [email or web address] 08/13/2019 12:43:31 08/19/2019 text/html 64 yo female see n for annual exam. Patient with hx of COPD-O2 dependent at baseline, cardiac arrest 02/2019 secondary to respiratory failure, depression, gerd, lower extremity edema. Has now secured apartment in community and has planned discharge for end of the week. States is doing well with exception of increased lower extremity edema. Zenaida dunn, [email or web address] 08/19/2019 13:28:58 08/22/2019 text/html This is a [...] with oxygen 3 lpm. JOE MIDDLETON [address], [address], [place], [address], [place] [facility] 08/22/2019 08:46:04 OBGyn Episode No OBEpisode recorded.
--- OUTSIDE RECORDS SUMMARY | 2024-06-15 11:19 | XMS_ITS | Clinical Summary ---
Author Organization [facility] Address [address] [place] [address] Phone Care Team Providers Care Dialer Name Role Phone Physician, No Pcp Primary [...] disease) (CM S/HCC) CHF (congestive heart failure) ([facility]) Social History Tobacco Use Types Packs/Day Years [...] LAB CHEMISTRY METHOD 02/21/2024 4:16 PM EST [facility] Comment:Calculation based on the??Chronic Kidney Disease Epidemiology Collaboration (CKD-EPI) equation refit??without adjustment for race. BUN/Creatinine Ratio 10.7 LAB CHEMISTRY METHOD 02/21/2024 4:16 PM EST [facility] Calcium 9.2 8.5 - 10.5 mg/dL LAB CHEMISTRY METHOD 02/21/2024 4:16 PM EST [facility] Blood Venous blood specimen / Unknown Venipuncture / Unknown 02/21/2024 3:23 PM EST 02/21/2024 3:25 PM EST David Ryland Tamny Mathew DO LAB BLOOD ORDERABLES Nina jose eduardo Result [facility] ([facility]) [facility] [address] [place] [address], from Last 3 Months or Most Recently Relevant to Health Maintenance Additional Health Concerns Infection Onset Date Last Indicated MRSA 02/21/2024 02/21/2024 Insurance [employer] MEDICARE ADVANTAGE MEDICAID - [place] Care Teams Dialer Relationship Specialty Start Date End Date Physician, No Pcp PCP - General 02/20/24
== END 2024-06-15 11:18 | disposition home or self-care (01) ==
PROVIDERS: PCP Internal Medicine; Visit Provider Internal Medicine
DX: Z00.00 Encounter for general adult medical examination without abnormal findings (principal); M15.9 Polyosteoarthritis, unspecified; J44.9 Chronic obstructive pulmonary disease, unspecified; F31.30 Bipolar disorder, current episode depressed, mild or moderate severity, unspecified; M85.89 Other specified disorders of bone density and structure, multiple sites; D64.9 Anemia, unspecified; G89.4 Chronic pain syndrome; L60.8 Other nail disorders; Z86.0101 Personal history of adenomatous and serrated colon polyps; M20.41 Other hammer toe(s) (acquired), right foot; F17.210 Nicotine dependence, cigarettes, uncomplicated; F41.1 Generalized anxiety disorder

== ENCOUNTER → 2024-06-15 10:09 | Outpatient (BNVA) | payer MEDICARE, MEDICAID, SELFPAY | PROVIDERS: PCP Internal Medicine; Visit Provider Internal Medicine | DX: Z00.01 Encounter for general adult medical examination with abnormal findings (principal); M15.9 Polyosteoarthritis, unspecified; M85.89 Other specified disorders of bone density and structure, multiple sites; J44.9 Chronic obstructive pulmonary disease, unspecified; F31.30 Bipolar disorder, current episode depressed, mild or moderate severity, unspecified; D64.9 Anemia, unspecified; G89.4 Chronic pain syndrome; L60.8 Other nail disorders; M20.41 Other hammer toe(s) (acquired), right foot; F41.1 Generalized anxiety disorder; Z71.89 Other specified counseling; F17.210 Nicotine dependence, cigarettes, uncomplicated; Z86.0101 Personal history of adenomatous and serrated colon polyps; Z71.6 Tobacco abuse counseling | CPT/HCPCS: 96127; 99397; 99497 ==

== ENCOUNTER → 2024-06-19 08:42 | Outpatient (REF) | payer MEDICARE, MEDICAID, SELFPAY ==
--- NOTE | 2024-06-19 08:46 | CA_ITS ---
Transthoracic Echocardiogram Patient (Last, First, Middle): Nilsa Fitzpatrick L Gender: Female Date of : 1955 Age: 69 Procedure Date: 06/19/2024 Procedure Type: Transthoracic Echocardiogram Location: OP Height: 167.64 cm Weight: 53.98 kg BSA: 1.60 m2 Heart Rate: bpm BP: 180 / 90 mmHg Convex Grinder: TO Referring MD: Jeffrey Walker MD Symptoms: I51.81 - Takotsubo syndrome Study Quality: Technically Difficult/Contrast ECG Rhythm: Sinus Conclusions: - The left ventricular systolic function is hyperdynamic. The visually estimated ejection fraction is between 65-70%. - There is mild calcification of the aortic valve. - There is moderate mitral annular calcification. Findings Procedure Information Contrast agent, definity, is being given per protocol without apparent complications. Left Ventricle Normal left ventricular cavity size. There is normal left ventricular wall thickness. The left ventricular systolic function is hyperdynamic. The visually estimated ejection fraction is between 65-70%. There is no evidence of regional wall motion abnormalities. Diastolic function is normal for age. Right Ventricle Normal right ventricular cavity size. There is low normal right ventricular systolic function. Atria Both atria are normal in size. Aortic Valve The aortic valve was not well visualized. There is mild calcification of the aortic valve. There is no aortic valve stenosis. There is no aortic valve regurgitation. Mitral Valve There is moderate mitral annular calcification. There is no mitral valve regurgitation. There is no mitral valve stenosis. Pulmonic Valve The pulmonic valve is likely normal. Tricuspid Valve There is trace tricuspid valve regurgitation. There is no evidence of pulmonary hypertension. Great Vessels The asc aorta is normal in size. Venous The inferior vena cava is normal in size and collapses less than 50% with inspiration. Pericardium/Pleural There is no evidence of pericardial effusion. Prior Study Comparison No significant change compared to prior study dated: 10/25/2023. Measurements 2D Linear Measurements IVSd: 0.96 0.6-0.9/0.6-1.0 cm LVIDd: 3.84 3.9-5.3/4.2-5.9 cm LVIDd Index: 2.40 2.4-3.2/2.2-3.1 cm/m2 LVIDs: 2.53 2.0-3.6 cm LVPWd: 0.76 0.7-1.1 cm LV Mass: 119.96 67-162/88-224 g LV Mass Index: 74.98 43-95/49-115 g/m2 LVOT Diam: 2.10 3.0+(-)1.3 cm 2D Systolic Function EF 4C: 63.60 >55% Mitral Valve MV VTI: 0.25 MV Pk Edgar: 1.41 MV Mn Edgar: 0.91 MV Pk Grad: 8.00 MV Mn Grad: 4.00 MV Pk E: 0.86 MV PK A: 1.29 MV Decel Time: 100.00 E/A: 0.70 E'Lateral: 8.59 E'Medial: 7.94 E/E' Med: 10.90 E/E' Lat: 10.00 PHT: 29.00 MVA PHT: 7.59 MVA Continuity: 2.98 Decel [place]: 8.65 Aortic Valve AoV Pk Edgar: 1.64 AoV Mn Edgar: 1.18 AoV VTI: 0.37 AoV Pk Grad: 11.00 Aov Mn Grad: 6.00 GWYN Cont.VTI: 2.01 LVOT LVOT Pk Edgar: 1.10 LVOT Mn Edgar: 0.80 LVOT VTI: 0.22 LVOT Pk Grad: 5.00 LVOT Mn Grad: 3.00 LVOT Diam: 2.10 LVOT Area: 3.46 Diastolic Function MV Pk E: 0.86 MV Pk A: 1.29 E/A: 0.70 E'Medial: 7.94 E/E' Med: 10.90 E' Laterial: 8.59 E/E' Lat: 10.00 Right Ventricle TAPSE (mm): 17.10 TVS' Edgar: 9.25 Tricuspid Valve RA Press: 8.00 Great Vessels Aorta Sinus of Valsalva: 3.00 2.0-3.5 cm Ao Asc: 3.20 2.1-3.4 cm Updated in Other Vendor System with Status of Final Jeffrey Walker MD electronically signed on 06/21/2024 8:50:24 AM with status of Final
--- OUTSIDE RECORDS SUMMARY | 2024-06-19 08:57 | XMS_ITS | Clinical Summary ---
Author Organization [facility] Address [address] [place] [address] Phone Care Team Providers Care Clinching Machine Operator Name Role Phone Physician, No Pcp Primary [...] disease) (CM S/HCC) CHF (congestive heart failure) ([facility]) Social History Tobacco Use Types [...] mmol/L LAB CHEMISTRY METHOD 02/21/2024 4:16 PM [facility] Potassium 3.9 3.5 - 5.5 mmol/L LAB CHEMISTRY METHOD 02/21/2024 4:16 PM [facility] Chloride 102 96 - 110 mmol/L LAB CHEMISTRY METHOD 02/21/2024 4:16 PM [facility] CO2 31 21 - 32 mmol/L LAB CHEMISTRY METHOD 02/21/2024 4:16 PM [facility] Anion Gap 4 3 - 11 LAB CHEMISTRY METHOD 02/21/2024 4:16 PM [facility] Glucose 82 70 - 100 mg/dL LAB CHEMISTRY METHOD 02/21/2024 4:16 PM [facility] BUN 8 5 - 25 mg/dL LAB CHEMISTRY METHOD 02/21/2024 4:16 PM [facility] Creatinine 0.75 0.50 - 1.10 mg/dL LAB CHEMISTRY METHOD 02/21/2024 4:16 PM [facility] eGFR 87 >=60 mL/min/1. 73m2 LAB CHEMISTRY METHOD 02/21/2024 4:16 PM EST [facility] Comment:Calculation based on the??Chronic Kidney Disease Epidemiology Collaboration (CKD-EPI) equation refit??without adjustment for race. BUN/Creatinine Ratio 10.7 LAB CHEMISTRY METHOD 02/21/2024 4:16 PM EST [facility] Calcium 9.2 8.5 - 10.5 mg/dL LAB CHEMISTRY METHOD 02/21/2024 4:16 PM EST [facility] Blood Venous blood specimen / Unknown Venipuncture / Unknown 02/21/2024 3:23 PM EST 02/21/2024 3:25 PM EST David Ryland Tamny Mathew DO LAB BLOOD ORDERABLES Nina jose eduardo Result [facility] ([facility]) [facility] [address] [place] [address], from Last 3 Months or Most Recently Relevant to Health Maintenance Additional Health Concerns Infection Onset Date Last Indicated MRSA 02/21/2024 02/21/2024 Insurance [employer] MEDICARE ADVANTAGE MEDICAID - [place] Care Teams Clinching Machine Operator Relationship Specialty Start Date End Date Physician, No Pcp PCP - General 02/20/24
--- OUTSIDE RECORDS SUMMARY | 2024-06-19 08:57 | XMS_ITS | Patient Health Record ---
Author Organization [facility] Address [address] [place] [address] Care Team Providers Care High School Math Tutor Name Role Phone Annia MAJOR, Nena Primary Care Provider Marquez Banks Unavailable [phone] José Gore M.D. Unavailable Unavailab le Allergies Allergen (clinical drug ingredient) Drug/Non Drug Allergy documented on EMR Reaction Allergy Type Onset Date Status valacyclovir Valtrex Unknown Drug Allergy Acti ve tramadol Ultram Unknown Drug Allergy Active tramadol Tramadol HCl Unknown Drug Allergy Acti ve Psyllium Unknown Drug Allergy Active psyllium Metamucil Unknown Drug Allergy Active levofloxacin Levofloxacin Unknown Drug Allergy A ctive Levaquin Unknown Drug Allergy Active clindamycin Clindamycin HCl Unknown Drug Allergy Active Latex latex (uncoded) Unknown Allergy Acti ve Reason For Referral No Information Medications Medication [...] Problem Status W/U Status Risk Notes Problem 20466772 Epigastric pain (R10.13) Active confirmed Problem 466067096 Encounter for screening for malignant neoplasm of colon (Z12.11) Active confirmed Problem 101565019 Alcoholic cirrho sis of liver without ascites (K70.30) Active confirmed Problem Dysphagia (46209401) Dysphagia (R13.10) Active confirmed Problem 86557887 Abdominal pain, epigastric (R10.13) Active confirmed Problem 665119631 Gastroesophageal reflux disease without esophagitis (K21.9) Active confirmed Problem 313240190 Gallstones (K80.20) Active confirmed Problem 773997610 Abnormal UGI ser ies (R93.3) Active confirmed Problem 60036425 Duodenal ulcer (K26.9) Active confirmed Problem 15545976 Esophageal dysph agia (R13.10) Active confirmed Problem 046046691 History of pepti c ulcer disease (Z87.11) Active confirmed Plan Of Treatment Pending Test Test Name Order Date LIVER PROFILE 08/09/2020 CBC w DIFF 08/09/2020 CBC w DIFF 01/02/2017 PROTHROMBIN TIME (PT, INR) 08/09/2020 PROTHROMBIN TIME (PT, INR) 01/02/2017 ALPHA-FETOPROTEIN,TUMOR MARKER ALPHA-FETOPROTEIN,TUMOR MARKER 7 NUC HIDA [...] Insured Coverage Start Date Coverage End Date [facility] [address] [place], [place] [id number] SRINIVAS WRIGHT Self - patient is the insured MEDICAID OF [place] [address] [place] [id number] SRINIVAS WRIGHT Self - patient is the [...] /p therapeutic EGD x [address] [facility] in a pprox 2004--patient was not clear about the details HTN--not on any meds Denies NH,DM,CVA,renal disease EGD 03/2017--portal gastropa thy, no varices, gastritis with biopsies negative for H. pylori, informed duodenal bulb consistent with previous ulcer disease, moderate sized hiatal hernia Colonoscopy 03/2017--1 small tubular adenoma removed, diverticulosis, internal hemorrhoids GI Bleed at [facility] in 06/25 17 with an upper endoscopy--? results---needed 4 units PRBC and some platelet transfusions Surgical History Surgery Date(Month/Year) Ankle surgery-fracture Left rib surgery for a benign tumor Hysterectomy
== END ==
LOC: HO.CARD 08:42
PROVIDERS: PCP Internal Medicine; Visit Provider Internal Medicine
DX: I51.81 Takotsubo syndrome (principal)
CPT/HCPCS: 93306; Q9957

== ENCOUNTER → 2024-06-19 08:46 | Outpatient (BNV) | payer MEDICARE, MEDICAID, SELFPAY | PROVIDERS: PCP Internal Medicine; Visit Provider Internal Medicine | DX: I35.8 Other nonrheumatic aortic valve disorders (principal); I51.81 Takotsubo syndrome | CPT/HCPCS: 93306 ==

== ENCOUNTER 2024-06-22 11:07 | Outpatient (REF) | payer MEDICARE, MEDICAID, SELFPAY | END 2024-06-22 11:08 | disposition home or self-care (01) | LOC: HO.MAMMO 11:07 | PROVIDERS: PCP Internal Medicine; Visit Provider Internal Medicine | DX: Z12.31 Encounter for screening mammogram for malignant neoplasm of breast (principal) | CPT/HCPCS: 77063; 77067 ==

== ENCOUNTER → 2024-06-22 11:15 | Outpatient (BNV) | payer MEDICARE, MEDICAID, SELFPAY | PROVIDERS: PCP Internal Medicine; Visit Provider Internal Medicine | DX: Z12.31 Encounter for screening mammogram for malignant neoplasm of breast (principal) | CPT/HCPCS: 77063; 77067 ==

== ENCOUNTER 2024-06-23 06:14 | Outpatient (REF) | payer MEDICARE, MEDICAID, SELFPAY ==
--- NOTE | ~2024-06-23 | FL_ITS ---
EXAMINATION: FL GUIDANCE ONLY HISTORY: M47.812 - Spondylosis without myelopathy or radiculopathy, cervical region COMPARISON: None available. TECHNIQUE: Fluoroscopy time: 0.5 minutes. Cumulative Dose: 2.80 mGy. DAP: 0.0353 mGym2 Images: 3. FINDINGS: Images demonstrate multiple needles and contrast material in the right neck. FL/FL guidance in treatment room IMPRESSION: Fluoroscopy during procedure. Please see procedure report for additional information. Electronically signed by: Marquez Huang MD 06/23/2024 10:28 AM EDT
== END 2024-06-23 06:15 | disposition home or self-care (01) ==
LOC: CF 06:14
PROVIDERS: Visit Provider Anesthesiology
DX: M47.812 Spondylosis without myelopathy or radiculopathy, cervical region (principal)
CPT/HCPCS: 64490; 64491; 64492; J2003; J2795; Q9967

== ENCOUNTER 2024-06-23 08:49 | Outpatient (AMB) | payer MEDICARE, MEDICAID, SELFPAY ==
[2024-06-23 08:56] VITALS: BP 142/75; PULSE 116; RESP 16; O2SAT 95
--- NOTE | 2024-06-23 08:56 | MHC.OFFVIS ---
Vital Signs 06/23/24 08:56 06/23/24 09:26 BP 142/75 H 126/61 Blood Pressure Location Lt brachial Lt brachial Position Sitting Sitting Respiration 16 16 Pulse 116 H 100 Pulse Source Pulse Oximeter Pulse Oximeter Pulse Oximetry (%) 95 94 Oxygen Delivery Method Nasal Cannula Nasal Cannula Oxygen Flow Rate 2 2 Intake Visit Reasons: RIGHT DIAGNOSTIC C3, C4, C5 C6 MBB Milled Rubber Tender Required: No Allergies dextrose Allergy (Severe, Verified 06/23/24 08:57) anaphylaxis latex [LATEX] Allergy (Severe, Verified 06/23/24 08:57) HIVES psyllium [From Metamucil] Allergy (Severe, Verified 06/23/24 08:57) anaphylaxis clindamycin [CLINDAMYCIN] Allergy (Intermediate, Verified 06/23/24 08:57) RASH NSAIDS (Non-Steroidal Anti-Inflamma Allergy (Intermediate, Verified 06/23/24 08:57) ulcers tramadol [From ULTRAM] Allergy (Intermediate, Verified 06/23/24 08:57) HIVES levofloxacin [From LEVAQUIN] Adverse Reaction (Intermediate, Verified 06/23/24 08:57) TENDON PAIN, achilles tendonitis prednisone Adverse Reaction (Intermediate, Verified 06/23/24 08:57) GI BLEED, high doses valacyclovir [From VALTREX] Adverse Reaction (Intermediate, Verified 06/23/24 08:57) GI UPSET bupropion Adverse Reaction (Verified 06/23/24 08:57) vomiting Medication List - Last Reconciled 06/23/24 by Marely Thakur LPN acetaminophen 650 mg PO Q6H PRN albuterol sulfate 2.5 mg (3 mL) inhalation Q4-6H PRN 30 days albuterol sulfate 90 mcg/actuation 2 puffs PO Q4-6H PRN alprazolam (Xanax) 0.5 mg PO DAILY PRN ammonium lactate 5% 1 appl topical DAILY docusate sodium 100 mg PO BID PRN fluticasone propionate 220 mcg/actuation 2 puffs inhalation BID furosemide 20 mg PO QAM PRN ipratropium bromide 2 sprays intranasal BID-TID PRN ipratropium-albuterol 0.5 mg-3 mg(2.5 mg base)/3 mL 3 mL inhalation Q4-6H PRN 20 days loratadine 10 mg PO DAILY methadone 105 mg PO DAILY nicotine 1 patch transdermal DAILY NS ondansetron HCl 4 mg PO BID PRN oxycodone 5 mg PO .daily PRN pantoprazole 40 mg PO BID ramelteon 8 mg PO BEDTIME PRN Stiolto Respimat 2.5-2.5 mcg/actuation (tiotropium-olodaterol) 2 puffs PO DAILY NS tizanidine 4 mg PO Q8H PRN 30 days PFS Medical History (Updated 06/19/24 @ 13:54 by Nena Milner MD) H/O adenomatous polyp of colon Hammertoe of right foot History of meningitis Nicotine dependence, cigarettes, uncomplicated Generalized anxiety disorder Cervical radiculopathy due to degenerative joint disease of spine Takotsubo cardiomyopathy History of congestive heart failure Anemia Absent pedal pulses Constipation due to opioid therapy Oxygen dependent Allergic rhinitis Vitamin D deficiency Primary osteoarthritis, right shoulder Respiratory failure with hypoxia Surgical menopause Duodenal ulcer Bipolar disorder Gastritis Substance abuse Osteopenia Alcoholic cirrhosis of liver Hepatitis C COPD (chronic obstructive pulmonary disease) Osteoarthritis of multiple joints Surgical History History of resection of rib History of colonoscopy History of ankle surgery History of esophagogastroduodenoscopy (EGD) History of hysterectomy Family History Father Alcoholism History of manic depressive disorder COPD (chronic obstructive pulmonary disease) Cancer Mother COPD (chronic obstructive pulmonary disease) Cardiac disease Smoker CHF (congestive heart failure) Alcoholism CVD (cardiovascular disease) Mental disorder Sister Lupus PTSD (post-traumatic stress disorder) Son Cardiac arrest Maternal Grandfather No problems noted. Maternal Grandmother No problems noted. Paternal Grandfather Alcoholism Mental disorder Paternal Grandmother No problems noted. Social History Housing: Apartment Alcohol intake: current Alcohol intake frequency: 0-2 drinks per day Alcohol type: beer Patient Tobacco Use Status: Current someday Tobacco user Tobacco use type: Cigarette Cigarettes Per Day: 5 Years Smoked: (onset 14yo, 1ppd x 55yrs, now 1/4ppd - 50pyh) e-Cigarette/Vaping Use: Never Used service: No Current occupational status: disabled Cognitive needs: No Hearing needs: No Vision needs: No Physical Exam Vital Signs: Last Vital Signs Pulse 116 H 06/23/24 08:56 Resp 16 06/23/24 08:56 BP 142/75 H 06/23/24 08:56 Pulse Ox 95 06/23/24 08:56 Oxygen Delivery Method Nasal Cannula 06/23/24 08:56 Oxygen Flow Rate 2 06/23/24 08:56 Assessment & Plan Assessment & Plan (1) 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 Informed consent was thoroughly explained to the patient before the procedure.? The patient came to the operating room.? She was positioned prone on operating table with a pillow under her Chest.Time-out was performed delineating correct site and side of the procedure, nature of the injection, name and date of of the patient. The Upper back and entire posterior neck of the patient was prepped with ChloraPrep and draped with sterile utility towels.? C-arm was brought over the operating field and the lateral masses of the C3, C4, C5, and C6 vertebra on the right were demonstrated on the screen. The points of interest were delineated as waist line of the lateral masses of the above-mentioned vertebra The point of interest projection to the skin was injected with small amount of mixture of lidocaine 2% and ropivacaine 0.5%. After that 22 gauge 3-1/2 inch needle was driven to point of interest in tunnel vision fashion. When needle gently contacted the bone injection of the contrast was performed delineating no intravascular and no intrathecal spread of the contrast. After that injection of the small amount of ropivacaine 0.5% less than 1 cc into each target site was performed. Upon completion of the injections the needles were removed sterile Band-Aid was applied. The patient tolerated procedure well. She was given a pain diary to complete after the procedure. 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
--- OUTSIDE RECORDS SUMMARY | 2024-06-23 09:15 | XMS_ITS | Clinical Summary ---
Author Organization [facility] Address [address] [place] [address] Phone Care Team Providers Care Key Bed Installer Name Role Phone Physician, No Pcp Primary [...] disease) (CM S/HCC) CHF (congestive heart failure) ([facility]) Social History Tobacco Use Types [...] mmol/L LAB CHEMISTRY METHOD 02/21/2024 4:16 PM [facility] Potassium 3.9 3.5 - 5.5 mmol/L LAB CHEMISTRY METHOD 02/21/2024 4:16 PM [facility] Chloride 102 96 - 110 mmol/L LAB CHEMISTRY METHOD 02/21/2024 4:16 PM [facility] CO2 31 21 - 32 mmol/L LAB CHEMISTRY METHOD 02/21/2024 4:16 PM [facility] Anion Gap 4 3 - 11 LAB CHEMISTRY METHOD 02/21/2024 4:16 PM [facility] Glucose 82 70 - 100 mg/dL LAB CHEMISTRY METHOD 02/21/2024 4:16 PM [facility] BUN 8 5 - 25 mg/dL LAB CHEMISTRY METHOD 02/21/2024 4:16 PM [facility] Creatinine 0.75 0.50 - 1.10 mg/dL LAB CHEMISTRY METHOD 02/21/2024 4:16 PM [facility] eGFR 87 >=60 mL/min/1. 73m2 LAB CHEMISTRY METHOD 02/21/2024 4:16 PM EST [facility] Comment:Calculation based on the??Chronic Kidney Disease Epidemiology Collaboration (CKD-EPI) equation refit??without adjustment for race. BUN/Creatinine Ratio 10.7 LAB CHEMISTRY METHOD 02/21/2024 4:16 PM EST [facility] Calcium 9.2 8.5 - 10.5 mg/dL LAB CHEMISTRY METHOD 02/21/2024 4:16 PM EST [facility] Blood Venous blood specimen / Unknown Venipuncture / Unknown 02/21/2024 3:23 PM EST 02/21/2024 3:25 PM EST David Ryland Tamny Mathew DO LAB BLOOD ORDERABLES Nina jose eduardo Result [facility] [address] [place] [address], from Last 3 Months or Most Recently Relevant to Health Maintenance Additional Health Concerns Infection Onset Date Last Indicated MRSA 02/21/2024 02/21/2024 Insurance [employer] MED[employer]ARE ADVANTAGE MEDICAID - [place] Care Teams Key Bed Installer Relationship Specialty Start Date End Date Physician, No Pcp PCP - General 02/20/24
[2024-06-23 09:26] VITALS: BP 126/61; PULSE 100; RESP 16; O2SAT 94
== END 2024-06-23 09:28 | disposition home or self-care (01) ==
LOC: HO.PMCPRC 08:49
PROVIDERS: PCP Internal Medicine; Visit Provider Anesthesiology
DX: M47.812 Spondylosis without myelopathy or radiculopathy, cervical region (principal); M54.2 Cervicalgia; G89.4 Chronic pain syndrome
CPT/HCPCS: 64490; 64491

== ENCOUNTER 2024-06-25 10:41 | Outpatient (AMB) | payer MEDICARE, MEDICAID, SELFPAY ==
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
[2024-06-25 10:46] VITALS: BP 181/89; PULSE 114; O2SAT 91; BMI 20.8
== END 2024-06-25 10:52 | disposition home or self-care (01) ==
PROVIDERS: PCP Internal Medicine; Visit Provider Anesthesiology
DX: M47.812 Spondylosis without myelopathy or radiculopathy, cervical region (principal); M54.2 Cervicalgia; G89.4 Chronic pain syndrome; M79.18 Myalgia, other site
CPT/HCPCS: 99213

== ENCOUNTER → 2024-06-25 10:41 | Outpatient (BNVA) | payer MEDICARE, MEDICAID, SELFPAY | PROVIDERS: PCP Internal Medicine; Visit Provider Anesthesiology | DX: M47.812 Spondylosis without myelopathy or radiculopathy, cervical region (principal); M54.2 Cervicalgia; M79.18 Myalgia, other site; G89.4 Chronic pain syndrome; G47.33 Obstructive sleep apnea (adult) (pediatric); F17.210 Nicotine dependence, cigarettes, uncomplicated | CPT/HCPCS: 99212 ==

== ENCOUNTER 2024-07-16 12:53 | Outpatient (REF) | payer MEDICARE, SELFPAY ==
--- NOTE | ~2024-07-16 | MM_ITS ---
EXAMINATION: DXA BONE DENSITY AXIAL HISTORY: M85.80 - Other specified disorders of bone density and structure, unspec... TECHNIQUE: [employer] Dual energy absorptiometry (DEXA) of the lumbar spine, total left hip, and femoral neck was performed. COMPARISON: Comparison is made with the prior examination dated 02/08/2017. FINDINGS: The bone mineral density of the lumbar spine is 0.996 with a T-score of -1.5, and a Z-score of 0.4. This is indicative of osteopenia. This represents a BMD change of 1.6% compared to the prior exam. This is not statistically significant. The bone mineral density of the left total hip is 0.627 with a T-score of -3.0, and a Z-score of -1.4. This is indicative of osteoporosis. This represents a BMD change of -23.2% compared to the prior exam. This is statistically significant. The bone mineral density of the left femoral neck is 0.677 with a T-score of -2.6, and a Z-score of -0.8. This is indicative of osteoporosis. This represents a BMD change of -16.7% compared to the prior exam. MM/XR DEXA axial skeleton IMPRESSION: Based on bone mineral density, and according to World Health Organization (WHO) criteria, the diagnosis is consistent with osteoporosis. All bone density values are in grams per centimeter squared (g/cm2). Statistically, 68% of repeat scans fall within 1 SD (+/- 0.010 g/cm2 for AP spine L1-L4) and 1 SD (+/- 0.012 g/cm2 for femur total) FRAX is a trademark of the [employer], a World Health Organization (WHO) Collaborating Center. Electronically signed by: Marquez Huang MD 07/16/2024 01:52 PM EDT
--- OUTSIDE RECORDS SUMMARY | 2024-07-16 15:29 | XMS_ITS | Patient Health Record ---
Author Organization [facility] Address [address] [place] [address] Care Team Providers Care Bobbin Presser Name Role Phone Annia MAJOR, Nena Primary Care Provider Marquez Banks Unavailable [phone] José Gore M.D. Unavailable Unavailab le Allergies [...] Acti ve Psyllium Unknown Drug Allergy Active Reason For Referral [...] Problem Status W/U Status Risk Notes Problem 30759107 Epigastric pain (R10.13) Active confirmed Problem 024098448 Encounter for screening for malignant neoplasm of colon (Z12.11) Active confirmed Problem 385864572 Alcoholic cirrho sis of liver without ascites (K70.30) Active confirmed Problem Dysphagia (92873198) Dysphagia (R13.10) Active confirmed Problem 73390126 Abdominal pain, epigastric (R10.13) Active confirmed Problem 166312660 Gastroesophageal reflux disease without esophagitis (K21.9) Active confirmed Problem 704212340 Gallstones (K80.20) Active confirmed Problem 151652953 Abnormal UGI ser ies (R93.3) Active confirmed Problem 09899048 Duodenal ulcer (K26.9) Active confirmed Problem 07740836 Esophageal dysph agia (R13.10) Active confirmed Problem 835944265 History of pepti c ulcer disease (Z87.11) Active confirmed Plan Of Treatment Pending Test Test Name Order Date LIVER PROFILE 08/09/2020 CBC w DIFF 08/09/2020 CBC w DIFF 01/02/2017 PROTHROMBIN TIME (PT, INR) 08/09/2020 PROTHROMBIN TIME (PT, INR) 01/02/2017 ALPHA-FETOPROTEIN,TUMOR MARKER 1 ALPHA-FETOPROTEIN,TUMOR MARKER 7 NUC HIDA SCAN 06/21/2021 XR BARIUM SWALLOW-ESOPHAGUS 08/09/2020 XR GI SERIES 08/09/2020 US ABD 08/09/2020 Future Test Test Name Order Date UPPER GI ENDOSCOPY 01/02/2017 COLONOSCOPY 01/02/2017 UPPER GI ENDOSCOPY BALLOOON DILATION OF ESOPH 07/13/2021 Next Appt Details Provider Name:Marquez Gomez , 10/27/2024 11:00:00 AM, [address] [place] [address], [address], [place], [address], Insurance Providers Payer Name Payer Address Payer Phone Subscriber Number Group Number Insured Name Patient Relationship to Insured Coverage Start Date Coverage End Date MEDICARE OF [place] [address] [place] [id number] SRINIVAS WRIGHT Self - patient is the insured MEDICAID OF [facility] [address] [facility] [place] [address] [id number] SRINIVAS WRIGHT Self - patient is the [...] /p therapeutic EGD x 2 Colonoscopy at [facility] in a pprox 2004--patient was not clear about the details HTN--not on any meds Denies VA,DM,CVA,renal disease EGD 03/2017--portal gastropa thy, no varices, gastritis with biopsies negative for H. pylori, informed duodenal bulb consistent with previous ulcer disease, moderate sized hiatal hernia Colonoscopy 03/2017--1 small tubular adenoma removed, diverticulosis, internal hemorrhoids GI Bleed at [facility] in 06/25 17 with an upper endoscopy--? results---needed 4 units PRBC and some platelet transfusions Surgical History Surgery Date(Month/Year) Ankle surgery-fracture Left rib surgery for a benign tumor Hysterectomy
--- OUTSIDE RECORDS SUMMARY | 2024-07-16 15:29 | XMS_ITS | Clinical Summary ---
Author Organization [facility] Address [address] [place] [address] Phone Care Team Providers Care Head End Desizing Machine Operator Name Role Phone Nena Milner MD Primary Care Provider [phone] Allergies Active Allergy Reactions Criticality Noted Date Comments Clindamycin 02/20/2024 Latex 02/20/2024 Levofloxacin 02/20/2024 Psyllium Husk 02/20/2024 Nsaids (Non-Steroidal Anti-I nflammatory Drug) 02/20/2024 Prednisone 02/20/2024 Tramadol 02/20/2024 Valacyclovir 02/20/2024 Medications methadone (DOLOPHINE) 10 mg tablet 1 tablet (10 mg total). Active Medical History Medical History Date Comments COPD (chronic obstructive pulmonary disease) ([facility] V24, [facility] V28) CHF (congestive heart failure) ([facility] V24, [facility] V28) Social History Tobacco Use Types Packs/Day Years [...] 02/21/2024 2:38 PM EST Plan of Treatment Upcoming Encounters Date Type Department Care Team (Late st Contact Info) Description 09/30/2024 9:00 AM EDT Consult Orthopedic Surgery - [place] [address] [id number] Mansoor Frey, DPM [address] [address] Health Maintenance Due Date Last Done Comments Breast Cancer Screening 1955 Hepatitis A Vaccines (1 of 2 - Risk 2-dose series) 1975 Hepatitis B Vaccines (1 of 3 - Risk 3-dose series) 2016 RSV Immunization Adult Patients (1 - Risk 60-74 years 1-dose series) [...] season) 2023 07/06/2021, 09/02/2020, 07/30/2020 Influenza Vaccine (Season Ended) 2024 01/02/2023, 03/13/2022, 01/03/2021, Additional history exists Hypertension/CHF/CAD Annual [...] age to complete this topic Meningococcal B Vaccine Aged Out No l onger eligible based on patient's age to complete [...] LAB CHEMISTRY METHOD 02/21/2024 4:[address] [facility] BUN 8 5 [...] PM EST Nicole Carmona DO LAB BLOOD ORDERABLES Nina l Result [facility] [address] [place] [address], from Last 3 Months or Most Recently Relevant to Health Maintenance Additional Health Concerns Infection Onset Date Last Indicated MRSA 02/21/2024 02/21/2024 Insurance MEDICAID - [place] MEDICARE Care Teams Head End Desizing Machine Operator Relationship Specialty Start Date End Date Nena Milner MD [address] [place] [address] PCP - General Internal Medicine 07/03/24
== END 2024-07-16 12:54 | disposition home or self-care (01) ==
LOC: HO.MAMMO 12:53
PROVIDERS: PCP Internal Medicine; Visit Provider Internal Medicine
DX: Z13.820 Encounter for screening for osteoporosis (principal); M85.89 Other specified disorders of bone density and structure, multiple sites; M85.80 Other specified disorders of bone density and structure, unspecified site
CPT/HCPCS: 77080

== ENCOUNTER → 2024-07-16 13:30 | Outpatient (BNV) | payer MEDICARE, SELFPAY | PROVIDERS: PCP Internal Medicine; Visit Provider Radiology Diagnostic Radiology | DX: E28.39 Other primary ovarian failure (principal) | CPT/HCPCS: 77080 ==

== ENCOUNTER 2024-07-21 14:29 | Outpatient (AMB) | payer MEDICARE, SELFPAY ==
[2024-07-21 14:38] VITALS: BP 160/80; PULSE 78; BMI 20.3
--- NOTE | 2024-07-21 14:38 | A.OFFVIS_ITS ---
Vital Signs 07/21/24 14:38 Height 5 ft 6 in Weight 125 lb 10.616 oz BMI 20.3 BP 160/80 H Blood Pressure Location Lt brachial Position Sitting Pulse 78 Pulse Source Pulse Oximeter Intake Visit Reasons: r/s 06-10-24 3 mos followup echo Allergies dextrose Allergy (Severe, Verified 06/25/24 10:47) anaphylaxis latex [LATEX] Allergy (Severe, Verified 06/25/24 10:47) HIVES psyllium [From Metamucil] Allergy (Severe, Verified 06/25/24 10:47) anaphylaxis clindamycin [CLINDAMYCIN] Allergy (Intermediate, Verified 06/25/24 10:47) RASH NSAIDS (Non-Steroidal Anti-Inflamma Allergy (Intermediate, Verified 06/25/24 10:47) ulcers tramadol [From ULTRAM] Allergy (Intermediate, Verified 06/25/24 10:47) HIVES levofloxacin [From LEVAQUIN] Adverse Reaction (Intermediate, Verified 06/25/24 10:47) TENDON PAIN, achilles tendonitis prednisone Adverse Reaction (Intermediate, Verified 06/25/24 10:47) GI BLEED, high doses valacyclovir [From VALTREX] Adverse Reaction (Intermediate, Verified 06/25/24 10:47) GI UPSET bupropion Adverse Reaction (Verified 06/25/24 10:47) vomiting Medication List - Last Reconciled 07/21/24 by Jeffrey Walker MD acetaminophen 650 mg PO Q6H PRN albuterol sulfate 2.5 mg (3 mL) inhalation Q4-6H PRN 30 days albuterol sulfate 90 mcg/actuation 2 puffs PO Q4-6H PRN alprazolam (Xanax) 0.5 mg PO DAILY PRN ammonium lactate 5% 1 appl topical DAILY docusate sodium 100 mg PO BID PRN fluticasone propionate 220 mcg/actuation 2 puffs inhalation BID furosemide 20 mg PO QAM PRN ipratropium bromide 2 sprays intranasal BID-TID PRN ipratropium-albuterol 0.5 mg-3 mg(2.5 mg base)/3 mL 3 mL inhalation Q4-6H PRN 20 days loratadine 10 mg PO DAILY methadone 105 mg PO DAILY nicotine 1 patch transdermal DAILY NS ondansetron HCl 4 mg PO BID PRN oxycodone 5 mg PO .daily PRN pantoprazole 40 mg PO BID ramelteon 8 mg PO BEDTIME PRN Stiolto Respimat 2.5-2.5 mcg/actuation (tiotropium-olodaterol) 2 puffs PO DAILY NS tizanidine 4 mg PO Q8H PRN 30 days HPI Comments Details: Nilsa returns for follow-up. Recently seen in consultation regarding cardiomy opathy. [facility] records were reviewed. Patient with a history of COPD and chronic respiratory failure. Substance abuse history. In 2022, it seems that she was admitted to [facility] after being found unresponsive. She required intubation. Tox screen was positive for cocaine, benzodiazepines and fentanyl. Then had NSTEMI. Echocardiogram with LVEF in the 15-20% range; mid to distal and apical ruano were akinetic sparing the base and hence thought to be takotsubo cardiomyopathy. Then underwent cardiac catheterization with only minimal irregularities. Otherwise, she has a long history of smoking and it seems she still smokes. Denies any current drug use. She has COPD requiring oxygen. She uses them at night and during exertional activities. The patient's hypertension is labile with historical readings demonstrating a significant range from 90/50 to 181. Although earlier treated with medication, adverse effects led to discontinuation of this approach. Her current management strategy includes lifestyle modifications and stress management, as the condition has shown responsiveness to stress levels. [facility] Medical History (Updated 07/21/24 @ 15:42 by Jeffrey Walker MD) H/O adenomatous polyp of colon Hammertoe of right foot History of meningitis Nicotine dependence, cigarettes, uncomplicated Generalized anxiety disorder Cervical radiculopathy due to degenerative joint disease of spine Takotsubo cardiomyopathy History of congestive heart failure Anemia Absent pedal pulses Constipation due to opioid therapy Oxygen dependent Allergic rhinitis Vitamin D deficiency Primary osteoarthritis, right shoulder Respiratory failure with hypoxia Surgical menopause Duodenal ulcer Bipolar disorder Gastritis Substance abuse Osteopenia Alcoholic cirrhosis of liver Hepatitis C COPD (chronic obstructive pulmonary disease) Osteoarthritis of multiple joints Surgical History History of resection of rib History of colonoscopy History of ankle surgery History of esophagogastroduodenoscopy (EGD) History of hysterectomy Family History Father Alcoholism History of manic depressive disorder COPD (chronic obstructive pulmonary disease) Cancer Mother COPD (chronic obstructive pulmonary disease) Cardiac disease Smoker CHF (congestive heart failure) Alcoholism CVD (cardiovascular disease) Mental disorder Sister Lupus PTSD (post-traumatic stress disorder) Son Cardiac arrest Maternal Grandfather No problems noted. Maternal Grandmother No problems noted. Paternal Grandfather Alcoholism Mental disorder Paternal Grandmother No problems noted. Social History Housing: Apartment Alcohol intake: current Alcohol intake frequency: 0-2 drinks per day Alcohol type: beer Patient Tobacco Use Status: Current someday Tobacco user Tobacco use type: Cigarette Cigarettes Per Day: 5 Years Smoked: (onset 14yo, 1ppd x 55yrs, now 1/4ppd - 50pyh) e-Cigarette/Vaping Use: Never Used service: No Current occupational status: disabled Cognitive needs: No Hearing needs: No Vision needs: No Review of Systems Const Denies weakness ENT Denies dizziness Card Denies chest pain, Denies chest pain with activity, Denies syncope, Denies rapid heart rate, Denies pedal edema, Denies edema, Denies leg edema, Denies lighthead edness, Denies palpitations, Denies dyspnea, Denies dyspnea on exertion and Denies orthopnea Resp Denies cough, Denies dyspnea and Denies dyspnea on exertion GI Denies hematochezia and Denies change in stool character Musc Denies abnormal gait, Denies muscle cramps, Denies muscle weakness, Denies numbness, Denies radiating pain into limb and Denies tingling Neuro Denies Abnormal speech present, Denies abnormal gait, Denies dizziness, Denies syncope, Denies numbness, Denies tingling and Denies weakness Endo Denies palpitations Physical Exam Vital Signs: Last Vital Signs Pulse 78 07/21/24 14:38 BP 160/80 H 07/21/24 14:38 BMI result Body Mass Index 20.3 Const General: comfortable and no acute distress Orientation/consciousness: patient oriented x3 HEENT Other: Unremarkable Head: Yes normal to inspection Neck Neck: Yes normal visual inspection Chest Chest palpation & inspection: normal inspection of the chest Resp Auscultation: crackles Cardio Palpation: normal PMI Heart sounds: S1 normal heart sound present, S2 normal heart sound present, no gallops, no murmurs and no rubs GI Palpation (GI): Soft to palpation Back/Spine/Pelvis Other: unremarkable Skin General skin exam: no rashes or lesions noted Neuro General: patient oriented x3 Speech: No Abnormal speech present Extrem General: Yes normal to inspection Psych Mental Status: mental status grossly normal Assessment & Plan Assessment & Plan (1) Takotsubo cardiomyopathy: Code(s): I51.81 - Takotsubo syndrome Category: Medical (2) Mitral annular calcification: Code(s): I34.81 - Nonrheumatic mitral (valve) annulus calcification Category: Medical (3) COPD (chronic obstructive pulmonary disease): Comment: Severe/Advanced COPD - 03/2020 PFT = Severe Obstructive Airway Disorder Code(s): J44.9 - Chronic obstructive pulmonary disease, unspecified Category: Medical (4) Oxygen dependent: Comment: Patient has chronic respiratory failure with hypoxemia, being treated with O2 24 hours a day. Code(s): Z99.81 - Dependence on supplemental oxygen Category: Medical Plan Per discharge summary information, echocardiogram in 12/26/2022 with LVEF 15-20%. Mid to distal, apical akinesis, sparing the base and thought to be takotsubo. Cardiac catheterization then with minimal luminal irregularities only. Another echocardiogram from May of 2023 with LVEF of 65-70%. There was severe hypokinesis in the mid ventricular segments but vigorous function at the apex and base and thought to be a mid ventricular variant of stress-induced cardiomyopathy. In the most recent echocardiogram from 06/2024, LVEF 65-70% with no wall motion abnormalities. Mild aortic valve calcification with moderate mitral annular calcification. Overall, based on the above no specific recommendations. She seems to have fully recovered cardiac function. Main limitations rather from COPD/smoking/oxygen dependence. Hence needs to work on that. With regard to blood pressure, we talked about initiating medications but she states with meds her pressure goes really low and she would rather not take anything. Hence can follow clinically. Discussion Notes During our discussion, the importance of consistent oxygen use for managing COPD was emphasized, notably during nocturnal hours and physical exertion. We also addressed the need to reduce smoking further as part of her management plan. The variability in her blood pressure readings was highlighted, and we revisited her previous adverse experience with medications, reinforcing the decision to continue managing it through non-pharmacological means. A follow-up appointment is scheduled in six months to evaluate the continued appropriateness of these approaches, particularly if her condition changes or if further discussions become necessary. Patient was informed and verbally consented to the use of an ambient scribe for clinic note documentation during this visit. Patient Instructions: - Continue using oxygen therapy as needed, especially during exertion and at night. - Make efforts to further reduce smoking. - Monitor stress levels, as they may impact blood pressure. - Follow scheduled six-month appointment for continued assessment. - Alert healthcare provider if there are changes in condition that require more immediate attention. Coding Level of Care Code Est Pt Level 4 (27346) Diagnoses Takotsubo cardiomyopathy I51.81 Mitral annular calcification I34.81 COPD (chronic obstructive pulmonary disease) J44.9 Oxygen dependent Z99.81
--- OUTSIDE RECORDS SUMMARY | 2024-07-21 17:43 | XMS_ITS | Data Portability ---
Author Organization [facility], Main Office Address 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 Plan of [...] Organization Details Recorded Time Chronic pain syndrome 867623192 Active [address], [address], [place], [address], [employer] 0 08:31:24 Pneumonia 554558954 Active [address], [address], [place], [address], [facility] [employer] 9 13:27:27 Acute respiratory failure 72501061 Active [address], [address], [place], [address], [facility] [employer] 9 13:27:40 Chronic obstructive pulmonary disease 76285450 Active [address], [address], [place], [address], [facility] [employer] 9 13:27:47 Viral hepatitis C 33652371 Active [address], [address], [place], [address], [facility] [employer] 9 13:27:53 Intravenous drug user 932665604 Active [address], [address], [place], [address], [facility] [employer] [facility] 9 13:28:03 Infectious disorder of joint 249708522 Active [address], [address], [place], [address], [facility] [employer] [facility] 9 13:42:18 Depressive disorder 22117486 Active [address], [address], [place], [address], [facility] [employer] [facility] 9 13:58:51 Anxiety 83960662 Active [address], [address], [place], [address], [facility] [employer] [facility] 9 13:59:54 Seasonal allergy 324973751 Active [address], [address], [place], [address], [facility] [employer] [facility] 9 14:00:28 Gastroesophage al reflux disease 731414793 Active [address], [address], [place], [address], [facility] [employer] [facility] 9 14:00:53 Edema of lower extremity 955784767 Active 2018 Klarissa Goodson MD [address] [place] [address], [facility] [address], [place], [address], [facility] [employer] [facility] 9 20:38:43 Degenerative joint disease of shoulder region 99234889 Active [address] MD [address] [place] [address], [address], [place], [address], [facility] [employer] 9 09:39:08 Problem Notes None recorded. Medical Equipment None Reported. Allergies Allergen ID Allergen Name Allergen Category Reaction Reaction Severity Criticality Documentation Date Start Date Code Code System Note Provider Name and Address Organization Details Recorded Time 58475 Ultram medicatio n Not available Not available Not available 07/17/2018 97831 6 RxNorm Not Available Not Available Not Available 11821 Metamucil medicatio n Not available Not available Not available 07/17/2018 6802 RxNorm Not Available Not Available Not Available 98812 Non-stero idal anti-infl ammatory agent (product) medicatio n Not available Not available Not available 07/17/2018 69277 005 SNOMED Not Available Not Available Not Available 67238 psyllium food,medi cation Not available Not available Not available 07/17/2018 8928 RxNorm Not Available Not Available Not Available 63239 tramadol medicatio n Not available Not available Not available 07/17/2018 45731 RxNorm Not Available Not Available Not Available 63002 levofloxa quinton medicatio n Not available Not available Not available 07/17/2018 25865 RxNorm Not Available Not Available Not Available 09450 clindamyc in Not available Not available Not available Not available 07/17/2018 2582 RxNorm Not Available Not Available Not Available 21826 Levaquin medicatio n Not available Not available Not available 07/17/2018 93528 2 RxNorm Not Available Not Available Not Available 60927 latex environme nt,medica tion Not available Not available Not available 07/17/2018 29103 91 RxNorm Not Available Not Available Not Available 42742 Valtrex medicatio n Not available Not available Not available 07/17/2018 35144 0 RxNorm Not Available Not Available Not Available Medications Not known to be on any medication Vitals Date Recorded Body height Systolic blood pressure Diastolic blood pressure Provider Name and Address Organization Details Last Updated DateTime 07/17/2019 165.1 cm 107 mm[Hg] 63 mm[Hg] Ra Street MD [address] [place] [address] [address], [address], [facility] [employer] 07/17/2019 12:43:19 Date Recorded Body height Systolic blood pressure Diastolic blood pressure Provider Name and Address Organization Details Last Updated DateTime 08/03/2019 165.1 cm 122 mm[Hg] 74 mm[Hg] JOE MIDDLETON [address] [place] [address] [address], [address], [place] [employer] 08/03/2019 15:04:25 Date Recorded Body height Systolic blood pressure Diastolic blood pressure Provider Name and Address Organization Details Last Updated DateTime 08/13/2019 165.1 cm 128 mm[Hg] 68 mm[Hg] Zenaida Huang [facility] 08/13/2019 12:14:26 Date Recorded Body height Oxygen saturation Oxygen saturation in Arterial blood by Pulse oximetry Heart rate Systolic blood pressure Diastolic blood pressure Provider Name and Address Organization Details Last Updated DateTime 0 84868.9 8 cm 95 % 95 % 68 /min 110 mm[Hg] 58 mm[Hg] Zenaida Huang [facility] [employer] [facility] 0 13:02:56 Date Recorded Body height Oxygen saturation Oxygen saturation in Arterial blood by Pulse oximetry Inhaled oxygen flow rate Heart rate Respiratory rate Systolic blood pressure Diastolic blood pressure Provider Name and Address Organization Details Last Updated DateTime 0 26114.9 8 cm 99 % 99 % 3 L/min 75 /min 18 /min 128 mm[Hg] 64 mm[Hg] JOE MIDDLETON [address] [facility], [address], [place], [address], [facility] [employer] 0 08:44:18 Social History Question Answer Notes LastModified by Organizat ion Details LastModified Time Tobacco Smoking Status Current Every Day Smoker Not Available [facility] 02/02/2020 03:13:20 Do You Have An Advance Directive? Yes Full Code [id number] Information not available 02/02/2020 What Is Your Level Of Alcohol Consumption? None Used To Drink 1/2 Case Of Beer Daily X 30 Years [id number] Information not available 02/02/2020 How Much Tobacco Do You Chew? None [id number] Information not available 02/02/2020 Do You Have A Medical Power Of Lavatory Attendant? No [id number] Information not available 02/02/2020 What Was The Date Of Your Most Recent Tobacco Screening? 10/24/2018 [id number] Information not available 02/02/2020 How Much Tobacco Do You Smoke? 0.5 PPD [id number] Information not available 02/02/2020 Has Tobacco Cessation Counseling Been Provided? Yes Quit A Few Months Ago [id number] Information not available 02/02/2020 On What Date Was Tobacco Cessation Counseling Provided? 10/24/2018 Quit A Few Months Ago [id number] Information not available 02/02/2020 How Many Years Have You Smoked Tobacco? 10 [id number] Information not available 02/02/2020 Sex: Unknown Functional [...] Recorded Time influenza, unspecified formulation 9 completed [facility] 10/22/2018 11:41:18 pneumococcal polysaccharide PPV23 4 completed [facility] 10/22/2018 11:41:32 Pneumococcal conjugate PCV 13 9 [facility] 10/22/2018 11:41:45 Past Encounters Encounter ID Performer Location Encounter Start Date Encounter Closed Date Diagnosis/Indication Diagnosis SNOMED-CT Code Diagnosis ICD10 Code Diagnosis Note [id number] JOE [facility] on [address] [place] [address] 07/17/2018 13:22:50 07/23/2018 15:37:30 Intravenous drug user 220974142 F19.10 Currently on methadone with current relapsefol lowed by methadone clinic on [facility], continue while here should be 70 mg Infectious disorder of joint 019213416 M01.X8 C3-C4 early facet joint infection with epidural phlegmon versus worsening arthritis found on imagingTo complete 6 weeks of IV abx, IV vanco and ceftriaxon e 2 gm BID stop date 08/23weekly CBC, BMP, LFTs, ESR, CRP and vanco trough while on therapy fax to [phone] llow up with ID and neurosurge ry as scheduled on 08/06will need follow up MRI after completion of IV abxtizanid ine 2 mg TID PRN Chronic ob structive pulmonary disease 24413351 J41.8 encourage smoking cessation0 2 at home, 3 liters via NCcomplete d course of prednisone x 5 daysDuoneb s q 4 hours PRNtrilegy dailyspiri va daily-pt on spironolac tone daily, unsure why Viral hepatitis C 919015 07 B17.10 Patient has chronic thrombocyt openia most likely related to the hep cmonitor labs Depressive disorder 3548 9007 F33.8 D/C citalopram , pt states she was taking a while ago and not anymore Anxiety 91144054 F41.1 hydroxyzin e 25 mg TID PRNAdd ativan 0.25 mg TID PRN, patient very anxious at visit monitor mood Seasonal allergy 1385852 04 J30.2 Loratidine 10 mg daily Gastroesop hageal reflux disease 782019136 K21.9 Omeprazole 20 mg dailyranit idine 300 mg daily monitor for reflux [id number] Zenaida Huang [facility] on [address] [place] [address] 07/21/2018 14:22:08 07/23/2018 16:24:49 Edema of lower extremity 571851992 R60.0 suspect secondary to reduced mobilityAd d lasix 20 mg dailyCompr ession wraps to legs dailyEleva te legs when in bedMonitor Infectious disorder of joint 240273220 M01.X8 C3-C4 early facet joint infection with epidural phlegmon versus worsening arthritis found on imagingTo complete 6 weeks of IV abx, IV vanco and ceftriaxon e 2 gm BID stop date 08/23weekly CBC, BMP, LFTs, ESR, CRP and vanco trough while on therapy fax to [phone] llow up with ID and neurosurge ry as scheduled on 08/06will need follow up MRI after completion of IV abxtizanid ine 2 mg TID PRN Increased pain-will add oxycodone 5 mg Q12h prn-d/c prior to dischargeM onitor [id number] Klarissa Goodson MD [facility] on [address] [place] [address] 07/24/2018 11:15:29 07/31/2018 09:30:39 Edema of lower extremity 744614962 R60.0 Pt. thinks this is a rxn [...] 25 mg qd.Monitor Infectious disorder of joint 168800186 M01.X8 With probable epidural infection. ContinueTo complete 6 weeks of IV abx, IV vanco 750 mg q 12 hrs and ceftriaxon e 2 gm BID stop date 08/23. Titrate vanco to troughs 10-20.Will get weekly CBC, BMP, LFTs, ESR, CRP and vanco trough while on therapy fax to [phone] llow up with ID and neurosurge ry as scheduled on 08/06will need follow up MRI after completion of IV abxContinu e tizanidine 2 mg TID PRN and oxycodone 5 mg Q12h prn-d/c prior to discharge. Monitor sxs. Chronic ob structive pulmonary disease 93989632 J41.8 Says her breathing is pretty good today. Encourage smoking cessation as below. Continue O2 at 3 liters via NC, as her usual at home. Continue Duonebs q 4 hours PRN,treleg y 100-62.5-2 5 and spiriva 18 mcg qd. Has completed 5 day burst of prednisone . Intravenous drug user 22 3594395 F19.10 Currently on methadone with recent relapse. Methadone lowered from 85 mg to 70 mg qd while inpt. due to lethargy.F ollowed by methadone clinic on [facility]. Viral hepatitis C 885337 07 B17.10 Patient has chronic thrombocyt openia most likely related to the hep cmonitor labs Depressive disorder 2996 7699 F33.8 Citalopram ordered inpt, but pt states she was taking a while ago and not anymore, so d/c'd on admission here. Monitor mood. Psych consult prn. Anxiety 77375407 F41.1 Continue hydroxyzin e 25 mg TID prn and lorazepam 0.25 mg TID prn. monitor mood.Psych consult prn. Seasonal allergy 1718819 04 J30.2 No current sxs. Continue loratidine 10 mg qd. Monitor for sxs. Gastroesop hageal reflux disease 960833377 K21.9 Pt. with nausea today. She says [...] schedule. Monitor for improvemen [place] in sxs. [id number] Zenaida Huang [facility] on [address] [place] [address] 07/29/2018 13:24:47 07/31/2018 10:35:10 Edema of lower extremity 181788921 R60.0 Edema worseningI ncrease Lasix 40 mg BID Check BMP 08/01Compre ssion wraps to legs dailyEleva te legs when in bedAdd daily weightsMon itor Infectious disorder of joint 513286420 M01.X8 C3-C4 early facet joint infection with epidural phlegmon versus worsening arthritis found on imagingTo complete 6 weeks of IV abx, IV vanco and ceftriaxon e 2 gm BID stop date 08/23weekly CBC, BMP, LFTs, ESR, CRP and vanco trough while on therapy fax to [phone] llow up with ID and neurosurge ry as scheduled on need follow up MRI after completion of IV abxtizanid ine 2 mg TID PRNOxycodo ne 5 mg Q12h prn-d/c prior to discharge Monitor [id number] Zenaida Huang [facility] on [address] [place] [address] 08/04/2018 15:29:40 08/07/2018 15:48:37 Edema of lower extremity 426171978 R60.0 Lasix 40 mg BID Compressio n wraps to legs daily Elevate legs when in bedDaily weightsMon itor Infectious disorder of joint 995592670 M01.X8 C3-C4 early facet joint infection with [...] Q12h prn-d/c prior to discharge Monitor Hypokalemia 19784755 E87 .6 Potassium level low likely secondary to increased lasixAdd KCl 20 mEq dailyMonit or potassium level Chronic ob structive pulmonary disease 00724897 J41.8 Pulmonolog y recommendi ng d/c Trelegy Ellipta, start Stiolto-wi ll orderCont. albuterol neb PRNOn chronic R1Hmtenuw respirator y status [id number] JOE MIDDLETON [facility] on [address] [place] [address] 08/13/2018 15:57:59 08/15/2018 08:46:47 Edema of lower extremity 867750210 R60.0 Decrease lasix to 20 mg BID, monitor weights and decrease further if able [id number] JOE [facility] on [address] [place] [address] 08/14/2018 13:18:10 08/18/2018 11:05:44 Edema of lower extremity 721229053 R60.0 lasix 20 mg BID Change to AMANDO stockings from SUSI Elevate legs when in bedDaily weightsMon itorPT/OT eval and treat now for pain Infectious disorder of joint 812300673 M01.X8 C3-C4 early facet joint infection with [...] must happen before she leaves Monitor Hypokalemia 60573019 E87 .6 KCl 20 mEq dailyMonit or potassium level Chronic ob structive pulmonary disease 10661301 J41.8 Stiolto dailyCont. albuterol neb PRNOn chronic M5Pffyngy respirator y status [id number] JOE [facility] on [address] [place] [address] 08/22/2018 08:33:57 08/26/2018 14:30:29 Edema of lower extremity 836257717 R60.0 continue lasix 20 mg BID TEDs dailyEleva te legs when in bedDaily weights, remain stable at 122.4 lbsContinu e with PT/OT for neck and back pain Infectious disorder of joint 500016327 M01.X8 C3-C4 early facet joint infection with [...] she leaves Chronic ob structive pulmonary disease 18337688 J41.8 Stiolto dailyCont. albuterol neb PRNOn chronic E4Cfojwbz respirator y status [id number] JOE [facility] on [address] [place] [address] 08/26/2018 13:23:03 09/03/2018 10:10:11 Infectious disorder of joint 571013418 M01.X8 C3-C4 early facet joint infection with epidural phlegmon versus worsening arthritis found on imagingFin ished course of IV abx, to pull PICC line today.foll ow up with ID and neurosurge ry as scheduledw ill need follow up MRI after completion of IV abxtizanid ine 2 mg TID PRNOxycodo ne 5 mg Q12h prn-d/c prior to discharge Anxiety 08428572 F41.1 D/C hydroxyzin e 25 mg TID PRN, continue the scheduled dose at nightIncre ase ativan to 0.50 mg TID PRN- continue going forward monitor mood, consult NEG if needed [id number] Katherine Valdez [facility] on [address] [place] [address] 09/05/2018 11:10:51 09/10/2018 15:54:47 Infectious disorder of joint 176048661 M01.X8 C3-C4 early facet joint infection with [...] maximize function Edema of l ower extremity 239314388 R60.0 lasix 20mg bid, remains with slight swelling in BLETEDs dailyEleva te legs when in bedDaily weights physical activity encouraged Chronic ob structive pulmonary disease 52617912 J41.8 Stiolto dailyCont. albuterol neb PRNOn chronic O2 Pt continues to smoke daily, encouraged to quit Monitor respirator y status Hypokalemia 20743414 E87 .6 KCl 20 mEq dailyMonit or potassium level [id number] Katherine Valdez [facility] on [address] [place] [address] 09/10/2018 14:08:57 09/16/2018 11:35:48 Infectious disorder of joint 822140416 M01.X8 C3-C4 early facet joint infection with [...] independen t Edema of l ower extremity 499367118 R60.0 Pt initially started on lasix here [...] bed Daily weights physical activity encouraged Hypokalemia 26910678 E87 .6 KCl 20 mEq dailyMonit or potassium level- will get level today and in one week due to lasix decrease [id number] JOE Blank [facility] on [address] [place] [address] 09/17/2018 09:43:49 09/24/2018 12:08:17 Infectious disorder of joint 955869208 M01.X8 C3-C4 early facet joint infection with [...] independen t Edema of l ower extremity 558166840 R60.0 continue lasix 20 mg qd, consider D/C if she remains stableappe ars euvolemic. TEDs daily Elevate legs when in bed Daily weights physical activity encouraged Hypokalemia 68002654 E87 .6 KCl 20 mEq daily- labs stable [id number] [address]E SCOTT [address] [place] [address] 09/22/2018 09:22:34 09/24/2018 14:16:44 Edema of lower extremity 715232061 R60.0 Increase lasix to 40 mg daily in AM, AMANDO stockings on dailyappea rs euvolemic Elevate legs when in bed Daily weights, up 4 lbs today physical activity encouraged Infectious disorder of joint 576519361 M01.X8 pt saw ID on 09/03/18, started [...] been discontinu ed, pt is independen t [id number] PATIENCE Hammond [facility] on [address] [place] [address] 09/29/2018 07:49:44 10/01/2018 13:57:52 Edema of lower extremity 611510060 R60.0 resolvedco ntinue lasix 40 mg qd and tedsmonito r Infectious disorder of joint 806725800 M01.X8 continue minocyclin e 100 mg bid till seen by IDstaff will call for MRIf/u with ID pending tizanidine 2 mg TID continue oxycodone 5 mg at 2 and 2 per patient request.[facility]i ll [facility] OT as pt is independen t staff will utilize prn tylenol for pain Chronic ob structive pulmonary disease 21441812 J41.0 continue stiolto 2.5/2.5 mg 2 puffs qdspiriva 18 mcg qdalbutero l MDI prnmonitor resp status Gastroesop hageal reflux disease 130135725 K21.9 zantac 150 mg 2 qhsmonitor for sx relief Anxiety 33753275 F41.1 hydroxyzin e 25 mg 1 qhs for anxietymon itor for sx relief [id number] JOE MIDDLETON [facility] on [address] [place] [address] 10/03/2018 14:08:22 10/07/2018 11:22:36 Edema of lower extremity 760666101 R60.0 resolvedco ntinue lasix 40 mg qd and tedsmonito r Infectious disorder of joint 707248903 M01.X8 continue minocyclin e 100 mg bid till seen by IDstaff will call for MRIf/u with ID pending tizanidine 2 mg TID continue oxycodone 5 mg at 2 and 2 per patient request.Wi ll D[facility] OT as pt is independen t staff will utilize prn tylenol for pain Chronic ob structive pulmonary disease 59547538 J41.0 continue stiolto 2.5/2.5 mg 2 puffs qdspiriva 18 mcg qdalbutero l MDI prnmonitor resp status Gastroesop hageal reflux disease 989799837 K21.9 zantac 150 mg 2 qhsmonitor for sx relief Anxiety 62092795 F41.1 hydroxyzin e 25 mg 1 qhs for anxietymon itor for sx relief [id number] PATIENCE Hammond [facility] on [address] [place] [address] 10/24/2018 16:06:59 10/27/2018 11:09:51 Edema of lower extremity 492732633 R60.0 resolvedco ntinue lasix 40 mg qd and tedsmonito r Infectious disorder of joint 208908100 M01.X8 pt has her car here in [...] for pain Chronic ob structive pulmonary disease 47619160 J41.0 continue stiolto 2.5/2.5 mg 2 puffs qdspiriva 18 mcg qdalbutero l MDI prnmonitor resp status Gastroesop hageal reflux disease 671826344 K21.9 zantac 150 mg 2 qhsmonitor for sx relief Anxiety 11827527 F41.1 hydroxyzin e 25 mg 1 qhs for anxietymon itor for sx relief [id number] Zenaida Huang [facility] on [address] [place] [address] 12/03/2018 13:13:44 12/10/2018 09:35:51 Insomnia 039508745 G47.09 Increase melatonin 6 mg QHSMonitor [id number] Zenaida Huang [facility] on [address] [place] [address] 12/10/2018 09:02:33 12/12/2018 12:16:12 Shoulder joint pain 443702771 M25.519 M25.512 X-ray left shoulder, referral for physical therapyCon t oxycodone BIDTylenol PRN [id number] MD [facility] on [address] [place] [address] 01/07/2019 09:20:50 01/09/2019 15:16:09 Chronic obstructive pulmonary disease 74152450 J41.1 baseline COPDcontin ues to smokediscu ssed quittingma intained onalbutero lspiriva 18 mcg qdmonitor respirator y function Intravenous drug user 22 7030615 F19.10 maintained on methadonec ontinuedoe s have oxycodone prn for breakthrou ghmonitor utilizatio n Edema of l ower extremity 599319307 R60.0 at baselinela six 40 mg qdmonitor bp and renal function Degenerati ve joint disease of shoulder region 46137507 M19.012 will refer to physiatry for evalquesti on steroid injection [id number] Zenaida Huang [facility] on [address] [place] [address] 02/06/2019 10:10:17 02/09/2019 15:18:43 Gastroesophageal reflux disease 370974817 K21.9 Cont prilosec 20 mg dailyStart famotidine 20 mg BIDMonitor sxs [id number] JOE MIDDLETON [facility] on [address] [place] [address] 3 02/26/2019 14:01:17 03/17/2019 11:19:44 Unresponsive 700492137 R40.20 See HPIsent to ED for eval [id number] Zenaida Huang [facility] on [address] [place] [address] 3 03/18/2019 15:32:48 03/23/2019 15:47:45 Rrirr-fd-whlqntk respiratory failure 89972442 J96.21 See HPIOn 3 L O2 via NCPT OT eval and treatMonit or respirator y statusPati ent motivated to quit smoking-ni cotine patch prescribed Clostridiu m difficile colitis 228965322 A04.72 Completed course oral vancoStool s now formedMoni tor for recurrence cont probiotic Chronic ob structive pulmonary disease 86122046 J41.1 baseline COPDmainta ined onalbutero lspiriva 18 mcg qdmonitor respirator y function Intravenous drug user 22 4123116 F19.10 maintained on methadone Edema of l ower extremity 533914181 R60.0 Now off lasixMonit or edema and restart lasix PRN Fracture o f multiple ribs 6270063 S22.43XA Secondary to CPROn oxycodone for painAdd tizanidine PRNEncoura ge use of ISMonitor for pain control [address] MD [facility] on [address] [place] [address] 3 03/23/2019 15:12:06 03/27/2019 10:21:55 Ylqnt-mk-ymjcmwg respiratory failure 77594253 J96.21 wean O2 as toleratede ncourage quitting tobacco Chronic ob structive pulmonary disease 61317176 J41.1 baseline COPDstable on current medication smonitor respirator y function Intravenous drug user 22 9401144 F19.10 maintained on methadone at baselineno change in narcotic medication s Gastroesop hageal reflux disease 221812866 K21.9 famotidine 20 mg bidmonitor for sx relief [id number] Zenaida Huang [facility] on [address] [place] [address] 3 03/27/2019 14:47:18 04/03/2019 14:49:34 Shoulder joint pain 040162790 M25.519 M25.512 X-ray right shoulderCo nt oxycodone PRNTylenol PRNMonitor [id number] Zenaida Huang [facility] on [address] [place] [address] 3 03/31/2019 10:55:23 04/03/2019 15:34:46 Chronic back pain 976273548 G89.29 Increase Tizanidine 2 mg TIDOxycodo ne 10 mg Q4h PRN Monitor for effect [id number] Zenaida Huang [facility] [address] [place] [address] 3 05/14/2019 15:03:47 05/17/2019 13:19:55 Hpale-mq-arpulwd respiratory failure [id number] J96.21 See HPIOn 3 L O2 via NCRespirat ory status stable Fracture o f multiple ribs [id number] S22.43XA Secondary to CPROn oxycodone for pain-will taper to Q6h PRN Chronic ob structive pulmonary disease 12212825 J41.1 baseline COPDmainta ined onalbutero lspiriva 18 mcg qdmonitor respirator y function Intravenous drug user 22 [id number] F19.10 maintained on methadone [id number] Zenaida Huang [facility] [address] [place] [address] [phone] 3 06/11/2019 15:22:17 06/17/2019 11:11:24 Edema of lower extremity [id number] R60.0 Restart lasix 20 mg dailyMonit or weights and edemaWill also check BMP [id number] Zenaida Huang [facility] [address] [place] [address] [phone] 3 07/02/2019 11:32:05 07/07/2019 14:55:36 Edema of lower extremity 143633377 R60.0 Increase lasix 40 mg dailyMonit or weights and edemaRepea t BMP 07/05 [id number] Zenaida Huang [facility] [address] [place] [address] [phone] 3 07/10/2019 11:40:16 07/16/2019 09:15:58 Edema of lower extremity 965263787 R60.0 On lasix 40 mg dailyAdd 1500 mL fluid restrictio n Monitor weights and fluid status [id number] Zenaida Huang [facility] [address] [place] [address] [phone] 3 07/13/2019 12:28:56 07/16/2019 09:56:55 Edema of lower extremity 960133299 R60.0 Lungs clear, no increase in hypoxiaOn lasix 40 mg BID x 3 days, then resume 40 mg [id number] mL fluid restrictio n Monitor weights and fluid status [address] MD [facility] on [address] [place] [address] [phone] 3 07/17/2019 10:01:57 07/21/2019 16:37:51 Chronic obstructive pulmonary disease 98578561 J41.1 baseline COPDstable on current medication smonitor respirator y function Gastroesop hageal reflux disease 103482840 K21.9 stable at baselinemo nitor for sx relief Edema of l ower extremity 824228162 R60.0 1+ lower extremity edemamonit [place] [id number] JOE MIDDLETON [facility] on [address] [place] [address] [phone] 3 08/03/2019 14:56:31 08/07/2019 11:41:12 Edema of lower extremity 408833821 R60.0 2+ lower extremity edemaIncre ase lasix to 80 mg daily x 3 days then resume 40 mg daily monitor bp and renal functionti trate meds prn [id number] [facility] [address] [place] [address] [phone] 3 08/13/2019 12:13:46 08/17/2019 15:33:16 Peripheral edema 035750026 R60.0 ImprovedOn lasix 80 mg x 2 more days then decreases to 40 mg dailyAdd eucerin cream for dry skinMonito r [id number] [facility] on [address] [place] [address] [phone] 3 08/19/2019 13:01:05 08/25/2019 09:19:13 Peripheral edema 808677130 R60.0 Increase lasix 40 mg BIDMonitor renal function and edema Chronic ob structive pulmonary disease 01390622 J41.1 baseline COPDrequir es continuous O2 to maintain O2 sat >90%Stiolt o inhaler dailyCombi vent inhaler PRNRespira tory status stable Gastroesop hageal reflux disease 284388406 K21.9 Prilosec 40 mg BIDMonitor sxs Chronic pain syndrome 37 2421505 G89.4 On methadoneC urrently on oxycodone- will taper to d/c prior to discharge [id number] JOE MIDDLETON [facility] on [address] [place] [address] 08/22/2019 08:29:52 08/25/2019 12:46:10 Chronic obstructive pulmonary disease 13862888 J41.1 baseline COPDrequir es continuous O2 to maintain O2 sat >90% , see HPI regarding trial with PTStiolto inhaler dailyCombi vent inhaler PRNRespira tory status stable Peripheral edema 0973996 00 R60.0 lasix 40 mg BIDMonitor renal function and edema outpt Gastroesop hageal reflux disease 937134655 K21.9 Prilosec 40 mg BID Chronic pain syndrome 37 3000458 G89.4 On methadone 80 mg dailyoxyco done [...] Guarantor Name 07/17/2019 1 () Nilsa Fitzpatrick [id number] Nilsa Fitzpatrick 08/03/2019 1 () Nilsa Fitzpatrick [id number] Nilsa Fitzpatrick 08/13/2019 1 () Nilsa Fitzpatrick [id number] Nilsa Fitzpatrick 08/19/2019 1 () Nilsa Fitzpatrick [id number] Nilsa Fitzpatrick 08/22/2019 1 () Nilsa Fitzpatrick [id number] Nilsa Fitzpatrick Notes Date Note Type Note [...] O2 at baseline Ra Street MD [address] [facility], [address], [place], [address], [facility] 07/17/2019 12:46:11 08/03/2019 text/html This is [...] not notified by staff. JOE MIDDLETON [address] [facility], [address], [place], [address], [employer] 08/03/2019 15:07:56 08/13/2019 text/html 64 yo female LTC resident seen for report of new blister to left ankle. Patient with hx of peripheral edema-recently on increased dose of lasix. Now with significant improvement in edema. Zenaida dunn, [employer] 08/13/2019 12:43:31 08/19/2019 text/html 64 yo female see n for annual exam. Patient with hx of COPD-O2 dependent at baseline, cardiac arrest 02/2019 secondary to respiratory failure, depression, gerd, lower extremity edema. Has now secured apartment in community and has planned discharge for end of the week. States is doing well with exception of increased lower extremity edema. Zenaida dunn, [employer] 08/19/2019 13:28:58 08/22/2019 text/html This is a [...] with oxygen 3 lpm. JOE MIDDLETON [address] [facility], [address], [place], [address], [place] - [facility] 08/22/2019 08:46:04 OBGyn Episode No OBEpisode recorded.
--- OUTSIDE RECORDS SUMMARY | 2024-07-21 17:43 | XMS_ITS | Clinical Summary ---
Author Organization [facility] Address [address] [place] [phone] Phone Care Team Providers Care Audience Coordinator Name Role Phone Nena Milner MD Primary Care Provider [phone] Allergies Active Allergy Reactions Criticality Noted Date Comments Clindamycin 02/20/2024 Latex 02/20/2024 Levofloxacin 02/20/2024 Psyllium Husk 02/20/2024 Nsaids (Non-Steroidal Anti-I nflammatory Drug) 02/20/2024 Prednisone 02/20/2024 Tramadol 02/20/2024 Valacyclovir 02/20/2024 Medications methadone (DOLOPHINE) 10 mg tablet 1 tablet (10 mg total). Active Medical History Medical History Date Comments COPD (chronic obstructive pulmonary disease) ([facility] V24, [facility] V28) CHF (congestive heart failure) ([facility] V24, [facility] V28) Social History Tobacco Use Types Packs/Day [...] 9:00 AM EDT Consult Orthopedic Surgery - [place] [address] [id number] Mansoor Frey, DPM [address] [address] Health Maintenance Due Date Last Done Comments [...] mmol/L LAB CHEMISTRY METHOD 02/21/2024 4:16 PM [facility] Potassium 3.9 3.5 - 5.5 mmol/L LAB CHEMISTRY METHOD 02/21/2024 4:16 PM [facility] Chloride 102 96 - 110 mmol/L LAB CHEMISTRY METHOD 02/21/2024 4:16 PM [facility] CO2 31 21 - 32 mmol/L LAB CHEMISTRY METHOD 02/21/2024 4:16 PM [facility] Anion Gap 4 3 - 11 LAB CHEMISTRY METHOD 02/21/2024 4:16 PM [facility] Glucose 82 70 - 100 mg/dL LAB CHEMISTRY METHOD 02/21/2024 4:16 PM EST [facility] BUN 8 5 - 25 mg/dL LAB CHEMISTRY METHOD 02/21/2024 4:16 PM [facility] Creatinine 0.75 0.50 - 1.10 mg/dL LAB CHEMISTRY METHOD 02/21/2024 4:16 PM [facility] eGFR 87 >=60 mL/min/1. 73m2 LAB CHEMISTRY METHOD 02/21/2024 4:16 PM [facility] Comment:Calculation based on the??Chronic Kidney Disease Epidemiology Collaboration (CKD-EPI) equation refit??without adjustment for race. BUN/Creatinine Ratio 10.7 LAB CHEMISTRY METHOD 02/21/2024 4:16 PM [facility] Calcium 9.2 8.5 - 10.5 mg/dL LAB CHEMISTRY METHOD 02/21/2024 4:16 PM [facility] Blood Venous blood specimen / Unknown Venipuncture / Unknown 02/21/2024 3:23 PM EST 02/21/2024 3:25 PM EST Nicole Carmona DO LAB BLOOD ORDERABLES Nina l Result [facility] [address] [place] [address], from Last 3 Months or Most Recently Relevant to Health Maintenance Additional Health Concerns Infection Onset Date Last Indicated MRSA 02/21/2024 02/21/2024 Insurance MEDICA[place] - [place] MEDICARE Care Teams Audience Coordinator Relationship Specialty Start Date End Date Nena Milner MD [address] [place] [address] PCP - General Internal Medicine 07/03/24
--- OUTSIDE RECORDS SUMMARY | 2024-07-21 17:43 | XMS_ITS | Patient Health Record ---
Author Organization [facility] Address [address] [place] [address] Care Team Providers Care Geriatric Psychiatrist Name Role Phone Annia MAJOR, Nena Primary Care Provider Marquez Banks Unavailable [phone] José Gore M.D. Unavailable Unavailab le Allergies [...] Problem Status W/U Status Risk Notes Problem 00877102 Epigastric pain (R10.13) Active confirmed Problem 192962121 Encounter for screening for malignant neoplasm of colon (Z12.11) Active confirmed Problem 879563608 Alcoholic cirrho sis of liver without ascites (K70.30) Active confirmed Problem Dysphagia (48032826) Dysphagia (R13.10) Active confirmed Problem 79901817 Abdominal pain, epigastric (R10.13) Active confirmed Problem 350606084 Gastroesophageal reflux disease without esophagitis (K21.9) Active confirmed Problem 563888292 Gallstones (K80.20) Active confirmed Problem 907567447 Abnormal UGI ser ies (R93.3) Active confirmed Problem 26418835 Duodenal ulcer (K26.9) Active confirmed Problem 49901030 Esophageal dysph agia (R13.10) Active confirmed Problem 191976993 History of pepti c ulcer disease (Z87.11) [...] Provider Name:Marquez Gomez , 10/27/2024 11:00:00 AM, [address] [place] [address], [address], [place], [address], Insurance Providers Payer Name Payer Address Payer Phone Subscriber Number Group Number Insured Name Patient Relationship to Insured Coverage Start Date Coverage End Date MEDICARE OF [place] [address] [place] [id number] SRINIVAS WRIGHT Self - patient is the insured MEDICAID OF [facility] [address] [place] [phone] [id number] SRINIVAS WRIGHT Self - patient is the [...] /p therapeutic EGD x 2 Colonoscopy at [facility] in a pprox 2004--patient was not clear about the details HTN--not on any meds Denies LA,DM,CVA,renal disease EGD 03/2017--portal gastropa thy, no varices, gastritis with biopsies negative for H. pylori, informed duodenal bulb consistent with previous ulcer disease, moderate sized hiatal hernia Colonoscopy 03/2017--1 small tubular adenoma removed, diverticulosis, internal hemorrhoids GI Bleed at [facility] in 06/25 17 with an upper endoscopy--? results---needed 4 units PRBC and some platelet transfusions Surgical History Surgery Date(Month/Year) Ankle surgery-fracture Left rib surgery for a benign tumor Hysterectomy
== END 2024-07-21 15:00 | disposition home or self-care (01) ==
LOC: HO.HCS 14:29
PROVIDERS: PCP Internal Medicine; Visit Provider Internal Medicine
DX: I51.81 Takotsubo syndrome (principal); I34.81 Nonrheumatic mitral (valve) annulus calcification; J44.9 Chronic obstructive pulmonary disease, unspecified; Z99.81 Dependence on supplemental oxygen
CPT/HCPCS: 99214

== ENCOUNTER → 2024-07-21 14:29 | Outpatient (BNVA) | payer MEDICARE, SELFPAY | PROVIDERS: PCP Internal Medicine; Visit Provider Internal Medicine | DX: I51.81 Takotsubo syndrome (principal); I34.81 Nonrheumatic mitral (valve) annulus calcification; J44.9 Chronic obstructive pulmonary disease, unspecified; Z99.81 Dependence on supplemental oxygen | CPT/HCPCS: 99212 ==

== ENCOUNTER 2024-07-23 10:02 | Outpatient (AMB) | payer MEDICARE, MEDICAID, SELFPAY ==
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
[2024-07-23 10:14] VITALS: BP 146/64; PULSE 105; O2SAT 90; BMI 20.2
--- OUTSIDE RECORDS SUMMARY | 2024-07-23 11:49 | XMS_ITS | Patient Health Record ---
Author Organization [facility] Address [address] [place] [address] Care Team Providers Care Inpatient Auditor Name Role Phone Annia MAJOR, Nena Primary Care Provider Marquez Banks Unavailable [phone] José Gore M.D. Unavailable Unavailab le Allergies [...] Problem Status W/U Status Risk Notes Problem 63695497 Epigastric pain (R10.13) Active confirmed Problem 991746211 Encounter for screening for malignant neoplasm of colon (Z12.11) Active confirmed Problem 065074927 Alcoholic cirrho sis of liver without ascites (K70.30) Active confirmed Problem Dysphagia (31948160) Dysphagia (R13.10) Active confirmed Problem 80284091 Abdominal pain, epigastric (R10.13) Active confirmed Problem 667777978 Gastroesophageal reflux disease without esophagitis (K21.9) Active confirmed Problem 750928018 Gallstones (K80.20) Active confirmed Problem 324110678 Abnormal UGI ser ies (R93.3) Active confirmed Problem 52875079 Duodenal ulcer (K26.9) Active confirmed Problem 56088111 Esophageal dysph agia (R13.10) Active confirmed Problem 456045823 History of pepti c ulcer disease (Z87.11) [...] Provider Name:Marquez Gomez , 10/27/2024 11:00:00 AM, [address] [place] [address], [address], [place], [address], Insurance Providers Payer Name Payer Address Payer Phone Subscriber Number Group Number Insured Name Patient Relationship to Insured Coverage Start Date Coverage End Date MEDICARE OF [place] [address] [place] [id number] [phone] [id number] SRINIVAS WRIGHT Self - patient is the insured MEDICAID OF [facility] [address] [place] [phone] [id number] SRINIVAS WRIGHT Self - patient is the [...] /p therapeutic EGD x 2 Colonoscopy at [facility] in a pprox 2004--patient was not clear about the details HTN--not on any meds Denies [place],DM,CVA,renal disease EGD 03/2017--portal gastropa thy, no varices, gastritis with biopsies negative for H. pylori, informed duodenal bulb consistent with previous ulcer disease, moderate sized hiatal hernia Colonoscopy 03/2017--1 small tubular adenoma removed, diverticulosis, internal hemorrhoids GI Bleed at [facility] in 06/25 17 with an upper endoscopy--? results---needed 4 units PRBC and some platelet transfusions Surgical History Surgery Date(Month/Year) Ankle surgery-fracture Left rib surgery for a benign tumor Hysterectomy
--- OUTSIDE RECORDS SUMMARY | 2024-07-23 11:49 | XMS_ITS | Clinical Summary ---
Author Organization [facility] Address [address] [place] [phone] Phone Care Team Providers Care Contractor Buyer Name Role Phone Nena Milner MD Primary Care Provider [phone] Allergies Active Allergy Reactions Criticality Noted Date Comments Clindamycin 02/20/2024 Latex 02/20/2024 Levofloxacin 02/20/2024 Psyllium Husk 02/20/2024 Nsaids (Non-Steroidal Anti-I nflammatory Drug) 02/20/2024 Prednisone 02/20/2024 Tramadol 02/20/2024 Valacyclovir 02/20/2024 Medications methadone (DOLOPHINE) 10 mg tablet 1 tablet (10 mg total). Active Medical History Medical History Date Comments COPD (chronic obstructive pulmonary disease) ([facility] V24, [facility] V28) CHF (congestive heart failure) ([facility] V24, [facility] V28) Social History Tobacco Use Types Packs/Day [...] 9:00 AM EDT Consult Orthopedic Surgery - [place] [address] [id number] Mansoor Frey, DPM [address] [address] Health Maintenance Due Date Last Done Comments [...] PM EST [facility] BUN 8 5 - 25 mg/dL LAB CHEMISTRY METHOD 02/21/2024 4:[address] [facility] Creatinine 0.75 0.50 - 1.10 mg/dL LAB CHEMISTRY METHOD 02/21/2024 4:[address] [facility] eGFR 87 >=60 mL/min/1. 73m2 LAB CHEMISTRY METHOD 02/21/2024 4:[address] [facility] Comment:Calculation based on the??Chronic Kidney Disease Epidemiology Collaboration (CKD-EPI) equation refit??without adjustment for race. BUN/Creatinine Ratio 10.7 LAB CHEMISTRY METHOD 02/21/2024 4:[address] [facility] Calcium 9.2 8.5 - 10.5 mg/dL LAB CHEMISTRY METHOD 02/21/2024 4:[address] [facility] Blood Venous blood specimen / Unknown Venipuncture / Unknown 02/21/2024 3:23 PM EST 02/21/2024 3:25 PM EST Nicole Carmona DO LAB BLOOD ORDERABLES Nina l Result [facility] [address] [place] [address], from Last 3 Months or Most Recently Relevant to Health Maintenance Additional Health Concerns Infection Onset Date Last Indicated MRSA 02/21/2024 02/21/2024 Insurance MEDICAID - [place] MEDICARE Care Teams Contractor Buyer Relationship Specialty Start Date End Date Nena Milner MD [address] [place] [address] PCP - General Internal Medicine 07/03/24
== END 2024-07-23 10:20 | disposition home or self-care (01) ==
LOC: HO.PMC 10:03
PROVIDERS: PCP Internal Medicine; Visit Provider Anesthesiology
DX: M47.812 Spondylosis without myelopathy or radiculopathy, cervical region (principal); M54.2 Cervicalgia; G89.4 Chronic pain syndrome; M79.18 Myalgia, other site
CPT/HCPCS: 99213

== ENCOUNTER → 2024-07-23 10:02 | Outpatient (BNVA) | payer MEDICARE, MEDICAID, SELFPAY | PROVIDERS: PCP Internal Medicine; Visit Provider Anesthesiology | DX: M47.812 Spondylosis without myelopathy or radiculopathy, cervical region (principal); I25.2 Old myocardial infarction; M79.18 Myalgia, other site; G89.4 Chronic pain syndrome | CPT/HCPCS: 99212 ==

== ENCOUNTER 2024-09-04 07:33 | Outpatient (REF) | payer MEDICARE, MEDICAID, SELFPAY ==
--- OUTSIDE RECORDS SUMMARY | 2024-09-04 07:36 | XMS_ITS | Patient Health Record ---
Author Organization [facility] Address [address] [place] [address] Care Team Providers Care Count Room Clerk Name Role Phone Annia MAJOR, Nena Primary Care Provider Marquez Banks Unavailable [phone] José Gore M.D. Unavailable Unavailab le Allergies [...] Problem Status W/U Status Risk Notes Problem 24564703 Epigastric pain (R10.13) Active confirmed Problem 754612091 Encounter for screening for malignant neoplasm of colon (Z12.11) Active confirmed Problem 681269961 Alcoholic cirrho sis of liver without ascites (K70.30) Active confirmed Problem Dysphagia (R13.10) Active confirmed Problem 23826729 Abdominal pain, epigastric (R10.13) Active confirmed Problem 686637125 Gastroesophageal reflux disease without esophagitis (K21.9) Active confirmed Problem 496887700 Gallstones (K80.20) Active confirmed Problem 739201187 Abnormal UGI ser ies (R93.3) Active confirmed Problem 73242394 Duodenal ulcer (K26.9) Active confirmed Problem 51445096 Esophageal dysph agia (R13.10) Active confirmed Problem 857927588 History of pepti c ulcer disease (Z87.11) [...] Provider Name:Marquez Gomez , 10/27/2024 11:00:00 AM, [address] [place] [address], [address], [place], [address], Insurance Providers Payer Name Payer Address Payer Phone Subscriber Number Group Number Insured Name Patient Relationship to Insured Coverage Start Date Coverage End Date MEDICARE OF [place] [address] [place] [id number] [phone] [id number] SRINIVAS WRIGHT Self - patient is the insured MEDICAID OF [facility] [address] [place] [phone] [id number] LARA Self - patient is the insured Medical [...] /p therapeutic EGD x 2 Colonoscopy at [facility] in a pprox 2004--patient was not clear about the details HTN--not on any meds Denies [place],DM,CVA,renal disease EGD 03/2017--portal gastropa thy, no varices, gastritis with biopsies negative for H. pylori, informed duodenal bulb consistent with previous ulcer disease, moderate sized hiatal hernia Colonoscopy 03/2017--1 small tubular adenoma removed, diverticulosis, internal hemorrhoids GI Bleed at [facility] in 06/25 18 with an upper endoscopy--? results---needed 4 units PRBC and some platelet transfusions Surgical History Surgery Date(Month/Year) Ankle surgery-fracture Left rib surgery for a benign tumor Hysterectomy
[2024-09-04 08:18] LABS: Basophils Absolute Auto 0.1 X10*3/uL (0.0-0.2); Basophils Percent Auto 1.8 % (0-2); Eosinophils Absolute Auto 0.1 X10*3/uL (0.0-0.4); Eosinophils Percent Auto 3.2 % (0-4); Hematocrit 40.4 % (37.0-47.0); Hemoglobin 13.4 g/dl (12.0-16.0); Imm Gran Abs Auto 0.01 X10*3/uL (0.00-0.03); Imm Gran Pct Auto 0.3 % (0.0-0.4); Lymphocytes Absolute Auto 1.3 X10*3/uL (1.2-4.9); Lymphocytes Percent Auto 36.8 % (20-40); Mean Corpuscular HGB Conc 33.2 g/dl (31.0-35.0); Mean Corpuscular Hemoglobin 30.5 pg (27.0-33.0); Monocytes Absolute Auto 0.4 X10*3/uL (0.1-1.2); Monocytes Percent Auto 11.7 % (2-11); Neutrophils Absolute Auto 1.6 x10*3/uL (2.0-8.3); Neutrophils Percent Auto 46.2 % (45-73); Red Blood Count 4.39 X10*6/uL (4.20-5.50); Red Cell Distribution Width 13.3 % (11.0-16.0); White Blood Count 3.4 X10*3/uL (4.8-10.8)
[2024-09-04 08:27] LABS: MANUAL DIFF FLAG SCAN
[2024-09-04 08:58] LABS: SLIDE REVIEW VERIFIED
[2024-09-04 09:00] LABS: Alanine Aminotransferase 19 U/L (0-31); Anion Gap 16 (12-20); Aspartate Amino Transferase 54 U/L (5-31); Blood Urea Nitrogen 8 mg/dL (9-16); Calcium 8.9 mg/dL (8.4-10.2); Carbon Dioxide 26 mmol/L (22-29); Chloride 104 mmol/L (96-108); Cholesterol 220 mg/dL (<200); Estimated Glomerular Filt Rate > 60; Glucose Fasting 84 mg/dL (60-99); HDL Cholesterol 110 mg/dL (>40); Iron 83 mcg/dL (30-160); LDL Cholesterol Calculated 92 mg/dL (<100); Percent Iron Saturation 22 % (15-50); Potassium 3.7 mmol/L (3.3-5.1); Sodium 142 mmol/L (135-145); Total Iron Binding Capacity 375 mcg/dL (228-428); Triglycerides 92 mg/dL (<150); Unsaturated Iron Binding 292 ug/dL
[2024-09-04 09:17] LABS: B Type Natriuretic Peptide 44 pg/mL (<100)
[2024-09-04 09:19] LABS: Vitamin D 25-OH Total 28.5 ng/mL (>30)
== END 2024-09-04 07:34 | disposition home or self-care (01) ==
LOC: HO.LAB 07:33
PROVIDERS: PCP Internal Medicine; Visit Provider Internal Medicine
DX: Z00.01 Encounter for general adult medical examination with abnormal findings (principal); R60.0 Localized edema; G89.4 Chronic pain syndrome; D64.9 Anemia, unspecified; E55.9 Vitamin D deficiency, unspecified; F31.30 Bipolar disorder, current episode depressed, mild or moderate severity, unspecified; D12.6 Benign neoplasm of colon, unspecified; M85.80 Other specified disorders of bone density and structure, unspecified site; J44.9 Chronic obstructive pulmonary disease, unspecified; M15.9 Polyosteoarthritis, unspecified
CPT/HCPCS: 36415; 80048; 80061; 82306; 83540; 83880; 84450; 84460; 85025

== ENCOUNTER 2024-09-10 10:01 | Outpatient (AMB) | payer MEDICARE, MEDICAID, SELFPAY ==
[2024-09-10 10:26] VITALS: BP 120/70; PULSE 78; O2SAT 95; BMI 19.6
--- NOTE | 2024-09-10 10:26 | MHC.OFFVIS ---
Vital Signs 09/10/24 10:26 Height 5 ft 6 in Weight 121 lb 4.068 oz BMI 19.6 BP 120/70 Blood Pressure Location Lt brachial Position Sitting Pulse 78 Pulse Source Pulse Oximeter Pulse Oximetry (%) 95 Oxygen Delivery Method Room Air Intake Visit Reasons: copd Intake Note: pt is here for follow up and states she is stating right side of abd, hurts to cough, tender to touch, bothering her for 3 weeks. Solution Strategist Required: No Allergies dextrose Allergy (Severe, Verified 09/10/24 11:00) anaphylaxis latex [LATEX] Allergy (Severe, Verified 09/10/24 11:00) HIVES psyllium [From Metamucil] Allergy (Severe, Verified 09/10/24 11:00) anaphylaxis clindamycin [CLINDAMYCIN] Allergy (Intermediate, Verified 09/10/24 11:00) RASH NSAIDS (Non-Steroidal Anti-Inflamma Allergy (Intermediate, Verified 09/10/24 11:00) ulcers tramadol [From ULTRAM] Allergy (Intermediate, Verified 09/10/24 11:00) HIVES levofloxacin [From LEVAQUIN] Adverse Reaction (Intermediate, Verified 09/10/24 11:00) TENDON PAIN, achilles tendonitis prednisone Adverse Reaction (Intermediate, Verified 09/10/24 11:00) GI BLEED, high doses valacyclovir [From VALTREX] Adverse Reaction (Intermediate, Verified 09/10/24 11:00) GI UPSET bupropion Adverse Reaction (Verified 09/10/24 11:00) vomiting Medication List - Last Reconciled 09/10/24 by Manuel Covarrubias MD acetaminophen 650 mg PO Q6H PRN albuterol sulfate 2.5 mg (3 mL) inhalation Q4-6H PRN 30 days albuterol sulfate 90 mcg/actuation 2 puffs PO Q4-6H PRN ammonium lactate 5% 1 appl topical DAILY docusate sodium 100 mg PO BID PRN fluticasone propionate 220 mcg/actuation 2 puffs inhalation BID 30 days furosemide 20 mg PO QAM PRN ipratropium bromide 2 sprays intranasal BID-TID PRN ipratropium-albuterol 0.5 mg-3 mg(2.5 mg base)/3 mL 3 mL inhalation Q4-6H PRN 20 days loratadine 10 mg PO DAILY lorazepam 0.5 mg PO BID PRN methadone 105 mg PO DAILY nicotine 1 patch transdermal DAILY NS ondansetron HCl 4 mg PO BID PRN oxycodone 5 mg PO .daily PRN pantoprazole 40 mg PO BID ramelteon 8 mg PO BEDTIME PRN Stiolto Respimat 2.5-2.5 mcg/actuation (tiotropium-olodaterol) 2 puffs PO DAILY NS tizanidine 4 mg PO Q8H PRN 30 days Do you need a note to return to daycare/school/sports/work: No HPI HPI copd: Details: THIS 69 YEARS OLD FEMALE WITH CHRONIC OBSTRUCTIVE PULMONARY DISEASE, OXYGEN-DEPENDENT, CONTINUED SMOKING, FRAIL LADY, COMES FOR PULMONARY FOLLOW-UP AFTER 3 MONTHS. SHE IS STILL SMOKING ABOUT 5 CIGARETTES A DAY ( MAY BE MORE) USES O2 2 L/MINUTE ( CLAIMS THAT SHE SMOKES AWAY FROM THE OXYGEN ) COMPLAINS OF FREQUENT COUGH WHICH CAUSES PAIN IN THE RIGHT LOWER COSTAL AND SUBCOSTAL AREA. STATES THAT HER BREATHING IS STABLE. SHE STAYS MOSTLY IN THE HOUSE AND DOES NOT GO OUTDOORS. [facility] Medical History Osteoporosis H/O adenomatous polyp of colon Hammertoe of right foot History of meningitis Nicotine dependence, cigarettes, uncomplicated Generalized anxiety disorder Cervical radiculopathy due to degenerative joint disease of spine Takotsubo cardiomyopathy History of congestive heart failure Anemia Absent pedal pulses Constipation due to opioid therapy Oxygen dependent Allergic rhinitis Vitamin D deficiency Primary osteoarthritis, right shoulder Respiratory failure with hypoxia Surgical menopause Duodenal ulcer Bipolar disorder Gastritis Substance abuse Osteopenia Alcoholic cirrhosis of liver Hepatitis C COPD (chronic obstructive pulmonary disease) Osteoarthritis of multiple joints Surgical History History of resection of rib History of colonoscopy History of ankle surgery History of esophagogastroduodenoscopy (EGD) History of hysterectomy Family History Father Alcoholism History of manic depressive disorder COPD (chronic obstructive pulmonary disease) Cancer Mother COPD (chronic obstructive pulmonary disease) Cardiac disease Smoker CHF (congestive heart failure) Alcoholism CVD (cardiovascular disease) Mental disorder Sister Lupus PTSD (post-traumatic stress disorder) Son Cardiac arrest Maternal Grandfather No problems noted. Maternal Grandmother No problems noted. Paternal Grandfather Alcoholism Mental disorder Paternal Grandmother No problems noted. Social History Housing: Apartment Alcohol intake: current Alcohol intake frequency: 0-2 drinks per day Alcohol type: beer Patient Tobacco Use Status: Current someday Tobacco user Tobacco use type: Cigarette Cigarettes Per Day: 5 Years Smoked: (onset 14yo, 1ppd x 55yrs, now 1/4ppd - 50pyh) e-Cigarette/Vaping Use: Never Used service: No Current occupational status: disabled Cognitive needs: No Hearing needs: No Vision needs: No Review of Systems Const All systems reviewed & are unremarkable except as noted in HPI and below ENT Reports no additional complaints Card Denies chest pain, Denies irregular heart rhythm and Denies leg edema Resp Reports as per HPI GI Reports no additional complaints Reports no additional complaints Musc Reports back pain Skin/Breast Reports system reviewed and no additional complaints, except as documented Neuro Reports no additional complaints Psych Reports no additional complaints Physical Exam Vital Signs: Last Vital Signs Pulse 78 09/10/24 10:26 BP 120/70 09/10/24 10:26 Pulse Ox 95 09/10/24 10:26 Oxygen Delivery Method Room Air 09/10/24 10:26 BMI result Body Mass Index 19.6 Const Other: She is of a thin build, looking fairly healthy and stable at this time. General: comfortable, no acute distress, alert and awake Orientation/consciousness: patient oriented x3 HEENT Head: Yes normal to inspection Ears: hearing grossly normal bilaterally General nose exam: No nasal polyps present and No nasal discharge present Face and sinus: Yes sinuses nontender Mouth: oropharynx normal Throat: Yes posterior oropharynx normal Eyes General: appearance normal, both eyes and all related structures Neck Neck: Yes normal visual inspection, Yes no lymphadenopathy, Yes trachea midline and Yes no JVD Thyroid: Thyroid normal Chest Chest palpation & inspection: normal inspection of the chest, normal palpation of entire chest wall and tenderness (THERE IS MILD TENDERNESS OVER THE RIGHT SUBCOSTAL AREA.) Resp Other: Percussion note hyper-resonant, breath sounds are distant with prolonged expiratory phase. But no wheezes rhonchi or crepitations are heard. Cardio Palpation: normal PMI Rate: regular rate Rhythm: regular rhythm Heart sounds: no gallops and no murmurs GI Palpation (GI): Soft to palpation, nontender, No hepatosplenomegaly present and no masses Auscultation: normal bowel sounds Back/Spine/Pelvis Thoracic/Lumbar Spine: thoracic and lumbar spine normal to inspection Pelvis: no pain with anterior-posterior compression Skin General skin exam: no rashes or lesions noted Neuro General: patient oriented x3 and no focal motor deficits Cranial nerves: Yes CN's II-XII intact bilaterally Extrem General: Yes normal to inspection, Yes no clubbing, cyanosis or edema, Yes no calf tenderness and Yes venous stasis dermatitis (RT LEG ) Psych Speech and movement: Normal speech and movement present Assessment & Plan Assessment & Plan (1) COPD (chronic obstructive pulmonary disease): Comment: Severe/Advanced COPD - 03/2020 PFT = Severe Obstructive Airway Disorder She claims that her COPD is staying stable. She continues to have frequent bouts of cough which related to smoking. Code(s): J44.9 - Chronic obstructive pulmonary disease, unspecified Category: Medical Plan: Continue to use Stiolto Respimat 2 puffs daily Flovent-to 22 puffs b.i.d.. Albuterol HFA 2.5 mg in the nebulizer Q 4-6 hours p.r.n. Alternatively may use albuterol 2 puffs Q 6 hours p.r.n. when outdoors. (2) Oxygen dependent: Comment: Patient has chronic respiratory failure with hypoxemia, being treated with O2 24 hours a day. Code(s): Z99.81 - Dependence on supplemental oxygen Category: Medical Plan: Continue using O2 2 L/minute 24 hours a day (3) Nicotine dependence, cigarettes, uncomplicated: Comment: (onset 14yo, 1ppd x 55yrs, now 1/4ppd - 50pyh) Still smoking about 5 cigarettes a day. Code(s): F17.210 - Nicotine dependence, cigarettes, uncomplicated Category: Medical Plan: Talked to her about smoking cessation but he is not going to be able to stop completely (4) Allergic rhinitis: Comment: MILD , CONTROLLED .WITH ATROVENT NASAL INH, USED PRN . Code(s): J30.9 - Allergic rhinitis, unspecified Category: Medical Plan: Ipratropium bromide solution. Two sprays in each nostril daily Coding Level of Care Code Est Pt Level 4 (06381) Diagnoses COPD (chronic obstructive pulmonary disease) J44.9 Oxygen dependent Z99.81 Nicotine dependence, cigarettes, uncomplicated F17.210 Allergic rhinitis J30.9
--- OUTSIDE RECORDS SUMMARY | 2024-09-10 11:33 | XMS_ITS | Patient Health Record ---
Author Organization [facility] Address [address] [place] [address] Care Team Providers Care Bus Person Name Role Phone Annia MAJOR, Nena Primary Care Provider Marquez Banks Unavailable [phone] José Gore M.D. Unavailable Unavailab le Allergies [...] Problem Status W/U Status Risk Notes Problem 08372733 Epigastric pain (R10.13) Active confirmed Problem 993134313 Encounter for screening for malignant neoplasm of colon (Z12.11) Active confirmed Problem 045043929 Alcoholic cirrho sis of liver without ascites (K70.30) Active confirmed Problem Dysphagia (R13.10) Active confirmed Problem 29130796 Abdominal pain, epigastric (R10.13) Active confirmed Problem 099558198 Gastroesophageal reflux disease without esophagitis (K21.9) Active confirmed Problem 150549848 Gallstones (K80.20) Active confirmed Problem 821490935 Abnormal UGI ser ies (R93.3) Active confirmed Problem 84899839 Duodenal ulcer (K26.9) Active confirmed Problem 81839852 Esophageal dysph agia (R13.10) Active confirmed Problem 614336868 History of pepti c ulcer disease (Z87.11) [...] Provider Name:Marquez Gomez , 10/27/2024 11:00:00 AM, [address] [place] [address], [address], [place], [address], Insurance Providers Payer Name Payer Address Payer Phone Subscriber Number Group Number Insured Name Patient Relationship to Insured Coverage Start Date Coverage End Date MEDICARE OF [place] [address] [place] [id number] SRINIVAS WRIGHT Self - patient is the insured MEDICAID OF [facility] [address] [place] [phone] [id number] LARA Self - patient is the insured [...] /p therapeutic EGD x 2 Colonoscopy at [facility] in a pprox 2004--patient was not clear about the details HTN--not on any meds Denies [place],DM,CVA,renal disease EGD 03/2017--portal gastropa thy, no varices, gastritis with biopsies negative for H. pylori, informed duodenal bulb consistent with previous ulcer disease, moderate sized hiatal hernia Colonoscopy 03/2017--1 small tubular adenoma removed, diverticulosis, internal hemorrhoids GI Bleed at [facility] in 06/25 18 with an upper endoscopy--? results---needed 4 units PRBC and some platelet transfusions Surgical History Surgery Date(Month/Year) Ankle surgery-fracture Left rib surgery for a benign tumor Hysterectomy
== END 2024-09-10 11:01 | disposition home or self-care (01) ==
LOC: HO.HPS 10:02
PROVIDERS: PCP Internal Medicine; Visit Provider Internal Medicine
DX: J44.9 Chronic obstructive pulmonary disease, unspecified (principal); Z99.81 Dependence on supplemental oxygen; F17.210 Nicotine dependence, cigarettes, uncomplicated; J30.9 Allergic rhinitis, unspecified
CPT/HCPCS: 99214

== ENCOUNTER → 2024-09-10 10:01 | Outpatient (BNVA) | payer MEDICARE, MEDICAID, SELFPAY | PROVIDERS: PCP Internal Medicine; Visit Provider Internal Medicine | DX: J44.9 Chronic obstructive pulmonary disease, unspecified (principal); J30.9 Allergic rhinitis, unspecified; F17.210 Nicotine dependence, cigarettes, uncomplicated; Z99.81 Dependence on supplemental oxygen | CPT/HCPCS: 99212 ==

== ENCOUNTER 2024-10-06 08:59 | Outpatient (AMB) | payer MEDICARE, MEDICAID, SELFPAY ==
--- NOTE | 2024-10-06 09:01 | A.OFFVIS_ITS ---
Vital Signs 10/06/24 09:05 Height 5 ft 3.11 in Weight 121 lb 4.068 oz BMI 21.4 BP 92/58 L Blood Pressure Location Rt brachial Position Sitting Pulse 89 Pulse Source Pulse Oximeter Intake Visit Reasons: Age-related osteoporosis without current patholog Intake Note: New patient internally referred by PCP for Age-related Osteoporosis. Last DEXA done at [facility] on 07/16/2024. Director Clinical Applications Required: No Accompanied by: Self / Same As Patient Allergies dextrose Allergy (Severe, Verified 10/06/24 09:08) anaphylaxis latex (LATEX) Allergy (Severe, Verified 10/06/24 09:08) HIVES psyllium (From Metamucil) Allergy (Severe, Verified 10/06/24 09:08) anaphylaxis clindamycin (CLINDAMYCIN) Allergy (Intermediate, Verified 10/06/24 09:08) RASH NSAIDS (Non-Steroidal Anti-Inflamma Allergy (Intermediate, Verified 10/06/24 09:08) ulcers tramadol (From ULTRAM) Allergy (Intermediate, Verified 10/06/24 09:08) HIVES levofloxacin (From LEVAQUIN) Adverse Reaction (Intermediate, Verified 10/06/24 09:08) TENDON PAIN, achilles tendonitis prednisone Adverse Reaction (Intermediate, Verified 10/06/24 09:08) GI BLEED, high doses valacyclovir (From VALTREX) Adverse Reaction (Intermediate, Verified 10/06/24 09:08) GI UPSET bupropion Adverse Reaction (Verified 10/06/24 09:08) vomiting Medication List - Last Reconciled 10/06/24 by Marquez Dorantes MD acetaminophen 650 mg PO Q6H PRN albuterol sulfate 90 mcg/actuation 2 puffs PO Q4-6H PRN albuterol sulfate 2.5 mg (3 mL) inhalation Q4-6H PRN 30 days ammonium lactate 5% 1 appl topical DAILY docusate sodium 100 mg PO BID PRN fluticasone furoate 100 mcg/actuation (Arnuity Ellipta) 1 inh inhalation DAILY 30 days fluticasone propionate 220 mcg/actuation 2 puffs inhalation BID 30 days furosemide 20 mg PO QAM PRN ipratropium bromide 2 sprays intranasal BID-TID PRN ipratropium-albuterol 0.5 mg-3 mg(2.5 mg base)/3 mL 3 mL inhalation Q4-6H PRN 20 days loratadine 10 mg PO DAILY lorazepam 0.5 mg PO BID PRN methadone 105 mg PO DAILY nicotine 1 patch transdermal DAILY NS ondansetron HCl 4 mg PO BID PRN oxycodone 5 mg PO .daily PRN pantoprazole 40 mg PO BID ramelteon 8 mg PO BEDTIME PRN Stiolto Respimat 2.5-2.5 mcg/actuation (tiotropium-olodaterol) 2 puffs PO DAILY NS tizanidine 4 mg PO Q8H PRN 30 days HPI Comments Details: The patient is a 69-year-old female presenting with osteoporosis. She was priscilla rhoades diagnosed with osteopenia several years ago, and her condition progressed to osteoporosis as indicated by her last bone density scan. She has not been placed on any medication for osteoporosis and has not consulted any other specialists for this condition. The patient has history of several rib fractures but none in in the hip, spine, forearm, or wrist, although she did experience an ankle fracture approximately 40 years ago. She reports a significant height loss from 5'7 to 5'3 . The patient has a history of Chronic Obstructive Pulmonary Disease (COPD) and uses steroids as needed, but not on a regular basis. She smokes 5-6 cigarettes a day and has been attempting to quit using nicotine patches. The patient does not engage in weight-bearing exercises and denies any history of kidney stones. She underwent a hysterectomy at age 41, with her ovaries preserved, and began experiencing hot flashes in her 50s. The patient does not engage in any weight-bearing exercises. Her dietary intake includes cheese and ice cream, but she does not consume milk. She has been advised to consume 1200 mg of calcium daily, preferably through diet, and to take calcium citrate supplements if necessary. The patient has a vitamin D deficiency, for which she has been advised to take 2000 IU of vitamin D daily. First diagnosed in this yr . Not Received treatment in the past History of several rib fractures from coughing but no ONJ. Has several servings of dietary calcium per day in the form of cheese, cabbage, cottage cheese . Not Takes Calcium supplement s. Not Takes IU of Vitamin D daily. Takes PPI, -anticoagulant, -antiepileptic but takes glucocorticoid medication intermittedly . Not Does weight bearing exercise . 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 UTD on dental cleanings and sees dentist every 6 months. No planned upcoming dental work or extractions. Tobacco use 6-7 cigs/day. No heavy ETOH abuse DXA dated 07/16/24 :EXAMINATION: DXA BONE DENSITY AXIAL HISTORY: M85.80 - Other specified disorders of bone density and structure, unspec... TECHNIQUE: [employer] Dual energy absorptiometry (DEXA) of the lumbar spine, total left hip, and femoral neck was performed. COMPARISON: Comparison is made with the prior examination dated 02/08/2017. FINDINGS: The bone mineral density of the lumbar spine is 0.996 with a T-score of -1.5, and a Z-score of 0.4. This is indicative of osteopenia. This represents a BMD change of 1.6% compared to the prior exam. This is not statistically significant. The bone mineral density of the left total hip is 0.627 with a T-score of -3.0, and a Z-score of -1.4. This is indicative of osteoporosis. This represents a BMD change of -23.2% compared to the prior exam. This is statistically significant. The bone mineral density of the left femoral neck is 0.677 with a T-score of -2.6, and a Z-score of -0.8. This is indicative of osteoporosis. This represents a BMD change of -16.7% compared to the prior exam. MM/XR DEXA axial skeleton IMPRESSION: Based on bone mineral density, and according to World Health Organization (WHO) criteria, the diagnosis is consistent with osteoporosis. Labs: [facility] Medical History Osteoporosis H/O adenomatous polyp of colon Hammertoe of right foot History of meningitis Nicotine dependence, cigarettes, uncomplicated Generalized anxiety disorder Cervical radiculopathy due to degenerative joint disease of spine Takotsubo cardiomyopathy History of congestive heart failure Anemia Absent pedal pulses Constipation due to opioid therapy Oxygen dependent Allergic rhinitis Vitamin D deficiency Primary osteoarthritis, right shoulder Respiratory failure with hypoxia Surgical menopause Duodenal ulcer Bipolar disorder Gastritis Substance abuse Osteopenia Alcoholic cirrhosis of liver Hepatitis C COPD (chronic obstructive pulmonary disease) Osteoarthritis of multiple joints Surgical History History of resection of rib History of colonoscopy History of ankle surgery History of esophagogastroduodenoscopy (EGD) History of hysterectomy Family History Father Alcoholism History of manic depressive disorder COPD (chronic obstructive pulmonary disease) Cancer Mother COPD (chronic obstructive pulmonary disease) Cardiac disease Smoker CHF (congestive heart failure) Alcoholism CVD (cardiovascular disease) Mental disorder Sister Lupus PTSD (post-traumatic stress disorder) Son Cardiac arrest Maternal Grandfather No problems noted. Maternal Grandmother No problems noted. Paternal Grandfather Alcoholism Mental disorder Paternal Grandmother No problems noted. Social History Housing: Apartment Alcohol intake: current Alcohol intake frequency: 0-2 drinks per day Alcohol type: beer Patient Tobacco Use Status: Current someday Tobacco user Tobacco use type: Cigarette Cigarettes Per Day: 5 Years Smoked: (onset 14yo, 1ppd x 55yrs, now 1/4ppd - 50pyh) e-Cigarette/Vaping Use: Never Used service: No Current occupational status: disabled Cognitive needs: No Hearing needs: No Vision needs: No Physical Exam There are no Cushingoid features. Absence of blue sclera. Absence of kyphosis. Thyroid gland is of nl size and weighs 15 gms. There are no thyroid nodules palpated. Lungs CTA. Heart S1 S2 Reg R/R Abdominal exam benign. Muscle strength 5/5 . Examination of spine reveals absence of tenderness on palpation Assessment & Plan Assessment & Plan (1) Osteoporosis: Code(s): M81.0 - Age-related osteoporosis without current pathological fracture Category: Medical Plan: This is a 69-year-old white female with a history of osteoporosis. Rule out secondary causes with mild vitamin-D deficiency Plan is to start 2000 IU of vitamin D3 and check a phosphorus level, TSH, free T4, repeat 25 hydroxy vitamin-D level, 24 hour urine for calcium and creatinine, urine immunofixation in 2 months. We will also ensure 1200 mg of calcium. Assuming secondary workup is negative would strongly consider use of anabolic agent initially like Evenity , Tymlos or Forteo followed by an anti resorptive agent considering patient is a high risk for fracture 1. Osteoporosis The patient has been diagnosed with osteoporosis, with a T-score of -3 in the hip indicating moderate to severe osteoporosis. She has not been on any medication for this condition. The plan includes a comprehensive workup to rule out other conditions that mimic osteoporosis, including blood and urine tests. She is advised to take 1200 mg of calcium daily, preferably through diet, and 2000 IU of vitamin D supplementation. Follow-up in four months is planned to reassess her condition and consider starting anabolic therapy if necessary. 3. Vitamin D deficiency The patient has a mild vitamin D deficiency. She is advised to take 2000 IU of vitamin D daily. Follow-up testing is planned in two to three months to reassess her vitamin D levels. I discussed with the patient the diagnosis of osteoporosis and the importance of calcium and vitamin D supplementation. We reviewed the potential need for anabolic therapy if her condition does not improve. I emphasized the importance of smoking cessation for her COPD and overall health. We also discussed the plan for follow-up testing and the importance of adherence to the recommended supplementation regimen. - Take 1200 mg of calcium daily, preferably through diet. - Take 2000 IU of vitamin D daily. - Attempt to quit smoking using nicotine patches. - Schedule follow-up testing in two to three months. - Return for follow-up in four months. The patient had an opportunity to ask questions regarding treatment plan. The patient expressed understanding and agreement with the above treatment plan. Patient was informed and verbally consented to the use of an ambient scribe for clinic note documentation during this visit. Orders: Orders Phosphorus 2 Months M81.0 - Age-related osteoporosis without current patholo gical fracture Calcium, 24 Hr Ur 2 Months M81.0 - Age-related osteoporosis without current pathological fracture Free T4 (Free Thyroxine) 2 Months M81.0 - Age-related osteoporosis without current pathological fracture Vitamin D 25-OH Total 2 Months M81.0 - Age-related osteoporosis without current pathological fracture Creatinine, 24 Hr Group 2 Months M81.0 - Age-related osteoporosis without current pathological fracture Thyroid Stimulating Hormone 2 Months M81.0 - Age-related osteoporosis without current pathological fracture Immunofixation, Random Urine 2 Months M81.0 - Age-related osteoporosis without current pathological fracture Medications: New cholecalciferol (vitamin D3) 50 mcg PO DAILY 30 caps 5RF Coding Level of Care Code New Pt Level 4 (22786) Diagnoses Osteoporosis M81.0
[2024-10-06 09:05] VITALS: BP 92/58; PULSE 89; BMI 21.4
--- OUTSIDE RECORDS SUMMARY | 2024-10-06 09:26 | XMS_ITS | Clinical Summary ---
Author Organization [facility] Address [address] [place] [address] Phone Care Team Providers Care Rehab Consultant Name Role Phone Nena Milner MD Primary Care Provider Allergies Active Allergy Reactions Criticality Noted Date Comments Clindamycin 02/20/2024 Latex 02/20/2024 Levofloxacin 02/20/2024 Psyllium Husk 02/20/2024 Nsaids (Non-Steroidal Anti-I nflammatory Drug) 02/20/2024 Prednisone 02/20/2024 Tramadol 02/20/2024 Valacyclovir 02/20/2024 Medications methadone (DOLOPHINE) 10 mg tablet 1 tablet (10 mg total). Active acetaminophen (TYLENOL 8 HOUR) 650 mg 8 hr tablet Take 1 tablet (650 mg total) by mouth every 8 (eight) hours if needed for mild pain. Do not crush, chew, or split. Active Encounters Date Type Department Care Team Description 09/30/2024 9:00 AM EDT Consult Orthopedic Surgery - [place] [address] [facility] [address] [place] [address] Mansoor Frey, DPM Dermatophytosis of nail (Primary Dx); Other hammer toe(s) (acquired), right foot; Other nail disorders; Pain in toe of right foot; Pain in toe of left foot; Bilateral femoral artery stenosis (CMS/HCC V24) from Last 3 Months Medical History Medical History Date Comments COPD (chronic obstructive pulmonary disease) (CM S/HCC V24, CMS/HCC V28) CHF (congestive heart failure) ([facility]/HCC V24, [facility] V28) Social History Tobacco Use Types [...] 90 02/21/2024 3:47 PM EST Temperature 36.1 C (97 F) 02/21/2024 8:23 PM EST Respiratory Rate 16 02/21/2024 8:23 PM EST Oxygen Saturation 95% 02/21/2024 8:23 PM EST Inhaled Oxygen Concentration - - Weight 54.4 kg (120 lb) 09/30/2024 9:21 AM EDT Height 167.6 cm (5' 6 ) 09/30/2024 9:21 AM EDT Body Mass Index 19.37 09/30/2024 9:21 AM EDT Plan of Treatment Upcoming Encounters Date Type Department Care Team (Late st Contact Info) Description 01/04/2025 8:30 AM EDT Office Visit Orthopedic Surgery - [place] [address] [id number] Mansoor Frey, DPM [address] [address] Health Maintenance Due Date Last Done Comments [...] mmol/L LAB CHEMISTRY METHOD 02/21/2024 4:16 PM [facility] Potassium 3.9 3.5 - 5.5 mmol/L LAB CHEMISTRY METHOD 02/21/2024 4:16 PM [facility] Chloride 102 96 - 110 mmol/L LAB CHEMISTRY METHOD 02/21/2024 4:16 PM [facility] CO2 31 21 - 32 mmol/L LAB CHEMISTRY METHOD 02/21/2024 4:16 PM [facility] Anion Gap 4 3 - 11 LAB CHEMISTRY METHOD 02/21/2024 4:16 PM [facility] Glucose 82 70 - 100 mg/dL LAB CHEMISTRY METHOD 02/21/2024 4:16 PM [facility] BUN 8 5 - 25 mg/dL LAB CHEMISTRY METHOD 02/21/2024 4:16 PM [facility] Creatinine 0.75 0.50 - 1.10 mg/dL LAB CHEMISTRY METHOD 02/21/2024 4:16 PM [facility] eGFR 87 >=60 mL/min/1. 73m2 LAB CHEMISTRY METHOD 02/21/2024 4:16 PM [facility] Comment:Calculation based on the Chronic Kidney Disease Epidemiology Collaboration (CKD-EPI) equation refit without adjustment for race. BUN/Creatinine Ratio 10.7 LAB CHEMISTRY METHOD 02/21/2024 4:16 PM [facility] Calcium 9.2 8.5 - 10.5 mg/dL LAB CHEMISTRY METHOD 02/21/2024 4:16 PM [facility] Blood Venous blood specimen / Unknown Venipuncture / Unknown 02/21/2024 3:23 PM EST 02/21/2024 3:25 PM EST us Nicole Carmona DO LAB BLOOD ORDERABLES Nina l Result [facility] [address] [place] [address], [place] [phone] from Last 3 Months or Most Recently Relevant to Health Maintenance Additional Health Concerns Infection Onset Date Last Indicated MRSA 02/21/2024 02/21/2024 Insurance MEDICAID - [place] MEDICARE [facility] Care Teams Rehab Consultant Relationship Specialty Start Date End Date Nena Milner MD [address] [facility] [place] [address] PCP - General Internal Medicine 07/03/24
--- OUTSIDE RECORDS SUMMARY | 2024-10-06 09:26 | XMS_ITS | Patient Health Record ---
Author Organization [facility] Address [address] [place] [address] Care Team Providers Care Pickle Sorter Name Role Phone Annia MAJOR, Nena Primary Care Provider Marquez Banks Unavailable [phone] José Gore M.D. Unavailable Unavailab le Allergies [...] Problem Status W/U Status Risk Notes Problem 44439769 Epigastric pain (R10.13) Active confirmed Problem 581126127 Encounter for screening for malignant neoplasm of colon (Z12.11) Active confirmed Problem 407219600 Alcoholic cirrho sis of liver without ascites (K70.30) Active confirmed Problem Dysphagia (94699596) Dysphagia (R13.10) Active confirmed Problem 50792013 Abdominal pain, epigastric (R10.13) Active confirmed Problem 014460798 Gastroesophageal reflux disease without esophagitis (K21.9) Active confirmed Problem 531688258 Gallstones (K80.20) Active confirmed Problem 253234147 Abnormal UGI ser ies (R93.3) Active confirmed Problem 70474750 Duodenal ulcer (K26.9) Active confirmed Problem 43345785 Esophageal dysph agia (R13.10) Active confirmed Problem 106815941 History of pepti c ulcer disease (Z87.11) [...] Provider Name:Marquez Gomez , 10/27/2024 11:00:00 AM, [address] [place] [address], [address], [place], [address], Insurance Providers Payer Name Payer Address Payer Phone Subscriber Number Group Number Insured Name Patient Relationship to Insured Coverage Start Date Coverage End Date MEDICARE OF [place] [address] [place] [id number] SRINIVAS WRIGHT Self - patient is the insured MEDICAID OF [facility] [address] [place] [address] [phone] [id number] SRINIVAS WRIGHT Self - patient is the [...] /p therapeutic EGD x 2 Colonoscopy at [facility] in a pprox 2004--patient was not clear about the details HTN--not on any meds Denies MN,DM,CVA,renal disease EGD 03/2017--portal gastropa thy, no varices, gastritis with biopsies negative for H. pylori, informed duodenal bulb consistent with previous ulcer disease, moderate sized hiatal hernia Colonoscopy 03/2017--1 small tubular adenoma removed, diverticulosis, internal hemorrhoids GI Bleed at [facility] in 06/25 17 with an upper endoscopy--? results---needed 4 units PRBC and some platelet transfusions Surgical History Surgery Date(Month/Year) Ankle surgery-fracture Left rib surgery for a benign tumor Hysterectomy
== END 2024-10-06 09:40 | disposition home or self-care (01) ==
LOC: HO.ENCR 09:00
PROVIDERS: PCP Internal Medicine; Visit Provider Internal Medicine Endocrinology, Diabetes & Metabolism
DX: M81.0 Age-related osteoporosis without current pathological fracture (principal)
CPT/HCPCS: 99204

== ENCOUNTER → 2024-10-06 08:59 | Outpatient (BNVA) | payer MEDICARE, MEDICAID, SELFPAY | PROVIDERS: PCP Internal Medicine; Visit Provider Internal Medicine Endocrinology, Diabetes & Metabolism | DX: M81.0 Age-related osteoporosis without current pathological fracture (principal) | CPT/HCPCS: 99202 ==

== ENCOUNTER 2024-12-15 10:04 | Outpatient (REF) | payer MEDICARE, MEDICAID, SELFPAY ==
--- NOTE | ~2024-12-15 | XR_ITS ---
EXAMINATION: XR CHEST CLINICAL INFORMATION: J44.9 - Chronic obstructive pulmonary disease, unspecified COMPARISON: June 23, 2018 x-ray and CT from May 01, 2024 TECHNIQUE: 2 views of the chest were obtained. FINDINGS: Streaky linear opacities are increased in the right lung base. On lateral, there is a layering opacity in the posterior costophrenic angle, probably on the right. On CT, this correlates to herniation of fat in the posterior right chest. There are coarse markings otherwise. Heart size is within normal limits. XR/XR chest 2V IMPRESSION: Streaky density in the right base probably represents atelectasis, though early pneumonia is not ruled out. Right-sided Bochdalek hernia containing fat. Electronically signed by: Florentino Ibanez MD 12/15/2024 10:48 AM EDT
--- OUTSIDE RECORDS SUMMARY | 2024-12-15 11:50 | XMS_ITS | Patient Health Record ---
Author Organization [facility] Address [address] [place] [address] Care Team Providers Care Contract Manager Name Role Phone Annia MAJOR, Nena Primary Care Provider Marquez Banks Unavailable [phone] José Gore M.D. Unavailable Unavailab le Allergies [...] End Date Status Ondansetron HCl 4 MG 1 tablet Orally Bhavana ry 4 to 6 hours if needed for nausea for 30 days Active Ondansetron HCl 4 MG Take 1 tablet three times a day Orally 3 times a day for 30 days Active Spiriva HandiHaler 18 MCG INHALE THE CON TENT OF 1 C VIA HANDIHALER ONCE A DAY Inhalation for 30 Active ProAir HFA 108 (90 Base) MCG/ACT INHALE 1 PUFF PO Q 4 TO 6 H PRN Inhalation for 30 Active Pantoprazole Sodium 40 MG TAKE 1 TABLET BY MOUTH TWICE DAILY for 30 Active hydrOXYzine HCl 25 MG Oral for 10 Active tiZANidine HCl 2 MG TK 1 C PO TID PRN Or al for 30 Active Spironolactone 25 MG TK 1 T PO D WITH FO OD Oral for 30 Active Loratadine 10 MG TK 1 T PO QD Oral for 30 Active Ramelteon 8 MG TAKE 1 TABLET BY ROD TH AT BEDTIME NEEDED FOR INSOMNIA Oral for 30 Active Ativan 0.5 MG 1 tablet at bedtime as needed Orally Once a day Active Furosemide 20 MG TAKE 1 TABLET BY ROD TH EVERY MORNING NEEDED FOR SWELLING Oral for 20 Active Methadone HCl - as directed 105 Active Stiolto Respimat 2.5-2.5 MCG/ACT INHALE 2 PUFFS BY MOUTH EVERY DAY Inhalation for 30 Active Vitamin D 50 MCG (1999) 1 tablet Oral ly Once a day for 30 day(s) Active Ondansetron HCl 8 MG TK 1 T PO BID PRF N AUSEA OR VOM Oral for 30 Active Ondansetron HCl 4 MG 1 tablet Orally 3 t imes a day for nausea for 30 days 10/27/2024 Active Immunizations Vaccine Route Administration Date Status Comme nts Influenza Unknown 12/08/2019 Administered Influenza Unknown 01/25/2021 Administered Influenza Unknown 01/28/2024 Administered Social History Tobacco Use: Social History Observation Description Date Details (start date - stop date) Current Smoker NA - NA Tobacco Use/Smoking Question Answer Notes Patient is a current smoker How often do you smoke cigarettes? every day How many cigarettes a day do you smoke? 5 or les s AUDIT-C (Standard) Question Answer Notes Did you have a drink contain ing alcohol in the past year? Yes How often did you have a dri nk containing alcohol in the past year? Daily or almost daily (4 points) How many drinks did you have on a typical day when you were drinking in the past year? 1 or 2 drinks (0 point) How often did you have six o r more drinks on one occasion in the past year? Never (0 point) Points 4 Interpretation Positive Section Notes: Former substance abuse--pills and IV [...] a week as of the 07/13/2021 OV. Former substance abuse- pills and IV heroin- -last time was in summer Smoker approx. 6-8 cigs QD as of the 07/13/2021 OV, heavy EtOH- cut down 2 years ago, and reports 1-2 beers about twice a week as of the 07/13/2021 OV. Problems Problem Type SNOMED Code ICD Code Onset Dates Problem Status W/U Status Risk Notes Problem 29991645 Epigastric pain (R10.13) Active confirmed Problem 143609102 Encounter for screening for malignant neoplasm of colon (Z12.11) Active confirmed Problem 262212990 Alcoholic cirrhosis of liver without ascites (K70.30) Active confirmed Problem Nausea (991560884) Nausea (R11.0) Active confir med Problem Dysphagia (27529021) Dysphagia (R13.10) Active confirmed Problem 59556253 Abdominal pain, epigastric (R10.13) Active confirmed Problem 269873758 Gastroesophageal reflux disease without esophagitis (K21.9) Active confirmed Problem Hiatal hernia (20564015) Hiatal hernia (K44.9) Active confirmed Problem 695423055 Gallstones (K80.20) Active confirmed Problem Gastroesophageal reflux disease (907478227) GERD (gastroesophageal reflux disease) (K21.9) Active confirmed Problem 048736696 Abnormal UGI series (R93.3) Active confirmed Problem 58472383 Duodenal ulcer (K26.9) Active confirmed Problem 31956473 Esophageal dysphagia (R13.10) Active confirmed Problem 902096840 History of pepti c ulcer disease (Z87.11) Active confirmed Vital Signs Temperature 98.4 degrees Fahrenheit 10/27/2024 Blood pressure diastolic 01 mm Hg 10/27/2024 Height 65.5 in 10/27/2024 Blood pressure systolic 001 mm Hg 10/27/2024 Weight 122 lbs 10/27/2024 BMI 19.99 kg/m2 10/27/2024 Encounters Encounter Location Date Provider Diagnosis [facility] [address] [place] [address] 10/27/2024 Marquez Gomez Nausea R11.0 ; GERD (gastroesophageal reflux disease) K21.9 and Hiatal hernia K44.9 Assessments Encounter Date Diagnosis (ICD Code) Assessment Notes Treatment Notes Treatment Clinical Notes Section Notes 10/27/2024 Nausea (ICD-10 - R11.0) Continue the Ondansetron Overall, Srinivas is not having any new or worrisome GI complaints. Her chronic reflux seems stable on her pantoprazole. Her swallowing issues do not seem particularly problematic and I reviewed the findings of her upper endoscopy from 2021 with her in detail. I advised her that she may be having some gastroesophageal reflux and esophageal spasm on that basis. I did advise her to continue her pantoprazole. We did review that things like smoking and alcohol use will make reflux worse and she should stop both of those activities for her overall health. I do not think any further evaluation of her reflux or swallowing is required. We did review that her weight gain is certainly reassuring as well. I do not think she requires anything such as an esophageal motility study. I have given her a new prescription for ondansetron in regard to her chronic nausea. I advised her that her nausea is probably multifactorial in relation to her significant lung disease, continued smoking, and some continued alcohol consumption. We did review her colonoscopy from 2016 with removal of a tubular adenoma. At this point, given the lack of any particular GI complaints such as change in bowel habits or rectal bleeding, her poor clinical condition, and her comorbidities, I advised her that I would recommend holding off on any further future screening colonoscopies. At this point, if things remain stable, I advised Srinivas to see me again on an as needed basis. Srinivas was comfortable with this plan. Thank you again for allowing me to have participated in Srinivas's care. I shall continue to keep you advised of her progress as needed. Please do not hesitate to contact me if I can be of any further assistance in the future. 10/27/2024 GERD (gastroesopha geal reflux disease) (ICD-10 - K21.9) Continue the Pantoprazole Overall, Srinivas is not having any new or worrisome GI complaints. Her chronic reflux seems stable on her pantoprazole. Her swallowing issues do not seem particularly problematic and I reviewed the findings of her upper endoscopy from 2021 with her in detail. I advised her that she may be having some gastroesophageal reflux and esophageal spasm on that basis. I did advise her to continue her pantoprazole. We did review that things like smoking and alcohol use will make reflux worse and she should stop both of those activities for her overall health. I do not think any further evaluation of her reflux or swallowing is required. We did review that her weight gain is certainly reassuring as well. I do not think she requires anything such as an esophageal motility study. I have given her a new prescription for ondansetron in regard to her chronic nausea. I advised her that her nausea is probably multifactorial in relation to her significant lung disease, continued smoking, and some continued alcohol consumption. We did review her colonoscopy from 2017 with removal of a tubular adenoma. At this point, given the lack of any particular GI complaints such as change in bowel habits or rectal bleeding, her poor clinical condition, and her comorbidities, I advised her that I would recommend holding off on any further future screening colonoscopies. At this point, if things remain stable, I advised Srinivas to see me again on an as needed basis. Srinivas was comfortable with this plan. Thank you again for allowing me to have participated in Srinivas's care. I shall continue to keep you advised of her progress as needed. Please do not hesitate to contact me if I can be of any further assistance in the future. 10/27/2024 Hiatal hernia (ICD-10 - K44.9) Overall, Srinivas is not having any new or worrisome GI complaints. Her chronic reflux seems stable on her pantoprazole. Her swallowing issues do not seem particularly problematic and I reviewed the findings of her upper endoscopy from 2021 with her in detail. I advised her that she may be having some gastroesophageal reflux and esophageal spasm on that basis. I did advise her to continue her pantoprazole. We did review that things like smoking and alcohol use will make reflux worse and she should stop both of those activities for her overall health. I do not think any further evaluation of her reflux or swallowing is required. We did review that her weight gain is certainly reassuring as well. I do not think she requires anything such as an esophageal motility study. I have given her a new prescription for ondansetron in regard to her chronic nausea. I advised her that her nausea is probably multifactorial in relation to her significant lung disease, continued smoking, and some continued alcohol consumption. We did review her colonoscopy from 2017 with removal of a tubular adenoma. At this point, given the lack of any particular GI complaints such as change in bowel habits or rectal bleeding, her poor clinical condition, and her comorbidities, I advised her that I would recommend holding off on any further future screening colonoscopies. At this point, if things remain stable, I advised Srinivas to see me again on an as needed basis. Srinivas was comfortable with this plan. Thank you again for allowing me to have participated in Srinivas's care. I shall continue to keep you advised of her progress as needed. Please do not hesitate to contact me if I can be of any further assistance in the future. Plan Of Treatment Pending Test Test Name [...] Insured Coverage Start Date Coverage End Date [facility] Medicare Advantage Plan [address] [address] [place] [address] [id number] SRINIVAS WRIGHT Self - patient is the insured 4 Medical (General) History Medical History History ICD Code COPD- oxygen dependent-Dr. [place]- respiratory arrest in 01/2019- in ICU for 1 month Urinary incontinence Chronic Hep C- sees Dr. Luis acevedo- starting Valdo on 01/03/18- Hep C viral load was neg. in 08/2017; a liver fibrosis test in 2017 was 0.74 consistent with F4, and previous hepatitis C genotype was 1A Duodenal ulcer with UGI Bleed in 2004- s /p therapeutic EGD x 2 Colonoscopy at [facility] in a pprox 2005- patient was not clear about the details HTN- not on any meds Denies OR,DM,CVA,renal disease EGD 03/2017- portal gastropa thy, no varices, gastritis with biopsies negative for H. pylori, informed duodenal bulb consistent with previous ulcer disease, moderate sized hiatal hernia Colonoscopy 03/2017- 1 small tubular adenoma removed, diverticulosis, internal hemorrhoids GI Bleed at [facility] in 06/25 18 with an upper endoscopy- ? results- -needed 4 units PRBC and some platelet transfusions Gallstones seen on a April 2021 ultrasound and reviewed at her July 2021 office visit Intermittent dysphagia and r eflux- -Upper endoscopy in July 2021 revealed a small hiatal hernia but was otherwise basically unremarkable. There was no esophagitis, esophageal ring, nor Howell's esophagus. I did dilate the gastroesophageal junction up to 20 mm but without any appreciable effect. Biopsies from the proximal esophagus were negative for eosinophilic esophagitis. Surgical History Surgery Date(Month/Year) Hysterectomy Left rib surgery for a benign tumor Ankle surgery-fracture
[2024-12-15 11:51] LABS: Free T4 (Free Thyroxine) 0.86 ng/dL (0.71-1.85); Thyroid Stimulating Hormone 2.45 uIU/mL (0.32-4.0)
== END 2024-12-15 10:05 | disposition home or self-care (01) ==
LOC: HO.XRAY 10:04
PROVIDERS: Absent Provider Internal Medicine Endocrinology, Diabetes & Metabolism; PCP Internal Medicine; Visit Provider Internal Medicine
DX: M81.0 Age-related osteoporosis without current pathological fracture (principal); J44.9 Chronic obstructive pulmonary disease, unspecified; J20.9 Acute bronchitis, unspecified; Z13.29 Encounter for screening for other suspected endocrine disorder
CPT/HCPCS: 71046; 82306; 84100; 84439; 84443; 86335

== ENCOUNTER → 2024-12-15 10:23 | Outpatient (BNV) | payer MEDICARE, MEDICAID, SELFPAY | PROVIDERS: Absent Provider Internal Medicine Endocrinology, Diabetes & Metabolism; PCP Internal Medicine; Visit Provider Radiology Diagnostic Radiology | DX: J44.9 Chronic obstructive pulmonary disease, unspecified (principal); Q79.0 Congenital diaphragmatic hernia | CPT/HCPCS: 71046 ==

== ENCOUNTER 2024-12-16 09:54 | Outpatient (AMB) | payer MEDICARE, MEDICAID, SELFPAY ==
[2024-12-16 10:15] VITALS: BP 111/62; PULSE 94; O2SAT 95; BMI 19.9
--- NOTE | 2024-12-16 10:15 | A.OFFVIS_ITS ---
Vital Signs 12/16/24 10:15 Height 5 ft 6 in Weight 123 lb BMI 19.9 BP 111/62 Blood Pressure Location Rt brachial Position Sitting Pulse 94 Pulse Source Pulse Oximeter Pulse Oximetry (%) 95 Oxygen Delivery Method Nasal Cannula Oxygen Flow Rate 1.5 Intake Visit Reasons: COPD Intake Note: Patient is here for a follow up on COPD, patient c/o of chest pain for the past 3 days, patient has a productive cough. Patient had a chest x-ray yesterday. Allergies dextrose Allergy (Severe, Verified 12/16/24 10:44) anaphylaxis latex (LATEX) Allergy (Severe, Verified 12/16/24 10:44) HIVES psyllium (From Metamucil) Allergy (Severe, Verified 12/16/24 10:44) anaphylaxis clindamycin (CLINDAMYCIN) Allergy (Intermediate, Verified 12/16/24 10:44) RASH NSAIDS (Non-Steroidal Anti-Inflamma Allergy (Intermediate, Verified 12/16/24 10:44) ulcers tramadol (From ULTRAM) Allergy (Intermediate, Verified 12/16/24 10:44) HIVES levofloxacin (From LEVAQUIN) Adverse Reaction (Intermediate, Verified 12/16/24 10:44) TENDON PAIN, achilles tendonitis prednisone Adverse Reaction (Intermediate, Verified 12/16/24 10:44) GI BLEED, high doses valacyclovir (From VALTREX) Adverse Reaction (Intermediate, Verified 12/16/24 10:44) GI UPSET bupropion Adverse Reaction (Verified 12/16/24 10:44) vomiting Medication List - Last Reconciled 12/16/24 by Manuel Covarrubias MD acetaminophen 650 mg PO Q6H PRN albuterol sulfate 2.5 mg (3 mL) inhalation Q4-6H PRN 30 days albuterol sulfate 90 mcg/actuation 2 puffs PO Q4-6H PRN ammonium lactate 5% 1 appl topical DAILY cholecalciferol (vitamin D3) 50 mcg PO DAILY docusate sodium 100 mg PO BID PRN fluticasone furoate 100 mcg/actuation (Arnuity Ellipta) 1 inh inhalation DAILY 30 days furosemide 20 mg PO QAM PRN ipratropium bromide 2 sprays intranasal BID-TID PRN ipratropium-albuterol 0.5 mg-3 mg(2.5 mg base)/3 mL 3 mL inhalation Q4-6H PRN 20 days loratadine 10 mg PO DAILY lorazepam 0.5 mg PO BID PRN methadone 105 mg PO DAILY nicotine 1 patch transdermal DAILY NS ondansetron HCl 4 mg PO BID PRN oxycodone 5 mg PO .daily PRN pantoprazole 40 mg PO BID ramelteon 8 mg PO BEDTIME PRN Stiolto Respimat 2.5-2.5 mcg/actuation (tiotropium-olodaterol) 2 puffs PO DAILY NS tizanidine 4 mg PO Q8H PRN 30 days Do you need a note to return to daycare/school/sports/work: No HPI HPI COPD: Details: Nilsa , 69 years old female, , smoker with advanced chronic obstructive pulmonary disease, history of opioids disorder, chronic anxiety, Comes for pulmonary follow-up after 3 months. A few days ago she had called that she had a mild choking episode and after that increased cough. She has had no fever or chills. She had a chest x-ray on 12/15 which did not show any pneumonia. She claims that she is smoking about 5 or, 6 cigarettes a day. she is not using any nicotine patch. She is trying to quit with the help of social media specialist. [facility] Medical History Acute bronchitis Osteoporosis H/O adenomatous polyp of colon Hammertoe of right foot History of meningitis Nicotine dependence, cigarettes, uncomplicated Generalized anxiety disorder Cervical radiculopathy due to degenerative joint disease of spine Takotsubo cardiomyopathy History of congestive heart failure Anemia Absent pedal pulses Constipation due to opioid therapy Oxygen dependent Allergic rhinitis Vitamin D deficiency Primary osteoarthritis, right shoulder Respiratory failure with hypoxia Surgical menopause Duodenal ulcer Bipolar disorder Gastritis Substance abuse Osteopenia Alcoholic cirrhosis of liver Hepatitis C COPD (chronic obstructive pulmonary disease) Osteoarthritis of multiple joints Surgical History History of resection of rib History of colonoscopy History of ankle surgery History of esophagogastroduodenoscopy (EGD) History of hysterectomy Family History Father Alcoholism History of manic depressive disorder COPD (chronic obstructive pulmonary disease) Cancer Mother COPD (chronic obstructive pulmonary disease) Cardiac disease Smoker CHF (congestive heart failure) Alcoholism CVD (cardiovascular disease) Mental disorder Sister Lupus PTSD (post-traumatic stress disorder) Son Cardiac arrest Maternal Grandfather No problems noted. Maternal Grandmother No problems noted. Paternal Grandfather Alcoholism Mental disorder Paternal Grandmother No problems noted. Social History Housing: Apartment Alcohol intake: current Alcohol intake frequency: 0-2 drinks per day Alcohol type: beer Patient Tobacco Use Status: Current someday Tobacco user Tobacco use type: Cigarette Cigarettes Per Day: 5 Years Smoked: (onset 14yo, 1ppd x 55yrs, now 1/4ppd - 50pyh) e-Cigarette/Vaping Use: Never Used service: No Current occupational status: disabled Cognitive needs: No Hearing needs: No Vision needs: No Review of Systems Const All systems reviewed & are unremarkable except as noted in HPI and below ENT Reports no additional complaints Card Denies chest pain, Denies irregular heart rhythm and Denies leg edema Resp Reports as per HPI GI Reports no additional complaints Reports no additional complaints Musc Reports back pain Skin/Breast Reports system reviewed and no additional complaints, except as documented Neuro Reports no additional complaints Psych Reports no additional complaints Physical Exam Vital Signs: Last Vital Signs Pulse 94 12/16/24 10:15 BP 111/62 12/16/24 10:15 Pulse Ox 95 12/16/24 10:15 Oxygen Delivery Method Nasal Cannula 12/16/24 10:15 Oxygen Flow Rate 1.5 12/16/24 10:15 BMI result Body Mass Index 19.9 Const Other: She is of a thin build, looking fairly healthy and stable at this time. General: comfortable, no acute distress, alert and awake Orientation/consciousness: patient oriented x3 HEENT Head: Yes normal to inspection Ears: hearing grossly normal bilaterally General nose exam: No nasal polyps present and No nasal discharge present Face and sinus: Yes sinuses nontender Mouth: oropharynx normal Throat: Yes posterior oropharynx normal Eyes General: appearance normal, both eyes and all related structures Neck Neck: Yes normal visual inspection, Yes no lymphadenopathy, Yes trachea midline and Yes no JVD Thyroid: Thyroid normal Chest Chest palpation & inspection: normal inspection of the chest, normal palpation of entire chest wall and tenderness (THERE IS MILD TENDERNESS OVER THE RIGHT SUBCOSTAL AREA.) Resp Other: Percussion note hyper-resonant, breath sounds are distant with prolonged expiratory phase. But no wheezes rhonchi or crepitations are heard. Cardio Palpation: normal PMI Rate: regular rate Rhythm: regular rhythm Heart sounds: no gallops and no murmurs GI Palpation (GI): Soft to palpation, nontender, No hepatosplenomegaly present and no masses Auscultation: normal bowel sounds Back/Spine/Pelvis Thoracic/Lumbar Spine: thoracic and lumbar spine normal to inspection Pelvis: no pain with anterior-posterior compression Skin General skin exam: no rashes or lesions noted Neuro General: patient oriented x3 and no focal motor deficits Cranial nerves: Yes CN's II-XII intact bilaterally Extrem General: Yes normal to inspection, Yes no clubbing, cyanosis or edema, Yes no calf tenderness and Yes venous stasis dermatitis (RT LEG ) Psych Speech and movement: Normal speech and movement present Results Reviewed Results Reviewed: 12/15/24 CHEST XRAY . Streaky density in the right base probably represents atelectasis, though early pneumonia is not ruled out. Right-sided Bochdalek hernia containing fat. Electronically signed by: Florentino Ibanez MD 12/15/2024 10:48 AM EDT RP Assessment & Plan Assessment & Plan (1) COPD (chronic obstructive pulmonary disease): Comment: Severe/Advanced COPD - 03/2020 PFT = Severe Obstructive Airway Disorder She claims that her COPD is staying stable. She continues to have frequent bouts of cough which is related to smoking. Code(s): J44.9 - Chronic obstructive pulmonary disease, unspecified Category: Medical Plan: Continue using Stiolto Respimat 2.5 mg 2 puffs daily Arnuity Ellipta-100 once a day Ipratropium-albuterol solution in the nebulizer Q 6 hours p.r.n. Alternatively albuterol HFA 2 puffs Q 6 hours p.r.n.. (2) Oxygen dependent: Comment: Patient has chronic respiratory failure with hypoxemia, being treated with O2 24 hours a day. Currently using 1.5 L/minute continuously. Doing well. Code(s): Z99.81 - Dependence on supplemental oxygen Category: Medical Plan: Continue O2 at 1.5 L/minute continuously (3) Nicotine dependence, cigarettes, uncomplicated: Comment: (onset 14yo, 1ppd x 55yrs, now 1/4ppd - 50pyh) Still smoking about 5 cigarettes a day. Code(s): F17.210 - Nicotine dependence, cigarettes, uncomplicated Category: Medical Plan: Again talked to her and stressed that she has to quit completely (4) Generalized anxiety disorder: Comment: Currently sees therapist regularly and say is she is helping her Code(s): F41.1 - Generalized anxiety disorder Category: Medical Plan: Encouraged to continue seeing the therapist regularly. Coding Level of Care Code Est Pt Level 3 (87030) Diagnoses COPD (chronic obstructive pulmonary disease) J44.9 Oxygen dependent Z99.81 Nicotine dependence, cigarettes, uncomplicated F17.210 Generalized anxiety disorder F41.1
--- OUTSIDE RECORDS SUMMARY | 2024-12-16 11:58 | XMS_ITS | Patient Health Record ---
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 Unavailable Unavailab le Allergies [...] Problem Status W/U Status Risk Notes Problem 48199937 Epigastric pain (R10.13) Active confirmed Problem 893164164 Encounter for screening for malignant neoplasm of colon (Z12.11) Active confirmed Problem 881020388 Alcoholic cirrhosis of liver without ascites (K70.30) Active confirmed Problem Nausea (672128590) Nausea (R11.0) Active confir med Problem Dysphagia (82968367) Dysphagia (R13.10) Active confirmed Problem 76868980 Abdominal pain, epigastric (R10.13) Active confirmed Problem 129359569 Gastroesophageal reflux disease without esophagitis (K21.9) Active confirmed Problem Hiatal hernia (86115820) Hiatal hernia (K44.9) Active confirmed Problem 249269570 Gallstones (K80.20) Active confirmed Problem Gastroesophageal reflux disease (987473803) GERD (gastroesophageal reflux disease) (K21.9) Active confirmed Problem 747467214 Abnormal UGI series (R93.3) Active confirmed Problem 18912888 Duodenal ulcer (K26.9) Active confirmed Problem 12108534 Esophageal dysphagia (R13.10) Active confirmed Problem 594001480 History of pepti c ulcer disease (Z87.11) Active confirmed Vital Signs Temperature 98.4 degrees Fahrenheit 10/27/2024 Blood pressure diastolic 01 mm Hg 10/27/2024 Height 65.5 in 10/27/2024 Blood pressure systolic 001 mm Hg 10/27/2024 Weight 122 lbs 10/27/2024 BMI 19.99 kg/m2 10/27/2024 Encounters Encounter Location Date Provider Diagnosis [facility] [address] [place] [address] 10/27/2024 Marquez Gomez Nausea R11.0 ; GERD [...] Insured Coverage Start Date Coverage End Date [facility] Medicare Advantage Plan [address] [address] [place] [address] [id number] SRINIVAS WRIGHT Self - patient is the [...] /p therapeutic EGD x 2 Colonoscopy at [facility] in a pprox 2005- patient was not clear about the details HTN- not on any meds Denies [place],DM,CVA,renal disease EGD 03/2017- portal gastropa thy, no varices, gastritis with biopsies negative for H. pylori, informed duodenal bulb consistent with previous ulcer disease, moderate sized hiatal hernia Colonoscopy 03/2017- 1 small tubular adenoma removed, diverticulosis, internal hemorrhoids GI Bleed at [facility] in 06/25 18 with an upper [...]
== END 2024-12-16 10:44 | disposition home or self-care (01) ==
LOC: HO.HPS 09:55
PROVIDERS: PCP Internal Medicine; Visit Provider Internal Medicine
DX: J44.9 Chronic obstructive pulmonary disease, unspecified (principal); Z99.81 Dependence on supplemental oxygen; F17.210 Nicotine dependence, cigarettes, uncomplicated; F41.1 Generalized anxiety disorder
CPT/HCPCS: 99213

== ENCOUNTER → 2024-12-16 09:54 | Outpatient (BNVA) | payer MEDICARE, MEDICAID, SELFPAY | PROVIDERS: PCP Internal Medicine; Visit Provider Internal Medicine | DX: F41.1 Generalized anxiety disorder (principal); J44.9 Chronic obstructive pulmonary disease, unspecified; Z99.81 Dependence on supplemental oxygen; F17.210 Nicotine dependence, cigarettes, uncomplicated | CPT/HCPCS: 99212 ==

== ENCOUNTER 2025-01-28 09:33 | Outpatient (AMB) | payer MEDICARE, SELFPAY ==
--- NOTE | 2025-01-28 09:43 | MHC.OFFVIS ---
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 Accompanied by: Self / Same As Patient Allergies dextrose Allergy (Severe, Verified 01/28/25 09:46) anaphylaxis latex (LATEX) Allergy (Severe, Verified 01/28/25 09:46) HIVES psyllium (From Metamucil) Allergy (Severe, Verified 01/28/25 09:46) anaphylaxis clindamycin (CLINDAMYCIN) Allergy (Intermediate, Verified 01/28/25 09:46) RASH NSAIDS (Non-Steroidal Anti-Inflamma Allergy (Intermediate, Verified 01/28/25 09:46) ulcers tramadol (From ULTRAM) Allergy (Intermediate, Verified 01/28/25 09:46) HIVES levofloxacin (From LEVAQUIN) Adverse Reaction (Intermediate, Verified 01/28/25 09:46) TENDON PAIN, achilles tendonitis prednisone Adverse Reaction (Intermediate, Verified 01/28/25 09:46) GI BLEED, high doses valacyclovir (From VALTREX) Adverse Reaction (Intermediate, Verified 01/28/25 09:46) GI UPSET bupropion Adverse Reaction (Verified 01/28/25 09:46) vomiting Medication List - Last Reconciled 01/28/25 by Jeffrey Walker MD acetaminophen 650 mg PO Q6H PRN albuterol sulfate 2.5 mg (3 mL) inhalation Q4-6H PRN 30 days albuterol sulfate 90 mcg/actuation 2 puffs PO Q4-6H PRN ammonium lactate 5% 1 appl topical DAILY cholecalciferol (vitamin D3) 50 mcg PO DAILY docusate sodium 100 mg PO BID PRN fluticasone furoate 100 mcg/actuation (Arnuity Ellipta) 1 inh inhalation DAILY 30 days furosemide 20 mg PO QAM PRN hydroxyzine pamoate (Vistaril) 25 mg PO ONCE ipratropium bromide 2 sprays intranasal BID-TID PRN ipratropium-albuterol 0.5 mg-3 mg(2.5 mg base)/3 mL 3 mL inhalation Q4-6H PRN 20 days loratadine 10 mg PO DAILY lorazepam 0.5 mg PO BID PRN methadone 115 mg PO DAILY ondansetron HCl 4 mg PO BID PRN oxycodone 5 mg PO .daily PRN pantoprazole 40 mg PO BID ramelteon 8 mg PO BEDTIME PRN tizanidine 4 mg PO Q8H PRN 30 days HPI Comments Details: Nilsa returns for follow-up. Originally seen in consultation regarding cardiomyopathy. [facility] records were reviewed. Patient with a history of COPD and chronic respiratory failure. Substance abuse history. In 2022, it seems that she was admitted to [facility] after being found unresponsive. She required intubation. Tox screen was positive for cocaine, benzodiazepines and fentanyl. Then had NSTEMI. Echocardiogram with LVEF in the 15-20% range; mid to distal and apical ruano were akinetic sparing the base and hence thought to be takotsubo cardiomyopathy. Then underwent cardiac catheterization with only minimal irregularities. Otherwise, she has a long history of smoking and it seems she still smokes. Denies any current drug use. She has COPD requiring oxygen. Since last seen, she states she is generally doing okay from cardiac and does not have any specific concerns. No angina or other new issues. [facility] Medical History Acute bronchitis Osteoporosis H/O adenomatous polyp of colon Hammertoe of right foot History of meningitis Nicotine dependence, cigarettes, uncomplicated Generalized anxiety disorder Cervical radiculopathy due to degenerative joint disease of spine Takotsubo cardiomyopathy History of congestive heart failure Anemia Absent pedal pulses Constipation due to opioid therapy Oxygen dependent Allergic rhinitis Vitamin D deficiency Primary osteoarthritis, right shoulder Respiratory failure with hypoxia Surgical menopause Duodenal ulcer Bipolar disorder Gastritis Substance abuse Osteopenia Alcoholic cirrhosis of liver Hepatitis C COPD (chronic obstructive pulmonary disease) Osteoarthritis of multiple joints Surgical History History of resection of rib History of colonoscopy History of ankle surgery History of esophagogastroduodenoscopy (EGD) History of hysterectomy Family History Father Alcoholism History of manic depressive disorder COPD (chronic obstructive pulmonary disease) Cancer Mother COPD (chronic obstructive pulmonary disease) Cardiac disease Smoker CHF (congestive heart failure) Alcoholism CVD (cardiovascular disease) Mental disorder Sister Lupus PTSD (post-traumatic stress disorder) Son Cardiac arrest Maternal Grandfather No problems noted. Maternal Grandmother No problems noted. Paternal Grandfather Alcoholism Mental disorder Paternal Grandmother No problems noted. Social History Housing: Apartment Alcohol intake: current Alcohol intake frequency: 0-2 drinks per day Alcohol type: beer Patient Tobacco Use Status: Current someday Tobacco user Tobacco use type: Cigarette Cigarettes Per Day: 5 Years Smoked: (onset 14yo, 1ppd x 55yrs, now 1/4ppd - 50pyh) e-Cigarette/Vaping Use: Never Used service: No Current occupational status: disabled Cognitive needs: No Hearing needs: No Vision needs: No Review of Systems Const Denies daytime sleepiness, Denies difficulty sleeping, Denies snoring, Denies stops breathing during sleep and Denies weakness Card Denies chest pain, Denies rapid heart rate, Denies irregular heart rhythm, Denies claudication, Denies leg edema, Denies lightheadedness, Denies palpitations, Reports dyspnea, Denies dyspnea on exertion, Denies orthopnea, Denies paroxysmal nocturnal dyspnea and Denies slow heart rate Resp Denies cough, Reports dyspnea, Denies dyspnea on exertion and Denies snoring GI Reports no additional complaints, Denies hematochezia, Denies change in stool character and Denies dyspepsia Musc Denies abnormal gait, Denies muscle weakness and Denies numbness Neuro Denies Abnormal speech present, Denies abnormal gait, Denies numbness and Denies weakness Endo Denies palpitations Physical Exam Vital Signs: Last Vital Signs Pulse 121 H 01/28/25 09:44 BP 110/70 01/28/25 09:44 BMI result Body Mass Index 19.7 Const General: comfortable and no acute distress Orientation/consciousness: patient oriented x3 HEENT Other: Unremarkable Head: Yes normal to inspection Neck Neck: Yes normal visual inspection Chest Chest palpation & inspection: normal inspection of the chest Resp Auscultation: crackles Cardio Palpation: normal PMI Heart sounds: S1 normal heart sound present, S2 normal heart sound present, no gallops, no murmurs and no rubs GI Palpation (GI): Soft to palpation Back/Spine/Pelvis Other: unremarkable Skin General skin exam: no rashes or lesions noted Neuro General: patient oriented x3 Speech: No Abnormal speech present Extrem General: Yes normal to inspection Psych Mental Status: mental status grossly normal Office Procedures EKG Details: EKG with sinus tachycardia at 121/Min; low-voltage QRS complexes; cannot exclude old septal infarct but could be from body habitus and pulmonary issues; [place] [id number], Complete Assessment & Plan Assessment & Plan (1) Takotsubo cardiomyopathy: Code(s): I51.81 - Takotsubo syndrome Category: Medical (2) Mitral annular calcification: Code(s): I34.81 - Nonrheumatic mitral (valve) annulus calcification Category: Medical (3) COPD (chronic obstructive pulmonary disease): Comment: Severe/Advanced COPD - 03/2020 PFT = Severe Obstructive Airway Disorder She claims that her COPD is staying stable. She continues to have frequent bouts of cough which is related to smoking. Code(s): J44.9 - Chronic obstructive pulmonary disease, unspecified Category: Medical (4) Oxygen dependent: Comment: Patient has chronic respiratory failure with hypoxemia, being treated with O2 24 hours a day. Currently using 1.5 L/minute continuously. Doing well. Code(s): Z99.81 - Dependence on supplemental oxygen Category: Medical Plan Per discharge summary information, echocardiogram in 12/2022 with LVEF 15-20%. Mid to distal, apical akinesis, sparing the base and thought to be takotsubo. Cardiac catheterization then with minimal luminal irregularities only. Another echocardiogram from 2023 with LVEF of 65-70%. There was severe hypokinesis in the mid ventricular segments but vigorous function at the apex and base and thought to be a mid ventricular variant of stress-induced cardiomyopathy. In the most recent echocardiogram from 06/2024, LVEF 65-70% with no wall motion abnormalities. Mild aortic valve calcification with moderate mitral annular calcification. Overall, suspected stress-induced cardiomyopathy with recovered LVEF. In this instance, no specific management. Doubt she can take any beta-blockers due to advanced COPD. Also, blood pressure is somewhat lowish. Unlikely she will tolerate other medications like Entresto either. She has had somewhat labile readings in the past. Main limitations rather from COPD/smoking/oxygen dependence. Hence needs to work on that. Sinus tachycardia is mainly related to underlying pulmonary issues in reactive tachycardia for compensation, and additionally, she had walked in the cold for a fair distance to get here. No specific management again. Discussion Notes During the visit, we discussed the patient's cardiovascular health, focusing on her history of Takotsubo cardiomyopathy and current tachycardia. I advised her to continue monitoring her heart health and emphasized the importance of smoking cessation to prevent further complications. Patient was informed and verbally consented to the use of an ambient scribe for clinic note documentation during this visit. Patient Instructions: - Monitor heart rate and report any significant changes or symptoms. - Cease smoking to improve cardiovascular health and prevent further complications. - Contact us immediately if new symptoms develop. Coding Level of Care Code Est Pt Level 4 (32745) Complex EM visit Add On G2211 Diagnoses Takotsubo cardiomyopathy I51.81 Mitral annular calcification I34.81 COPD (chronic obstructive pulmonary disease) J44.9 Oxygen dependent Z99.81 CPT Codes EKG - CPT: 79213-Egcrsyrboutgqfast, Complete ([id number])
[2025-01-28 09:44] VITALS: BP 110/70; PULSE 121; BMI 19.7
--- OUTSIDE RECORDS SUMMARY | 2025-01-28 10:54 | XMS_ITS | Clinical Summary ---
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 Active albuterol HFA (PROAIR HFA ; PROVENTIL HFA ; VENTOLIN HFA) 90 mcg/actuation inhaler Inhale 2 puffs by mouth. every 4 to 6 hours prn for wheezing Active ALPRAZolam (XANAX) 0.5 mg tablet TAKE 1 TABLET BY MOUTH NEEDED FOR PANIC ATTACK 5 Active cholecalciferol (VITAMIN D-3) 50 mcg (2,000 unit) capsule Take 1 capsule (2,000 Units total) by mouth 1 (one) time each day. 5 Active Arnuity Ellipta 100 mcg/actuation blister with device inhaler INHALE 1 PUFF BY MOUTH DAILY FOR ASTHMA 5 Active furosemide (LASIX) 20 mg tablet TAKE 1 TABLET BY MOUTH EVERY MORNING NEEDED FOR SWELLING 5 Active ipratropium (ATROVENT) 21 mcg (0.03 %) nasal spray INSTILL 2 SPRAYS INTRANASALLY 2-3 TIMES DAILY NEEDED FOR ALLERGIES Active loratadine (CLARITIN) 10 mg tablet Take 1 tablet (10 mg total) by mouth 1 (one) time each day. Active LORazepam (ATIVAN) 0.5 mg tablet Take 1 tablet (0.5 mg total) by mouth 1 (one) time each day if needed. Max Daily Amount: 0.5 mg Active ondansetron (ZOFRAN) 4 mg tablet Take 1 tablet (4 mg total) by mouth. Active oxyCODONE (ROXICODONE) 5 mg immediate release tablet TAKE 1 TABLET BY MOUTH DAILY NEEDED FOR SEVERE PAIN 5 Active pantoprazole (PROTONIX) 40 mg EC tablet Take 1 tablet (40 mg total) by mouth 2 (two) times a day. Active ramelteon (ROZEREM) 8 mg tablet Take 1 tablet (8 mg total) by mouth. 3 Active Stiolto Respimat 2.5-2.5 mcg/actuation mist inhaler Inhale by mouth. 3 Active tiZANidine (ZANAFLEX) 4 mg tablet Take 1 tablet (4 mg total) by mouth every 8 (eight) hours if needed for muscle spasms. 5 Active Encounters Date Type Department Care Team Description 12/15/2024 9:30 AM EDT Consult Vascular Surgery - [address] [address] Carla Summers MD Hammertoes of both feet (Primary Dx); Bilateral femoral artery stenosis (CMS/HCC V24) from Last 3 Months Medical History Medical History Date Comments COPD (chronic obstructive pulmonary disease) (CM S/HCC V24, CMS/HCC V28) CHF (congestive heart failure) (CMS/HCC V24, CMS /HCC V28) Social History Tobacco Use Types Packs/Day [...] Sign Reading Time Taken Comments Blood Pressure 110/80 12/15/2024 9:19 AM EDT Pulse 72 12/15/2024 9:19 AM EDT Temperature 36.1 C (97 F) 02/21/2024 8:23 PM EST Respiratory Rate 16 12/15/2024 9:19 AM EDT Oxygen Saturation 95% 02/21/2024 8:23 PM EST Inhaled Oxygen Concentration - - Weight 55.8 kg (123 lb) 12/15/2024 9:19 AM EDT Height 167.6 cm (5' 6 ) 12/15/2024 9:19 AM EDT Body Mass Index 19.85 12/15/2024 9:19 AM EDT Plan of Treatment Upcoming Encounters Date Type Department Care Team (Late st Contact Info) Description 02/15/2025 9:00 AM EST Office Visit Orthopedic Surgery - [place] [address] [address] Mansoor Frey, DPM [address] [phone] Health Maintenance Due Date Last Done Comments Breast Cancer Screening 1955 Colorectal Cancer Screening: Colonoscopy 1955 Hepatitis A Vaccines (1 of 2 - Risk 2-dose series) 1975 RSV Immunization Adult Patients (1 - Risk 50-74 years 1-dose series) 2006 Hepatitis B Vaccines (1 of 3 - Risk 3-dose series) 2016 Zoster Vaccines (2 of 3) 01/18/2017 11/23/2016 Cholesterol Screening (Lipid Panel) 03/06/2022 Falls Risk Assessment 03/06/2022 Hepatitis C Screening 03/06/2022 Medicare Annual Wellness Visit 03/06/2022 Osteoporosis Screening (Bone Density Screening) 03/06/2022 Social Influencers of Health Screening 03/06/2022 DTaP,Tdap,and Td Vaccines (2 - Td or Tdap) 04/09/2023 04/09/2013 Pneumococcal Vaccine: 50+ Years (3 of 3 - PCV20 or PCV21) 10/03/2023 10/02/2018, 01/10/2016, 12/01/2013, Additional history exists Depression Screening 04/08/2024 COVID-19 Vaccine (4 - season) 2024 07/06/2021, 09/02/2020, 07/30/2020 Influenza Vaccine (#1) 2024 , 03/13/2022, 01/03/2021, Additional history exists Hypertension/CHF/CAD [...] mmol/L LAB CHEMISTRY METHOD 02/21/2024 4:16 PM EST [facility] Potassium 3.9 3.5 - 5.5 mmol/L LAB CHEMISTRY METHOD 02/21/2024 4:16 PM EST [facility] Chloride 102 96 - 110 mmol/L LAB CHEMISTRY METHOD 02/21/2024 4:16 PM [facility] CO2 31 21 - 32 mmol/L LAB CHEMISTRY METHOD 02/21/2024 4:16 PM [facility] Anion Gap 4 3 - 11 LAB CHEMISTRY METHOD 02/21/2024 4:16 PM [facility] Glucose 82 70 - 100 mg/dL LAB CHEMISTRY METHOD 02/21/2024 4:16 PM [facility] BUN 8 5 - 25 mg/dL LAB CHEMISTRY METHOD 02/21/2024 4:16 PM [facility] Creatinine 0.75 0.50 - 1.10 mg/dL LAB CHEMISTRY METHOD 02/21/2024 4:16 PM [facility] eGFR 87 >=60 mL/min/1. 73m2 LAB CHEMISTRY METHOD 02/21/2024 4:16 PM [facility] Comment:Calculation based on the Chronic Kidney Disease Epidemiology Collaboration (CKD-EPI) equation refit without adjustment for race. BUN/Creatinine Ratio 10.7 LAB CHEMISTRY METHOD 02/21/2024 4:16 PM [facility] Calcium 9.2 8.5 - 10.5 mg/dL LAB CHEMISTRY METHOD 02/21/2024 4:16 PM [facility] Blood Venous blood specimen / Unknown Venipuncture / Unknown 02/21/2024 3:23 PM EST 02/21/2024 3:25 PM EST us Nicole Carmona DO LAB BLOOD ORDERABLES Nina l Result [facility] [address] [place] [address], from Last 3 Months or Most Recently Relevant to Health Maintenance Additional Health Concerns Infection Onset Date Last Indicated MRSA 02/21/2024 02/21/2024 Insurance MEDICAID - [place] MEDICARE [facility] Care Teams Plug Saw Operator Relationship Specialty Start Date End Date Nena Milner MD [address] [place] [address] PCP - General Internal Medicine 07/03/24
== END 2025-01-28 10:05 | disposition home or self-care (01) ==
LOC: HO.HCS 09:34
PROVIDERS: PCP Internal Medicine; Visit Provider Internal Medicine
DX: I51.81 Takotsubo syndrome (principal); I34.81 Nonrheumatic mitral (valve) annulus calcification; J44.9 Chronic obstructive pulmonary disease, unspecified; Z99.81 Dependence on supplemental oxygen
CPT/HCPCS: 93010; 99214; G2211

== ENCOUNTER → 2025-01-28 09:33 | Outpatient (BNVA) | payer MEDICARE, SELFPAY | PROVIDERS: PCP Internal Medicine; Visit Provider Internal Medicine | DX: I51.81 Takotsubo syndrome (principal); I34.81 Nonrheumatic mitral (valve) annulus calcification; J44.9 Chronic obstructive pulmonary disease, unspecified; Z99.81 Dependence on supplemental oxygen; R00.0 Tachycardia, unspecified; R94.31 Abnormal electrocardiogram [ECG] [EKG] | CPT/HCPCS: 93005; 99212 ==

== ENCOUNTER 2025-04-07 11:56 | Outpatient (REF) | payer MEDICARE, SELFPAY ==
[2025-04-07 12:46] LABS: Creatinine, mg/dL 24.17
--- OUTSIDE RECORDS SUMMARY | 2025-04-07 13:44 | XMS_ITS | Patient Health Record ---
Author Organization [facility] Address [address] [place] [address] Care Team Providers Care Belt Sander Name Role Phone Annia MAJOR, Nena Primary Care Provider Marquez Banks Unavailable [phone] Bao Naylor, José Wilder Unavailab le Allergies Allergen (clinical drug ingredient) Drug/Non Drug Allergy documented on EMR Reaction Allergy Type Onset Date Status Latex latex (uncoded) Unknown Allergy Acti ve clindamycin Clindamycin HCl Unknown Drug Allergy Active Levaquin Unknown Drug Allergy Active levofloxacin Levofloxacin Unknown Drug Allergy A ctive psyllium Metamucil Unknown Drug Allergy Active Psyllium Unknown Drug Allergy Active tramadol Tramadol HCl Unknown Drug Allergy Acti ve tramadol Ultram Unknown Drug Allergy Active valacyclovir Valtrex Unknown Drug Allergy Acti ve Reason For Referral No Information Medications Medication SIG (Take, Route, Frequency, Duration) Notes Start Date End Date Status Ondansetron HCl 4 MG Tablet 1 tablet Ora lly Every 4 to 6 hours if needed for nausea; Duration: 30 days Active Ondansetron HCl 4 MG Tablet Take 1 table t three times a day Orally 3 times a day; Duration: 30 days Active Spiriva HandiHaler 18 MCG Capsule INHALE THE CONTENT OF 1 C VIA HANDIHALER ONCE A DAY Inhalation; Duration: 30 Active ProAir HFA 108 (90 Base) MCG/ACT Aerosol Solution INHALE 1 PUFF PO Q 4 TO 6 H PRN Inhalation; Duration: 30 Active Pantoprazole Sodium 40 MG Tablet Delayed Release TAKE 1 TABLET BY MOUTH TWICE DAILY; Duration: 30 Active hydrOXYzine HCl 25 MG Tablet Oral; Duration: 10 Active tiZANidine HCl 2 MG Tablet TK 1 C PO TID PRN Oral; Duration: 30 Active Spironolactone 25 MG Tablet TK 1 T PO D WITH FOOD Oral; Duration: 30 Active Loratadine 10 MG Tablet TK 1 T PO QD Ora l; Duration: 30 Active Ramelteon 8 MG Tablet TAKE 1 TABLET BY M OUTH AT BEDTIME NEEDED FOR INSOMNIA Oral; Duration: 30 Active Ativan 0.5 MG Tablet 1 tablet at bedtime as needed Orally Once a day Active Furosemide 20 MG Tablet TAKE 1 TABLET BY MOUTH EVERY MORNING NEEDED FOR SWELLING Oral; Duration: 20 Active Methadone HCl - Powder as directed 105 Active Stiolto Respimat 2.5-2.5 MCG/ACT Aerosol Solution INHALE 2 PUFFS BY MOUTH EVERY DAY Inhalation; Duration: 30 Active Vitamin D 50 MCG (1999) Tablet 1 tablet Orally Once a day; Duration: 30 day(s) Active Ondansetron HCl 8 MG Tablet TK 1 T PO BI D PRF NAUSEA OR VOM Oral; Duration: 30 Active Ondansetron HCl 4 MG Tablet 1 tablet Ora lly 3 times a day for nausea; Duration: 30 days 10/27/2024 Active Immunizations Vaccine Route Administration Date Status Comme nts Influenza Unknown 12/08/2019 Administered Influenza Unknown 01/25/2021 Administered Influenza Unknown 01/28/2024 Administered Social History Tobacco Use: Social History Observation Description Date Details (start date - stop date) Current Smoker NA - NA Social History Drug/Alcohol: Social Info Question Answer Notes AUDIT-C (Standard) Did you have a drink containing alcohol in the past year? Yes How often did you have a drink containing alcohol in the past year? Daily or almost daily (4 points) How many drinks did you have on a typical day when you were drinking in the past year? 1 or 2 drinks (0 point) How often did you have six or more drinks on one occasion in the past year? Never (0 point) Points 4 Interpretation Positive Tobacco Use: Social Info Question Answer Notes Tobacco Use/Smoking Patient is a current smoker How often do you smoke cigarettes? every day How many cigarettes a day do you smoke? 5 or less Additional Details Category Social Info Options Details Miscellaneous: Marital status: Occupation: disabled Section Notes: Former substance abuse--pills and IV [...] Problem Status W/U Status Risk Notes Problem Epigastric pain (18415838) Epigastric pain (R10.13) Active confirmed Problem Screening for malignant neoplasm of colon (160081834) Encounter for screening for malignant neoplasm of colon (Z12.11) Active confirmed Problem Alcoholic cirrhosis (062329438) Alcoholic cirrhosis of liver without ascites (K70.30) Active confirmed Problem Nausea (465550295) Nausea (R11.0) Active confir med Problem Dysphagia (91458242) Dysphagia (R13.10) Active confirmed Problem Epigastric pain (48944915) Abdominal pain, epigastric (R10.13) Active confirmed Problem Gastroesophageal reflux disease without esophagitis (641135325) Gastroesophageal reflux disease without esophagitis (K21.9) Active confirmed Problem Hiatal hernia (57295867) Hiatal hernia (K44.9) Active confirmed Problem Gallstones (305012259) Gallstones (K80.20) Active confirmed Problem Gastroesophageal reflux disease (731121518) GERD (gastroesophageal reflux disease) (K21.9) Active confirmed Problem Abnormal UGI series (R93.3) Active confirmed Problem Duodenal ulcer (08037168) Duodenal ulcer (K26.9) Active confirmed Problem Esophageal dysphagia (04655241) Esophageal dysphagia (R13.10) Active confirmed Problem History of peptic ulcer (408386176) History of peptic ulcer disease (Z87.11) Active confirmed Vital Signs Temperature 98.4 degrees Fahrenheit 10/27/2024 Blood pressure diastolic 01 mm Hg 10/27/2024 Height 65.5 in 10/27/2024 Blood pressure systolic 001 mm Hg 10/27/2024 Weight 122 lbs 10/27/2024 BMI 19.99 kg/m2 10/27/2024 Encounters Encounter Location Date Provider Diagnosis [facility] [address] [place] [address] 10/27/2024 Marquez Gomez Nausea R11.0 ; GERD (gastroesophageal reflux disease) K21.9 and Hiatal hernia K44.9 Assessments Encounter Date Diagnosis (ICD Code) Assessment Notes Treatment Notes Treatment Clinical Notes Section Notes 10/27/2024 Nausea (ICD-10 - R11.0) Continue the Ondansetron Overall, Nilsa is not having any new or worrisome [...] point, if things remain stable, I advised Nilsa to see me again on an as needed basis. Nilsa was comfortable with this plan. Thank you again for allowing me to have participated in Nilsa's care. I shall continue to keep you advised of her progress as needed. Please do not hesitate to contact me if I can be of any further assistance in the future. 10/27/2024 GERD (gastroesopha geal reflux disease) (ICD-10 - K21.9) Continue the Pantoprazole Overall, Nilsa is not having any new or worrisome [...] point, if things remain stable, I advised Nilsa to see me again on an as needed basis. Nilsa was comfortable with this plan. Thank you again for allowing me to have participated in Nilsa's care. I shall continue to keep you advised of her progress as needed. Please do not hesitate to contact me if I can be of any further assistance in the future. 10/27/2024 Hiatal hernia (ICD-10 - K44.9) Overall, Nilsa is not having any new or worrisome [...] point, if things remain stable, I advised Nilsa to see me again on an as needed basis. Nilsa was comfortable with this plan. Thank you again for allowing me to have participated in Nilsa's care. I shall continue to keep you advised of her progress as needed. Please do not hesitate to contact me if I can be of any further assistance in the future. Plan Of Treatment Pending Test Test Name Order Date LIVER PROFILE 08/09/2020 CBC w DIFF 01/02/2017 CBC w DIFF 08/09/2020 PROTHROMBIN TIME (PT, INR) 08/09/2020 PROTHROMBIN TIME (PT, INR) 01/02/2017 ALPHA-FETOPROTEIN,TUMOR MARKER 7 ALPHA-FETOPROTEIN,TUMOR MARKER 1 NUC HIDA SCAN 06/21/2021 XR BARIUM SWALLOW-ESOPHAGUS 08/09/2020 XR GI SERIES 08/09/2020 US ABD 08/09/2020 Future Test Test Name Order Date UPPER GI ENDOSCOPY 01/02/2017 COLONOSCOPY 01/02/2017 UPPER GI ENDOSCOPY [place] DILATION OF ESOPH 07/13/2021 Insurance Providers Payer Name Payer Address Payer Phone Subscriber Number Group Number Insured Name Patient Relationship to Insured Coverage Start Date Coverage End Date [facility] Medicare Advantage Plan [address] [address] [place] [address] [id number] NILSA WRIGHT Self - patient is the insured [...] /p therapeutic EGD x 2 Colonoscopy at [facility] in a pprox 2004- patient was not clear about the details HTN- not on any meds Denies AL,DM,CVA,renal disease EGD 03/2017- portal gastropa thy, no varices, gastritis with biopsies negative for H. pylori, informed duodenal bulb consistent with previous ulcer disease, moderate sized hiatal hernia Colonoscopy 03/2017- 1 small tubular adenoma removed, diverticulosis, internal hemorrhoids GI Bleed at [facility] in 06/25 17 with an upper endoscopy- ? results- -needed [...] for eosinophilic esophagitis. Surgical History Surgery Date(Month/Year) Ankle surgery-fracture Left rib surgery for a benign tumor Hysterectomy
--- OUTSIDE RECORDS SUMMARY | 2025-04-07 13:44 | XMS_ITS | Clinical Summary ---
Author Organization [facility] Address [address] [place] [address] Phone Care Team Providers Care Customer Account Coordinator Name Role Phone Nena Milner MD [...] if needed for muscle spasms. 5 Active Medical History Medical History Date Comments COPD (chronic obstructive pulmonary disease) ([facility] V24, [facility] V28) CHF (congestive heart failure) ([facility] V24, [facility] V28) Social History Tobacco Use Types Packs/Day [...] on file Sexual Orientation Not on file Last Filed Vital Signs Vital Sign Reading [...] 12/15/2024 9:19 AM EDT Plan of Treatment Health Maintenance Due Date Last Done Comments Breast Cancer Screening 1955 Colorectal Cancer Screening: Colonoscopy 1955 Drug Screen 1955 Non-Opioid Controlled Substance Agreement 1955 Hepatitis A Vaccines (1 of 2 [...] LAB CHEMISTRY METHOD 02/21/2024 4:16 PM EST [facility] eGFR 87 >=60 mL/min/1. 73m2 LAB CHEMISTRY METHOD 02/21/2024 4:16 PM EST [facility] Comment:Calculation based on the Chronic Kidney Disease Epidemiology Collaboration (CKD-EPI) equation refit without adjustment for race. 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
[2025-04-07 20:50] LABS: Total Volume 24 Hour Urine 1500 mL
[2025-04-09 21:19] LABS: Calcium/Creatinine Ratio 258 mg/g creat (30-275); Creatinine 24Hr Urine 0.39 g/24 h (0.50-2.15)
== END 2025-04-07 11:57 | disposition home or self-care (01) ==
LOC: HO.LNP 11:56
PROVIDERS: Visit Provider Internal Medicine Endocrinology, Diabetes & Metabolism
DX: M81.0 Age-related osteoporosis without current pathological fracture (principal)
CPT/HCPCS: 82340; 82570